=== PATIENT | male | born 1965 | race Caucasian/White ===

== ENCOUNTER 2018-03-13 15:08 | Emergency (ER) | payer MEDICAID, SELFPAY ==
[2018-03-13] VITALS (20 sets, daily range): BP systolic 100–184; BP diastolic 59–87; PULSE 55–78; RESP 13–24; TEMP 37.4; O2SAT 93–99
--- NOTE | 2018-03-13 15:46 | ED.GENADUL_ITS ---
Discharge Plan Disposition Patient Disposition: HOME Condition: Improving Discharge Details Chief Complaint: Chest Pain Clinical Impression: Atypical chest pain Primary Care Provider: González Ohara ED Provider: Bairon Muñoz Home Meds and New Rx's Prescriptions: Continue blood-glucose meter [OneTouch Ultra2] 1 EACH kit 1 ea Miscellaneous BID Qty: 1 RF: 0 metoprolol tartrate 50 MG tablet 50 mg PO BID Qty: 180 RF: 3 amlodipine [Norvasc] 10 MG tablet 1 tab PO QAM Qty: 90 RF: 4 indomethacin 50 MG capsule 50 mg PO TID FOR 5 DAYS PRN 5 Days Qty: 30 RF: 0 ONETOUCH ULTRA TEST STRIPS 1 EACH strip 1 ea Miscellaneous BID Qty: 100 RF: 4 metformin 500 MG tablet 500 mg PO BID Qty: 180 RF: 4 lancets [OneTouch Delica Lancets] 1 EACH misc 1 ea Miscellaneous BID Qty: 100 RF: 4 ibuprofen 800 MG tablet 800 mg PO TID Qty: 21 RF: 1 lisinopril 40 MG tablet 0.5 tab PO DAILY Qty: 90 RF: 4 hydrochlorothiazide 25 mg tablet 25 mg PO DAILY Qty: 90 RF: 4 garlic 1 EACH tablet 1 tab PO DAILY RF: 0 cinnamon bark 500 MG capsule 1,000 mg PO DAILY RF: 0 omega-3 fatty acids-fish oil 1 EACH capsule 1 cap PO DAILY RF: 0 diphenhydramine HCl 25 MG capsule 50 mg PO Q6H PRN (Reason: Itching) Qty: 20 RF: 0 Discharge Instructions Instructions: Chest Pain (ED) Additional Instructions: Please follow-up with Dr. Ohara in clinic in the next 1-2 weeks for a recheck. Call for an appointment. Return if you develop chest pain that becomes persistent, is associated with shortness of breath, or any other acute concerns. Continue your regular medications. Please follow through with your plans to decrease cigarette use and begin a regular exercise regimen as it benefited you greatly in the past Medical Decision Making 53-year-old male smoker with a history of diabetes presents with intermittent episodes of atypical, brief left anterior chest discomfort the last seconds at a time and is been occurring over weeks time. Is not particularly exertional. He denies associated symptoms. He arrives to the ER with mild hypertension, otherwise unremarkable vital signs. Differential diagnosis includes atypical chest pain, occult pneumonitis, acute coronary syndrome. Do not appreciate significant evidence of DVT or fluid overload. Patient referred for blood work, EKG, chest x-ray. Patient's diagnostic studies are reassuring without acute/significant findings. His discomfort began 4 hours prior to presentation, diminished without intervention and is not ongoing. Do not feel that he requires repeat troponin. He is improved, without further complaints. Discussed with the patient and his partner return precautions. He will followup with Dr Ohara for recheck. Lab Data Lab results reviewed: Yes I reviewed the patient's lab results. Laboratory Results - last 24 hr 03/13/18 03/13/18 15:20 15:20 WBC 8.48 RBC 5.24 Hgb 16.1 Hct 46.2 MCV 88.2 MCH 30.7 MCHC 34.8 RDW 12.8 Plt Count 129 L MPV 12.5 H Immature Gran % 0.2 Neutrophils % 56.1 Lymphocytes % 31.7 Monocytes % 9.7 Eosinophils % 1.9 Basophils % 0.4 Absolute Neutrophils 4.76 Absolute Lymphocytes 2.69 Absolute Monocytes 0.82 H Absolute Eosinophils 0.16 Absolute Basophils 0.03 Sodium 138 Potassium 3.8 Chloride 99 Carbon Dioxide 28.9 Anion Gap 10.1 BUN 19 H Creatinine 0.96 Estimated GFR/1.73 m2 >= 60.00 Glucose 106 H Calcium 9.3 Magnesium 1.8 Total Bilirubin 0.3 AST 15 ALT 30 Alkaline Phosphatase 54 Troponin I < 0.02 Total Protein 8.0 Albumin 4.2 ECG Data Attestation: I personally reviewed and interpreted this ECG (s) as follows: Interpretation: Normal sinus rhythm, rate of 77, the QRS is narrow, there is no ST segment elevation HPI General Mode of arrival: ambulatory . Date/Time Provider Initiated Documentation: 03/13/18 15:13 . Limitations to Documentation: no limitations . Information obtained by: patient . History of Present Illness 53 year old M presents to the emergency department with the chief complaint of Chest pain and twinges, described as mild, with intensity rated at 2. and is localized to the chest and left. Patient reports no radiation. Patient started experiencing this minute(s) and it has been intermittent and now resolved. No relieving factors improve symptom(s), No exacerbating factors reported . Patient notes no other symptoms.. HPI Narrative: Chest pain, twinges intermittently lasting seconds at a time over 2 weeks time. Became worried that may be a heart attack today and presents for evaluation. States he had a negative left heart cath in 2003. No known history of coronary artery disease. He does continue to smoke Related Data Home Medications Medication Instructions Recorded Confirmed blood-glucose meter [[employer]Touch #1 kit 08/27/16 Ultra2] metoprolol tartrate 50 mg PO BID #180 tab-cap 03/24/17 amlodipine [Norvasc] 1 tab PO QAM #90 tab-cap 05/02/17 indomethacin 50 mg PO TID FOR 5 DAYS PRN 5 Days 06/17/17 #30 tab-cap cinnamon bark 1,000 mg PO DAILY 09/21/17 09/21/17 diphenhydramine HCl 50 mg PO Q6H PRN #20 cap 09/21/17 garlic 1 tab PO DAILY 09/21/17 09/21/17 omega-3 fatty acids-fish oil 1 cap PO DAILY 09/21/17 09/21/17 metformin 500 mg PO BID #180 tab 10/16/17 lancets [[employer]Touch Delica Lancets] #100 ea 11/18/17 ibuprofen 800 mg PO TID #21 tab-cap 12/05/17 lisinopril 0.5 tab PO DAILY #90 tab-cap 12/18/17 hydrochlorothiazide 25 mg tablet 25 mg PO DAILY #90 tab-cap 02/11/18 Previous Rx's Medication Instructions Recorded metoprolol tartrate 50 mg PO BID #180 tab-cap 03/24/17 amlodipine [Norvasc] 1 tab PO QAM #90 tab-cap 05/02/17 indomethacin 50 mg PO TID FOR 5 DAYS PRN 5 Days 06/17/17 #30 tab-cap diphenhydramine HCl 50 mg PO Q6H PRN #20 cap 09/21/17 metformin 500 mg PO BID #180 tab 10/16/17 lancets [[employer]Touch Delica Lancets] #100 ea 11/18/17 ibuprofen 800 mg PO TID #21 tab-cap 12/05/17 lisinopril 0.5 tab PO DAILY #90 tab-cap 12/18/17 hydrochlorothiazide 25 mg tablet 25 mg PO DAILY #90 tab-cap 02/11/18 Allergies Allergy/AdvReac Type Severity Reaction Status Date / Time No Known Allergies Allergy Unverified 12/05/17 10:32 General Stated Complaint: Chest Pain SARAH: 2 Review of Systems Review of Systems 8 systems reviewed and otherwise negative PFSH Social History Smoking/Tobacco Use Status: Current every day Surgical History LEFT HEART CARDIAC CATH (~2003) Exam Narrative Exam Narrative: GEN: awake, alert, oriented 3. Pleasant, well groomed, interactive. HEAD: Normocephalic, atraumatic ENT: Mucous membranes moist, oropharynx unremarkable, External ear exam unremarkable EYES: PERRL, EOMI NECK: Full ROM, no KELLIE, no menigismus CHEST/RESP: Nontender, clear to auscultation bilateral, no wheeze/rhonchi/rales CARDIOVASCULAR: RRR, no murmur, rub paul. 2+ Rad pulse bilateral ABDOMEN: Soft, nontender, no mass. +Bowel sounds EXT: Full ROM, no edema, no rash Neuro: Grossly normal neurologic exam, conversant, interactive. Psych: Speech fluent, thoughts congruent, affect normal Course Vital Signs Temperature 37.4 C 03/13/18 15:19 Pulse 74 03/13/18 15:19 Respiratory Rate 23 03/13/18 15:19 Blood Pressure 184/87 H 03/13/18 15:19 Pulse Oximetry 98 03/13/18 15:19 Temperature 37.4 C 03/13/18 15:19 Temperature Source Temporal Artery Scan 03/13/18 15:19 Pulse 74 03/13/18 15:19 Respiratory Rate 23 03/13/18 15:19 Blood Pressure 184/87 H 03/13/18 15:19 Blood Pressure Position Supine 03/13/18 15:19 Pulse Oximetry 98 03/13/18 15:19 Oxygen Delivery Method Room Air 03/13/18 15:19 Oxygen Flow Rate 0 03/13/18 15:19 Pain Level 0 03/13/18 15:19
[2018-03-13 15:56] LABS: Abs Immature Grans 0.02 k/cumm (0.0-0.09); Absolute Basophil Count 0.03 k/cumm (0.0-0.2); Absolute Eosinophil Count 0.16 k/cumm (0.0-0.7); Absolute Lymphocyte Count 2.69 k/cumm (1.2-3.4); Absolute Monocyte Count 0.82 k/cumm (0.11-0.7); Absolute Neutrophil Count 4.76 k/cumm (1.2-6.7); Basophils % 0.4; Eosinophils % 1.9; HCT 46.2 % (40.0-50.0); HGB 16.1 g/dL (13.5-17.5); Immature Grans % 0.2; Lymphocytes % 31.7; Mean Corp. HGB Concentration 34.8 g/dL (32.0-36.0); Mean Corpuscular Hemoglobin 30.7 pg (27.0-33.0); Mean Corpuscular Volume 88.2 fL (80-95); Mean Platelet Volume 12.5 fL (8.0-11.0); Monocytes % 9.7; Neutrophils % 56.1; Platelet Count 129 x1000/uL (130-400); RBC 5.24 m/cumm (4.50-6.00); RBC Distribution Width 12.8 % (11.8-14.1); White Blood Cell Count 8.48 k/cumm (4.4-10.8)
[2018-03-13 16:16] LABS: ALT 30 U/L (12-78); AST 15 U/L (15-37); Albumin 4.2 g/dL (3.4-5.0); Alkaline Phosphatase 54 U/L (46-116); Anion Gap 10.1 mmol/L (3-11); BUN 19 mg/dL (7-18); Bilirubin, Total 0.3 mg/dL (0.2-1.0); CO2 28.9 mmol/L (21.0-32.0); CREATININE 0.96 mg/dL (0.70-1.30); Calcium 9.3 mg/dL (8.5-10.1); Chloride 99 mmol/L (98-107); Glucose 106 mg/dL (70-100); Magnesium 1.8 mg/dL (1.8-2.4); Potassium 3.8 mmol/L (3.5-5.1); Sodium 138 mmol/L (136-145)
[2018-03-13 16:29] LABS: Troponin I < 0.02 ng/mL (0.00-0.06)
--- NOTE | 2018-03-13 16:53 | DI.RAD_ITS ---
SYMPTOM/DIAGNOSIS: CHEST PAIN PA AND LATERAL CHEST: Comparison is made with 07 Mar 2015. There is respiratory motion on the PA view. The heart size is normal. The lungs appear clear. IMPRESSION: Limited exam. No gross evidence of an acute abnormality.
--- NOTE | 2018-03-13 17:08 | DI.VRAD_ITS ---
EXAM: XR Chest, 2 Views EXAM DATE/TIME: 03/13/2018 3:38 PM CLINICAL HISTORY: 53 years old, male; Pain; Chest pain; Type not specified TECHNIQUE: XR of the chest, 2 views. COMPARISON: CR CHEST 2 VIEWS PA,LAT 03/07/2015 10:29 AM FINDINGS: Lungs: Unremarkable. No consolidation. Pleural space: Unremarkable. No pleural effusion. No pneumothorax. Heart/Mediastinum: Unremarkable. No cardiomegaly. Bones/joints: Chronic osseous changes. IMPRESSION: No acute cardiopulmonary findings. Dictated and Authenticated by: Mauricio Sevilla MD. Ordering:CAIN MAZA MD
== END 2018-03-13 17:27 | disposition home or self-care (01) ==
LOC: ER 17:57
PROVIDERS: Emergency Provider Emergency Medicine; PCP Family Medicine
DX: R07.89 Other chest pain (principal); F17.210 Nicotine dependence, cigarettes, uncomplicated; J44.9 Chronic obstructive pulmonary disease, unspecified; E11.9 Type 2 diabetes mellitus without complications; Z79.84 Long term (current) use of oral hypoglycemic drugs; I10 Essential (primary) hypertension
CPT/HCPCS: 36415; 80053; 93005; 99285; 71046; 83735; 84484; 85025; 93010; 99284

== ENCOUNTER 2018-05-08 17:07 | Emergency (ER) | payer MEDICAID, SELFPAY ==
[2018-05-08 17:20] VITALS: BP 167/96; PULSE 73; RESP 17; TEMP 37; O2SAT 99
--- NOTE | 2018-05-08 17:23 | DI.RAD_ITS ---
SYMPTOM/DIAGNOSIS: CHEST PAIN PA AND LATERAL CHEST: The heart is normal in size. The lungs are clear. The mediastinal structures and pleura appear intact. CONCLUSION: Normal chest.
--- NOTE | 2018-05-08 17:24 | W.ED.GENAD ---
Discharge Plan Disposition Patient Disposition: HOME Condition: Good Discharge Details Chief Complaint: Chest Pain Clinical Impression: Atypical chest pain, Chronic chest pain Primary Care Provider: González Ohara ED Provider: Roro Quintanilla Home Meds and New Rx's Prescriptions: Continued nicotine 21 mg/24 hr patch 24 hour 1 patch TD DAILY Qty: 28 RF: 2 Ventolin HFA 90 mcg/actuation HFA aerosol inhaler 2 puff IH Q6H PRN (Reason: shortness of breath or wheezing) Qty: 18 RF: 0 blood-glucose meter [[employer] Ultra2] 1 EACH kit 1 ea Miscellaneous BID Qty: 1 RF: 0 metoprolol tartrate 50 MG tablet 50 mg PO BID Qty: 180 RF: 3 amlodipine [Norvasc] 10 MG tablet 1 tab PO QAM Qty: 90 RF: 4 indomethacin 50 MG capsule 50 mg PO TID FOR 5 DAYS PRN 5 Days Qty: 30 RF: 0 [employer] Innovations[employer]OUCH ULTRA TEST STRIPS 1 EACH strip 1 ea Miscellaneous BID Qty: 100 RF: 4 metformin 500 MG tablet 500 mg PO BID Qty: 180 RF: 4 lancets [OneTouch Delica Lancets] 1 EACH misc 1 ea Miscellaneous BID Qty: 100 RF: 4 ibuprofen 800 MG tablet 800 mg PO TID Qty: 21 RF: 1 hydrochlorothiazide 25 mg tablet 25 mg PO DAILY Qty: 90 RF: 4 lisinopril 40 mg tablet 40 mg PO DAILY Qty: 90 RF: 1 garlic 1 EACH tablet 1 tab PO DAILY RF: 0 cinnamon bark 500 MG capsule 1,000 mg PO DAILY RF: 0 omega-3 fatty acids-fish oil 1 EACH capsule 1 cap PO DAILY RF: 0 diphenhydramine HCl 25 MG capsule 50 mg PO Q6H PRN (Reason: Itching) Qty: 20 RF: 0 Discharge Instructions Instructions: Chest Pain (ED), Chronic Pain (ED) Additional Instructions: You will receive a call from radiology regarding a follow-up appointment for your outpatient stress test. Call your primary care doctor on Friday morning to schedule follow-up appointment for reevaluation. Return to the emergency department any worsening or new concerning symptoms. Discharge Data Discharge Date/Time-TO BE ENTERED AT DEPARTURE: 05/08/18 19:34 Discharge Physician: Roro Quintanilla Medical Decision Making 53-year-old male with a history of diabetes, hypertension, high cholesterol, COPD, obesity who presents with intermittent chest pain that feels like a twinge for the past 3 weeks. No chest pain at present. Occasional nausea yesterday but none at present. Denies any other associated symptoms of dizziness, shortness of breath, leg pain or swelling and no other DVT/PE risk factors. Patient is morbidly obese with history of smoking. His EKG on arrival noted a rate of 70, sinus, no acute ST elevation or depression. Cardiac workup ordered on arrival and reviewed and negative. Labs unremarkable. Troponin negative. Chest x-ray negative. HEART score 3 which is low risk and history sounds atypical for cardiac etiology. As symptoms have been present for several weeks, I do not see any indication for repeat troponin. Will set up patient for an outpatient stress test. Patient had also discussed his left shoulder, right wrist, and left elbow pain for a few weeks, worse with frequent lifting and pushing at work, there is no acute evidence of infection, and this appears possibly musculoskeletal due to repetitive use. Patient denies any chest pain while here in the ED. Outpatient stress test ordered. Patient instructed to follow-up with his primary care doctor for reevaluation and return at anytime if worse. Medical Records Medical records reviewed: Yes I reviewed the patient's medical records. Imaging Data Radiologic Study: Radiologist's impression: XR Chest, 2 Views EXAM DATE/TIME: 05/08/2018 5:24 PM CLINICAL HISTORY: 53 years old, male; Pain; Chest pain; Type not specified; Additional info: R/O acute disease TECHNIQUE: XR of the chest, 2 views. COMPARISON: CR XR CHEST 2V PA LATERAL 03/13/2018 4:42 PM FINDINGS: Lungs: Hyperexpanded lung goodwin consistent with COPD . No focal consolidation Pleural space: Unremarkable. No pleural effusion. No pneumothorax. Heart/Mediastinum: Unremarkable. No cardiomegaly. Bones/joints: Unremarkable. IMPRESSION: No acute process Lab Data Lab results reviewed: Yes I reviewed the patient's lab results. Laboratory Tests Range/Units 05/08/18 05/08/18 17:35 17:35 WBC (4.4-10.8) k/cumm 7.55 RBC (4.50-6.00) m/cumm 5.06 Hgb (13.5-17.5) g/dL 15.7 Hct (40.0-50.0) % 45.4 MCV (80-95) fL 89.7 MCH (27.0-33.0) pg 31.0 MCHC (32.0-36.0) g/dL 34.6 RDW (11.8-14.1) % 13.0 Plt Count (130-400) x1000/uL 118 L MPV (8.0-11.0) fL 11.8 H Immature Gran % 0.3 Neutrophils % 55.9 Lymphocytes % 30.3 Monocytes % 10.9 Eosinophils % 2.3 Basophils % 0.3 Absolute Neutrophils (1.2-6.7) k/cumm 4.23 Absolute Lymphocytes (1.2-3.4) k/cumm 2.29 Absolute Monocytes (0.11-0.7) k/cumm 0.82 H Absolute Eosinophils (0.0-0.7) k/cumm 0.17 Absolute Basophils (0.0-0.2) k/cumm 0.02 Sodium (136-145) mmol/L 141 Potassium (3.5-5.1) mmol/L 3.9 Chloride (98-107) mmol/L 102 Carbon Dioxide (21.0-32.0) mmol/L 32.6 H Anion Gap (3-11) mmol/L 6.4 BUN (7-18) mg/dL 17 Creatinine (0.70-1.30) mg/dL 0.82 Estimated GFR/1.73 m2 (mL/min/1.73m2) >= 60.00 Glucose (70-100) mg/dL 107 H Calcium (8.5-10.1) mg/dL 9.3 Magnesium (1.8-2.4) mg/dL 2.0 Total Bilirubin (0.2-1.0) mg/dL 0.2 AST (15-37) U/L 11 L ALT (12-78) U/L 29 Alkaline Phosphatase (46-116) U/L 52 Troponin I (0.00-0.06) ng/mL < 0.02 Total Protein (6.4-8.2) g/dL 7.6 Albumin (3.4-5.0) g/dL 3.9 ECG Data Attestation: I personally reviewed and interpreted this ECG (s) as follows: Interpretation: 4282 --70, sinus, no acute ST elevation or depression. T wave inversion in lead III which is seen in previous. QTc 395. QRS 102. HPI General Mode of arrival: ambulatory. Date/Time Provider Initiated Documentation: 05/08/18 17:18. Limitations to Documentation: no limitations. Information obtained by: patient. HPI Narrative: Pt is a 53-year-old male with a history of diabetes, hypertension, high cholesterol, COPD, obesity who presents with intermittent chest pain that feels like a twinge for the past 3 weeks. No chest pain at present. States the pain occurs at random and denies any worsening pain with exertion or any other aggravating or alleviating factors. Occasional nausea yesterday but none at present. Denies any other associated symptoms of fever, cough, shortness of breath, vomiting, diarrhea, urinary symptoms, abdominal pain, dizziness, shortness of breath, leg pain or swelling and no other DVT/PE risk factors. States he has been eating and drinking normally. Patient was seen here 2 months ago for a similar complaint and had a negative workup in the ED. States he has had this pain off and on since then. States he has not had any recent outpatient stress test. Related Data Home Medications Medication Instructions Recorded Confirmed blood-glucose meter [[email or web address] #1 kit 08/27/16 03/20/18 Ultra2] metoprolol tartrate 50 mg PO BID #180 tab-cap 03/24/17 05/08/18 amlodipine [Norvasc] 1 tab PO QAM #90 tab-cap 05/02/17 05/08/18 indomethacin 50 mg PO TID FOR 5 DAYS PRN 5 Days 06/17/17 05/08/18 #30 tab-cap cinnamon bark 1,000 mg PO DAILY 09/21/17 05/08/18 diphenhydramine HCl 50 mg PO Q6H PRN #20 cap 09/21/17 05/08/18 garlic 1 tab PO DAILY 09/21/17 05/08/18 omega-3 fatty acids-fish oil 1 cap PO DAILY 09/21/17 05/08/18 metformin 500 mg PO BID #180 tab 10/16/17 05/08/18 lancets [[employer]Touch Delica Lancets] #100 ea 11/18/17 03/20/18 ibuprofen 800 mg PO TID #21 tab-cap 12/05/17 05/08/18 hydrochlorothiazide 25 mg tablet 25 mg PO DAILY #90 tab-cap 02/11/18 05/08/18 albuterol sulfate HFA 90 2 puff IH Q6H PRN #18 gm 03/20/18 05/08/18 mcg/actuation aerosol inhaler nicotine 21 mg/24 hr daily 1 patch TD DAILY #28 each 03/20/18 05/08/18 transdermal patch lisinopril 40 mg tablet 40 mg PO DAILY #90 tab-cap 05/04/18 05/08/18 Previous Rx's Medication Instructions Recorded metoprolol tartrate 50 mg PO BID #180 tab-cap 03/24/17 amlodipine [Norvasc] 1 tab PO QAM #90 tab-cap 05/02/17 indomethacin 50 mg PO TID FOR 5 DAYS PRN 5 Days 06/17/17 #30 tab-cap diphenhydramine HCl 50 mg PO Q6H PRN #20 cap 09/21/17 metformin 500 mg PO BID #180 tab 10/16/17 lancets [OneTouch Delica Lancets] #100 ea 11/18/17 ibuprofen 800 mg PO TID #21 tab-cap 12/05/17 hydrochlorothiazide 25 mg tablet 25 mg PO DAILY #90 tab-cap 02/11/18 albuterol sulfate HFA 90 2 puff IH Q6H PRN #18 gm 03/20/18 mcg/actuation aerosol inhaler nicotine 21 mg/24 hr daily 1 patch TD DAILY #28 each 03/20/18 transdermal patch lisinopril 40 mg tablet 40 mg PO DAILY #90 tab-cap 05/04/18 Allergies Allergy/AdvReac Type Severity Reaction Status Date / Time No Known Allergies Allergy Unverified 05/08/18 17:26 General SARAH: 2 Review of Systems Review of Systems All systems reviewed & are unremarkable except as noted in HPI and below Constitutional Reports as per HPI, Denies chills and Denies fever(s) Eyes Denies blurry vision ENT Denies dizziness, Denies sore throat and Denies throat swelling Cardiovascular Reports chest pain and Denies dyspnea Respiratory Denies dyspnea Gastrointestinal Denies abdominal pain, Denies diarrhea and Denies vomiting Genitourinary Denies hematuria and Denies dysuria Musculoskeletal Denies back pain and Denies numbness Integumentary/Breasts Denies lesions and Denies rash Neurologic Denies dizziness and Denies numbness Allergic/Immunologic Denies throat swelling [facility] Medical History Hyperlipemia (Acute) COPD (chronic obstructive pulmonary disease) (Chronic) Depression (Chronic) Diabetes (Chronic) HTN (hypertension) (Chronic) Surgical History S/P rotator cuff repair (Acute) LEFT HEART CARDIAC CATH (~2003) Social History Smoking/Tobacco Use Status: Current every day alcohol intake: never substance use type: does not use Exam Const General: cooperative and no acute distress HENMT Head: normal to inspection Face and sinus: normal facial exam Eyes General: appearance normal, both eyes and all related structures EOM: EOM intact bilaterally Neck Neck: normal visual inspection Lymphatic: no lymphadenopathy noted Chest Chest: normal inspection of the chest and no tenderness Resp Effort & Inspection: normal respiratory effort and able to speak in complete sentences Auscultation: clear to auscultation bilaterally Cardio Rate: regular rate Rhythm: regular rhythm GI Inspection: normal to inspection and obesity Palpation: soft, not firm, not rigid and nontender Auscultation: normal bowel sounds Male General Exam: Yes normal external exam Back/Spine/Pelvis Thoracic/Lumbar Spine: thoracic and lumbar spine normal to inspection Pelvis: no pain with anterior-posterior compression Skin General skin exam: no rashes or lesions noted Neuro General: alert, awake and oriented x3 Cognition: normal cognition Speech: speech normal Motor: muscle tone normal throughout Sensory Exam: no sensory deficits noted Extrem General: normal to inspection, full ROM, no calf tenderness bilaterally and no edema Psych Appearance: grossly normal Mental Status: mental status grossly normal Speech and Movement: speech and movement normal Affect: normal affect
[2018-05-08 17:43] LABS: Abs Immature Grans 0.02 k/cumm (0.0-0.09); Absolute Basophil Count 0.02 k/cumm (0.0-0.2); Absolute Eosinophil Count 0.17 k/cumm (0.0-0.7); Absolute Lymphocyte Count 2.29 k/cumm (1.2-3.4); Absolute Monocyte Count 0.82 k/cumm (0.11-0.7); Absolute Neutrophil Count 4.23 k/cumm (1.2-6.7); Basophils % 0.3; Eosinophils % 2.3; HCT 45.4 % (40.0-50.0); HGB 15.7 g/dL (13.5-17.5); Immature Grans % 0.3; Lymphocytes % 30.3; Mean Corp. HGB Concentration 34.6 g/dL (32.0-36.0); Mean Corpuscular Volume 89.7 fL (80-95); Mean Platelet Volume 11.8 fL (8.0-11.0); Monocytes % 10.9; Neutrophils % 55.9; Platelet Count 118 x1000/uL (130-400); RBC 5.06 m/cumm (4.50-6.00); White Blood Cell Count 7.55 k/cumm (4.4-10.8)
[2018-05-08 17:58] LABS: ALT 29 U/L (12-78); AST 11 U/L (15-37); Albumin 3.9 g/dL (3.4-5.0); Alkaline Phosphatase 52 U/L (46-116); Anion Gap 6.4 mmol/L (3-11); BUN 17 mg/dL (7-18); Bilirubin, Total 0.2 mg/dL (0.2-1.0); CO2 32.6 mmol/L (21.0-32.0); CREATININE 0.82 mg/dL (0.70-1.30); Calcium 9.3 mg/dL (8.5-10.1); Chloride 102 mmol/L (98-107); Glucose 107 mg/dL (70-100); Potassium 3.9 mmol/L (3.5-5.1); Sodium 141 mmol/L (136-145); Total Protein 7.6 g/dL (6.4-8.2)
[2018-05-08 18:02] LABS: Troponin I < 0.02 ng/mL (0.00-0.06)
--- NOTE | 2018-05-08 18:21 | DI.VRAD_ITS ---
EXAM: XR Chest, 2 Views EXAM DATE/TIME: 05/08/2018 5:24 PM CLINICAL HISTORY: 53 years old, male; Pain; Chest pain; Type not specified; Additional info: R/O acute disease TECHNIQUE: XR of the chest, 2 views. COMPARISON: CR XR CHEST 2V PA LATERAL 03/13/2018 4:42 PM FINDINGS: Lungs: Hyperexpanded lung goodwin consistent with COPD . No focal consolidation Pleural space: Unremarkable. No pleural effusion. No pneumothorax. Heart/Mediastinum: Unremarkable. No cardiomegaly. Bones/joints: Unremarkable. IMPRESSION: No acute process Dictated and Authenticated by: Jaun Ordaz MD. Ordering:CLAUDIA Read MD
[2018-05-08 18:41] VITALS: BP 118/70; PULSE 67; RESP 20; O2SAT 95
[2018-05-08 19:24] VITALS: BP 102/65; PULSE 63; RESP 22; O2SAT 97
--- NOTE | 2018-06-22 11:12 | NUR.NOTE ---
Nursing Note: Per Diagnostic Imaging the patient did not show for his regular stress test appointment June 19. Amber Loza.
== END 2018-05-08 19:34 | disposition home or self-care (01) ==
PROVIDERS: Emergency Provider Physician Assistant; PCP Family Medicine
DX: R07.89 Other chest pain (principal); G89.29 Other chronic pain; J44.9 Chronic obstructive pulmonary disease, unspecified; F17.210 Nicotine dependence, cigarettes, uncomplicated; E11.9 Type 2 diabetes mellitus without complications; Z79.84 Long term (current) use of oral hypoglycemic drugs; I10 Essential (primary) hypertension; E66.01 Morbid (severe) obesity due to excess calories; Z68.43 Body mass index [BMI] 50.0-59.9, adult
CPT/HCPCS: 36415; 80053; 93005; 99285; 71046; 83735; 84484; 85025; 93010

== ENCOUNTER 2018-06-25 07:54 | Outpatient (CLI) | payer MEDICAID, SELFPAY ==
[2018-06-25 08:50] LABS: Hemoglobin A1C 6.1 % (4.5-6.2)
[2018-06-25 09:43] LABS: Cholesterol 172 mg/dL (50-200); HDL Cholesterol 33 mg/dL (40-60); LDL CHOLESTEROL 125 mg/dL (<100); Triglyceride 77 mg/dL (30-150)
== END 2018-06-25 08:14 ==
PROVIDERS: PCP Family Medicine; Visit Provider Family Medicine
DX: E78.5 Hyperlipidemia, unspecified (principal); E11.9 Type 2 diabetes mellitus without complications
CPT/HCPCS: 36415; 80061; 83721; 83036

== ENCOUNTER 2018-08-02 18:06 | Emergency (ER) | payer MEDICAID, SELFPAY ==
[2018-08-02 18:16] VITALS: BP 183/107; PULSE 78; RESP 20; TEMP 36.7; O2SAT 97
[2018-08-02 18:32] LABS: Bilirubin Negative (Negative); Blood Negative (Negative); Clarity Clear; Glucose Negative (Negative); Ketones Negative (Negative); Leukocyte Esterase Negative (Negative); Nitrite Negative (Negative); Urobilinogen 0.2 EU/dL (Up TO 0.2); pH 6.5 (5-8)
--- NOTE | 2018-08-02 18:45 | W.ED.GENAD ---
Discharge Plan Disposition Patient Disposition: HOME Condition: Good Discharge Details Chief Complaint: Urinary Clinical Impression: Epididymitis, right Primary Care Provider: González Ohara ED Provider: Wild Chao Home Meds and New Rx's Prescriptions: New acetaminophen [Mapap Extra Strength] 500 MG tablet 1,000 mg PO Q6H 5 Days Qty: 60 RF: 0 ibuprofen [Motrin IB] 200 MG tablet 600 mg PO Q6H 5 Days Qty: 60 RF: 0 doxycycline hyclate 100 mg tablet 100 mg PO BID Qty: 28 RF: 0 Discontinued ibuprofen 800 MG tablet 800 mg PO TID Qty: 21 RF: 1 No Action turmeric 400 mg capsule PO RF: 0 amlodipine [Norvasc] 10 mg tablet 10 mg PO QAM Qty: 90 RF: 4 nicotine 21 mg/24 hr patch 24 hour 1 patch TD DAILY Qty: 28 RF: 2 albuterol sulfate [Ventolin HFA] 90 mcg/actuation HFA aerosol inhaler 2 puff IH Q6H PRN (Reason: shortness of breath or wheezing) Qty: 18 RF: 0 blood-glucose meter [[employer] Ultra2] 1 EACH kit 1 ea Miscellaneous BID Qty: 1 RF: 0 indomethacin 50 MG capsule 50 mg PO TID FOR 5 DAYS PRN 5 Days Qty: 30 RF: 0 ParAccelUCH ULTRA TEST STRIPS 1 EACH strip 1 ea Miscellaneous BID Qty: 100 RF: 4 metformin 500 MG tablet 500 mg PO BID Qty: 180 RF: 4 lancets [OneTouch Delica Lancets] 1 EACH misc 1 ea Miscellaneous BID Qty: 100 RF: 4 hydrochlorothiazide 25 mg tablet 25 mg PO DAILY Qty: 90 RF: 4 lisinopril 40 mg tablet 40 mg PO DAILY Qty: 90 RF: 1 metoprolol tartrate 50 mg tablet 50 mg PO BID Qty: 180 RF: 3 garlic 1 EACH tablet 1 tab PO DAILY RF: 0 cinnamon bark 500 MG capsule 1,000 mg PO DAILY RF: 0 omega-3 fatty acids-fish oil 1 EACH capsule 1 cap PO DAILY RF: 0 diphenhydramine HCl 25 MG capsule 50 mg PO Q6H PRN (Reason: Itching) Qty: 20 RF: 0 Discharge Instructions Instructions: Epididymitis (ED) Additional Instructions: Please wear tight fitting underwear. Please take the doxycycline, Tylenol, and Motrin as directed. If you have any return or worsening of your symptoms please return immediately for the ultrasound we discussed. Please follow-up promptly with your primary care provider. If you notice any worsening of your symptoms, or any new symptoms such as vomiting, diarrhea, fever, chills, shortness of breath, chest pain, numbness, weakness, or fainting , please return immediately to the emergency department for reevaluation. Please follow up with your primary care provider as soon as possible for reassessment and reevaluation. As always, it was a pleasure participating in your medical care today. Referrals: González Ohara MD [Primary Care Provider] - Medical Decision Making This is a pleasant 53-year-old male with a past medical history of hypertension diabetes high cholesterol and COPD who presents today for evaluation of sensation of bladder fullness and right-sided posterior testicular tenderness. Exam demonstrates an unremarkable abdomen, no abdominal tenderness or pelvic tenderness. Palpation of his testicles demonstrates a notably normal and profound cremasteric reflex bilaterally, no horizontal lie. Both testicles are completely nontender, however the right epididymis is notably tender on palpation. No evidence of hydrocele or mass on exam. Signs and symptoms are clinically inconsistent with testicular torsion at this time of clinical exam and subsequent discharge. Symptoms are consistent with mild to moderate epididymitis. Unfortunately it is the weekend and no current ultrasound is available. With no signs of abdominal pain or tenderness I do not think that abdominal CT imaging is indicated at this time. I did discuss with the patient that although there is no clinical evidence of testicular torsion at this time we do not have ultrasound capabilities and for further ultrasound evaluation he would need to be transferred to another lying facility. Patient made made it very clear that he does not want to be transferred, and instead I gave him the option of pain, conference of funds off on any additional imaging at this time. With a history inconsistent with torsion, and both clinically and historically consistent with mild epididymitis, and in light of a negative urinalysis showing no evidence of urinary tract infection, or bacterial seeding from prostatitis, I do feel that he can be safely discharged home respecting his current wishes for no additional transfer for imaging at this time. With his complete resolution of his symptoms with Tylenol and Motrin, I do feel that continue Tylenol and Motrin is appropriate at home, with tight fitting underwear, as well. We have given IM Rocephin and doxycycline here and a prescription for home doxycycline. I discussed the importance of close return to follow-up if he has any changes or worsening of his symptoms. Additionally discussed red flags concerning for testicular torsion for which to return although he shows no signs of this at this time. I have extensively reviewed the treatment plan and discharge instructions with the patient. I have addressed all patient concerns at this time. The patient was made aware of what symptoms to monitor for that would warrant a return to the emergency department. Discussed the plan with the patient, they demonstrate verbal understanding and agreement with our assessment and plan at this time. Right testicular epididymal tenderness, does not want ultrasound, gave Rocephin and doxy here, prescription for HPI General Date/Time Provider Initiated Documentation: 08/02/18 18:16. HPI Narrative: This is a 53-year-old male with a past medical history of obesity, obstructive sleep apnea, type 2 diabetes, hypertension, COPD, who presents today for evaluation of urinary urgency, and mild ache in the posterior part of his right testicle. Patient states that his symptoms have been present for the last 4 days. They have not necessarily worsened or gotten better except when he takes ibuprofen and Tylenol, he states that taking this completely relieves his symptomatology. He denies any trauma, dysuria, hematuria, hematospermia, fever, chills, flank pain, nausea, vomiting or diarrhea. He denies any pain in his abdomen. He denies any recent surgeries. He denies any IV or illicit drug use or pertinent family history. Related Data Home Medications Medication Instructions Recorded Confirmed blood-glucose meter [Adspace NetworksTouch #1 kit 08/27/16 06/25/18 Ultra2] indomethacin 50 mg PO TID FOR 5 DAYS PRN 5 Days 06/17/17 06/25/18 #30 tab-cap cinnamon bark 1,000 mg PO DAILY 09/21/17 06/25/18 diphenhydramine HCl 50 mg PO Q6H PRN #20 cap 09/21/17 06/25/18 garlic 1 tab PO DAILY 09/21/17 06/25/18 omega-3 fatty acids-fish oil 1 cap PO DAILY 09/21/17 06/25/18 metformin 500 mg PO BID #180 tab 10/16/17 06/25/18 lancets [[employer]Touch Delica Lancets] #100 ea 07/31/18 03/07/19 hydrochlorothiazide 25 mg tablet 25 mg PO DAILY #90 tab-cap 02/11/18 06/25/18 albuterol sulfate HFA 90 2 puff IH Q6H PRN #18 gm 03/20/18 06/25/18 mcg/actuation aerosol inhaler nicotine 21 mg/24 hr daily 1 patch TD DAILY #28 each 03/20/18 06/25/18 transdermal patch lisinopril 40 mg tablet 40 mg PO DAILY #90 tab-cap 05/04/18 06/25/18 metoprolol tartrate 50 mg tablet 50 mg PO BID #180 tab-cap 05/18/18 06/25/18 amlodipine 10 mg tablet 10 mg PO QAM #90 tab-cap 06/25/18 06/25/18 turmeric 400 mg capsule mg PO cap 06/25/18 06/25/18 acetaminophen [Mapap Extra 1,000 mg PO Q6H 5 Days #60 tab 08/02/18 Strength] doxycycline hyclate 100 mg PO BID #28 tab 08/02/18 ibuprofen [Motrin Ib] 600 mg PO Q6H 5 Days #60 tab 08/02/18 Previous Rx's Medication Instructions Recorded indomethacin 50 mg PO TID FOR 5 DAYS PRN 5 Days 06/17/17 #30 tab-cap diphenhydramine HCl 50 mg PO Q6H PRN #20 cap 09/21/17 metformin 500 mg PO BID #180 tab 10/16/17 lancets [OneTouch Delica Lancets] #100 ea 11/18/17 hydrochlorothiazide 25 mg tablet 25 mg PO DAILY #90 tab-cap 02/11/18 albuterol sulfate HFA 90 2 puff IH Q6H PRN #18 gm 03/20/18 mcg/actuation aerosol inhaler nicotine 21 mg/24 hr daily 1 patch TD DAILY #28 each 03/20/18 transdermal patch lisinopril 40 mg tablet 40 mg PO DAILY #90 tab-cap 05/04/18 metoprolol tartrate 50 mg tablet 50 mg PO BID #180 tab-cap 05/18/18 amlodipine 10 mg tablet 10 mg PO QAM #90 tab-cap 06/25/18 acetaminophen [Mapap Extra 1,000 mg PO Q6H 5 Days #60 tab 08/02/18 Strength] doxycycline hyclate 100 mg PO BID #28 tab 08/02/18 ibuprofen [Motrin Ib] 600 mg PO Q6H 5 Days #60 tab 08/02/18 Allergies Allergy/AdvReac Type Severity Reaction Status Date / Time No Known Allergies Allergy Unverified 06/25/18 15:25 General Stated Complaint: Urinary SARAH: 3 Review of Systems Review of Systems All systems reviewed & are unremarkable except as noted in HPI and below PFSH Social History Smoking/Tobacco Use Status: Current every day Second Hand Exposure: Yes Alcohol Intake: former Drug use: Never Substance use type: former substance user and marijuana Household members: significant other Pets and animals: Yes Pets and animals: cat(s) and dog(s) Sexually active: Yes Do you think of yourself as: straight/heterosexual Current gender identity: decline to answer What is your relationship status?: living with partner How often do you talk on the phone with friends or family?: three or more times per week How often do you get together with friends or relatives?: three or more times per week How often do you attend mormon or caodaism services?: 1-3 times per year Do you belong to any clubs or organized social groups?: no Panel score (0-1 are the most socially isolated patients): 2 What type of physical activity do you participate in: walking Duration: decline to answer Frequency: decline to answer Sophia/Hinduism: Bap Special sophia needs: No Do you feel safe in your relationship?: Yes Exam Narrative Exam Narrative: 1.Const: Well-nourished, Well-developed, appearing stated age 2.Eyes: PERRL, no conjunctival injection, and symmetrical lids. 3.ENT: Atraumatic external nose and ears. Moist MM. Neck: Symmetric, trachea midline, No thyromegaly. 4.CVS: +S1/S2, No murmurs or gallops. Peripheral pulses 2+ and equal in all extremities. Brisk capillary refill in all extremities. 5.RESP: Unlabored respiratory effort. Clear to auscultation bilaterally. No wheezes rales or rhonchi 6.GI: Soft, Nontender/Nondistended, No hepatosplenomegaly. No guarding or rebound. No flank or CVA tenderness. No pain at McBurney's point. Negative Ny sign. Genital exam demonstrates bilaterally descended testicles, no penile discharge, no penile shaft tenderness. Testicles demonstrate a notably profound cremasteric reflex bilaterally, no evidence of horizontal lie, or blue dot sign. Left testicle is completely nontender with a nontender epididymis, no evidence of hydrocele. Right testicle is also nontender however the right sided epididymis is mild to moderately tender on palpation. No other abnormalities on exam. 7.MSK: Normocephalic/Atraumatic, Extremities w/o deformity or ttp No cyanosis or clubbing, Normal movement of all extremities 8.Skin: Warm, Dry. No rashes or lesions. 9.Neuro: medication technician II-XII grossly intact. Sensation grossly intact, no focal neurologic deficits. 10.Psych: (AAO) x3. Appropriate mood and affect Course Vital Signs Temperature 36.7 C 08/02/18 18:16 Pulse 78 08/02/18 18:16 Respiratory Rate 20 08/02/18 18:16 Blood Pressure 183/107 H 08/02/18 18:16 Pulse Oximetry 97 08/02/18 18:16 Temperature 36.7 C 08/02/18 18:16 Temperature Source Temporal Artery Scan 08/02/18 18:16 Pulse 78 08/02/18 18:16 Respiratory Rate 20 08/02/18 18:16 Respiratory Effort Non-Labored 08/02/18 18:16 Blood Pressure 183/107 H 08/02/18 18:16 Pulse Oximetry 97 08/02/18 18:16 End Tidal Co2 4 08/02/18 18:16 Lab/Test Results Lab/Test Results: Laboratory Tests Range/Units 08/02/18 18:26 Urine Color (Yellow) Yellow Urine Clarity Clear Urine pH (5-8) 6.5 Ur Specific [employer] (1.005-1.025) 1.020 Urine Protein (Negative) mg/dL Negative Urine Ketones (Negative) mg/dL Negative Urine Blood (Negative) Negative Urine Nitrite (Negative) Negative Urine Bilirubin (Negative) Negative Urine Urobilinogen (Up TO 0.2) EU/dL 0.2 Ur Leukocyte Esterase (Negative) Negative Urine Glucose (Negative) mg/dL Negative
--- NOTE | 2018-08-02 19:02 | ED.GENADUL_ITS ---
Discharge Plan Disposition Patient Disposition: HOME Condition: Good Discharge Details Chief Complaint: Urinary Clinical Impression: Epididymitis, right Primary Care Provider: González Ohara ED Provider: Wild Chao Home Meds and New Rx's Prescriptions: New acetaminophen [Mapap Extra Strength] 500 MG tablet 1,000 mg PO Q6H 5 Days Qty: 60 RF: 0 ibuprofen [Motrin IB] 200 MG tablet 600 mg PO Q6H 5 Days Qty: 60 RF: 0 doxycycline hyclate 100 mg tablet 100 mg PO BID Qty: 28 RF: 0 Discontinued ibuprofen 800 MG tablet 800 mg PO TID Qty: 21 RF: 1 No Action turmeric 400 mg capsule PO RF: 0 amlodipine [Norvasc] 10 mg tablet 10 mg PO QAM Qty: 90 RF: 4 nicotine 21 mg/24 hr patch 24 hour 1 patch TD DAILY Qty: 28 RF: 2 albuterol sulfate [Ventolin HFA] 90 mcg/actuation HFA aerosol inhaler 2 puff IH Q6H PRN (Reason: shortness of breath or wheezing) Qty: 18 RF: 0 blood-glucose meter [Meteo Protectuch Ultra2] 1 EACH kit 1 ea Miscellaneous BID Qty: 1 RF: 0 indomethacin 50 MG capsule 50 mg PO TID FOR 5 DAYS PRN 5 Days Qty: 30 RF: 0 Bulldog SolutionsUCH ULTRA TEST STRIPS 1 EACH strip 1 ea Miscellaneous BID Qty: 100 RF: 4 metformin 500 MG tablet 500 mg PO BID Qty: 180 RF: 4 lancets [OneTouch Delica Lancets] 1 EACH misc 1 ea Miscellaneous BID Qty: 100 RF: 4 hydrochlorothiazide 25 mg tablet 25 mg PO DAILY Qty: 90 RF: 4 lisinopril 40 mg tablet 40 mg PO DAILY Qty: 90 RF: 1 metoprolol tartrate 50 mg tablet 50 mg PO BID Qty: 180 RF: 3 garlic 1 EACH tablet 1 tab PO DAILY RF: 0 cinnamon bark 500 MG capsule 1,000 mg PO DAILY RF: 0 omega-3 fatty acids-fish oil 1 EACH capsule 1 cap PO DAILY RF: 0 diphenhydramine HCl 25 MG capsule 50 mg PO Q6H PRN (Reason: Itching) Qty: 20 RF: 0 Discharge Instructions Instructions: Epididymitis (ED) Additional Instructions: Please wear tight fitting underwear. Please take the doxycycline, Tylenol, and Motrin as directed. If you have any return or worsening of your symptoms please return immediately for the ultrasound we discussed. Please follow-up promptly with your primary care provider. If you notice any worsening of your symptoms, or any new symptoms such as vomiting, diarrhea, fever, chills, shortness of breath, chest pain, numbness, weakness, or fainting , please return immediately to the emergency department for reevaluation. Please follow up with your primary care provider as soon as possible for reassessment and reevaluation. As always, it was a pleasure participating in your medical care today. Referrals: González Ohara MD [Primary Care Provider] - Medical Decision Making This is a pleasant 53-year-old male with a past medical history of hypertension diabetes high cholesterol and COPD who presents today for evaluation of sensation of bladder fullness and right-sided posterior testicular tenderness. Exam demonstrates an unremarkable abdomen, no abdominal tenderness or pelvic tenderness. Palpation of his testicles demonstrates a notably normal and profound cremasteric reflex bilaterally, no horizontal lie. Both testicles are completely nontender, however the right epididymis is notably tender on palpation. No evidence of hydrocele or mass on exam. Signs and symptoms are clinically inconsistent with testicular torsion at this time of clinical exam and subsequent discharge. Symptoms are consistent with mild to moderate epididy mitis. Unfortunately it is the weekend and no current ultrasound is available. With no signs of abdominal pain or tenderness I do not think that abdominal CT imaging is indicated at this time. I did discuss with the patient that although there is no clinical evidence of testicular torsion at this time we do not have ultrasound capabilities and for further ultrasound evaluation he would need to be transferred to another lying facility. Patient made made it very clear that he does not want to be transferred, and instead I gave him the option of pain, conference of funds off on any additional imaging at this time. With a history inconsistent with torsion, and both clinically and historically consistent with mild epididymitis, and in light of a negative urinalysis showing no evidence of urinary tract infection, or bacterial seeding from prostatitis, I do feel that he can be safely discharged home respecting his current wishes for no additional transfer for imaging at this time. With his complete resolution of his symptoms with Tylenol and Motrin, I do feel that continue Tylenol and Motrin is appropriate at home, with tight fitting underwear, as well. We have given IM Rocephin and doxycycline here and a prescription for home doxycycline. I discussed the importance of close return to follow-up if he has any changes or worsening of his symptoms. Additionally discussed red flags concerning for testicular torsion for which to return although he shows no signs of this at this time. I have extensively reviewed the treatment plan and discharge instructions with the patient. I have addressed all patient concerns at this time. The patient was made aware of what symptoms to monitor for that would warrant a return to the emergency department. Discussed the plan with the patie nt, they demonstrate verbal understanding and agreement with our assessment and plan at this time. Right testicular epididymal tenderness, does not want ultrasound, gave Rocephin and doxy here, prescription for HPI General Date/Time Provider Initiated Documentation: 08/02/18 18:16 . HPI Narrative: This is a 53-year-old male with a past medical history of obesity, obstructive sleep apnea, type 2 diabetes, hypertension, COPD, who presents today for evaluation of urinary urgency, and mild ache in the posterior part of his right testicle. Patient states that his symptoms have been present for the last 4 days. They have not necessarily worsened or gotten better except when he takes ibuprofen and Tylenol, he states that taking this completely relieves his symptomatology. He denies any trauma, dysuria, hematuria, hematospermia, fever, chills, flank pain, nausea, vomiting or diarrhea. He denies any pain in his abdomen. He denies any recent surgeries. He denies any IV or illicit drug use or pertinent family history. Related Data Home Medications Medication Instructions Recorded Confirmed blood-glucose meter [Meteo Protectuch #1 kit 08/27/16 06/25/18 Ultra2] indomethacin 50 mg PO TID FOR 5 DAYS PRN 5 Days 06/17/17 06/25/18 #30 tab-cap cinnamon bark 1,000 mg PO DAILY 09/21/17 06/25/18 diphenhydramine HCl 50 mg PO Q6H PRN #20 cap 09/21/17 06/25/18 garlic 1 tab PO DAILY 09/21/17 06/25/18 omega-3 fatty acids-fish oil 1 cap PO DAILY 09/21/17 06/25/18 metformin 500 mg PO BID #180 tab 10/16/17 06/25/18 lancets [OneTouch Delica Lancets] #100 ea 11/18/17 06/25/18 hydrochlorothiazide 25 mg tablet 25 mg PO DAILY #90 tab-cap 02/11/18 06/25/18 albuterol sulfate HFA 90 2 puff IH Q6H PRN #18 gm 03/20/18 06/25/18 mcg/actuation aerosol inhaler nicotine 21 mg/24 hr daily 1 patch TD DAILY #28 each 03/20/18 06/25/18 transdermal patch lisinopril 40 mg tablet 40 mg PO DAILY #90 tab-cap 05/04/18 06/25/18 metoprolol tartrate 50 mg tablet 50 mg PO BID #180 tab-cap 05/18/18 06/25/18 amlodipine 10 mg tablet 10 mg PO QAM #90 tab-cap 06/25/18 06/25/18 turmeric 400 mg capsule mg PO cap 06/25/18 06/25/18 acetaminophen [Mapap Extra 1,000 mg PO Q6H 5 Days #60 tab 08/02/18 Strength] doxycycline hyclate 100 mg PO BID #28 tab 08/02/18 ibuprofen [Motrin Ib] 600 mg PO Q6H 5 Days #60 tab 08/02/18 Previous Rx's Medication Instructions Recorded indomethacin 50 mg PO TID FOR 5 DAYS PRN 5 Days 06/17/17 #30 tab-cap diphenhydramine HCl 50 mg PO Q6H PRN #20 cap 09/21/17 metformin 500 mg PO BID #180 tab 10/16/17 lancets [OneTouch Delica Lancets] #100 ea 11/18/17 hydrochlorothiazide 25 mg tablet 25 mg PO DAILY #90 tab-cap 02/11/18 albuterol sulfate HFA 90 2 puff IH Q6H PRN #18 gm 03/20/18 mcg/actuation aerosol inhaler nicotine 21 mg/24 hr daily 1 patch TD DAILY #28 each 03/20/18 transdermal patch lisinopril 40 mg tablet 40 mg PO DAILY #90 tab-cap 05/04/18 metoprolol tartrate 50 mg tablet 50 mg PO BID #180 tab-cap 05/18/18 amlodipine 10 mg tablet 10 mg PO QAM #90 tab-cap 06/25/18 acetaminophen [Mapap Extra 1,000 mg PO Q6H 5 Days #60 tab 08/02/18 Strength] doxycycline hyclate 100 mg PO BID #28 tab 08/02/18 ibuprofen [Motrin Ib] 600 mg PO Q6H 5 Days #60 tab 08/02/18 Allergies Allergy/AdvReac Type Severity Reaction Status Date / Time No Known Allergies Allergy Unverified 06/25/18 15:25 General Stated Complaint: Urinary SARAH: 3 Review of Systems Review of Systems All systems reviewed & are unremarkable except as noted in HPI and below PFSH Social History Smoking/Tobacco Use Status: Current every day Second Hand Exposure: Yes Alcohol Intake: former Drug use: Never Substance use type: former substance user and marijuana Household members: significant other Pets and animals: Yes Pets and animals: cat(s) and dog(s) Sexually active: Yes Do you think of yourself as: straight/heterosexual Current gender identity: decline to answer What is your relationship status?: living with partner How often do you talk on the phone with friends or family?: three or more times per week How often do you get together with friends or relatives?: three or more times per week How often do you attend taoism or spiritism services?: 1-3 times per year Do you belong to any clubs or organized social groups?: no Panel score (0-1 are the most socially isolated patients): 2 What type of physical activity do you participate in: walking Duration: decline to answer Frequency: decline to answer Sophia/Spiritism: Bap Special sophia needs: No Do you feel safe in your relationship?: Yes Exam Narrative Exam Narrative: 1.Const: Well-nourished, Well-developed, appearing stated age 2.Eyes: PERRL, no conjunctival injection, and symmetrical lids. 3.ENT: Atraumatic external nose and ears. Moist MM. Neck: Symmetric, trachea midline, No thyromegaly. 4.CVS: +S1/S2, No murmurs or gallops. Peripheral pulses 2+ and equal in all extremities. Brisk capillary refill in all extremities. 5.RESP: Unlabored respiratory effort. Clear to auscultation bilaterally. No wheezes rales or rhonchi 6.GI: Soft, Nontender/Nondistended, No hepatosplenomegaly. No guarding or rebound. No flank or CVA tenderness. No pain at McBurney's point. Negative Ny sign. Genital exam demonstrates bilaterally descended testicles, no penile discharge, no penile shaft tenderness. Testicles demonstrate a notably profound cremasteric reflex bilaterally, no evidence of horizontal lie, or blue dot sign. Left testicle is completely nontender with a nontender epididymis, no evidence of hydrocele. Right testicle is also nontender however the right sided epididymis is mild to moderately tender on palpation. No other abnormalities on exam. 7.MSK: Normocephalic/Atraumatic, Extremities w/o deformity or ttp No cyanosis or clubbing, Normal movement of all extremities 8.Skin: Warm, Dry. No rashes or lesions. 9.Neuro: critical care paramedic II-XII grossly intact. Sensation grossly intact, no focal neurologic deficits. 10.Psych: (AAO) x3. Appropriate mood and affect Course Vital Signs Temperature 36.7 C 08/02/18 18:16 Pulse 78 08/02/18 18:16 Respiratory Rate 20 08/02/18 18:16 Blood Pressure 183/107 H 08/02/18 18:16 Pulse Oximetry 97 08/02/18 18:16 Temperature 36.7 C 08/02/18 18:16 Temperature Source Temporal Artery Scan 08/02/18 18:16 Pulse 78 08/02/18 18:16 Respiratory Rate 20 08/02/18 18:16 Respiratory Effort Non-Labored 08/02/18 18:16 Blood Pressure 183/107 H 08/02/18 18:16 Pulse Oximetry 97 08/02/18 18:16 End Tidal Co2 4 08/02/18 18:16 Lab/Test Results Lab/Test Results: Laboratory Tests Range/Units 08/02/18 18:26 Urine Color (Yellow) Yellow Urine Clarity Clear Urine pH (5-8) 6.5 Ur Specific [place] (1.005-1.025) 1.020 Urine Protein (Negative) mg/dL Negative Urine Ketones (Negative) mg/dL Negative Urine Blood (Negative) Negative Urine Nitrite (Negative) Negative Urine Bilirubin (Negative) Negative Urine Urobilinogen (Up TO 0.2) EU/dL 0.2 Ur Leukocyte Esterase (Negative) Negative Urine Glucose (Negative) mg/dL Negative
[2018-08-02] MEDS: Doxycycline Hyclate 100 MG CAP PO (19:03)
[2018-08-02] MEDS: Ibuprofen 800 MG TAB PO (19:03)
[2018-08-02] MEDS: Acetaminophen 500 MG TAB 1000 MG PO (19:03)
[2018-08-02] MEDS: cefTRIAXone 250 MG VIAL IM (19:04)
== END 2018-08-02 19:16 | disposition home or self-care (01) ==
PROVIDERS: Emergency Provider Student in an Organized Health Care Education/Training Program; PCP Family Medicine
DX: N45.1 Epididymitis (principal); J44.9 Chronic obstructive pulmonary disease, unspecified
CPT/HCPCS: 96372; 99284; 81003; J0696

== ENCOUNTER 2018-08-06 22:40 | Emergency (ER) | payer MEDICAID, SELFPAY ==
[2018-08-06 22:43] VITALS: BP 157/89; PULSE 58; RESP 16; TEMP 36.2; O2SAT 100
--- NOTE | 2018-08-06 23:15 | W.ED.GENAD ---
Discharge Plan Disposition Patient Disposition: HOME Condition: Good Discharge Details Chief Complaint: Recheck Clinical Impression: Suprapubic pain Primary Care Provider: González Ohara ED Provider: Sagar Ribeiro Home Meds and New Rx's Prescriptions: New ofloxacin 300 mg tablet 300 mg PO BID Qty: 20 RF: 0 Continued turmeric 400 mg capsule PO RF: 0 amlodipine [Norvasc] 10 mg tablet 10 mg PO QAM Qty: 90 RF: 4 albuterol sulfate [Ventolin HFA] 90 mcg/actuation HFA aerosol inhaler 2 puff IH Q6H PRN (Reason: shortness of breath or wheezing) Qty: 18 RF: 0 blood-glucose meter [Resort Gemsuch Ultra2] 1 EACH kit 1 ea Miscellaneous BID Qty: 1 RF: 0 Impossible SoftwareTOUCH ULTRA TEST STRIPS 1 EACH strip 1 ea Miscellaneous BID Qty: 100 RF: 4 metformin 500 MG tablet 500 mg PO BID Qty: 180 RF: 4 lancets [OneTouch Delica Lancets] 1 EACH misc 1 ea Miscellaneous BID Qty: 100 RF: 4 hydrochlorothiazide 25 mg tablet 25 mg PO DAILY Qty: 90 RF: 4 lisinopril 40 mg tablet 40 mg PO DAILY Qty: 90 RF: 1 metoprolol tartrate 50 mg tablet 50 mg PO BID Qty: 180 RF: 3 garlic 1 EACH tablet 1 tab PO DAILY RF: 0 cinnamon bark 500 MG capsule 1,000 mg PO DAILY RF: 0 omega-3 fatty acids-fish oil 1 EACH capsule 1 cap PO DAILY RF: 0 Discontinued doxycycline hyclate 100 mg tablet 100 mg PO BID Qty: 28 RF: 0 Discharge Instructions Additional Instructions: Please stop the doxycycline and start the ofloxacin. May continue acetaminophen and ibuprofen for discomfort. Please make follow-up appointment with Dr. Frias for next week. Return to the emergency department if you develop fevers, worsening pain, testicular swelling or pain, other concerns Referrals: Elroy Frias MD [ [facility] STAFF PHYSICIAN] - Medical Decision Making At this point patient is complaining more of suprapubic discomfort. He has no testicular pain. Scrotum/testicle/epididymis are all normal. Prostate is nontender. He does describe some urinary urgency. He looks pretty comfortable and I doubt this is a kidney stone. He is sexually active but monogamous. Will obtain stone study CT and repeat urine. If these are negative for switching from doxycycline to fluoroquinolone and have him follow-up with urology, Dr. Frias. Urinalysis is negative. CT scan of the abdomen and pelvis shows no hernia. There is no appendicitis. There is no kidney stones. Little bit of mild symmetric perinephric stranding as well as possible bladder wall thickening but nothing specific. Also seems to be some haziness in the retroperitoneum and mesentery per radiology but this also is nonspecific. For me there is no real concern for testicular torsion. If this is related to epididymitis or mild prostatitis should probably be on fluoroquinolone as opposed to doxycycline given his age and monogamous status. Will discontinue doxycycline. We will put him on ofloxacin. Discussed risk of Achilles tendon rupture with patient. Will refer to Dr. Frias for reevaluation. Return to ED for fever, increased pain, testicular pain, or other concerns. Medical Records Medical records reviewed: Yes I reviewed the patient's medical records. Lab Data Lab results reviewed: Yes I reviewed the patient's lab results. HPI General Mode of arrival: ambulatory. Date/Time Provider Initiated Documentation: 08/06/18 22:50. Limitations to Documentation: no limitations. Information obtained by: patient and old records reviewed. HPI Narrative: Patient presents for continued right suprapubic pain and pressure. He was seen here 4 days ago. At that time it was felt to have a possible epididymitis and was given ceftriaxone and started on doxycycline. He states the next day felt much better. Yesterday and today however pain seems to be back. He is not really describing testicle pain at this point. States it feels like it is in the right suprapubic/groin area. He thinks it is a hernia. He denies any fevers or chills. He denies any flank pain. He denies any abdominal pain, vomiting, diarrhea. He does have a sense of urinary urgency at times. He has not noticed hematuria. He has had no scrotal or testicular swelling. He is sexually active but in a monogamous relationship. He has not followed up with anyone at this point. It is not worse but he does not feel better at this point either. Related Data Home Medications Medication Instructions Recorded Confirmed blood-glucose meter [Deadeye MarksmanshipTouch #1 kit 08/27/16 06/25/18 Ultra2] cinnamon bark 1,000 mg PO DAILY 09/21/17 08/06/18 garlic 1 tab PO DAILY 09/21/17 08/06/18 omega-3 fatty acids-fish oil 1 cap PO DAILY 09/21/17 08/06/18 metformin 500 mg PO BID #180 tab 10/16/17 08/06/18 lancets [JenniferTojonatan Delica Lancets] #100 ea 11/18/17 06/25/18 hydrochlorothiazide 25 mg tablet 25 mg PO DAILY #90 tab-cap 02/11/18 08/06/18 albuterol sulfate HFA 90 2 puff IH Q6H PRN #18 gm 03/20/18 08/06/18 mcg/actuation aerosol inhaler lisinopril 40 mg tablet 40 mg PO DAILY #90 tab-cap 05/04/18 08/06/18 metoprolol tartrate 50 mg tablet 50 mg PO BID #180 tab-cap 05/18/18 08/06/18 amlodipine 10 mg tablet 10 mg PO QAM #90 tab-cap 06/25/18 08/06/18 turmeric 400 mg capsule mg PO cap 06/25/18 06/25/18 ofloxacin 300 mg PO BID #20 tab 08/07/18 Previous Rx's Medication Instructions Recorded metformin 500 mg PO BID #180 tab 10/16/17 lancets [JenniferTojonatan Deljaison Lancets] #100 ea 11/18/17 hydrochlorothiazide 25 mg tablet 25 mg PO DAILY #90 tab-cap 02/11/18 albuterol sulfate HFA 90 2 puff IH Q6H PRN #18 gm 03/20/18 mcg/actuation aerosol inhaler lisinopril 40 mg tablet 40 mg PO DAILY #90 tab-cap 05/04/18 metoprolol tartrate 50 mg tablet 50 mg PO BID #180 tab-cap 05/18/18 amlodipine 10 mg tablet 10 mg PO QAM #90 tab-cap 06/25/18 ofloxacin 300 mg PO BID #20 tab 08/07/18 Allergies Allergy/AdvReac Type Severity Reaction Status Date / Time No Known Allergies Allergy Unverified 08/06/18 22:46 General Stated Complaint: Recheck SARAH: 4 Review of Systems Review of Systems 02/01 Review of Systems completed and is negative except as stated above in HPI (Systems reviewed: Const, Eyes, ENT, Resp, CV, GI, , MSK, Skin, Neuro) [facility] Medical History Gout (Chronic) Hyperlipemia (Acute) COPD (chronic obstructive pulmonary disease) (Chronic) Depression (Chronic) Diabetes (Chronic) HTN (hypertension) (Chronic) Surgical History S/P rotator cuff repair (Acute) LEFT HEART CARDIAC CATH (~2003) Social History Smoking/Tobacco Use Status: Current every day Tobacco Type: cigarettes Second Hand Exposure: Yes Alcohol Intake: former Drug use: Never Substance use type: former substance user Household members: significant other Pets and animals: Yes Pets and animals: cat(s) and dog(s) Sexually active: Yes Do you think of yourself as: straight/heterosexual Current gender identity: decline to answer What is your relationship status?: living with partner How often do you talk on the phone with friends or family?: three or more times per week How often do you get together with friends or relatives?: three or more times per week How often do you attend adventist or restorationist services?: 1-3 times per year Do you belong to any clubs or organized social groups?: no Panel score (0-1 are the most socially isolated patients): 2 What type of physical activity do you participate in: walking Duration: decline to answer Frequency: decline to answer Sophia/Advent: Bap Special sophia needs: No Do you feel safe in your relationship?: Yes Exam Narrative Exam Narrative: Vitals: He is afebrile. He is mildly hypertensive. Const: Obese male in NAD. HEENT: NC/AT. Normal facial exam. Eyes: Normal conjunctiva and sclera. Neck: Supple. Trachea midline. Lungs: Normal respiratory effort. GI: Soft. NT/ND. No guarding or rebound. Back: No CVAT. : Normal external male genitalia. No scrotal swelling. No testicular swelling or tenderness. No epididymal tenderness or swelling. No inguinal hernias appreciated. Nontender/non-boggy prostate on ALMA. Neuro: A+O x 3. CN grossly in tact. Good strength and no focal deficit. Ext: No C/C/E. No deformity or tenderness. Skin: Warm and dry without rash. Course Vital Signs Temperature 97.2 F L 08/06/18 22:43 Pulse 58 L 08/06/18 22:43 Respiratory Rate 16 08/06/18 22:43 Blood Pressure 157/89 H 08/06/18 22:43 Pulse Oximetry 100 08/06/18 22:43 Temperature 97.2 F L 08/06/18 22:43 Temperature Source Skin 08/06/18 22:43 Pulse 58 L 08/06/18 22:43 Respiratory Rate 16 08/06/18 22:43 Respiratory Effort Non-Labored 08/06/18 22:44 Blood Pressure 157/89 H 08/06/18 22:43 Pulse Oximetry 100 08/06/18 22:43 Pain Level 3 08/06/18 22:43
--- NOTE | 2018-08-06 23:22 | ED.GENADUL_ITS ---
Discharge Plan Disposition Patient Disposition: HOME Condition: Good Discharge Details Chief Complaint: Recheck Clinical Impression: Suprapubic pain Primary Care Provider: González Ohara ED Provider: Sagar Ribeiro Home Meds and New Rx's Prescriptions: New ofloxacin 300 mg tablet 300 mg PO BID Qty: 20 RF: 0 Continued turmeric 400 mg capsule PO RF: 0 amlodipine [Norvasc] 10 mg tablet 10 mg PO QAM Qty: 90 RF: 4 albuterol sulfate [Ventolin HFA] 90 mcg/actuation HFA aerosol inhaler 2 puff IH Q6H PRN (Reason: shortness of breath or wheezing) Qty: 18 RF: 0 blood-glucose meter [[employer] Ultra2] 1 EACH kit 1 ea Miscellaneous BID Qty: 1 RF: 0 DaylifeTOUCH ULTRA TEST STRIPS 1 EACH strip 1 ea Miscellaneous BID Qty: 100 RF: 4 metformin 500 MG tablet 500 mg PO BID Qty: 180 RF: 4 lancets [OneTouch Delica Lancets] 1 EACH misc 1 ea Miscellaneous BID Qty: 100 RF: 4 hydrochlorothiazide 25 mg tablet 25 mg PO DAILY Qty: 90 RF: 4 lisinopril 40 mg tablet 40 mg PO DAILY Qty: 90 RF: 1 metoprolol tartrate 50 mg tablet 50 mg PO BID Qty: 180 RF: 3 garlic 1 EACH tablet 1 tab PO DAILY RF: 0 cinnamon bark 500 MG capsule 1,000 mg PO DAILY RF: 0 omega-3 fatty acids-fish oil 1 EACH capsule 1 cap PO DAILY RF: 0 Discontinued doxycycline hyclate 100 mg tablet 100 mg PO BID Qty: 28 RF: 0 Discharge Instructions Additional Instructions: Please stop the doxycycline and start the ofloxacin. May continue acetaminophen and ibuprofen for discomfort. Please make follow-up appointment with Dr. Frias for next week. Return to the emergency department if you develop fevers, worsening pain, testicular swelling or pain, other concerns Referrals: Elroy Frias MD [ [facility] STAFF PHYSICIAN] - Medical Decision Making At this point patient is complaining more of suprapubic discomfort. He has no testicular pain. Scrotum/testicle/epididymis are all normal. Prostate is nontender. He does describe some urinary urgency. He looks pretty comfortable and I doubt this is a kidney stone. He is sexually active but monogamous. Will obtain stone study CT and repeat urine. If these are negative for switching from doxycycline to fluoroquinolone and have him follow-up with urology, Dr. Frias. Urinalysis is negative. CT scan of the abdomen and pelvis shows no hernia. There is no appendicitis. There is no kidney stones. Little bit of mild symmetric perinephric stranding as well as possible bladder wall thickening but nothing specific. Also seems to be some haziness in the retroperitoneum and mesentery per radiology but this also is nonspecific. For me there is no real concern for testicular torsion. If this is related to epididymitis or mild prostatitis should probably be on fluoroquinolone as opposed to doxycycline given his age and monogamous status. Will discontinue doxycycline. We will put him on ofloxacin. Discussed risk of Achilles tendon rupture with patient. Will refer to Dr. Frias for reevaluation. Return to ED for fever, increased pain, testicular pain, or other concerns. Medical Records Medical records reviewed: Yes I reviewed the patient's medical records. Lab Data Lab results reviewed: Yes I reviewed the patient's lab results. HPI General Mode of arrival: ambulatory . Date/Time Provider Initiated Documentation: 08/06/18 22:50 . Limitations to Documentation: no limitations . Information obtained by: patient and old records reviewed . HPI Narrative: Patient presents for continued right suprapubic pain and pressure. He was seen here 4 days ago. At that time it was felt to have a possible epididymitis and was given ceftriaxone and started on doxycycline. He states the next day felt much better. Yesterday and today however pain seems to be back. He is not really describing testicle pain at this point. States it feels like it is in the right suprapubic/groin area. He thinks it is a hernia. He denies any fevers or chills. He denies any flank pain. He denies any abdominal pain, vomiting, diarrhea. He does have a sense of urinary urgency at times. He has not noticed hematuria. He has had no scrotal or testicular swelling. He is sexually active but in a monogamous relationship. He has not followed up with anyone at this point. It is not worse but he does not feel better at this point either. Related Data Home Medications Medication Instructions Recorded Confirmed blood-glucose meter [[employer]Touch #1 kit 08/27/16 06/25/18 Ultra2] cinnamon bark 1,000 mg PO DAILY 09/21/17 08/06/18 garlic 1 tab PO DAILY 09/21/17 08/06/18 omega-3 fatty acids-fish oil 1 cap PO DAILY 09/21/17 08/06/18 metformin 500 mg PO BID #180 tab 10/16/17 08/06/18 lancets [JenniferTojonatan Delica Lancets] #100 ea 11/18/17 06/25/18 hydrochlorothiazide 25 mg tablet 25 mg PO DAILY #90 tab-cap 02/11/18 08/06/18 albuterol sulfate HFA 90 2 puff IH Q6H PRN #18 gm 03/20/18 08/06/18 mcg/actuation aerosol inhaler lisinopril 40 mg tablet 40 mg PO DAILY #90 tab-cap 05/04/18 08/06/18 metoprolol tartrate 50 mg tablet 50 mg PO BID #180 tab-cap 05/18/18 08/06/18 amlodipine 10 mg tablet 10 mg PO QAM #90 tab-cap 06/25/18 08/06/18 turmeric 400 mg capsule mg PO cap 06/25/18 06/25/18 ofloxacin 300 mg PO BID #20 tab 08/07/18 Previous Rx's Medication Instructions Recorded metformin 500 mg PO BID #180 tab 10/16/17 lancets [JenniferTojonatan Deljaison Lancets] #100 ea 11/18/17 hydrochlorothiazide 25 mg tablet 25 mg PO DAILY #90 tab-cap 02/11/18 albuterol sulfate HFA 90 2 puff IH Q6H PRN #18 gm 03/20/18 mcg/actuation aerosol inhaler lisinopril 40 mg tablet 40 mg PO DAILY #90 tab-cap 05/04/18 metoprolol tartrate 50 mg tablet 50 mg PO BID #180 tab-cap 05/18/18 amlodipine 10 mg tablet 10 mg PO QAM #90 tab-cap 06/25/18 ofloxacin 300 mg PO BID #20 tab 08/07/18 Allergies Allergy/AdvReac Type Severity Reaction Status Date / Time No Known Allergies Allergy Unverified 08/06/18 22:46 General Stated Complaint: Recheck SARAH: 4 Review of Systems Review of Systems 02/01 Review of Systems completed and is negative except as stated above in HPI (Systems reviewed: Const, Eyes, ENT, Resp, CV, GI, , MSK, Skin, Neuro) [facility] Medical History Gout (Chronic) Hyperlipemia (Acute) COPD (chronic obstructive pulmonary disease) (Chronic) Depression (Chronic) Diabetes (Chronic) HTN (hypertension) (Chronic) Surgical History S/P rotator cuff repair (Acute) LEFT HEART CARDIAC CATH (~2003) Social History Smoking/Tobacco Use Status: Current every day Tobacco Type: cigarettes Second Hand Exposure: Yes Alcohol Intake: former Drug use: Never Substance use type: former substance user Household members: significant other Pets and animals: Yes Pets and animals: cat(s) and dog(s) Sexually active: Yes Do you think of yourself as: straight/heterosexual Current gender identity: decline to answer What is your relationship status?: living with partner How often do you talk on the phone with friends or family?: three or more times per week How often do you get together with friends or relatives?: three or more times per week How often do you attend hoahaoism or hoahaoism services?: 1-3 times per year Do you belong to any clubs or organized social groups?: no Panel score (0-1 are the most socially isolated patients): 2 What type of physical activity do you participate in: walking Duration: decline to answer Frequency: decline to answer Sophia/Nondenominational: Bap Special sophia needs: No Do you feel safe in your relationship?: Yes Exam Narrative Exam Narrative: Vitals: He is afebrile. He is mildly hypertensive. Const: Obese male in NAD. HEENT: NC/AT. Normal facial exam. Eyes: Normal conjunctiva and sclera. Neck: Supple. Trachea midline. Lungs: Normal respiratory effort. GI: Soft. NT/ND. No guarding or rebound. Back: No CVAT. : Normal external male genitalia. No scrotal swelling. No testicular swelling or tenderness. No epididymal tenderness or swelling. No inguinal hernias appreciated. Nontender/non-boggy prostate on ALMA. Neuro: A+O x 3. CN grossly in tact. Good strength and no focal deficit. Ext: No C/C/E. No deformity or tenderness. Skin: Warm and dry without rash. Course Vital Signs Temperature 97.2 F L 08/06/18 22:43 Pulse 58 L 08/06/18 22:43 Respiratory Rate 16 08/06/18 22:43 Blood Pressure 157/89 H 08/06/18 22:43 Pulse Oximetry 100 08/06/18 22:43 Temperature 97.2 F L 08/06/18 22:43 Temperature Source Skin 08/06/18 22:43 Pulse 58 L 08/06/18 22:43 Respiratory Rate 16 08/06/18 22:43 Respiratory Effort Non-Labored 08/06/18 22:44 Blood Pressure 157/89 H 08/06/18 22:43 Pulse Oximetry 100 08/06/18 22:43 Pain Level 3 08/06/18 22:43
[2018-08-06 23:28] LABS: Bilirubin Negative (Negative); Blood Negative (Negative); Clarity Clear; Glucose Negative (Negative); Ketones Negative (Negative); Leukocyte Esterase Negative (Negative); Nitrite Negative (Negative); Specific Gravity 1.025 (1.005-1.025); Urobilinogen 0.2 EU/dL (Up TO 0.2)
--- NOTE | 2018-08-06 23:28 | DI.CT_ITS ---
SYMPTOM/DIAGNOSIS: RT SUPRAPUBIC PAIN ABDOMEN AND PELVIC CT: CT examination of the abdomen and pelvis was performed without contrast administration. Images obtained through the lung bases are unremarkable. Visualized portions of the liver and spleen are unremarkable. Pancreas appears normal by CT criteria. No biliary dilatation is seen. Gallbladder is contracted. Abdominal aorta is of normal diameter. No significant abdominal wall hernia is seen. No significant abdominal or pelvic adenopathy. Question slight haziness of retroperitoneal fat is thought to be artifactual due to the patient's size. Adrenals and kidneys appear normal. No urinary tract calcification or obstruction. Urinary bladder is empty and cannot be evaluated. Appendix is normal. No evidence of diverticulitis or bowel obstruction. CONCLUSION: Negative abdomen and pelvic CT.
--- NOTE | 2018-08-07 00:04 | DI.VRAD_ITS ---
EXAM: CT Abdomen and Pelvis Without Contrast EXAM DATE/TIME: 08/06/2018 11:15 PM CLINICAL HISTORY: 53 years old, male; Abdominal pain; Other: Right suprapubic; Additional info: Pain x1 week, worsening TECHNIQUE: Imaging protocol: Axial computed tomography images of the abdomen and pelvis without contrast. Coronal and sagittal reformatted images were created and reviewed. Radiation optimization: All CT scans at this facility use at least one of these dose optimization techniques: automated exposure control; mA and/or kV adjustment per patient size (includes targeted exams where dose is matched to clinical indication); or iterative reconstruction. COMPARISON: No relevant prior studies available. FINDINGS: ABDOMEN: Liver: No mass. Gallbladder and bile ducts: No calcified stones. No ductal dilation. Pancreas: No ductal dilation. Spleen: No splenomegaly. Adrenals: No mass. Kidneys and ureters: Mild symmetric perinephric stranding. Stomach and bowel: No obstruction. No mucosal thickening. Appendix: No evidence of appendicitis. Retroperitoneal space: Haziness to the fat in the retroperitoneum and mesentery is nonspecific but cannot exclude mild inflammation. PELVIS: Bladder: Apparent circumferential bladder wall thickening, may be partially exaggerated by non-maximal distention. Reproductive: Unremarkable as visualized. ABDOMEN and PELVIS: Intraperitoneal space: No free air. No significant fluid collection. Bones/joints: Scattered degenerative disease of the visualized spine. Soft tissues: Unremarkable. Vasculature: Atherosclerotic disease. Lymph nodes: Nonspecific mildly prominent jamarcus hepatis and peripancreatic nodes. IMPRESSION: 1. Apparent circumferential bladder wall thickening, may be partially exaggerated by non-maximal distention. Correlation for cystitis. 2. Atherosclerotic disease. 3. Haziness to the fat in the retroperitoneum and mesentery is nonspecific but cannot exclude mild inflammation. Dictated and Authenticated by: Delano Alanis MD. Ordering:STARR Keith MD
[2018-08-07 00:21] VITALS: BP 113/71; PULSE 76; RESP 16; O2SAT 94
== END 2018-08-07 00:35 | disposition home or self-care (01) ==
PROVIDERS: Emergency Provider Emergency Medicine; PCP Family Medicine
DX: R10.2 Pelvic and perineal pain (principal)
CPT/HCPCS: 99284; 74176; 81003

== ENCOUNTER 2018-08-11 11:21 | Emergency (ER) | payer MEDICAID, SELFPAY ==
[2018-08-11 11:25] VITALS: BP 166/115; PULSE 74; RESP 20; TEMP 36.9; O2SAT 98
[2018-08-11 11:29] VITALS: RESP 20
--- NOTE | 2018-08-11 11:57 | W.ED.GENAD ---
Discharge Plan Disposition Patient Disposition: HOME Condition: Improving Discharge Details Chief Complaint: GenMedical Clinical Impression: Feeling unwell Primary Care Provider: González Ohara ED Provider: Adriana Nuñez Home Meds and New Rx's Prescriptions: Continued turmeric 400 mg capsule PO RF: 0 amlodipine [Norvasc] 10 mg tablet 10 mg PO QAM Qty: 90 RF: 4 albuterol sulfate [Ventolin HFA] 90 mcg/actuation HFA aerosol inhaler 2 puff IH Q6H PRN (Reason: shortness of breath or wheezing) Qty: 18 RF: 0 blood-glucose meter [TreatoTouch Ultra2] 1 EACH kit 1 ea Miscellaneous BID Qty: 1 RF: 0 ONETOUCH ULTRA TEST STRIPS 1 EACH strip 1 ea Miscellaneous BID Qty: 100 RF: 4 metformin 500 MG tablet 500 mg PO BID Qty: 180 RF: 4 lancets [OneTouch Delica Lancets] 1 EACH misc 1 ea Miscellaneous BID Qty: 100 RF: 4 hydrochlorothiazide 25 mg tablet 25 mg PO DAILY Qty: 90 RF: 4 lisinopril 40 mg tablet 40 mg PO DAILY Qty: 90 RF: 1 metoprolol tartrate 50 mg tablet 50 mg PO BID Qty: 180 RF: 3 garlic 1 EACH tablet 1 tab PO DAILY RF: 0 cinnamon bark 500 MG capsule 1,000 mg PO DAILY RF: 0 omega-3 fatty acids-fish oil 1 EACH capsule 1 cap PO DAILY RF: 0 ofloxacin 300 mg tablet 300 mg PO BID Qty: 20 RF: 0 Discharge Instructions Additional Instructions: Continue with medications as previously advised. Continue to monitor your glucose Keep appointment this afternoon with primary care provider. You should be contacted by clinic regarding follow-up with urology If you develop chest pain, shortness of breath, new or worsening symptoms please seek care urgently once again. Stand Alone Forms: Work Release Referrals: Elroy Frias MD [ [facility] STAFF PHYSICIAN] - González Ohara MD [Primary Care Provider] - Discharge Data Discharge Date/Time-TO BE ENTERED AT DEPARTURE: 08/11/18 12:55 Medical Decision Making Patient presents today after a brief episode of wooziness while at rest today. Initially thought this was associated with hypoglycemia but after eating his glucose is 114. It is difficult to say what his glucose was at the time of the actual event. He is currently asymptomatic. Denied any chest pain or shortness of breath. Exam is benign. He is an obese male with normal neuro, cardiac and respiratory evaluation. He has being treated at this time for epididymitis with ofloxacin as he failed previous antibiotic regimens. Reports improvement in his testicular discomfort since beginning the new medication. To take the ofloxacin around 730 this morning and did not have symptoms until shortly prior to arrival. I doubt that this episode of feeling unwell would be associated with the medication given the span of time between. Patient is noted to be hypertensive but vital signs are otherwise within normal limits. Patient has no history of hypertension. Glucose [address] Muñoz. Noted to have nonspecific T wave abnormality which is unchanged from previous on 07/31/2018. Discussed findings with the patient. He has been asymptomatic since being here. Again, patient denies any shortness of breath, chest pain. Symptoms are not exertional. He reports it does feel like when he has had low sugar historically and is questioning if this may have happened once again. He did check his glucose after eating half of a donut and it was 114 at that time. I am concerned that this may have been the source of his symptoms. He was questioning initially if this is related to the ofloxacin but I believe the time. In between it was too great for this to be symptom of the medication. He reports overall his testicular discomfort is improving. He has follow-up with his primary care this afternoon have referred him to Dr. Frias for follow-up as well. Discussed the case with Dr. Muñoz who agrees that the time between symptoms and ingestion is too far for her to be secondary to the medication. He agrees is likely associated with hypoglycemia. This time, his history is not consistent for PE, ACS, neuro source of his symptoms. He was given strict return precautions. Follow-up with his primary care today. All his questions and concerns were addressed and he is in agreement this plan. HPI General Mode of arrival: ambulatory. Date/Time Provider Initiated Documentation: 08/11/18 11:21. Limitations to Documentation: no limitations. Information obtained by: patient and RN notes reviewed. HPI Narrative: Patient a 53-year-old male presents today for feeling unwell for a brief period of time this morning. He reports he was sitting in his truck suddenly felt woozy. Reports that it felt similar to when he has been hypoglycemic historically. Shortly after this he was able to eat half a donut and checked his glucose noted to be 114. Patient is concerned that he is currently on ofloxacin for epididymitis at this may have been the source of his wooziness. She does have a history of gout, COPD, depression, hypertension, hyperlipidemia, is an active smoker, history of type 2 diabetes, GRACE. Denies any chest pain or shortness of breath. Reports that he is currently asymptomatic. Reports that this symptom only lasted for a few minutes and then self resolved. He was not active at the time that this occurred. Denies any nausea or vomiting. No change in bowel or bladder habits . Has been seen here on multiple accounts recently for testicular discomfort which she reports has greatly improved after beginning the ofloxacin a few days ago Related Data Home Medications Medication Instructions Recorded Confirmed blood-glucose meter [[employer] #1 kit 08/27/16 08/11/18 Ultra2] cinnamon bark 1,000 mg PO DAILY 09/21/17 08/11/18 garlic 1 tab PO DAILY 09/21/17 08/11/18 omega-3 fatty acids-fish oil 1 cap PO DAILY 09/21/17 08/11/18 metformin 500 mg PO BID #180 tab 10/16/17 08/11/18 lancets [[employer] Delica Lancets] #100 ea 11/18/17 08/11/18 hydrochlorothiazide 25 mg tablet 25 mg PO DAILY #90 tab-cap 02/11/18 08/11/18 albuterol sulfate HFA 90 2 puff IH Q6H PRN #18 gm 03/20/18 08/11/18 mcg/actuation aerosol inhaler lisinopril 40 mg tablet 40 mg PO DAILY #90 tab-cap 05/04/18 08/11/18 metoprolol tartrate 50 mg tablet 50 mg PO BID #180 tab-cap 05/18/18 08/11/18 amlodipine 10 mg tablet 10 mg PO QAM #90 tab-cap 06/25/18 08/11/18 turmeric 400 mg capsule mg PO cap 06/25/18 08/11/18 ofloxacin 300 mg PO BID #20 tab 08/07/18 08/11/18 Previous Rx's Medication Instructions Recorded metformin 500 mg PO BID #180 tab 10/16/17 lancets [[employer] Delica Lancets] #100 ea 11/18/17 hydrochlorothiazide 25 mg tablet 25 mg PO DAILY #90 tab-cap 02/11/18 albuterol sulfate HFA 90 2 puff IH Q6H PRN #18 gm 03/20/18 mcg/actuation aerosol inhaler lisinopril 40 mg tablet 40 mg PO DAILY #90 tab-cap 05/04/18 metoprolol tartrate 50 mg tablet 50 mg PO BID #180 tab-cap 05/18/18 amlodipine 10 mg tablet 10 mg PO QAM #90 tab-cap 06/25/18 ofloxacin 300 mg PO BID #20 tab 08/07/18 Allergies Allergy/AdvReac Type Severity Reaction Status Date / Time No Known Allergies Allergy Unverified 08/11/18 15:05 General Stated Complaint: GenMedical SARAH: 3 Review of Systems Constitutional Reports as per HPI, Denies chills, Denies fatigue, Denies fever(s) and Denies headache(s) ENT Denies headache(s) Cardiovascular Reports as per HPI, Denies chest pain and Denies dyspnea Respiratory Reports as per HPI, Denies cough and Denies dyspnea Gastrointestinal Reports as per HPI Genitourinary Denies system reviewed and no additional complaints, except as docu (patient denies any change in urinary habits) Musculoskeletal Reports as per HPI and Denies back pain Integumentary/Breasts Reports as per HPI and Denies rash Neurologic Reports as per HPI and Denies headache(s) Endocrine Denies fatigue PFS Medical History Hyperlipemia (Acute) COPD (chronic obstructive pulmonary disease) (Chronic) Depression (Chronic) Diabetes (Chronic) Gout (Chronic) HTN (hypertension) (Chronic) Surgical History S/P rotator cuff repair (Acute) LEFT HEART CARDIAC CATH (~2003) Social History Smoking/Tobacco Use Status: Current every day Tobacco Type: cigarettes Second Hand Exposure: Yes Alcohol Intake: current Alcohol Intake frequency: holidays/special occasions only Drug use: Never Substance use type: former substance user Household members: significant other Pets and animals: Yes Pets and animals: cat(s) and dog(s) Sexually active: Yes Do you think of yourself as: straight/heterosexual Current gender identity: decline to answer What is your relationship status?: living with partner How often do you talk on the phone with friends or family?: three or more times per week How often do you get together with friends or relatives?: three or more times per week How often do you attend scientology or episcopalian services?: 1-3 times per year Do you belong to any clubs or organized social groups?: no Panel score (0-1 are the most socially isolated patients): 2 What type of physical activity do you participate in: walking Duration: decline to answer Frequency: decline to answer Sophia/Hindu: Bap Special sophia needs: No Do you feel safe at home: Yes Do you feel safe in your relationship?: Yes Exam Const General: cooperative, healthy appearing, comfortable, no acute distress and well developed Nutritional Appearance: well nourished and overweight Orientation: alert and awake HENMT Head: normal to inspection Mouth: moist mucous membranes Resp Effort & Inspection: normal respiratory effort, able to speak in complete sentences and no respiratory distress Auscultation: clear to auscultation bilaterally, no rales, no rhonchi and no wheezes Cardio Rate: regular rate Rhythm: regular rhythm Heart Sounds: S1 normal and S2 normal Back/Spine/Pelvis Back: no CVA tenderness Skin General skin exam: no rashes or lesions noted Trauma: no lacerations or abrasions Neuro General: alert, awake and oriented x3 Cranial Nerves: CN's II-XI intact bilaterally Cognition: normal cognition Speech: speech normal Gait: normal gait Motor: muscle tone normal throughout, strength 5/5 throughout, no pronator drift, no movement abnormalities noted and no fasciculations Sensory Exam: no sensory deficits noted Extrem General: normal to inspection, normal capillary refill, no pedal edema and no calf tenderness bilaterally Psych Appearance: grossly normal and well kempt Mental Status: mental status grossly normal Speech and Movement: speech and movement normal Course Vital Signs Temperature 36.9 C 08/11/18 11:25 Pulse 74 08/11/18 11:25 Respiratory Rate 20 08/11/18 11:25 Blood Pressure 166/115 H 08/11/18 11:25 Pulse Oximetry 98 08/11/18 11:25 Temperature 36.9 C 08/11/18 11:25 Temperature Source Temporal Artery Scan 08/11/18 11:25 Pulse 74 08/11/18 11:25 Respiratory Rate 20 08/11/18 11:29 Respiratory Effort Non-Labored 08/11/18 11:29 Respiratory Depth Normal 08/11/18 11:29 Blood Pressure 166/115 H 08/11/18 11:25 Pulse Oximetry 98 08/11/18 11:25 Oxygen Delivery Method Room Air 08/11/18 11:25 Oxygen Flow Rate 0 08/11/18 11:25 Pain Level 3 08/11/18 11:25
[2018-08-11 12:56] VITALS: BP 166/115; PULSE 74; RESP 20; TEMP 36.9; O2SAT 98
--- NOTE | 2018-08-12 09:08 | NUR.NOTE ---
Nursing Note: Faxed referral to Dr. Frias for follow up. Amber Loza.
--- NOTE | 2018-08-13 09:51 | ED.GENADUL_ITS ---
Discharge Plan Disposition Patient Disposition: HOME Condition: Improving Discharge Details Chief Complaint: GenMedical Clinical Impression: Feeling unwell Primary Care Provider: González Ohara ED Provider: Adriana Nuñez Home Meds and New Rx's Prescriptions: Continued turmeric 400 mg capsule PO RF: 0 amlodipine [Norvasc] 10 mg tablet 10 mg PO QAM Qty: 90 RF: 4 albuterol sulfate [Ventolin HFA] 90 mcg/actuation HFA aerosol inhaler 2 puff IH Q6H PRN (Reason: shortness of breath or wheezing) Qty: 18 RF: 0 blood-glucose meter [[employer]Touch Ultra2] 1 EACH kit 1 ea Miscellaneous BID Qty: 1 RF: 0 ONETOUCH ULTRA TEST STRIPS 1 EACH strip 1 ea Miscellaneous BID Qty: 100 RF: 4 metformin 500 MG tablet 500 mg PO BID Qty: 180 RF: 4 lancets [OneTouch Delica Lancets] 1 EACH misc 1 ea Miscellaneous BID Qty: 100 RF: 4 hydrochlorothiazide 25 mg tablet 25 mg PO DAILY Qty: 90 RF: 4 lisinopril 40 mg tablet 40 mg PO DAILY Qty: 90 RF: 1 metoprolol tartrate 50 mg tablet 50 mg PO BID Qty: 180 RF: 3 garlic 1 EACH tablet 1 tab PO DAILY RF: 0 cinnamon bark 500 MG capsule 1,000 mg PO DAILY RF: 0 omega-3 fatty acids-fish oil 1 EACH capsule 1 cap PO DAILY RF: 0 ofloxacin 300 mg tablet 300 mg PO BID Qty: 20 RF: 0 Discharge Instructions Additional Instructions: Continue with medications as previously advised. Continue to monitor your glucose Keep appointment this afternoon with primary care provider. You should be contacted by clinic regarding follow-up with urology If you develop chest pain, shortness of breath, new or worsening symptoms please seek care urgently once again. Stand Alone Forms: Work Release Referrals: Elroy Frias MD [ [facility] STAFF PHYSICIAN] - González Ohara MD [Primary Care Provider] - Discharge Data Discharge Date/Time-TO BE ENTERED AT DEPARTURE: 08/11/18 12:55 Medical Decision Making Patient presents today after a brief episode of wooziness while at rest today. Initially thought this was associated with hypoglycemia but after eating his glucose is 114. It is difficult to say what his glucose was at the time of the actual event. He is currently asymptomatic. Denied any chest pain or shortness of breath. Exam is benign. He is an obese male with normal neuro, cardiac and respiratory evaluation. He has being treated at this time for epididymitis with ofloxacin as he failed previous antibiotic regimens. Reports improvement in his testicular discomfort since beginning the new medication. To take the ofloxacin around 730 this morning and did not have symptoms until shortly prior to arrival. I doubt that this episode of feeling unwell would be associated with the medication given the span of time between. Patient is noted to be hypertensive but vital signs are otherwise within normal limits. Patient has no history of hypertension. Glucose [address] Muñoz. Noted to have nonspecific T wave abnormality which is unchanged from previous on 07/31/2018. Discussed findings with the patient. He has been asymptomatic since being here. Again, patient denies any shortness of breath, chest pain. Symptoms are not exertional. He reports it does feel like when he has had low sugar historically and is questioning if this may have happened once again. He did check his glucose after eating half of a donut and it was 114 at that time. I am concerned that this may have been the source of his symptoms. He was questioning initially if this is related to the ofloxacin but I believe the time. In between it was too great for this to be symptom of the medication. He reports overall his testicular discomfort is improving. He has follow-up with his primary care this afternoon have referred him to Dr. Frias for follow-up as well. Discussed the case with Dr. Muñoz who agrees that the time between symptoms and ingestion is too far for her to be secondary to the medication. He agrees is likely associated with hypoglycemia. This time, his history is not consistent for PE, ACS, neuro source of his symptoms. He was given strict return precautions. Follow-up with his primary care today. All his questions and concerns were addressed and he is in agreement this plan. HPI General Mode of arrival: ambulatory . Date/Time Provider Initiated Documentation: 08/11/18 11:21 . Limitations to Documentation: no limitations . Information obtained by: patient and RN notes reviewed . HPI Narrative: Patient a 53-year-old male presents today for feeling unwell for a brief period of time this morning. He reports he was sitting in his truck suddenly felt woozy. Reports that it felt similar to when he has been hypoglycemic historically. Shortly after this he was able to eat half a donut and checked his glucose noted to be 114. Patient is concerned that he is currently on ofloxacin for epididymitis at this may have been the source of his wooziness. She does have a history of gout, COPD, depression, hypertension, hyperlipidemia, is an active smoker, history of type 2 diabetes, GRACE. Denies any chest pain or shortness of breath. Reports that he is currently asymptomatic. Reports that this symptom only lasted for a few minutes and then self resolved. He was not active at the time that this occurred. Denies any nausea or vomiting. No change in bowel or bladder habits . Has been seen here on multiple accounts recently for testicular discomfort which she reports has greatly improved after beginning the ofloxacin a few days ago Related Data Home Medications Medication Instructions Recorded Confirmed blood-glucose meter [Abaxia #1 kit 08/27/16 08/11/18 Ultra2] cinnamon bark 1,000 mg PO DAILY 09/21/17 08/11/18 garlic 1 tab PO DAILY 09/21/17 08/11/18 omega-3 fatty acids-fish oil 1 cap PO DAILY 09/21/17 08/11/18 metformin 500 mg PO BID #180 tab 10/16/17 08/11/18 lancets [[employer] Delica Lancets] #100 ea 11/18/17 08/11/18 hydrochlorothiazide 25 mg tablet 25 mg PO DAILY #90 tab-cap 02/11/18 08/11/18 albuterol sulfate HFA 90 2 puff IH Q6H PRN #18 gm 03/20/18 08/11/18 mcg/actuation aerosol inhaler lisinopril 40 mg tablet 40 mg PO DAILY #90 tab-cap 05/04/18 08/11/18 metoprolol tartrate 50 mg tablet 50 mg PO BID #180 tab-cap 05/18/18 08/11/18 amlodipine 10 mg tablet 10 mg PO QAM #90 tab-cap 06/25/18 08/11/18 turmeric 400 mg capsule mg PO cap 06/25/18 08/11/18 ofloxacin 300 mg PO BID #20 tab 08/07/18 08/11/18 Previous Rx's Medication Instructions Recorded metformin 500 mg PO BID #180 tab 10/16/17 lancets [[employer] Delica Lancets] #100 ea 11/18/17 hydrochlorothiazide 25 mg tablet 25 mg PO DAILY #90 tab-cap 02/11/18 albuterol sulfate HFA 90 2 puff IH Q6H PRN #18 gm 03/20/18 mcg/actuation aerosol inhaler lisinopril 40 mg tablet 40 mg PO DAILY #90 tab-cap 05/04/18 metoprolol tartrate 50 mg tablet 50 mg PO BID #180 tab-cap 05/18/18 amlodipine 10 mg tablet 10 mg PO QAM #90 tab-cap 06/25/18 ofloxacin 300 mg PO BID #20 tab 08/07/18 Allergies Allergy/AdvReac Type Severity Reaction Status Date / Time No Known Allergies Allergy Unverified 08/11/18 15:05 General Stated Complaint: GenMedical SARAH: 3 Review of Systems Constitutional Reports as per HPI, Denies chills, Denies fatigue, Denies fever(s) and Denies headache(s) ENT Denies headache(s) Cardiovascular Reports as per HPI, Denies chest pain and Denies dyspnea Respiratory Reports as per HPI, Denies cough and Denies dyspnea Gastrointestinal Reports as per HPI Genitourinary Denies system reviewed and no additional complaints, except as docu (patient denies any change in urinary habits) Musculoskeletal Reports as per HPI and Denies back pain Integumentary/Breasts Reports as per HPI and Denies rash Neurologic Reports as per HPI and Denies headache(s) Endocrine Denies fatigue PFS Medical History Hyperlipemia (Acute) COPD (chronic obstructive pulmonary disease) (Chronic) Depression (Chronic) Diabetes (Chronic) Gout (Chronic) HTN (hypertension) (Chronic) Surgical History S/P rotator cuff repair (Acute) LEFT HEART CARDIAC CATH (~2003) Social History Smoking/Tobacco Use Status: Current every day Tobacco Type: cigarettes Second Hand Exposure: Yes Alcohol Intake: current Alcohol Intake frequency: holidays/special occasions only Drug use: Never Substance use type: former substance user Household members: significant other Pets and animals: Yes Pets and animals: cat(s) and dog(s) Sexually active: Yes Do you think of yourself as: straight/heterosexual Current gender identity: decline to answer What is your relationship status?: living with partner How often do you talk on the phone with friends or family?: three or more times per week How often do you get together with friends or relatives?: three or more times per week How often do you attend rastafari or synagogue services?: 1-3 times per year Do you belong to any clubs or organized social groups?: no Panel score (0-1 are the most socially isolated patients): 2 What type of physical activity do you participate in: walking Duration: decline to answer Frequency: decline to answer Sophia/Confucianism: [place] Special sophia needs: No Do you feel safe at home: Yes Do you feel safe in your relationship?: Yes Exam Const General: cooperative, healthy appearing, comfortable, no acute distress and well developed Nutritional Appearance: well nourished and overweight Orientation: alert and awake HENMT Head: normal to inspection Mouth: moist mucous membranes Resp Effort & Inspection: normal respiratory effort, able to speak in complete sentences and no respiratory distress Auscultation: clear to auscultation bilaterally, no rales, no rhonchi and no wheezes Cardio Rate: regular rate Rhythm: regular rhythm Heart Sounds: S1 normal and S2 normal Back/Spine/Pelvis Back: no CVA tenderness Skin General skin exam: no rashes or lesions noted Trauma: no lacerations or abrasions Neuro General: alert, awake and oriented x3 Cranial Nerves: CN's II-XI intact bilaterally Cognition: normal cognition Speech: speech normal Gait: normal gait Motor: muscle tone normal throughout, strength 5/5 throughout, no pronator drift, no movement abnormalities noted and no fasciculations Sensory Exam: no sensory deficits noted Extrem General: normal to inspection, normal capillary refill, no pedal edema and no calf tenderness bilaterally Psych Appearance: grossly normal and well kempt Mental Status: mental status grossly normal Speech and Movement: speech and movement normal Course Vital Signs Temperature 36.9 C 08/11/18 11:25 Pulse 74 08/11/18 11:25 Respiratory Rate 20 08/11/18 11:25 Blood Pressure 166/115 H 08/11/18 11:25 Pulse Oximetry 98 08/11/18 11:25 Temperature 36.9 C 08/11/18 11:25 Temperature Source Temporal Artery Scan 08/11/18 11:25 Pulse 74 08/11/18 11:25 Respiratory Rate 20 08/11/18 11:29 Respiratory Effort Non-Labored 08/11/18 11:29 Respiratory Depth Normal 08/11/18 11:29 Blood Pressure 166/115 H 08/11/18 11:25 Pulse Oximetry 98 08/11/18 11:25 Oxygen Delivery Method Room Air 08/11/18 11:25 Oxygen Flow Rate 0 08/11/18 11:25 Pain Level 3 08/11/18 11:25
== END 2018-08-11 12:55 | disposition home or self-care (01) ==
PROVIDERS: Emergency Provider Physician Assistant; PCP Family Medicine
DX: R42 Dizziness and giddiness (principal); J44.9 Chronic obstructive pulmonary disease, unspecified; E11.9 Type 2 diabetes mellitus without complications; Z79.84 Long term (current) use of oral hypoglycemic drugs; F17.210 Nicotine dependence, cigarettes, uncomplicated
CPT/HCPCS: 36416; 82962; 93005; 99284; 93010

== ENCOUNTER 2018-09-21 20:00 | Emergency (ER) | payer MEDICAID, SELFPAY ==
[2018-09-21 20:07] VITALS: BP 133/89; PULSE 73; RESP 20; TEMP 36.5; O2SAT 97
--- NOTE | 2018-09-21 20:19 | W.ED.GENAD ---
Discharge Plan Disposition Patient Disposition: HOME Condition: Improving Discharge Details Chief Complaint: Cellulitis Clinical Impression: Chapped skin, Cellulitis Primary Care Provider: González Ohara ED Provider: Bairon Muñoz Home Meds and New Rx's Prescriptions: New cephalexin 500 mg capsule 500 mg PO TID 7 Days Qty: 21 RF: 0 mupirocin 2 % ointment 1 applic TP TID Qty: 22 RF: 0 Continued turmeric 400 mg capsule 400 mg PO DAILY RF: 0 amlodipine [Norvasc] 10 mg tablet 10 mg PO QAM Qty: 90 RF: 4 albuterol sulfate [Ventolin HFA] 90 mcg/actuation HFA aerosol inhaler 2 puff IH Q6H PRN (Reason: shortness of breath or wheezing) Qty: 18 RF: 0 blood-glucose meter [[employer]uch Ultra2] 1 EACH kit 1 ea Miscellaneous BID Qty: 1 RF: 0 metformin 500 MG tablet 500 mg PO BID Qty: 180 RF: 4 lancets [OneTouch Delica Lancets] 1 EACH misc 1 ea Miscellaneous BID Qty: 100 RF: 4 hydrochlorothiazide 25 mg tablet 25 mg PO DAILY Qty: 90 RF: 4 lisinopril 40 mg tablet 40 mg PO DAILY Qty: 90 RF: 1 metoprolol tartrate 50 mg tablet 50 mg PO BID Qty: 180 RF: 3 gabapentin 100 mg capsule 100 mg PO TID Qty: 270 RF: 4 [employer]Touch Ultra Blue Test Strip strip .ROUTE .MEDSUPPLY Qty: 100 RF: 4 garlic 1 EACH tablet 1 tab PO DAILY RF: 0 cinnamon bark 500 MG capsule 1,000 mg PO DAILY RF: 0 omega-3 fatty acids-fish oil 1 EACH capsule 1 cap PO DAILY RF: 0 Discharge Instructions Instructions: Cellulitis (ED) Additional Instructions: Please take antibiotics as prescribed. Apply mupirocin cream 3 times daily. Please apply cream and sleep with cloth gloves at home. 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 He presents with dried and cracked palms of both hands now with mild surrounding erythema and concern for cellulitis. We will treat with mupirocin cream as well as Keflex by mouth. Discussed with him the use of gloves at night. He understands return precautions. He is stable for discharge to home at this time. HPI General Mode of arrival: ambulatory. Date/Time Provider Initiated Documentation: 09/21/18 20:02. Limitations to Documentation: no limitations. Information obtained by: patient. History of Present Illness 53 year old M presents to the emergency department with the chief complaint of Cracked and dry hands, now with the skin erythema, described as mild and moderate, Quality is described as aching and dull, and is localized to the left, right and upper extremity. Patient reports no radiation. Patient started experiencing this day(s) and it has been intermittent. No relieving factors improve symptom(s), No exacerbating factors reported . Patient notes no other symptoms.; denies fever/chills. Patient did receive the following treatments prior to arrival, none Related Data Home Medications Medication Instructions Recorded Confirmed blood-glucose meter [[employer]uch #1 kit 08/27/16 08/11/18 Ultra2] cinnamon bark 1,000 mg PO DAILY 09/21/17 09/21/18 garlic 1 tab PO DAILY 09/21/17 09/21/18 omega-3 fatty acids-fish oil 1 cap PO DAILY 09/21/17 09/21/18 metformin 500 mg PO BID #180 tab 10/16/17 09/21/18 lancets [[employer] Delica Lancets] #100 ea 11/18/17 08/11/18 hydrochlorothiazide 25 mg tablet 25 mg PO DAILY #90 tab-cap 02/11/18 09/21/18 albuterol sulfate HFA 90 2 puff IH Q6H PRN #18 gm 03/20/18 09/21/18 mcg/actuation aerosol inhaler lisinopril 40 mg tablet 40 mg PO DAILY #90 tab-cap 05/04/18 09/21/18 metoprolol tartrate 50 mg tablet 50 mg PO BID #180 tab-cap 05/18/18 09/21/18 amlodipine 10 mg tablet 10 mg PO QAM #90 tab-cap 06/25/18 09/21/18 turmeric 400 mg capsule 400 mg PO DAILY cap 06/25/18 09/21/18 gabapentin 100 mg capsule 100 mg PO TID #270 cap 08/18/18 09/21/18 blood sugar diagnostic strips #100 each 06/03/19 cephalexin 500 mg PO TID 7 Days #21 cap 09/21/18 mupirocin 1 applic TP TID #22 gm 09/21/18 Previous Rx's Medication Instructions Recorded metformin 500 mg PO BID #180 tab 10/16/17 lancets [OneTouch Delica Lancets] #100 ea 11/18/17 hydrochlorothiazide 25 mg tablet 25 mg PO DAILY #90 tab-cap 02/11/18 albuterol sulfate HFA 90 2 puff IH Q6H PRN #18 gm 03/20/18 mcg/actuation aerosol inhaler lisinopril 40 mg tablet 40 mg PO DAILY #90 tab-cap 05/04/18 metoprolol tartrate 50 mg tablet 50 mg PO BID #180 tab-cap 05/18/18 amlodipine 10 mg tablet 10 mg PO QAM #90 tab-cap 06/25/18 gabapentin 100 mg capsule 100 mg PO TID #270 cap 08/18/18 blood sugar diagnostic strips #100 each 09/21/18 cephalexin 500 mg PO TID 7 Days #21 cap 09/21/18 mupirocin 1 applic TP TID #22 gm 09/21/18 Allergies Allergy/AdvReac Type Severity Reaction Status Date / Time No Known Allergies Allergy Unverified 09/21/18 20:09 General Stated Complaint: Cellulitis SARAH: 4 Review of Systems Review of Systems No fever or chills. No hyperglycemia. 6 systems reviewed and otherwise negative [facility] Medical History Hyperlipemia (Acute) COPD (chronic obstructive pulmonary disease) (Chronic) Depression (Chronic) Diabetes (Chronic) Gout (Chronic) HTN (hypertension) (Chronic) Surgical History S/P rotator cuff repair (Acute) LEFT HEART CARDIAC CATH (~2003) Social History Smoking/Tobacco Use Status: Current every day Tobacco Type: cigarettes Second Hand Exposure: Yes Alcohol Intake: current Alcohol Intake frequency: holidays/special occasions only Drug use: Never Substance use type: former substance user Household members: significant other Pets and animals: Yes Pets and animals: cat(s) and dog(s) Sexually active: Yes Do you think of yourself as: straight/heterosexual Current gender identity: decline to answer What is your relationship status?: living with partner How often do you talk on the phone with friends or family?: three or more times per week How often do you get together with friends or relatives?: three or more times per week How often do you attend druze or judaism services?: 1-3 times per year Do you belong to any clubs or organized social groups?: no Panel score (0-1 are the most socially isolated patients): 2 What type of physical activity do you participate in: walking Duration: decline to answer Frequency: decline to answer Sophia/Buddhist: [facility], [place] Special sophia needs: No Do you feel safe at home: Yes Do you feel safe in your relationship?: Yes Exam Narrative Exam Narrative: GEN: awake, alert, oriented 3. Pleasant, well groomed, interactive. HEAD: Normocephalic, atraumatic ENT: Mucous membranes moist, oropharynx unremarkable, External ear exam unremarkable EYES: PERRL, EOMI NECK: Full ROM, no KELLIE, no menigismus CHEST/RESP: Nontender, clear to auscultation bilateral, no wheeze/rhonchi/rales CARDIOVASCULAR: RRR, no murmur, rub paul. 2+ Rad pulse bilateral EXT: Full ROM, bilateral hands with palmar cracked skin and shallow ulcerations with surrounding erythema that blanches to the touch Neuro: Grossly normal neurologic exam, conversant, interactive. Psych: Speech fluent, thoughts congruent, affect normal Course Vital Signs Temperature 36.5 C 09/21/18 20:07 Pulse 73 09/21/18 20:07 Respiratory Rate 20 09/21/18 20:07 Blood Pressure 133/89 09/21/18 20:07 Pulse Oximetry 97 09/21/18 20:07 Temperature 36.5 C 09/21/18 20:07 Temperature Source Skin 09/21/18 20:07 Pulse 73 09/21/18 20:07 Respiratory Rate 20 09/21/18 20:07 Respiratory Effort Non-Labored 09/21/18 20:17 Blood Pressure 133/89 09/21/18 20:07 Blood Pressure Position Sitting 09/21/18 20:07 Pulse Oximetry 97 09/21/18 20:07 Oxygen Delivery Method Room Air 09/21/18 20:07 Oxygen Flow Rate 0 09/21/18 20:07
--- NOTE | 2018-09-21 20:22 | ED.GENADUL_ITS ---
Discharge Plan Disposition Patient Disposition: HOME Condition: Improving Discharge Details Chief Complaint: Cellulitis Clinical Impression: Chapped skin, Cellulitis Primary Care Provider: González Ohara ED Provider: Bairon Muñoz Home Meds and New Rx's Prescriptions: New cephalexin 500 mg capsule 500 mg PO TID 7 Days Qty: 21 RF: 0 mupirocin 2 % ointment 1 applic TP TID Qty: 22 RF: 0 Continued turmeric 400 mg capsule 400 mg PO DAILY RF: 0 amlodipine [Norvasc] 10 mg tablet 10 mg PO QAM Qty: 90 RF: 4 albuterol sulfate [Ventolin HFA] 90 mcg/actuation HFA aerosol inhaler 2 puff IH Q6H PRN (Reason: shortness of breath or wheezing) Qty: 18 RF: 0 blood-glucose meter [Explore.To Yellow Pagesuch Ultra2] 1 EACH kit 1 ea Miscellaneous BID Qty: 1 RF: 0 metformin 500 MG tablet 500 mg PO BID Qty: 180 RF: 4 lancets [OneTouch Delica Lancets] 1 EACH misc 1 ea Miscellaneous BID Qty: 100 RF: 4 hydrochlorothiazide 25 mg tablet 25 mg PO DAILY Qty: 90 RF: 4 lisinopril 40 mg tablet 40 mg PO DAILY Qty: 90 RF: 1 metoprolol tartrate 50 mg tablet 50 mg PO BID Qty: 180 RF: 3 gabapentin 100 mg capsule 100 mg PO TID Qty: 270 RF: 4 SignalTouch Ultra Blue Test Strip strip .ROUTE .MEDSUPPLY Qty: 100 RF: 4 garlic 1 EACH tablet 1 tab PO DAILY RF: 0 cinnamon bark 500 MG capsule 1,000 mg PO DAILY RF: 0 omega-3 fatty acids-fish oil 1 EACH capsule 1 cap PO DAILY RF: 0 Discharge Instructions Instructions: Cellulitis (ED) Additional Instructions: Please take antibiotics as prescribed. Apply mupirocin cream 3 times daily. Please apply cream and sleep with cloth gloves at home. 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 He presents with dried and cracked palms of both hands now with mild surrounding erythema and concern for cellulitis. We will treat with mupirocin cream as well as Keflex by mouth. Discussed with him the use of gloves at night. He understands return precautions. He is stable for discharge to home at this time. HPI General Mode of arrival: ambulatory . Date/Time Provider Initiated Documentation: 09/21/18 20:02 . Limitations to Documentation: no limitations . Information obtained by: patient . History of Present Illness 53 year old M presents to the emergency department with the chief complaint of Cracked and dry hands, now with the skin erythema, described as mild and moderate, Quality is described as aching and dull, and is localized to the left, right and upper extremity. Patient reports no radiation. Patient started experiencing this day(s) and it has been intermittent. No relieving factors improve symptom(s), No exacerbating factors reported . Patient notes no other symptoms.; denies fever/chills. Patient did receive the following treatments prior to arrival, none Related Data Home Medications Medication Instructions Recorded Confirmed blood-glucose meter [Explore.To Yellow Pagesuch #1 kit 08/27/16 08/11/18 Ultra2] cinnamon bark 1,000 mg PO DAILY 09/21/17 09/21/18 garlic 1 tab PO DAILY 09/21/17 09/21/18 omega-3 fatty acids-fish oil 1 cap PO DAILY 09/21/17 09/21/18 metformin 500 mg PO BID #180 tab 10/16/17 09/21/18 lancets [SignalTouch Delica Lancets] #100 ea 11/18/17 08/11/18 hydrochlorothiazide 25 mg tablet 25 mg PO DAILY #90 tab-cap 02/11/18 09/21/18 albuterol sulfate HFA 90 2 puff IH Q6H PRN #18 gm 03/20/18 09/21/18 mcg/actuation aerosol inhaler lisinopril 40 mg tablet 40 mg PO DAILY #90 tab-cap 05/04/18 09/21/18 metoprolol tartrate 50 mg tablet 50 mg PO BID #180 tab-cap 05/18/18 09/21/18 amlodipine 10 mg tablet 10 mg PO QAM #90 tab-cap 06/25/18 09/21/18 turmeric 400 mg capsule 400 mg PO DAILY cap 06/25/18 09/21/18 gabapentin 100 mg capsule 100 mg PO TID #270 cap 08/18/18 09/21/18 blood sugar diagnostic strips #100 each 06/03/19 cephalexin 500 mg PO TID 7 Days #21 cap 09/21/18 mupirocin 1 applic TP TID #22 gm 09/21/18 Previous Rx's Medication Instructions Recorded metformin 500 mg PO BID #180 tab 10/16/17 lancets [OneTouch Delica Lancets] #100 ea 11/18/17 hydrochlorothiazide 25 mg tablet 25 mg PO DAILY #90 tab-cap 02/11/18 albuterol sulfate HFA 90 2 puff IH Q6H PRN #18 gm 03/20/18 mcg/actuation aerosol inhaler lisinopril 40 mg tablet 40 mg PO DAILY #90 tab-cap 05/04/18 metoprolol tartrate 50 mg tablet 50 mg PO BID #180 tab-cap 05/18/18 amlodipine 10 mg tablet 10 mg PO QAM #90 tab-cap 06/25/18 gabapentin 100 mg capsule 100 mg PO TID #270 cap 08/18/18 blood sugar diagnostic strips #100 each 09/21/18 cephalexin 500 mg PO TID 7 Days #21 cap 09/21/18 mupirocin 1 applic TP TID #22 gm 09/21/18 Allergies Allergy/AdvReac Type Severity Reaction Status Date / Time No Known Allergies Allergy Unverified 09/21/18 20:09 General Stated Complaint: Cellulitis SARAH: 4 Review of Systems Review of Systems No fever or chills. No hyperglycemia. 6 systems reviewed and otherwise negative [facility] Medical History Hyperlipemia (Acute) COPD (chronic obstructive pulmonary disease) (Chronic) Depression (Chronic) Diabetes (Chronic) Gout (Chronic) HTN (hypertension) (Chronic) Surgical History S/P rotator cuff repair (Acute) LEFT HEART CARDIAC CATH (~2003) Social History Smoking/Tobacco Use Status: Current every day Tobacco Type: cigarettes Second Hand Exposure: Yes Alcohol Intake: current Alcohol Intake frequency: holidays/special occasions only Drug use: Never Substance use type: former substance user Household members: significant other Pets and animals: Yes Pets and animals: cat(s) and dog(s) Sexually active: Yes Do you think of yourself as: straight/heterosexual Current gender identity: decline to answer What is your relationship status?: living with partner How often do you talk on the phone with friends or family?: three or more times per week How often do you get together with friends or relatives?: three or more times per week How often do you attend episcopalian or pentecostal services?: 1-3 times per year Do you belong to any clubs or organized social groups?: no Panel score (0-1 are the most socially isolated patients): 2 What type of physical activity do you participate in: walking Duration: decline to answer Frequency: decline to answer Sophia/Evangelical: [facility] Special sophia needs: No Do you feel safe at home: Yes Do you feel safe in your relationship?: Yes Exam Narrative Exam Narrative: GEN: awake, alert, oriented 3. Pleasant, well groomed, interactive. HEAD: Normocephalic, atraumatic ENT: Mucous membranes moist, oropharynx unremarkable, External ear exam unremarkable EYES: PERRL, EOMI NECK: Full ROM, no KELLIE, no menigismus CHEST/RESP: Nontender, clear to auscultation bilateral, no wheeze/rhonchi/rales CARDIOVASCULAR: RRR, no murmur, rub paul. 2+ Rad pulse bilateral EXT: Full ROM, bilateral hands with palmar cracked skin and shallow ulcerations with surrounding erythema that blanches to the touch Neuro: Grossly normal neurologic exam, conversant, interactive. Psych: Speech fluent, thoughts congruent, affect normal Course Vital Signs Temperature 36.5 C 09/21/18 20:07 Pulse 73 09/21/18 20:07 Respiratory Rate 20 09/21/18 20:07 Blood Pressure 133/89 09/21/18 20:07 Pulse Oximetry 97 09/21/18 20:07 Temperature 36.5 C 09/21/18 20:07 Temperature Source Skin 09/21/18 20:07 Pulse 73 09/21/18 20:07 Respiratory Rate 20 09/21/18 20:07 Respiratory Effort Non-Labored 09/21/18 20:17 Blood Pressure 133/89 09/21/18 20:07 Blood Pressure Position Sitting 09/21/18 20:07 Pulse Oximetry 97 09/21/18 20:07 Oxygen Delivery Method Room Air 09/21/18 20:07 Oxygen Flow Rate 0 09/21/18 20:07
[2018-09-21] MEDS: Cephalexin 500 MG CAP PO (20:28)
== END 2018-09-21 20:40 | disposition home or self-care (01) ==
PROVIDERS: Emergency Provider Emergency Medicine; PCP Family Medicine
DX: L03.114 Cellulitis of left upper limb (principal); L03.113 Cellulitis of right upper limb; L98.8 Other specified disorders of the skin and subcutaneous tissue; E11.9 Type 2 diabetes mellitus without complications; Z79.84 Long term (current) use of oral hypoglycemic drugs
CPT/HCPCS: 36416; 82962; 99283

== ENCOUNTER 2018-09-26 16:31 | Emergency (ER) | payer MEDICAID, SELFPAY ==
[2018-09-26 16:36] VITALS: BP 164/88; PULSE 77; RESP 18; TEMP 37.4; O2SAT 96
--- NOTE | 2018-09-26 19:03 | W.ED.GENAD ---
Discharge Plan Disposition Patient Disposition: HOME Condition: Good Discharge Details Chief Complaint: RashLesion Clinical Impression: Dermatitis, dyshidrotic Primary Care Provider: González Ohara ED Provider: Rc Choi Home Meds and New Rx's Prescriptions: New hydrocortisone 2.5 % ointment 1 applic TP BID 10 Days Qty: 20 RF: 0 Continued turmeric 400 mg capsule 400 mg PO DAILY RF: 0 amlodipine [Norvasc] 10 mg tablet 10 mg PO QAM Qty: 90 RF: 4 albuterol sulfate [Ventolin HFA] 90 mcg/actuation HFA aerosol inhaler 2 puff IH Q6H PRN (Reason: shortness of breath or wheezing) Qty: 18 RF: 0 blood-glucose meter [Revel Touchuch Ultra2] 1 EACH kit 1 ea Miscellaneous BID Qty: 1 RF: 0 metformin 500 MG tablet 500 mg PO BID Qty: 180 RF: 4 lancets [OneTouch Delica Lancets] 1 EACH misc 1 ea Miscellaneous BID Qty: 100 RF: 4 hydrochlorothiazide 25 mg tablet 25 mg PO DAILY Qty: 90 RF: 4 lisinopril 40 mg tablet 40 mg PO DAILY Qty: 90 RF: 1 metoprolol tartrate 50 mg tablet 50 mg PO BID Qty: 180 RF: 3 gabapentin 100 mg capsule 100 mg PO TID Qty: 270 RF: 4 Revel Touchuch Ultra Blue Test Strip strip .ROUTE .MEDSUPPLY Qty: 100 RF: 4 garlic 1 EACH tablet 1 tab PO DAILY RF: 0 cinnamon bark 500 MG capsule 1,000 mg PO DAILY RF: 0 omega-3 fatty acids-fish oil 1 EACH capsule 1 cap PO DAILY RF: 0 cephalexin 500 mg capsule 500 mg PO TID 7 Days Qty: 21 RF: 0 mupirocin 2 % ointment 1 applic TP TID Qty: 22 RF: 0 Discharge Instructions Instructions: Eczema (ED) Additional Instructions: The bubble appearing rash on her hands is dyshidrotic dermatitis. This condition is aggravated by heat as well as moisture, in addition to this it appears you would likely also have a mild fungal infection of your hands. To start, I have prescribed a topical steroid ointment which she will apply twice daily. In addition of this, minimize amount of time wearing rubber gloves. Follow-up with your primary care provider in the next 7 to 10 days for reevaluation as well as possibly starting antifungal medication as needed at that time. Discharge Data Discharge Date/Time-TO BE ENTERED AT DEPARTURE: 09/26/18 19:36 Discharge Physician: Rc AVERY Noah was seen here last week for evaluation of a rash on his hands. Since that time he has completed a course of topical antibiotic ointment as well as oral antibiotics. He was instructed to return if he has any new redness. He is here today because he noted some red spots around his hands. Denies fevers, chills, lethargy, additional rash. General Date/Time Provider Initiated Documentation: 09/26/18 19:03. Related Data Home Medications Medication Instructions Recorded Confirmed blood-glucose meter [imo.imTouch #1 kit 08/27/16 08/11/18 Ultra2] cinnamon bark 1,000 mg PO DAILY 09/21/17 09/21/18 garlic 1 tab PO DAILY 09/21/17 09/21/18 omega-3 fatty acids-fish oil 1 cap PO DAILY 09/21/17 09/21/18 metformin 500 mg PO BID #180 tab 10/16/17 09/21/18 lancets [OneTouch Delica Lancets] #100 ea 11/18/17 08/11/18 hydrochlorothiazide 25 mg tablet 25 mg PO DAILY #90 tab-cap 02/11/18 09/21/18 albuterol sulfate HFA 90 2 puff IH Q6H PRN #18 gm 03/20/18 09/21/18 mcg/actuation aerosol inhaler lisinopril 40 mg tablet 40 mg PO DAILY #90 tab-cap 05/04/18 09/21/18 metoprolol tartrate 50 mg tablet 50 mg PO BID #180 tab-cap 05/18/18 09/21/18 amlodipine 10 mg tablet 10 mg PO QAM #90 tab-cap 06/25/18 09/21/18 turmeric 400 mg capsule 400 mg PO DAILY cap 06/25/18 09/21/18 gabapentin 100 mg capsule 100 mg PO TID #270 cap 08/18/18 09/21/18 blood sugar diagnostic strips #100 each 09/21/18 cephalexin 500 mg PO TID 7 Days #21 cap 09/21/18 mupirocin 1 applic TP TID #22 gm 09/21/18 hydrocortisone 1 applic TP BID 10 Days #20 gm 09/26/18 Previous Rx's Medication Instructions Recorded metformin 500 mg PO BID #180 tab 10/16/17 lancets [OneTouch Delica Lancets] #100 ea 11/18/17 hydrochlorothiazide 25 mg tablet 25 mg PO DAILY #90 tab-cap 02/11/18 albuterol sulfate HFA 90 2 puff IH Q6H PRN #18 gm 03/20/18 mcg/actuation aerosol inhaler lisinopril 40 mg tablet 40 mg PO DAILY #90 tab-cap 05/04/18 metoprolol tartrate 50 mg tablet 50 mg PO BID #180 tab-cap 05/18/18 amlodipine 10 mg tablet 10 mg PO QAM #90 tab-cap 06/25/18 gabapentin 100 mg capsule 100 mg PO TID #270 cap 08/18/18 blood sugar diagnostic strips #100 each 09/21/18 cephalexin 500 mg PO TID 7 Days #21 cap 09/21/18 mupirocin 1 applic TP TID #22 gm 09/21/18 hydrocortisone 1 applic TP BID 10 Days #20 gm 09/26/18 Allergies Allergy/AdvReac Type Severity Reaction Status Date / Time No Known Allergies Allergy Unverified 09/21/18 20:09 General Stated Complaint: RashLesion SARAH: 4 Review of Systems Constitutional Denies chills, Denies fatigue, Denies fever(s) and Denies lethargy Eyes Denies loss of vision ENT Denies nasal congestion and Denies sore throat Cardiovascular Denies chest pain and Denies dyspnea Respiratory Denies cough and Denies dyspnea Gastrointestinal Denies abdominal pain, Denies nausea and Denies vomiting Musculoskeletal Denies back pain, Denies muscle weakness and Denies numbness Neurologic Denies focal weakness, Denies loss of vision and Denies numbness Endocrine Denies fatigue Hematologic/Lymphatic Denies easy bruising [facility] Medical History Hyperlipemia (Acute) COPD (chronic obstructive pulmonary disease) (Chronic) Depression (Chronic) Diabetes (Chronic) Gout (Chronic) HTN (hypertension) (Chronic) Social History Smoking/Tobacco Use Status: Current every day Tobacco Type: cigarettes Second Hand Exposure: Yes Alcohol Intake: current Alcohol Intake frequency: holidays/special occasions only Drug use: Never Substance use type: former substance user Household members: significant other Pets and animals: Yes Pets and animals: cat(s) and dog(s) Sexually active: Yes Do you think of yourself as: straight/heterosexual Current gender identity: decline to answer What is your relationship status?: living with partner How often do you talk on the phone with friends or family?: three or more times per week How often do you get together with friends or relatives?: three or more times per week How often do you attend cheondoism or druze services?: 1-3 times per year Do you belong to any clubs or organized social groups?: no Panel score (0-1 are the most socially isolated patients): 2 What type of physical activity do you participate in: walking Duration: decline to answer Frequency: decline to answer Sophia/Samaritan: [facility] Special sophia needs: No Do you feel safe at home: Yes Do you feel safe in your relationship?: Yes Exam Const General: cooperative, healthy appearing and no acute distress HENMT Head: normal to inspection Ears: hearing grossly normal bilaterally Eyes EOM: EOM intact bilaterally Neck Neck: normal visual inspection Resp Effort & Inspection: normal respiratory effort Skin Other: Hands are dry and scaly, diffuse 3 to 5 mm clear fluid-filled vesicles on hands with overlying scale. No erythema or warmth. No open sores. Neuro General: alert, awake and oriented x3 Speech: speech normal Gait: normal gait Extrem General: normal to inspection Course Vital Signs Temperature 37.4 C 09/26/18 16:36 Pulse 77 09/26/18 16:36 Respiratory Rate 18 09/26/18 16:36 Blood Pressure 164/88 H 09/26/18 16:36 Pulse Oximetry 96 09/26/18 16:36 Temperature 37.4 C 09/26/18 16:36 Temperature Source Temporal Artery Scan 09/26/18 16:36 Pulse 77 09/26/18 16:36 Respiratory Rate 18 09/26/18 16:36 Respiratory Effort 09/26/18 16:36 Blood Pressure 164/88 H 09/26/18 16:36 Pulse Oximetry 96 09/26/18 16:36 Oxygen Delivery Method Room Air 09/26/18 16:36 Oxygen Flow Rate 0 09/26/18 16:36
[2018-09-26 19:32] VITALS: BP 149/91; PULSE 76; RESP 18; TEMP 36.8; O2SAT 98
--- NOTE | 2018-09-26 19:34 | ED.GENADUL_ITS ---
Discharge Plan Disposition Patient Disposition: HOME Condition: Good Discharge Details Chief Complaint: RashLesion Clinical Impression: Dermatitis, dyshidrotic Primary Care Provider: González Ohara ED Provider: Rc Choi Home Meds and New Rx's Prescriptions: New hydrocortisone 2.5 % ointment 1 applic TP BID 10 Days Qty: 20 RF: 0 Continued turmeric 400 mg capsule 400 mg PO DAILY RF: 0 amlodipine [Norvasc] 10 mg tablet 10 mg PO QAM Qty: 90 RF: 4 albuterol sulfate [Ventolin HFA] 90 mcg/actuation HFA aerosol inhaler 2 puff IH Q6H PRN (Reason: shortness of breath or wheezing) Qty: 18 RF: 0 blood-glucose meter [FilesXuch Ultra2] 1 EACH kit 1 ea Miscellaneous BID Qty: 1 RF: 0 metformin 500 MG tablet 500 mg PO BID Qty: 180 RF: 4 lancets [OneTouch Delica Lancets] 1 EACH misc 1 ea Miscellaneous BID Qty: 100 RF: 4 hydrochlorothiazide 25 mg tablet 25 mg PO DAILY Qty: 90 RF: 4 lisinopril 40 mg tablet 40 mg PO DAILY Qty: 90 RF: 1 metoprolol tartrate 50 mg tablet 50 mg PO BID Qty: 180 RF: 3 gabapentin 100 mg capsule 100 mg PO TID Qty: 270 RF: 4 FilesXuch Ultra Blue Test Strip strip .ROUTE .MEDSUPPLY Qty: 100 RF: 4 garlic 1 EACH tablet 1 tab PO DAILY RF: 0 cinnamon bark 500 MG capsule 1,000 mg PO DAILY RF: 0 omega-3 fatty acids-fish oil 1 EACH capsule 1 cap PO DAILY RF: 0 cephalexin 500 mg capsule 500 mg PO TID 7 Days Qty: 21 RF: 0 mupirocin 2 % ointment 1 applic TP TID Qty: 22 RF: 0 Discharge Instructions Instructions: Eczema (ED) Additional Instructions: The bubble appearing rash on her hands is dyshidrotic dermatitis. This condition is aggravated by heat as well as moisture, in addition to this it appears you would likely also have a mild fungal infection of your hands. To start, I have prescribed a topical steroid ointment which she will apply twice daily. In addition of this, minimize amount of time wearing rubber gloves. Follow-up with your primary care provider in the next 7 to 10 days for reevaluation as well as possibly starting antifungal medication as needed at that time. Discharge Data Discharge Date/Time-TO BE ENTERED AT DEPARTURE: 09/26/18 19:36 Discharge Physician: Rc AVERY Noah was seen here last week for evaluation of a rash on his hands. Since that time he has completed a course of topical antibiotic ointment as well as oral antibiotics. He was instructed to return if he has any new redness. He is here today because he noted some red spots around his hands. Denies fevers, chills, lethargy, additional rash. General Date/Time Provider Initiated Documentation: 09/26/18 19:03 . Related Data Home Medications Medication Instructions Recorded Confirmed blood-glucose meter [LiquidFrameworksTouch #1 kit 08/27/16 08/11/18 Ultra2] cinnamon bark 1,000 mg PO DAILY 09/21/17 09/21/18 garlic 1 tab PO DAILY 09/21/17 09/21/18 omega-3 fatty acids-fish oil 1 cap PO DAILY 09/21/17 09/21/18 metformin 500 mg PO BID #180 tab 10/16/17 09/21/18 lancets [OneTouch Delica Lancets] #100 ea 11/18/17 08/11/18 hydrochlorothiazide 25 mg tablet 25 mg PO DAILY #90 tab-cap 02/11/18 09/21/18 albuterol sulfate HFA 90 2 puff IH Q6H PRN #18 gm 03/20/18 09/21/18 mcg/actuation aerosol inhaler lisinopril 40 mg tablet 40 mg PO DAILY #90 tab-cap 05/04/18 09/21/18 metoprolol tartrate 50 mg tablet 50 mg PO BID #180 tab-cap 05/18/18 09/21/18 amlodipine 10 mg tablet 10 mg PO QAM #90 tab-cap 06/25/18 09/21/18 turmeric 400 mg capsule 400 mg PO DAILY cap 06/25/18 09/21/18 gabapentin 100 mg capsule 100 mg PO TID #270 cap 08/18/18 09/21/18 blood sugar diagnostic strips #100 each 09/21/18 cephalexin 500 mg PO TID 7 Days #21 cap 09/21/18 mupirocin 1 applic TP TID #22 gm 09/21/18 hydrocortisone 1 applic TP BID 10 Days #20 gm 09/26/18 Previous Rx's Medication Instructions Recorded metformin 500 mg PO BID #180 tab 10/16/17 lancets [OneTouch Delica Lancets] #100 ea 11/18/17 hydrochlorothiazide 25 mg tablet 25 mg PO DAILY #90 tab-cap 02/11/18 albuterol sulfate HFA 90 2 puff IH Q6H PRN #18 gm 03/20/18 mcg/actuation aerosol inhaler lisinopril 40 mg tablet 40 mg PO DAILY #90 tab-cap 05/04/18 metoprolol tartrate 50 mg tablet 50 mg PO BID #180 tab-cap 05/18/18 amlodipine 10 mg tablet 10 mg PO QAM #90 tab-cap 06/25/18 gabapentin 100 mg capsule 100 mg PO TID #270 cap 08/18/18 blood sugar diagnostic strips #100 each 09/21/18 cephalexin 500 mg PO TID 7 Days #21 cap 09/21/18 mupirocin 1 applic TP TID #22 gm 09/21/18 hydrocortisone 1 applic TP BID 10 Days #20 gm 09/26/18 Allergies Allergy/AdvReac Type Severity Reaction Status Date / Time No Known Allergies Allergy Unverified 09/21/18 20:09 General Stated Complaint: RashLesion SARAH: 4 Review of Systems Constitutional Denies chills, Denies fatigue, Denies fever(s) and Denies lethargy Eyes Denies loss of vision ENT Denies nasal congestion and Denies sore throat Cardiovascular Denies chest pain and Denies dyspnea Respiratory Denies cough and Denies dyspnea Gastrointestinal Denies abdominal pain, Denies nausea and Denies vomiting Musculoskeletal Denies back pain, Denies muscle weakness and Denies numbness Neurologic Denies focal weakness, Denies loss of vision and Denies numbness Endocrine Denies fatigue Hematologic/Lymphatic Denies easy bruising [facility] Medical History Hyperlipemia (Acute) COPD (chronic obstructive pulmonary disease) (Chronic) Depression (Chronic) Diabetes (Chronic) Gout (Chronic) HTN (hypertension) (Chronic) Social History Smoking/Tobacco Use Status: Current every day Tobacco Type: cigarettes Second Hand Exposure: Yes Alcohol Intake: current Alcohol Intake frequency: holidays/special occasions only Drug use: Never Substance use type: former substance user Household members: significant other Pets and animals: Yes Pets and animals: cat(s) and dog(s) Sexually active: Yes Do you think of yourself as: straight/heterosexual Current gender identity: decline to answer What is your relationship status?: living with partner How often do you talk on the phone with friends or family?: three or more times per week How often do you get together with friends or relatives?: three or more times per week How often do you attend mu-ism or sabianist services?: 1-3 times per year Do you belong to any clubs or organized social groups?: no Panel score (0-1 are the most socially isolated patients): 2 What type of physical activity do you participate in: walking Duration: decline to answer Frequency: decline to answer Sophia/Uatsdin: [facility] Special sophia needs: No Do you feel safe at home: Yes Do you feel safe in your relationship?: Yes Exam Const General: cooperative, healthy appearing and no acute distress HENMT Head: normal to inspection Ears: hearing grossly normal bilaterally Eyes EOM: EOM intact bilaterally Neck Neck: normal visual inspection Resp Effort & Inspection: normal respiratory effort Skin Other: Hands are dry and scaly, diffuse 3 to 5 mm clear fluid-filled vesicles on hands with overlying scale. No erythema or warmth. No open sores. Neuro General: alert, awake and oriented x3 Speech: speech normal Gait: normal gait Extrem General: normal to inspection Course Vital Signs Temperature 37.4 C 09/26/18 16:36 Pulse 77 09/26/18 16:36 Respiratory Rate 18 09/26/18 16:36 Blood Pressure 164/88 H 09/26/18 16:36 Pulse Oximetry 96 09/26/18 16:36 Temperature 37.4 C 09/26/18 16:36 Temperature Source Temporal Artery Scan 09/26/18 16:36 Pulse 77 09/26/18 16:36 Respiratory Rate 18 09/26/18 16:36 Respiratory Effort 09/26/18 16:36 Blood Pressure 164/88 H 09/26/18 16:36 Pulse Oximetry 96 09/26/18 16:36 Oxygen Delivery Method Room Air 09/26/18 16:36 Oxygen Flow Rate 0 09/26/18 16:36
== END 2018-09-26 19:36 | disposition home or self-care (01) ==
PROVIDERS: Emergency Provider Physician Assistant Medical; PCP Family Medicine
DX: L30.1 Dyshidrosis [pompholyx] (principal)
CPT/HCPCS: 99283

== ENCOUNTER 2018-12-02 20:54 | Emergency (ER) | payer SELFPAY ==
[2018-12-02 21:01] VITALS: BP 155/88; PULSE 79; RESP 22; TEMP 36.8; O2SAT 96
--- NOTE | 2018-12-02 22:11 | ED.GENADUL_ITS ---
Discharge Plan Disposition Patient Disposition: HOME Condition: Stable Discharge Details Chief Complaint: RashLesion Clinical Impression: Dyshidrotic eczema Primary Care Provider: González Ohara ED Provider: Surinder Hope Home Meds and New Rx's Prescriptions: New betamethasone dipropionate 0.05 % cream 1 applic TP BID 14 Days Qty: 15 RF: 1 Continued amlodipine [Norvasc] 10 mg tablet 10 mg PO QAM Qty: 90 RF: 4 albuterol sulfate [Ventolin HFA] 90 mcg/actuation HFA aerosol inhaler 2 puff IH Q6H PRN (Reason: shortness of breath or wheezing) Qty: 18 RF: 0 (DME) blood-glucose meter [[employer] Ultra2 Meter] 1 EACH kit 1 ea Miscellaneous BID Qty: 1 RF: 0 (DME) lancets [OneTouch Delica Lancets] 1 EACH misc 1 ea Miscellaneous BID Qty: 100 RF: 4 hydrochlorothiazide 25 mg tablet 25 mg PO DAILY Qty: 90 RF: 4 metoprolol tartrate 50 mg tablet 50 mg PO BID Qty: 180 RF: 3 gabapentin 100 mg capsule 100 mg PO TID Qty: 270 RF: 4 (DME) OneTouch Ultra Blue Test Strip strip See Dose Instructions .ROUTE .MEDSUPPLY Qty: 100 RF: 4 metformin 500 mg tablet 500 mg PO BID Qty: 180 RF: 4 lisinopril 40 mg tablet 40 mg PO DAILY Qty: 90 RF: 4 omega-3 fatty acids-fish oil 1 EACH capsule 1 cap PO DAILY RF: 0 Discharge Instructions Instructions: Eczema (ED) Additional Instructions: Please use the provided ointment twice daily for 2 weeks. If not improving by that point please follow-up with your primary care provider but he may continue to use medication as well as not causing serious side effects for an additional 2 weeks after. Return immediately to the emergency department for any new or significant worsening symptoms otherwise follow-up with primary care provider for reassessment Referrals: González Ohara MD [Primary Care Provider] - (Please keep your appointment as scheduled or follow-up sooner as needed for reassessment) Discharge Data Discharge Date/Time-TO BE ENTERED AT DEPARTURE: 12/02/18 22:55 Medical Decision Making Patient presenting to the emergency department with chief complaint of bilateral hand rash. Patient states that this is been ongoing intermittently for the past 3 months he has been seen a couple times in the emergency department for and placed upon medications. He states first time he was placed upon an antibiotic pill and ointment which gave moderate relief. Second time he came in he was diagnosed with dyshidrotic eczema and placed upon hydrocortisone cream. He ran out of this but states that this seemed to help better than anything else. He has been attempting to use [id number] medications but still not improving. Patient does not feel that this is infected as in the first time he came which is more starting to flare up again. Patient does have findings consistent with dyshidrotic eczema to bilateral hands with fissures forming but no evidence of cellulitis at this time. Did discuss with patient risk factors and patient states that he has noted that he is got this every spring through the summer and then seems to improve in the fall. Patient did state that when he initially had an episode of this he had just got a new long to. Did discuss with patient possibility of contact dermatitis making this worse given that it is not otherwise a persistent but more of a seasonal problem. Given no current signs of infection but significant amount of discrimination and fissure along with scaly patches and plaques I do feel that steroids are warranted. Patient placed upon betamethasone topically for the next couple weeks and for patient to follow-up with primary care. Did discuss use of gloves or other protective barriers that may prevent contact source. Return precautions discussed. After discussion of diagnosis and plan of care patient has no further needs, questions, or concerns and states clear understanding to return to the emergency department for any worsening symptoms. HPI General Mode of arrival: ambulatory . Date/Time Provider Initiated Documentation: 12/02/18 21:14 . Limitations to Documentation: no limitations . Information obtained by: patient, RN notes reviewed and old records reviewed . History of Present Illness 53 year old M presents to the emergency department with the chief complaint of rash to hands, described as moderate and similar to prior episodes, with intensity rated at 3. Quality is described as other (itching), and is localized to the upper extremity. Patient started experiencing this month(s) (3) and it has been intermittent and colicky. Medication improves symptom(s), (Hydrocortisone cream) No exacerbating factors reported . Patient notes no other symptoms.. Patient did receive the following treatments prior to arrival, none Related Data Home Medications Medication Instructions Recorded Confirmed blood-glucose meter [[employer] [place] #1 kit 08/27/16 08/11/18 Ultra2 Meter] omega-3 fatty acids-fish oil 1 cap PO DAILY 09/21/17 09/21/18 lancets [[employer] Lancets] #100 ea 11/18/17 08/11/18 hydrochlorothiazide 25 mg tablet 25 mg PO DAILY #90 tab-cap 02/11/18 09/21/18 albuterol sulfate 90 mcg/actuation 2 puff IH Q6H PRN #18 gm 03/20/18 09/21/18 aerosol inhaler metoprolol tartrate 50 mg tablet 50 mg PO BID #180 tab-cap 05/18/18 09/21/18 amlodipine 10 mg tablet 10 mg PO QAM #90 tab-cap 06/25/18 09/21/18 gabapentin 100 mg capsule 100 mg PO TID #270 cap 08/18/18 09/21/18 blood sugar diagnostic #100 each 09/21/18 metformin 500 mg tablet 500 mg PO BID #180 tab 10/19/18 lisinopril 40 mg tablet 40 mg PO DAILY #90 tab-cap 11/03/18 betamethasone dipropionate 1 applic TP BID 14 Days #15 gm 12/02/18 Previous Rx's Medication Instructions Recorded lancets [[employer] Lancets] #100 ea 11/18/17 hydrochlorothiazide 25 mg tablet 25 mg PO DAILY #90 tab-cap 02/11/18 albuterol sulfate 90 mcg/actuation 2 puff IH Q6H PRN #18 gm 03/20/18 aerosol inhaler metoprolol tartrate 50 mg tablet 50 mg PO BID #180 tab-cap 05/18/18 amlodipine 10 mg tablet 10 mg PO QAM #90 tab-cap 06/25/18 gabapentin 100 mg capsule 100 mg PO TID #270 cap 08/18/18 blood sugar diagnostic #100 each 09/21/18 metformin 500 mg tablet 500 mg PO BID #180 tab 10/19/18 lisinopril 40 mg tablet 40 mg PO DAILY #90 tab-cap 11/03/18 betamethasone dipropionate 1 applic TP BID 14 Days #15 gm 12/02/18 Allergies Allergy/AdvReac Type Severity Reaction Status Date / Time No Known Allergies Allergy Unverified 09/21/18 20:09 General Stated Complaint: RashLesion SARAH: 4 Review of Systems Constitutional Denies chills and Denies fever(s) Cardiovascular Denies dyspnea Respiratory Denies cough and Denies dyspnea Integumentary/Breasts Reports as per HPI, Reports rash and Reports skin pain Allergic/Immunologic Denies urticaria [facility] Medical History COPD (chronic obstructive pulmonary disease) (Chronic) Depression (Chronic) Diabetes (Chronic) Gout (Chronic) HTN (hypertension) (Chronic) Hyperlipemia (Acute) Surgical History LEFT HEART CARDIAC CATH (~2003) S/P rotator cuff repair (Acute) Social History Smoking/Tobacco Use Status: Current every day Tobacco Type: cigarettes Second Hand Exposure: Yes Alcohol Intake: current Alcohol Intake frequency: holidays/special occasions only Drug use: Never Substance use type: former substance user Household members: significant other Pets and animals: Yes Pets and animals: cat(s) and dog(s) Sexually active: Yes Do you think of yourself as: straight/heterosexual Current gender identity: decline to answer What is your relationship status?: living with partner How often do you talk on the phone with friends or family?: three or more times per week How often do you get together with friends or relatives?: three or more times per week How often do you attend christian or nondenominational services?: 1-3 times per year Do you belong to any clubs or organized social groups?: no Panel score (0-1 are the most socially isolated patients): 2 What type of physical activity do you participate in: walking Duration: decline to answer Frequency: decline to answer Sophia/Yarsanism: Bap Special sophia needs: No Do you feel safe at home: Yes Do you feel safe in your relationship?: Yes Exam Const General: cooperative, no acute distress and not ill appearing Orientation: alert, awake and oriented x3 Resp Effort & Inspection: normal respiratory effort, able to speak in complete sentences and no respiratory distress Cardio Rate: regular rate Rhythm: regular rhythm Skin Rashes: rashes noted lichenification bilateral palmar palm borders irregular, color red, surface erythematous (mild), flaking, peeling and rough and tender Extrem General: normal exam except as noted Course Vital Signs Temperature 36.8 C 12/02/18 21:01 Pulse 79 12/02/18 21:01 Respiratory Rate 22 12/02/18 21:01 Blood Pressure 155/88 H 12/02/18 21:01 Pulse Oximetry 96 12/02/18 21:01 Temperature 36.8 C 12/02/18 21:01 Temperature Source Tympanic 12/02/18 21:01 Pulse 79 12/02/18 21:01 Respiratory Rate 22 12/02/18 21:01 Respiratory Effort Non-Labored 12/02/18 21:09 Blood Pressure 155/88 H 12/02/18 21:01 Pulse Oximetry 96 12/02/18 21:01 Oxygen Delivery Method Room Air 12/02/18 21:01 Oxygen Flow Rate 0 12/02/18 21:01 Pain Level 3 12/02/18 21:01
[2018-12-02 22:23] VITALS: BP 155/88; PULSE 79; RESP 22; O2SAT 96
== END 2018-12-02 22:55 | disposition home or self-care (01) ==
PROVIDERS: Emergency Provider Nurse Practitioner Family; PCP Family Medicine
DX: L30.1 Dyshidrosis [pompholyx] (principal); J44.9 Chronic obstructive pulmonary disease, unspecified; E11.9 Type 2 diabetes mellitus without complications; Z79.84 Long term (current) use of oral hypoglycemic drugs; I10 Essential (primary) hypertension
CPT/HCPCS: 99283; 99282

== ENCOUNTER 2019-02-23 06:48 | Emergency (ER) | payer MEDICAID, SELFPAY ==
[2019-02-23 06:51] VITALS: BP 173/93; PULSE 68; RESP 20; TEMP 36.5; O2SAT 97
--- NOTE | 2019-02-23 07:08 | ED.GENADUL_ITS ---
Discharge Plan Disposition Patient Disposition: HOME Condition: Improving Discharge Details Chief Complaint: Nk/Back Pain Clinical Impression: Acute thoracic myofascial strain Primary Care Provider: González Ohara ED Provider: Bairon Muñoz Home Meds and New Rx's Prescriptions: New methocarbamol 500 mg tablet 500 - 1,000 mg PO Q6H PRN (Reason: Muscle Pain) Qty: 14 RF: 0 Continued amlodipine [Norvasc] 10 mg tablet 10 mg PO QAM Qty: 90 RF: 4 albuterol sulfate [Ventolin HFA] 90 mcg/actuation HFA aerosol inhaler 2 puff IH Q6H PRN (Reason: shortness of breath or wheezing) Qty: 18 RF: 0 (DME) blood-glucose meter [[employer] Ultra2 Meter] 1 EACH kit 1 ea Miscellaneous BID Qty: 1 RF: 0 (DME) lancets [[employer] Delica Lancets] 1 EACH misc 1 ea Miscellaneous BID Qty: 100 RF: 4 hydrochlorothiazide 25 mg tablet 25 mg PO DAILY Qty: 90 RF: 4 metoprolol tartrate 50 mg tablet 50 mg PO BID Qty: 180 RF: 3 gabapentin 100 mg capsule 100 mg PO TID Qty: 270 RF: 4 (DME) [employer] Ultra Blue Test Strip strip See Dose Instructions .ROUTE .MEDSUPPLY Qty: 100 RF: 4 metformin 500 mg tablet 500 mg PO BID Qty: 180 RF: 4 lisinopril 40 mg tablet 40 mg PO DAILY Qty: 90 RF: 4 omega-3 fatty acids-fish oil 1 EACH capsule 1 cap PO DAILY RF: 0 betamethasone dipropionate 0.05 % cream 1 applic TP BID 14 Days Qty: 15 RF: 1 Discharge Instructions Instructions: Muscle Strain (ED) Additional Instructions: Remove Lidoderm patch in 12 hours time. These are also available over-the- counter and may be placed once daily. Apply point pressure massage as we discussed. May use methocarbamol, as needed for muscular pain or spasm. Return to the ER if you develop a rash, high fever, or any other acute concerns. Stand Alone Forms: Work Release Discharge Data Discharge Date/Time-TO BE ENTERED AT DEPARTURE: 02/23/19 10:36 Medical Decision Making <Sagar Ribeiro MD - Last Filed: 03/01/19 20:10> Patient presenting with worsening left lower thoracic upper lumbar discomfort that does not appear to be musculoskeletal. Because of the area of pain could be pulmonary, renal, retroperitoneal. He does endorse some increasing shortness of breath but no pleuritic pain. He has a nodule in his right lower extremity but does not appear to have calf tenderness or edema. PE seems unlikely. Had a previous renal CT this spring which was unremarkable. Likely to be kidney pathology. Does not endorse any type of chest pain or pressure but does have history of cardiac disease. Will place IV and get laboratory studies. EKG obtained and is sinus with no acute ST changes. Will obtain CT chest for PE and carried down through for abdominal/pelvic CT with contrast to evaluate lung, kidney, retroperitoneal. Medical Records Medical records reviewed: Yes I reviewed the patient's medical records. ECG Data Attestation: I personally reviewed and interpreted this ECG (s) as follows: Prior ECG tracings: available for review Interpretation: Normal sinus rhythm at 59. Normal intervals and axis. No acute ST changes noted. <Bairon Muñoz MD - Last Filed: 02/23/19 10:30> Received signout from Dr. Ribeiro. Please see his note regarding details of the presentation, exam, plan of care. Patient's laboratories revealed a normal white blood cell count of 6.9, hematocrit 44, platelets 128. Chemistries reassuring as are LFTs. Troponin neg ative and lipase within normal limits. Urinalysis negative. CT scan: No evidence of pulmonary emboli or other acute abnormality. On examination the patient has some point tenderness right para spinous thoracic region. Discussed with him point pressure massage at home, use of Lidoderm patch, trial of methocarbamol. He is stable at this time. We have a plan for outpatient care as well as return precautions which were discussed at the bedside. Lab Data Lab results reviewed: Yes I reviewed the patient's lab results. Labs: Laboratory Results - last 24 hr 02/23/19 02/23/19 02/23/19 07:52 07:52 07:52 WBC 6.94 RBC 4.93 Hgb 15.1 Hct 44.4 MCV 90.1 MCH 30.6 MCHC 34.0 RDW 13.2 Plt Count 128 L MPV 11.8 H Immature Gran % 0.3 Neutrophils % 68.4 Lymphocytes % 19.5 Monocytes % 9.7 Eosinophils % 1.7 Basophils % 0.4 Absolute Neutrophils 4.75 Absolute Lymphocytes 1.35 Absolute Monocytes 0.67 Absolute Eosinophils 0.12 Absolute Basophils 0.03 Sodium 141 Potassium 4.3 Chloride 104 Carbon Dioxide 28.8 Anion Gap 8.2 BUN 17 Creatinine 0.79 Estimated GFR/1.73 m2 >= 60.00 Glucose 111 H Calcium 8.9 Magnesium 1.9 Total Bilirubin 0.4 AST 15 ALT 36 Alkaline Phosphatase 49 Troponin I < 0.05 Total Protein 7.6 Albumin 3.9 Lipase 109 HPI <Sagar Ribeiro MD - Last Filed: 03/01/19 20:10> General Mode of arrival: ambulatory . Date/Time Provider Initiated Documentation: 02/23/19 07:06 . Limitations to Documentation: no limitations . Information obtained by: patient, RN notes reviewed and old records reviewed . HPI Narrative: Patient presents to ED with left sided back pain for couple months now. I nitially was not always bothering him and thought maybe musculoskeletal. More recently has become just a dull, gnawing, ache. Continues to get worse and not better. Now has a little bit of the discomfort on the right. It is not made worse with movement, breathing, cough, palpation. There is no pleuritic component. He has no hematuria or urinary symptoms. He denies chest pain or abdominal pain. He has felt a little short of breath over the last couple of days as the pain has been worse. He has noticed a tender nodule in his right knee area. Denies calf or leg pain otherwise. No fever or chills. No neurologic symptomatology such as radiating leg pain, numbness, weakness, bladder or bowel dysfunction. Related Data Home Medications Medication Instructions Recorded Confirmed blood-glucose meter [[employer] #1 kit 08/27/16 02/23/19 Ultra2 Meter] omega-3 fatty acids-fish oil 1 cap PO DAILY 09/21/17 02/23/19 lancets [[employer] Del[employer] Lancets] #100 ea 11/18/17 02/23/19 hydrochlorothiazide 25 mg tablet 25 mg PO DAILY #90 tab-cap 02/11/18 02/23/19 albuterol sulfate 90 mcg/actuation 2 puff IH Q6H PRN #18 gm 03/20/18 02/23/19 aerosol inhaler metoprolol tartrate 50 mg tablet 50 mg PO BID #180 tab-cap 05/18/18 02/23/19 amlodipine 10 mg tablet 10 mg PO QAM #90 tab-cap 06/25/18 02/23/19 gabapentin 100 mg capsule 100 mg PO TID #270 cap 08/18/18 02/23/19 blood sugar diagnostic #100 each 09/21/18 02/23/19 metformin 500 mg tablet 500 mg PO BID #180 tab 10/19/18 02/23/19 lisinopril 40 mg tablet 40 mg PO DAILY #90 tab-cap 11/03/18 02/23/19 betamethasone dipropionate 1 applic TP BID 14 Days #15 gm 12/02/18 02/23/19 methocarbamol 500 - 1,000 mg PO Q6H PRN #14 tab 02/23/19 Previous Rx's Medication Instructions Recorded lancets [OneTouch Delica Lancets] #100 ea 11/18/17 hydrochlorothiazide 25 mg tablet 25 mg PO DAILY #90 tab-cap 02/11/18 albuterol sulfate 90 mcg/actuation 2 puff IH Q6H PRN #18 gm 03/20/18 aerosol inhaler metoprolol tartrate 50 mg tablet 50 mg PO BID #180 tab-cap 05/18/18 amlodipine 10 mg tablet 10 mg PO QAM #90 tab-cap 06/25/18 gabapentin 100 mg capsule 100 mg PO TID #270 cap 08/18/18 blood sugar diagnostic #100 each 09/21/18 metformin 500 mg tablet 500 mg PO BID #180 tab 10/19/18 lisinopril 40 mg tablet 40 mg PO DAILY #90 tab-cap 11/03/18 betamethasone dipropionate 1 applic TP BID 14 Days #15 gm 12/02/18 methocarbamol 500 - 1,000 mg PO Q6H PRN #14 tab 02/23/19 Allergies Allergy/AdvReac Type Severity Reaction Status Date / Time No Known Allergies Allergy Unverified 02/23/19 08:06 General Stated Complaint: Nk/Back Pain SARAH: 3 Review of Systems <Sagar Ribeiro MD - Last Filed: 03/01/19 20:10> Narrative: 02/01 Review of Systems completed and is negative except as stated above in HPI (Systems reviewed: Const, Eyes, ENT, Resp, CV, GI, , MSK, Skin, Neuro) PFSH <Sagar Ribeiro MD - Last Filed: 03/01/19 20:10> Medical History COPD (chronic obstructive pulmonary disease) (Chronic) Depression (Chronic) Diabetes (Chronic) Gout (Chronic) HTN (hypertension) (Chronic) Hyperlipemia (Acute) Surgical History LEFT HEART CARDIAC CATH (~2003) NEG S/P rotator cuff repair (Acute) Social History Smoking/Tobacco Use Status: Current every day Tobacco Type: cigarettes Second Hand Exposure: Yes Alcohol Intake: current Alcohol Intake frequency: holidays/special occasions only Drug use: Never Substance use type: former substance user Household members: significant other Pets and animals: Yes Pets and animals: cat(s) and dog(s) Sexually active: Yes Do you think of yourself as: straight/heterosexual Current gender identity: decline to answer What is your relationship status?: living with partner How often do you talk on the phone with friends or family?: three or more times per week How often do you get together with friends or relatives?: three or more times per week How often do you attend yarsanism or catholic services?: 1-3 times per year Do you belong to any clubs or organized social groups?: no Panel score (0-1 are the most socially isolated patients): 2 What type of physical activity do you participate in: walking Duration: decline to answer Frequency: decline to answer Sophia/Protestant: Bap Special sophia needs: No Do you feel safe at home: Yes Do you feel safe in your relationship?: Yes Exam <Sagar Ribeiro MD - Last Filed: 03/01/19 20:10> Narrative Exam Narrative: Vitals: Afebrile. Hypertensive otherwise normal vital signs and normal room air pulse ox. Const: Obese male in NAD. HEENT: NC/AT. Normal facial exam. Eyes: Normal conjunctiva and sclera. Neck: Supple. Trachea midline. Lungs: Normal respiratory effort. Lungs are clear except for couple scattered wheezes at bases. Cor: RRR without murmur/gallop. Good radial pulses. GI: Soft. NT/ND. No guarding or rebound. Back: No CVAT. No spine tenderness. No muscle spasm/tenderness. Neuro: A+O x 3. CN grossly in tact. Good strength and no focal deficit. Ext: No C/C/E. No calf tenderness. Pea size tender nodule right medial popliteal fossa area. Skin: Warm and dry without rash. Course <Sagar Ribeiro MD - Last Filed: 03/01/19 20:10> Vital Signs Vital signs: Vital Signs Temperature 97.7 F 02/23/19 06:51 Pulse 68 02/23/19 06:51 Respiratory Rate 20 02/23/19 06:51 Blood Pressure 173/93 H 02/23/19 06:51 Pulse Oximetry 97 02/23/19 06:51 Temperature 97.7 F 02/23/19 06:51 Temperature Source Temporal Artery Scan 02/23/19 06:51 Pulse 68 02/23/19 06:51 Respiratory Rate 20 02/23/19 06:51 Respiratory Effort Non-Labored 02/23/19 06:55 Blood Pressure 173/93 H 02/23/19 06:51 Blood Pressure Position Sitting 02/23/19 06:51 Pulse Oximetry 97 02/23/19 06:51 Oxygen Delivery Method Room Air 02/23/19 06:51 Oxygen Flow Rate 0 02/23/19 06:51 Pain Level 5 02/23/19 06:55 Sign Out <Sagar Ribeiro MD - Last Filed: 03/01/19 20:10> Sign Out Data: Sign Out Comment: Patient signed over to Dr. Muñoz pending laboratory studies and CT scan. Last updated by Sagar Ribeiro MD at 02/23/19 08:31
[2019-02-23] MEDS: Lactated Ringers 1,000 ML 125 ML IV (08:01)
[2019-02-23 08:12] LABS: Abs Immature Grans 0.02 k/cumm (0.0-0.09); Absolute Basophil Count 0.03 k/cumm (0.0-0.2); Absolute Eosinophil Count 0.12 k/cumm (0.0-0.7); Absolute Lymphocyte Count 1.35 k/cumm (1.2-3.4); Absolute Monocyte Count 0.67 k/cumm (0.11-0.7); Absolute Neutrophil Count 4.75 k/cumm (1.2-6.7); Basophils % 0.4; Eosinophils % 1.7; HCT 44.4 % (40.0-50.0); HGB 15.1 g/dL (13.5-17.5); Immature Grans % 0.3; Lymphocytes % 19.5; Mean Corpuscular Hemoglobin 30.6 pg (27.0-33.0); Mean Corpuscular Volume 90.1 fL (80-95); Mean Platelet Volume 11.8 fL (8.0-11.0); Monocytes % 9.7; Neutrophils % 68.4; Platelet Count 128 x1000/uL (130-400); RBC 4.93 m/cumm (4.50-6.00); RBC Distribution Width 13.2 % (11.8-14.1); White Blood Cell Count 6.94 k/cumm (4.4-10.8)
[2019-02-23 08:17] LABS: Lipase 109 U/L (73-393)
[2019-02-23 08:24] LABS: ALT 36 U/L (16-63); AST 15 U/L (15-37); Albumin 3.9 g/dL (3.4-5.0); Alkaline Phosphatase 49 U/L (46-116); Anion Gap 8.2 mmol/L (3-11); BUN 17 mg/dL (7-18); Bilirubin, Total 0.4 mg/dL (0.2-1.0); CO2 28.8 mmol/L (21.0-32.0); CREATININE 0.79 mg/dL (0.70-1.30); Calcium 8.9 mg/dL (8.5-10.1); Chloride 104 mmol/L (98-107); Glucose 111 mg/dL (70-100); Magnesium 1.9 mg/dL (1.8-2.4); Potassium 4.3 mmol/L (3.5-5.1); Sodium 141 mmol/L (136-145); Total Protein 7.6 g/dL (6.4-8.2)
[2019-02-23 08:30] LABS: Troponin I < 0.05 ng/mL (0.00-0.06)
[2019-02-23 09:06] LABS: Bilirubin Negative (Negative); Blood Negative (Negative); Clarity Clear (Clear); Glucose Negative (Negative); Ketones Negative (Negative); Leukocyte Esterase Negative (Negative); Nitrite Negative (Negative); Urobilinogen 0.2 EU/dL (Up TO 0.2); pH 6.5 (5-8)
[2019-02-23] MEDS: Omnipaque 350 MG/ML 100 ML BTL IJ (09:30)
--- NOTE | 2019-02-23 09:30 | DI.CT_ITS ---
EXAM: CT CHEST PE ABD PELVIS W CLINICAL HISTORY: left lower thoracic/upper lumbar pain,? malignancy TECHNIQUE: 100 cc of Omnipaque 350. The exam is somewhat limited by patient body habitus. Axial CT angiography was performed with multi-slice acquisition and multi-planar and/or 3D reconstruc tions. COMPARISON: XR CHEST 2V PA LATERAL from 05/08/2018 CT renal colic wo from 08/06/2018 FINDINGS: CHEST: There is no evidence of pulmonary emboli or aortic dissection. There are no pleural or perica rdial effusions or evidence of adenopathy. Evaluation of the lungs is limited by respiratory motion. No infiltrate or pulmonary mass is seen. Degenerative changes are seen in the spine. Abdomen and pelvic CT: The liver, gallbladder, spleen, pancreas and adrenals are unremarkable. The b ladder and prostate are unremarkable. There is no evidence of renal calculi or hydronephrosis. The aorta is normal in diameter and shows mild calcification. No adenopathy is seen in the abdomen or pe lvis. There is a normal quantity of stool. The appendix appears normal. There is no bowel dilatati on or inflammatory change. IMPRESSION: No evidence of pulmonary emboli or other acute abnormality. Exam is limited by patient body habitus.
[2019-02-23 10:00] VITALS: BP 137/81; PULSE 58; O2SAT 98
[2019-02-23] MEDS: Lidocaine 5% Patch 1 PATCH TP (10:35)
[2019-02-23 10:42] VITALS: BP 137/81; PULSE 58; O2SAT 98
== END 2019-02-23 10:36 | disposition home or self-care (01) ==
PROVIDERS: Emergency Medicine; Emergency Provider Emergency Medicine; PCP Family Medicine
DX: S29.012A Strain of muscle and tendon of back wall of thorax, initial encounter (principal); M25.561 Pain in right knee; X58.XXXA Exposure to other specified factors, initial encounter
CPT/HCPCS: 36415; 71275; 74177; 80053; 83690; 93005; 96360; 96361; 99285; 81003; 83735; 84484; 85025; 93010; J3490

== ENCOUNTER 2019-03-31 08:37 | Outpatient (CLI) | payer MEDICAID, SELFPAY ==
[2019-03-31 09:39] LABS: Hemoglobin A1C 5.9 % (4.5-6.2)
== END 2019-03-31 08:57 ==
PROVIDERS: PCP Family Medicine; Visit Provider Family Medicine
DX: E11.9 Type 2 diabetes mellitus without complications (principal)
CPT/HCPCS: 36415; 83036

== ENCOUNTER 2019-09-03 17:06 | Emergency (ER) | payer MEDICAID, SELFPAY ==
[2019-09-03] VITALS (25 sets, daily range): BP systolic 111–154; BP diastolic 63–102; PULSE 53–76; RESP 13–28; TEMP 36.5; O2SAT 94–98
--- NOTE | 2019-09-03 17:15 | DI.RAD_ITS ---
EXAM: XR CHEST 2V PA LATERAL CLINICAL HISTORY: CP TECHNIQUE: 2D digital imaging was performed. COMPARISON: CR XR CHEST 2V PA LATERAL from 05/08/2018 FINDINGS: MEDIASTINUM: Normal. HEART: Normal. PULMONARY VASCULATURE: Normal. LUNGS: Clear. PLEURAL SPACE: No pleural effusion or pneumothorax. BONE:Age-appropriate degenerative changes. OTHER FINDINGS:Normal. IMPRESSION: No acute pulmonary findings. DATA REPOSITORY: RADIATION DOSE DELIVERED:
--- NOTE | 2019-09-03 17:16 | W.ED.GENAD ---
Discharge Plan Disposition Patient Disposition: HOME Condition: Good Discharge Details Chief Complaint: GenMedical Clinical Impression: Atypical chest pain, Anxiety Primary Care Provider: González Ohara ED Provider: Adriana Nuñez Home Meds and New Rx's Prescriptions: Continued amlodipine [Norvasc] 10 mg tablet 10 mg PO QAM Qty: 90 RF: 4 gabapentin 100 mg capsule 100 mg PO TID Qty: 270 RF: 4 Chantix Starting Month Box 0.5 mg (11)- 1 mg (42) tablets,dose pack See Rx Instructions PO PER PKG DIR Qty: 53 RF: 0 Chantix 1 mg tablet 1 mg PO BID Qty: 60 RF: 2 metoprolol tartrate 50 mg tablet 50 mg PO BID Qty: 180 RF: 3 triamcinolone acetonide 0.1 % cream 1 applic TP BID Qty: 80 RF: 2 albuterol sulfate [Ventolin HFA] 90 mcg/actuation HFA aerosol inhaler 2 puff IH Q6H PRN (Reason: shortness of breath or wheezing) Qty: 18 RF: 0 (DME) blood-glucose meter [OneTouch Ultra2 Meter] 1 EACH kit 1 ea Miscellaneous BID Qty: 1 RF: 0 (DME) lancets [OneTouch Delica Lancets] 1 EACH misc 1 ea Miscellaneous BID Qty: 100 RF: 4 (DME) blood sugar diagnostic [OneTouch Ultra Blue Test Strip] strip See Dose Instructions .ROUTE .MEDSUPPLY Qty: 100 RF: 4 metformin 500 mg tablet 500 mg PO BID Qty: 180 RF: 4 lisinopril 40 mg tablet 40 mg PO DAILY Qty: 90 RF: 4 hydrochlorothiazide 25 mg tablet 25 mg PO DAILY Qty: 90 RF: 4 omega-3 fatty acids-fish oil 1 EACH capsule 1 cap PO DAILY RF: 0 betamethasone dipropionate 0.05 % cream 1 applic TP BID 14 Days Qty: 15 RF: 1 methocarbamol 500 mg tablet 500 - 1,000 mg PO Q6H PRN (Reason: Muscle Pain) Qty: 14 RF: 0 Discharge Instructions Instructions: Chest Pain (ED), How to Stop Smoking (ED), Anxiety (ED) Additional Instructions: Your laboratory evaluation and imaging was reassuring today. Encourage water intake. Encourage weight loss the smoking cessation. Please follow-up with your primary care next week for reevaluation. If you develop chest pain, shortness of breath, difficulty breathing or other new/worsening symptom please seek care urgently once again. Referrals: González Ohara MD [Primary Care Provider] - Medical Decision Making Patient is a pleasant 54 year old male with pmh of COPD, depression, HTN, obesity, type 2 DM, GRACE, presenting today with c/c of twinges in my chest after napping. States that he was at rest. Has had sensations like this historically associated with anxiety. States he has had echo, stress testing. Had a cardiac cath in 2003 all of which he states has been normal. He denies radiating pain, no SOB, denies back pain. Currently asympatomic. He states that he has not had any symtpoms when active. Symptoms only occur during times of increased anxiety and when sedentary. He states that he has had a large amount of stress/anxiety recently. EKG was reviewed by Dr. Quintanilla. Patient is in a normal sinus rhythm with a rate of 64. There there is no acute changes from previous. No evidence of ischemic change that time. Patient is currently asymptomatic. Will give aspirin. Patient states that this feels like his anxiety has historically, the patient is a very high risk with his history of diabetes, obesity and heavy smoking. Plan for evaluation with 2 troponins, chest x-ray. Patient is not tachycardic, short of breath, hypoxic. Do not feel that PE is likely source. He is having discomfort again with movement and this could be associated with muscular discomfort. Also considered anxiety as he reports that this feels like it has historically with anxiety. Symptoms are not consistent with dissection. FINDINGS: Lungs: Unremarkable. No consolidation. Pleural space: Unremarkable. No pleural effusion. No pneumothorax. Heart/Mediastinum: Unremarkable. No cardiomegaly. Bones/joints: Moderate thoracic spondylosis. IMPRESSION: No evidence for acute abnormality in the chest. Labs reviewed. CBC without significant abnormality. Chemistry without significant abnormality. Troponin is less than 0.05. Plan for 3-hour troponin. Repeat troponin remains <0.05. Patient has been asymptomatic the entire time here. We had a lengthy discussion regarding his risks. Patient is morbidly obese, heavy smoker and type 2 DM. We discussed life style modification at length. We discussed continued monitoring and follow up. He would prefer f/u with PCP for further evaluation. He states that he has tools at home for smoking cessation. He was given strict return precautions. At this time, as the patient states this feels like his typical anxiety, is nonexertional, has had 2 normal troponins with no ECG changes, feel that he is safe for DC home. He is ableto return with worsening symptoms. All of his questions and concerns were addressed, he was in agreement wiht this plan. HPI General Mode of arrival: ambulatory. Date/Time Provider Initiated Documentation: 09/03/19 17:15. Limitations to Documentation: no limitations. Information obtained by: patient and RN notes reviewed. History of Present Illness 54 year old M presents to the emergency department with the chief complaint of chest twinges and not feeling right, described as similar to prior episodes (reports he felt like this associated with anxiety historically), Quality is described as aching, and is localized to the chest. Patient reports no radiation. Patient started experiencing this hour(s) and it has been now resolved. Immobilization improves symptom(s), Movement worsens symptoms . Patient notes no other symptoms. and chest pain; denies cough, diaphoresis, fever/chills, loss of appetite, nausea/vomiting, rash, shortness of breath and weakness. Patient did receive the following treatments prior to arrival, none Related Data Home Medications Medication Instructions Recorded Confirmed blood-glucose meter [[employer] #1 kit 08/27/16 07/08/19 Ultra2 Meter] omega-3 fatty acids-fish oil 1 cap PO DAILY 09/21/17 09/03/19 lancets [[employer] [employer] Delica Lancets] #100 ea 11/18/17 07/08/19 albuterol sulfate 90 mcg/actuation 2 puff IH Q6H PRN #18 gm 03/20/18 07/08/19 aerosol inhaler blood sugar diagnostic #100 each 09/21/18 07/08/19 metformin 500 mg tablet 500 mg PO BID #180 tab 10/19/18 09/03/19 lisinopril 40 mg tablet 40 mg PO DAILY #90 tab-cap 11/03/18 09/03/19 betamethasone dipropionate 1 applic TP BID 14 Days #15 gm 12/02/18 07/08/19 methocarbamol 500 - 1,000 mg PO Q6H PRN #14 tab 02/23/19 07/08/19 hydrochlorothiazide 25 mg tablet 25 mg PO DAILY #90 tab-cap 03/02/19 07/08/19 metoprolol tartrate 50 mg tablet 50 mg PO BID #180 tab-cap 04/08/19 09/03/19 amlodipine 10 mg tablet 10 mg PO QAM #90 tab-cap 07/08/19 09/03/19 gabapentin 100 mg capsule 100 mg PO TID #270 cap 07/08/19 07/08/19 varenicline 0.5 mg (11)-1 mg (42) See Rx Instructions PO PER PKG DIR 07/08/19 07/08/19 tablets in a dose pack #53 dose pk varenicline 1 mg tablet 1 mg PO BID #60 tab 07/08/19 07/08/19 triamcinolone acetonide 0.1 % 1 applic TP BID #80 gm 07/29/19 07/29/19 topical cream Previous Rx's Medication Instructions Recorded lancets [OneTouch Delica Lancets] #100 ea 11/18/17 albuterol sulfate 90 mcg/actuation 2 puff IH Q6H PRN #18 gm 03/20/18 aerosol inhaler blood sugar diagnostic #100 each 09/21/18 metformin 500 mg tablet 500 mg PO BID #180 tab 10/19/18 lisinopril 40 mg tablet 40 mg PO DAILY #90 tab-cap 11/03/18 betamethasone dipropionate 1 applic TP BID 14 Days #15 gm 12/02/18 methocarbamol 500 - 1,000 mg PO Q6H PRN #14 tab 02/23/19 hydrochlorothiazide 25 mg tablet 25 mg PO DAILY #90 tab-cap 03/02/19 metoprolol tartrate 50 mg tablet 50 mg PO BID #180 tab-cap 04/08/19 amlodipine 10 mg tablet 10 mg PO QAM #90 tab-cap 07/08/19 gabapentin 100 mg capsule 100 mg PO TID #270 cap 07/08/19 varenicline 0.5 mg (11)-1 mg (42) See Rx Instructions PO PER PKG DIR 07/08/19 tablets in a dose pack #53 dose pk varenicline 1 mg tablet 1 mg PO BID #60 tab 07/08/19 triamcinolone acetonide 0.1 % 1 applic TP BID #80 gm 04/09/20 topical cream Allergies Allergy/AdvReac Type Severity Reaction Status Date / Time No Known Allergies Allergy Verified 09/03/19 17:21 General SARAH: 3 Review of Systems Constitutional Constitutional: Reports as per HPI, Denies chills, Denies fever(s), Denies headache(s), Denies lethargy and Denies poor appetite Eyes Eyes: Denies change in vision ENT Ears, Nose, Mouth, and Throat: Denies dizziness and Denies headache(s) Cardiovascular Cardiovascular: Reports as per HPI, Reports chest pain, Reports chest pain at rest (a few twinges prior to arrival, currently asymptomatic), Denies chest pain with activity, Denies diaphoresis, Denies syncope, Denies leg edema, Denies lightheadedness, Denies radiating jaw, neck or arm pain (had bilateral eblow pain last week, no pain currently), Denies palpitations, Denies dyspnea and Denies dyspnea on exertion Respiratory Respiratory: Reports as per HPI, Denies chest congestion, Denies cough, Denies pain on inspiration, Denies pain with cough, Denies dyspnea, Denies dyspnea on exertion and Denies wheezing Gastrointestinal Gastrointestinal: Reports as per HPI, Denies abdominal pain, Denies diarrhea, Denies nausea and Denies vomiting Genitourinary Genitourinary: Denies system reviewed and no additional complaints, except as documented (denies change in urinary habits) Musculoskeletal Musculoskeletal: Reports as per HPI and Denies back pain Integumentary/Breasts Skin/Breast: Reports as per HPI and Denies rash Neurologic Neurologic: Reports as per HPI, Denies dizziness, Denies syncope and Denies headache(s) Endocrine Endocrine: Denies palpitations Allergic/Immunologic Allergic/Immunologic: Denies wheezing [facility] Social History Smoking/Tobacco Use Status: Current every day Tobacco Type: cigarettes Second Hand Exposure: Yes Alcohol Intake: current Alcohol Intake frequency: holidays/special occasions only Drug use: Never Substance use type: former substance user Household members: significant other Pets and animals: Yes Pets and animals: cat(s) and dog(s) Sexually active: Yes Do you think of yourself as: straight/heterosexual Current gender identity: decline to answer What is your relationship status?: living with partner How often do you talk on the phone with friends or family?: three or more times per week How often do you get together with friends or relatives?: three or more times per week How often do you attend jain or buddhism services?: 1-3 times per year Do you belong to any clubs or organized social groups?: no Panel score (0-1 are the most socially isolated patients): 2 What type of physical activity do you participate in: walking Duration: decline to answer Frequency: decline to answer Sophia/Religious: [facility] Special sophia needs: No Do you feel safe at home: Yes Do you feel safe in your relationship?: Yes Exam Const General: cooperative, healthy appearing, comfortable, no acute distress and well developed Nutritional Appearance: well nourished and obese Orientation: alert, awake and oriented x3 HENMT Head: normal to inspection Ears: hearing grossly normal bilaterally Mouth: moist mucous membranes Chest Chest: normal inspection of the chest, normal palpation of entire chest wall and no crepitus Resp Effort & Inspection: normal respiratory effort, able to speak in complete sentences and no respiratory distress Auscultation: clear to auscultation bilaterally, no rales, no rhonchi and no wheezes Cardio Rate: regular rate Rhythm: regular rhythm Heart Sounds: S1 normal and S2 normal GI Inspection: normal to inspection, no edema, non-distended and obesity Palpation: soft, no hepatosplenomegaly, not firm, no guarding, not rigid and nontender Auscultation: normal bowel sounds Back/Spine/Pelvis Back: no CVA tenderness Thoracic/Lumbar Spine: thoracic and lumbar spine normal to inspection Skin General skin exam: no rashes or lesions noted Trauma: no lacerations or abrasions Neuro General: patient alert, patient awake and patient oriented x3 Cognition: normal cognition Speech: speech normal Gait: normal gait Extrem General: normal to inspection, capillary refill normal, no pedal edema, no calf tenderness and normal gait Psych Appearance: grossly normal and well kempt Mental Status: mental status grossly normal Speech and Movement: speech and movement normal
[2019-09-03] MEDS: Aspirin 81 MG CHEW 324 MG CH (17:41)
[2019-09-03 17:59] LABS: Abs Immature Grans 0.04 k/cumm (0.0-0.09); Absolute Basophil Count 0.02 k/cumm (0.0-0.2); Absolute Eosinophil Count 0.17 k/cumm (0.0-0.7); Absolute Lymphocyte Count 2.18 k/cumm (1.2-3.4); Absolute Monocyte Count 0.92 k/cumm (0.11-0.7); Absolute Neutrophil Count 5.14 k/cumm (1.2-6.7); Basophils % 0.2; HCT 46.6 % (40.0-50.0); HGB 16.3 g/dL (13.5-17.5); Immature Grans % 0.5 %; Lymphocytes % 25.7; Mean Corpuscular Hemoglobin 30.4 pg (27.0-33.0); Mean Corpuscular Volume 86.8 fL (80-95); Mean Platelet Volume 12.4 fL (8.0-11.0); Monocytes % 10.9; Neutrophils % 60.7; Platelet Count 130 x1000/uL (130-400); RBC 5.37 m/cumm (4.50-6.00); RBC Distribution Width 12.9 % (11.8-14.1); White Blood Cell Count 8.47 k/cumm (4.4-10.8)
[2019-09-03] MEDS: Normal Saline 1,000 ML 125 ML IV (18:03)
[2019-09-03 18:06] LABS: ALT 27 U/L (16-63); AST 14 U/L (15-37); Albumin 4.2 g/dL (3.4-5.0); Alkaline Phosphatase 56 U/L (46-116); Anion Gap 5.9 mmol/L (3-11); BUN 17 mg/dL (7-18); Bilirubin, Total 0.4 mg/dL (0.2-1.0); CO2 29.1 mmol/L (21.0-32.0); CREATININE 0.78 mg/dL (0.70-1.30); Calcium 9.6 mg/dL (8.5-10.1); Chloride 99 mmol/L (98-107); Glucose 97 mg/dL (74-106); Potassium 3.9 mmol/L (3.5-5.1); Sodium 134 mmol/L (136-145); Total Protein 8.2 g/dL (6.4-8.2); Troponin I < 0.05 ng/Ml (<0.06)
--- NOTE | 2019-09-03 18:50 | DI.VRAD_ITS ---
PROCEDURE INFORMATION: Exam: XR Chest, 2 Views Exam date and time: 09/03/2019 6:42 PM Age: 54 years old Clinical indication: Chest pain TECHNIQUE: Imaging protocol: XR of the chest Views: 2 views. COMPARISON: CR XR CHEST 2V PA LATERAL 05/08/2018 6:03 PM FINDINGS: Lungs: Unremarkable. No consolidation. Pleural space: Unremarkable. No pleural effusion. No pneumothorax. Heart/Mediastinum: Unremarkable. No cardiomegaly. Bones/joints: Moderate thoracic spondylosis. IMPRESSION: No evidence for acute abnormality in the chest. COMMENTS: Preliminary interpretation is based on receipt of 3 image(s). A final report will be issued subsequently. Dictated and Authenticated by: Francoise Ogden MD. Ordering:ANGELA Wright MD
[2019-09-03 20:44] LABS: Troponin I < 0.05 ng/Ml (<0.06)
== END 2019-09-03 21:20 | disposition home or self-care (01) ==
PROVIDERS: Emergency Provider Physician Assistant; PCP Family Medicine
DX: R07.89 Other chest pain (principal); F41.9 Anxiety disorder, unspecified; E66.01 Morbid (severe) obesity due to excess calories; Z68.42 Body mass index [BMI] 45.0-49.9, adult; J44.9 Chronic obstructive pulmonary disease, unspecified; F17.210 Nicotine dependence, cigarettes, uncomplicated; I10 Essential (primary) hypertension; E11.9 Type 2 diabetes mellitus without complications; Z79.84 Long term (current) use of oral hypoglycemic drugs
CPT/HCPCS: 36415; 80053; 93005; 96360; 96361; 99285; 71046; 83735; 84484; 85025; 93010; 99284

== ENCOUNTER 2019-09-21 06:02 | Outpatient (CLI) | payer MEDICAID, SELFPAY ==
--- NOTE | 2019-09-21 09:00 | ETT_ITS ---
APPROVED REPORT Exam: Exercise Treadmill Patient Location: Out-Patient Room/Bed: Stress Nurse: Teresita Ring RN BMI: 53.08 Baseline Rhythm: Sinus Rhythm, Low Voltage--Precordial leads. Indications: Patient presented to the ED on 09/03/2019 with left sided ???Fluttering??? chest discomfo rt, feeling flushed and cold sweats. He denies any other cardiac related associated symptoms. Medical History Medical History: Depression, Obesity, GRACE. Cardiac Medications: Amlodipine, Metoprolol Tartrate, Lisinopril, Hydrochlorothiazide, Fish Oil. Allergies: No known drug allergies Cardiac Risk Factors: FHX of CAD, HTN, Diabetes (non-insulin), COPD, Smoking Previous Cardiac Procedures: PCI Pretest Chest Pain Characteristics: No chest pain Exercise History: Sedentary Physical Disabilities: None Lung Sounds: Clear to auscultation, Diminished. Heart Sounds: Regular Stress Test Details Test: Exercise stress testing was performed using a Mazin protocol. Rest Stress HR Resting HR Supine: 75 bpm Max Heart Rate (APMHR): 168 bpm Resting HR Standin bpm Target HR (85% APMHR): 142 bpm Max HR Achieved: 174 bpm % of APMHR: 103 HR response to stress: Normal HR response to stress BP Resting BP Supine: 148/84 mmHg Resting BP Standin/86 mmHg Max BP: 204/100 mmHg BP response to stress: Abnormal hypertensive response to stress. ECG Resting ECG: Sinus Rhythm, Low Voltage--Precordial leads. Ectopy: Occasional PAC's and PVC's Arrhythmia: Brief period of SVT with heart rates over 200 at approximately 2 minutes 17 seconds o f recovery. Patient denies symptoms. Recovery ECG: Sinus Rhythm Recovery Arrhythmia: Self-limited atrial run, asymptomatic Clinical Reason for Termination: Fatigue, Dyspnea Stress Symptoms: No symptoms reported per patient. Exercise duration: 5 min14 sec Highest Stage Reached: Stage 2: 2.5 mph at 12% grade. Exercise capacity: 7.05 METs Functional Capacity: Moderately diminished capacity Stress ECG Conclusion 1. Patient exercised on the Mazin protocol completed a workload of 7.05 METS, limited by fatigue 2. Normal heart rate response to exercise. Hypertensive blood pressure response to exercise. The pa tient achieved greater than 100% of predicted heart rate for age 3. Electrocardiographically there was no evidence of myocardial ischemia 4. There were sporadic atrial and ventricular ectopic beats during exercise and there was a brief diana f-limited atrial run in recovery that was asymptomatic 5. Dennis treadmill score is 5 Stress Test Summary STAGE Time (mins) Speed (mph) Grade (%) HR BP SYMPTOMS METS Supine 75 148/84 Standing 85 152/86 1 3 1.7 10 154 200/90 4.6 1 min recovery 154 204/100 3 min recovery 109 192/90 6 min recovery 95 160/80 9 min recovery 87 150/78
== END 2019-09-21 06:22 ==
PROVIDERS: PCP Family Medicine; Visit Provider Family Medicine
DX: R07.89 Other chest pain (principal); I10 Essential (primary) hypertension; F17.210 Nicotine dependence, cigarettes, uncomplicated; F32.9 Major depressive disorder, single episode, unspecified; R53.83 Other fatigue; E66.9 Obesity, unspecified; Z82.49 Family history of ischemic heart disease and other diseases of the circulatory system
CPT/HCPCS: 93017

== ENCOUNTER 2019-11-30 01:29 | Outpatient (CLI) | payer MEDICAID, SELFPAY ==
--- NOTE | 2019-11-30 07:45 | DI.CT_ITS ---
EXAM: CT ABDOMEN PELVIS W CLINICAL HISTORY: suspect diverticulitis,LLQ ABD PAIN,DIARRHEA,R19.7,R10.32 TECHNIQUE: Imaging Protocol: Axial computed tomography images with coronal and sagittal reformatted images were created and reviewed CONTRAST MATERIAL: Intravenous: Omnipaque 350 Contrast volume:125 mL Oral: Yes COMPARISON: CT CT CHEST PE ABD PELVIS W from 02/23/2019 FINDINGS: ABDOMEN: Lung Bases: Normal where visualized. Liver: Diffuse fatty infiltration. No measurable mass. Portal, Superior Mesenteric, and Splenic Veins: Unremarkable. Gallbladder and Biliary Tract: No radiodense calculus or dilation. Pancreas: Normal density, no abnormal calcifications or inflammatory process. Spleen: Normal. Adrenals: Stable left adrenal nodule. Unremarkable right adrenal. Kidneys: Normal size, contour and axis. No radiodense stones or obstructive uropathy. No masses seen. Abdominal Aorta: Abdominal portion non-dilated. Atherosclerosis. Bowel: No obstruction or bowel wall thickening. Appendix is unremarkable. Colonic diverticulosis. No evidence of acute diverticulitis. Peritoneal Cavity: No ascites, collection or mesenteric inflammatory response. Lymph Nodes: Within normal limits. Bones: Degenerative changes. Soft Tissues: Unremarkable. PELVIS: Bladder: Incompletely distended. No gross abnormality. Reproductive Organs: Unremarkable as visualized. Lymph Nodes: Within normal limits. Bones: Degenerative changes. IMPRESSION: 1. Colonic diverticulosis but no evidence of acute diverticulitis. 2. Fatty infiltration of the liver. RADIATION DOSE DELIVERED: 1,846.29mGy.cm Total DLP DATA REPOSITORY: All CT scans at this facility are submitted to the National Radiology Data Registry (NRDR) Dose Index Registry (DIR) with the [employer] ([employer]). RADIATION OPTIMIZATION: All CT scans at this facility use at least one of these dose optimization te chniques: automated exposure control; mA and/or kV adjustment per patient size (includes targeted exa ms where dose is matched to clinical indication); or iterative reconstruction.
[2019-11-30 11:09] LABS: CREATININE 0.82 mg/dL (0.70-1.30)
[2019-11-30] MEDS: Omnipaque 350 MG/ML 100 ML BTL 125 ML IJ (11:09)
[2019-11-30] MEDS: Omnipaque 350 MG/ML 50 ML BTL IJ (11:11)
[2019-11-30] MEDS: Breeza Beverage 473 ML BTL PO (11:14)
== END 2019-11-30 01:49 ==
PROVIDERS: PCP Family Medicine; Visit Provider Surgery
DX: K57.30 Diverticulosis of large intestine without perforation or abscess without bleeding (principal); R10.32 Left lower quadrant pain; K76.0 Fatty (change of) liver, not elsewhere classified
CPT/HCPCS: 74177; 82565; J3490; Q9967

== ENCOUNTER 2019-12-10 01:32 | Outpatient (CLI) | payer MEDICAID, SELFPAY ==
[2019-12-10 10:52] LABS: HCT 46.1 % (40.0-50.0); MCH 30.7 pg (27.0-33.0); MCHC 34.7 % (32.0-36.0); MCV 88.5 fL (80-95); Platelet Count 128 10^3/uL (130-400); RBC 5.21 10^6/uL (4.36-5.78); RDW 12.6 % (11.8-14.1); RDW-SD 41.1 fL; WBC 7.51 10^3/uL (4.4-10.8)
[2019-12-10 11:51] LABS: Anion Gap 9.9 mmol/L (3-11); BUN 10 mg/dL (7-18); CO2 29.1 mmol/L (21.0-32.0); CREATININE 0.82 mg/dL (0.70-1.30); Calcium 9.5 mg/dL (8.5-10.1); Chloride 98 mmol/L (98-107); Glucose 105 mg/dL (74-106); Potassium 4.6 mmol/L (3.5-5.1); Sodium 137 mmol/L (136-145)
[2019-12-10 11:57] LABS: ALT 41 U/L (16-63); AST 21 U/L (15-37); Albumin 4.4 g/dL (3.4-5.0); Alkaline Phosphatase 52 U/L (46-116); Bilirubin, Direct 0.17 mg/dL (0.00-0.20); Bilirubin, Total 0.7 mg/dL (0.2-1.0); C-Reactive Protein 0.52 mg/dL (0.0-0.3); Total Protein 7.9 g/dL (6.4-8.2)
[2019-12-10 12:08] LABS: Calculated LDL 137 mg/dL (<100); Cholesterol 184 mg/dL (<200); HDL Cholesterol 30 mg/dL (40-60); Triglyceride 86 mg/dL (<150)
== END 2019-12-10 01:52 ==
PROVIDERS: Surgery; PCP Family Medicine; Visit Provider Family Medicine
DX: E11.9 Type 2 diabetes mellitus without complications (principal); R10.32 Left lower quadrant pain; R19.7 Diarrhea, unspecified
CPT/HCPCS: 36415; 80048; 80061; 80076; 85027; 86140

== ENCOUNTER 2019-12-31 12:15 | Emergency (ER) | payer MEDICAID, SELFPAY ==
[2019-12-31] VITALS (17 sets, daily range): BP systolic 113–128; BP diastolic 71–91; PULSE 57–98; RESP 11–23; TEMP 36.2; O2SAT 96–98
--- NOTE | 2019-12-31 12:15 | RT.EKG_ITS ---
APPROVED REPORT Exam: Resting ECG Patient Location: E HR:76 bpm ECG Measurements Heart Rate 76 AXIS [place] [id number] P [id number] QRSd 99 QRS 36 QT 349 T 6 QTc 393 Conclusion Atrial fibrillation...V-rate 55- 91, irreg A-activity, no st elevation
--- NOTE | 2019-12-31 12:37 | ED.GENADUL_ITS ---
Discharge Plan Disposition Patient Disposition: HOME Condition: Stable Discharge Details Clinical Impression: Atrial fibrillation, new onset Primary Care Provider: Marlon Callejas ED Provider: Jenny Alex Home Meds and New Rx's Prescriptions: New Eliquis 5 mg tablet 5 mg PO BID Qty: 60 RF: 0 No Action amlodipine [Norvasc] 10 mg tablet 10 mg PO QAM Qty: 90 RF: 4 gabapentin 100 mg capsule 100 mg PO TID Qty: 270 RF: 4 metoprolol tartrate 50 mg tablet 50 mg PO BID Qty: 180 RF: 3 triamcinolone acetonide 0.1 % cream 1 applic TP BID Qty: 80 RF: 2 lisinopril 40 mg tablet 40 mg PO DAILY Qty: 90 RF: 4 metformin 500 mg tablet 500 mg PO BID Qty: 180 RF: 4 lorazepam 0.5 mg tablet 0.5 mg PO BID PRN (Reason: anxiety) Qty: 15 RF: 0 bupropion HCl 150 mg tablet sustained-release 12 hr 150 mg PO BID Qty: 60 RF: 3 dicyclomine 10 mg capsule 10 mg PO TID PRN (Reason: colon spasm) Qty: 30 RF: 3 (DME) blood-glucose meter [adhoclabsTouch Ultra2 Meter] 1 EACH kit 1 ea Miscellaneous BID Qty: 1 RF: 0 hydrochlorothiazide 25 mg tablet 25 mg PO DAILY Qty: 90 RF: 4 (DME) OneTouch Ultra Blue Test Strip Strip See Dose Instructions .ROUTE .MEDSUPPLY Qty: 200 RF: 4 (DME) lancets [OneTouch Delica Lancets] 33 gauge misc 1 ea Miscellaneous BID Qty: 200 RF: 4 albuterol sulfate [Ventolin HFA] 90 mcg/actuation HFA aerosol inhaler 2 puff IH Q6H PRN (Reason: shortness of breath or wheezing) Qty: 18 RF: 6 baclofen 10 mg tablet 10 mg PO TID PRN (Reason: muscle spasm) Qty: 90 RF: 3 omega-3 fatty acids-fish oil 1 EACH capsule 1 cap PO DAILY RF: 0 betamethasone dipropionate 0.05 % cream 1 applic TP BID 14 Days Qty: 15 RF: 1 Discharge Instructions Instructions: A-fib (Atrial Fibrillation) (ED) Additional Instructions: Follow up with primary care provider in 3-5 days. Return to ED sooner if any worsening or concerns. Increase oral fluids. Take medications as prescribed. Follow-up with PCP and cardiology as needed. Please have PCP schedule ou for a Echocardiogram. Please keep this appointment. Return to the ED for any shortness of breath, chest pain, weakness or dizziness or any concerns. Referrals: Marlon Callejas [Primary Care Provider] - Frank Velazquez MD [MD CONSULTING PHYSICIAN] - Discharge Data Discharge Date/Time-TO BE ENTERED AT DEPARTURE: 12/31/19 14:40 Medical Decision Making 54-year-old male presents to the ER after having a new appointment with Dr. Juan Jose gomez for a scheduled colonoscopy appointment. He reports palpitations ongoing for the last few days associated with clammy and lightheadedness. He is found to have an irregular heart rate in atrial fibrillation with a controlled rate of 62 to 76. He denies any chest pain. He is a smoker. He does report a smoker's cough. Denies any fever. He does report some diarrhea which is what prompted him to follow-up with general surgery. He was found to have some polyps. He does deny any nausea vomiting. He has a history of diabetes, hypertension, COPD, hyperlipidemia, obesity, fatty liver. 1300: Spoke with pattern drafter Dr. Velazquez discussed patient case in details with him he recommends Eliquis or Xarelto, an echocardiogram in 2 weeks, continue with the metoprolol, and close follow-up with his PCP. He states that he is unable to consult with patient if PCP determines the need. Patient started on Eliquis 5 mg here in department and given prescription for 5 mg twice a day. Instructed and discussed at an extensive basis on PCP appointment made by director of pulmonary unit for next week. Patient's questions answered to the best of my knowledge and patient verbalized understanding. Discussed strict return instructions, verbalized understanding. Patient remained hemodynamically stable throughout stay. His initial work-up was within normal limits. Chest x-ray showed no evidence of cardiomegaly, pulmonary effusion or infiltrate. HPI General Mode of arrival: ambulatory . Date/Time Provider Initiated Documentation: 12/31/19 12:20 . Limitations to Documentation: no limitations . Information obtained by: patient . HPI Narrative: 54-year-old male presents to the ER after having a new appointment with Dr. Caba for a scheduled colonoscopy appointment. He reports palpitations ongoing for the last few days associated with clammy and lightheadedness. He is found to have an irregular heart rate in atrial fibrillation with a controlled rate of 62 to 76. He denies any chest pain. He is a smoker. He does report a smoker's cough. Denies any fever. He does report some diarrhea which is what prompted him to follow-up with general surgery. He was found to have some polyps. He does deny any nausea vomiting. He has a history of diabetes, hypertension, COPD, hyperlipidemia, obesity, fatty liver. Related Data Home Medications Medication Instructions Recorded Confirmed blood-glucose meter [OneTouch #1 kit 08/27/16 12/31/19 Ultra2 Meter] omega-3 fatty acids-fish oil 1 cap PO DAILY 09/21/17 12/31/19 betamethasone dipropionate 1 applic TP BID 14 Days #15 gm 12/02/18 12/31/19 hydrochlorothiazide 25 mg tablet 25 mg PO DAILY #90 tab-cap 03/02/19 12/31/19 metoprolol tartrate 50 mg tablet 50 mg PO BID #180 tab-cap 04/08/19 12/31/19 amlodipine 10 mg tablet 10 mg PO QAM #90 tab-cap 07/08/19 12/31/19 gabapentin 100 mg capsule 100 mg PO TID #270 cap 07/08/19 12/31/19 triamcinolone acetonide 0.1 % 1 applic TP BID #80 gm 07/29/19 12/31/19 topical cream lisinopril 40 mg tablet 40 mg PO DAILY #90 tab-cap 09/14/19 12/31/19 metformin 500 mg tablet 500 mg PO BID #180 tab 09/14/19 12/31/19 blood sugar diagnostic #200 each 10/07/19 12/31/19 lancets 33 gauge #200 each 10/07/19 12/31/19 lorazepam 0.5 mg tablet 0.5 mg PO BID PRN #15 tab 11/02/19 12/31/19 albuterol sulfate 90 mcg/actuation 2 puff IH Q6H PRN #18 gm 11/08/19 12/31/19 aerosol inhaler baclofen 10 mg tablet 10 mg PO TID PRN #90 tab 11/10/19 12/31/19 bupropion HCl 150 mg tablet,12 hr 150 mg PO BID #60 tab 12/10/19 12/31/19 sustained-release dicyclomine 10 mg capsule 10 mg PO TID PRN #30 cap 12/10/19 12/31/19 apixaban [Eliquis] 5 mg PO BID #60 tab 12/31/19 Previous Rx's Medication Instructions Recorded betamethasone dipropionate 1 applic TP BID 14 Days #15 gm 12/02/18 hydrochlorothiazide 25 mg tablet 25 mg PO DAILY #90 tab-cap 03/02/19 metoprolol tartrate 50 mg tablet 50 mg PO BID #180 tab-cap 04/08/19 amlodipine 10 mg tablet 10 mg PO QAM #90 tab-cap 07/08/19 gabapentin 100 mg capsule 100 mg PO TID #270 cap 07/08/19 triamcinolone acetonide 0.1 % 1 applic TP BID #80 gm 07/29/19 topical cream lisinopril 40 mg tablet 40 mg PO DAILY #90 tab-cap 09/14/19 metformin 500 mg tablet 500 mg PO BID #180 tab 09/14/19 blood sugar diagnostic #200 each 10/07/19 lancets 33 gauge #200 each 10/07/19 lorazepam 0.5 mg tablet 0.5 mg PO BID PRN #15 tab 11/02/19 albuterol sulfate 90 mcg/actuation 2 puff IH Q6H PRN #18 gm 11/08/19 aerosol inhaler baclofen 10 mg tablet 10 mg PO TID PRN #90 tab 11/10/19 bupropion HCl 150 mg tablet,12 hr 150 mg PO BID #60 tab 12/10/19 sustained-release dicyclomine 10 mg capsule 10 mg PO TID PRN #30 cap 12/10/19 apixaban [Eliquis] 5 mg PO BID #60 tab 12/31/19 Allergies Allergy/AdvReac Type Severity Reaction Status Date / Time No Known Allergies Allergy Verified 12/31/19 12:22 General Stated Complaint: Palpitatns SARAH: 3 Review of Systems Narrative: Constitutional: Negative for weight loss, alert and oriented, well groomed, obese body habitus, appears comfortable. HEENT: Denies trauma, nasal discharge, sore throat, trouble swallowing. Intermittent headaches and blurry vision. Chest: Denies chest pain. Positive palpitations x3 days, irregular rhythm, hypertension. Respiratory: Denies Shortness of breath, hemoptysis. Positive history of COPD. GI: Denies abdominal pain, nausea, vomiting, constipation. : Denies dysuria, hematuria, flank pain, rectal bleeding. Neuro: Denies dizziness, weakness, syncope, or facial numbness. Hematologic: Denies easy bruising, intolerance to heat or cold, hair loss. [facility] Medical History Colon cancer screening COPD (chronic obstructive pulmonary disease) Depression Diabetes Diarrhea Diverticula of colon Gout HTN (hypertension) Hyperlipemia LLQ abdominal pain Surgical History LEFT HEART CARDIAC CATH (~2003) NEG S/P rotator cuff repair Social History Smoking/Tobacco Use Status: Current every day Tobacco Type: cigarettes Second Hand Exposure: Yes Alcohol Intake: current Alcohol Intake frequency: holidays/special occasions only Drug use: Never Substance use type: former substance user Household members: significant other Pets and animals: Yes Pets and animals: cat(s) and dog(s) Sexually active: Yes Do you think of yourself as: straight/heterosexual Current gender identity: decline to answer What is your relationship status?: living with partner How often do you talk on the phone with friends or family?: three or more times per week How often do you get together with friends or relatives?: three or more times per week How often do you attend amish or pentecostal services?: 1-3 times per year Do you belong to any clubs or organized social groups?: no Panel score (0-1 are the most socially isolated patients): 2 What type of physical activity do you participate in: walking Duration: decline to answer Frequency: decline to answer Sophia/Hoahaoism: Bap Special sophia needs: No Do you feel safe at home: Yes Do you feel safe in your relationship?: Yes Exam Narrative Exam Narrative: Constitutional: Alert and oriented x3. Appears stated age. Obese body habitus. Head: Normocephalic, no trauma. Eyes: Pupils PERRLA, Red reflex noted, EOM's intact. Eyelids symmetrical without lesions, discharge, or swelling. ENT: Bilateral TM's WNL, External ear normal to inspection, no mastoid TTP, swelling, or erythema, Nasal turbinates WNL, no nasal discharge. Normal dentition, Posterior pharynx WNL, no exudate. Chest: Irregular rate and rhythm noted to have atrial fibrillation at a rate of 76, normal S1, S2, distal pulses intact. Resp: Lungs clear to auscultation bilaterally, no wheezes, rales, or rhonchi. Musculoskeletal: Normal gait, 5/5 strength to all four extremities. Skin: No suspicious rashes or lesions. Capillary refill less than 2 sec. Neurologic: Cranial nerves II-XII intact. Alert and oriented x 3. DTR's intact. Hematologic/Lymphatic: No ecchymosis, no lymphadenopathy. Course Vital Signs Vital signs: Vital Signs Temperature 36.2 C L 12/31/19 12:19 Pulse 68 12/31/19 12:19 Respiratory Rate 12/31/19 12:19 Blood Pressure 126/89 12/31/19 12:19 Pulse Oximetry 96 12/31/19 12:19 Temperature 36.2 C L 12/31/19 12:19 Temperature Source Skin 12/31/19 12:19 Pulse 68 12/31/19 12:19 Respiratory Rate 12/31/19 12:19 Respiratory Effort Non-Labored 12/31/19 12:24 Blood Pressure 126/89 12/31/19 12:19 Blood Pressure Position Sitting 12/31/19 12:19 Pulse Oximetry 96 12/31/19 12:19 Oxygen Delivery Method Room Air 12/31/19 12:19 Oxygen Flow Rate 0 12/31/19 12:19 Pain Level 0 12/31/19 12:19
--- NOTE | 2019-12-31 12:45 | DI.RAD_ITS ---
EXAM: XR CHEST 2V PA LATERAL CLINICAL HISTORY: Palpitations TECHNIQUE: 2D digital imaging was performed. COMPARISON: No exams were available for comparison FINDINGS: MEDIASTINUM: Normal. HEART: Normal. PULMONARY VASCULATURE: Normal. LUNGS: Clear. PLEURAL SPACE: No pleural effusion or pneumothorax. BONE:Normal. OTHER FINDINGS:Normal. IMPRESSION: No acute pulmonary findings. DATA REPOSITORY: RADIATION DOSE DELIVERED:
[2019-12-31 13:00] LABS: Abs Immature Grans 0.03 10^3/uL (0.0-0.06); Absolute Basophil Count 0.03 10^3/uL (0.0-0.2); Absolute Eosinophil Count 0.12 10^3/uL (0.0-0.7); Absolute Lymphocyte Count 1.97 10^3/uL (1.2-3.4); Absolute Monocyte Count 0.85 10^3/uL (0.1-0.8); Absolute Neutrophil Count 4.46 10^3/uL (1.2-6.7); Basophils % 0.4; Eosinophils % 1.6; HCT 49.6 % (40.0-50.0); Immature Grans % 0.4; Lymphocytes % 26.4; MCH 30.6 pg (27.0-33.0); MCHC 34.3 % (32.0-36.0); MCV 89.2 fL (80-95); Monocytes % 11.4; Neutrophils % 59.8; Nucleated RBC 0 %; Platelet Count 128 10^3/uL (130-400); RBC 5.56 10^6/uL (4.36-5.78); RDW 12.3 % (11.8-14.1); RDW-SD 40.6 fL; WBC 7.46 10^3/uL (4.4-10.8)
[2019-12-31 13:15] LABS: ALT 40 U/L (16-63); AST 17 U/L (15-37); Alkaline Phosphatase 51 U/L (46-116); Anion Gap 8.4 mmol/L (3-11); BUN 13 mg/dL (7-18); Bilirubin, Total 0.5 mg/dL (0.2-1.0); CO2 27.6 mmol/L (21.0-32.0); CREATININE 0.88 mg/dL (0.70-1.30); Calcium 9.5 mg/dL (8.5-10.1); Chloride 101 mmol/L (98-107); Glucose 103 mg/dL (74-106); Magnesium 1.9 mg/dL (1.8-2.4); Potassium 4.2 mmol/L (3.5-5.1); Sodium 137 mmol/L (136-145); Total Protein 7.5 g/dL (6.4-8.2); Troponin I < 0.05 ng/mL (<0.06)
[2019-12-31 13:20] LABS: TSH 0.67 uIU/mL (0.36-3.74)
[2019-12-31 13:21] LABS: INR 1.1 (0.9-1.1); Prothrombin Time 10.6 sec (9.3-11.0)
[2019-12-31] MEDS: Normal Saline Flush 10 ML SYR IVP (13:39)
[2019-12-31] MEDS: Apixaban 5 MG TAB PO (13:39)
== END 2019-12-31 14:40 | disposition home or self-care (01) ==
LOC: ER 14:21
PROVIDERS: Emergency Provider Registered Nurse Emergency; PCP Family Medicine
DX: R42 Dizziness and giddiness (principal); I48.91 Unspecified atrial fibrillation; E11.9 Type 2 diabetes mellitus without complications; Z79.84 Long term (current) use of oral hypoglycemic drugs; I10 Essential (primary) hypertension; J44.9 Chronic obstructive pulmonary disease, unspecified; F17.210 Nicotine dependence, cigarettes, uncomplicated
CPT/HCPCS: 36415; 80053; 93005; 99285; 71046; 83735; 84443; 84484; 85025; 85610; 93010

== ENCOUNTER 2020-01-03 13:59 | Outpatient (CLI) | payer MEDICAID, SELFPAY | END 2020-01-03 14:19 | PROVIDERS: PCP Family Medicine; Visit Provider Family Medicine | CPT/HCPCS: 93225 ==

== ENCOUNTER 2020-01-05 11:30 | Outpatient (CLI) | payer MEDICAID, SELFPAY ==
--- NOTE | 2020-01-06 08:47 | HOLT_ITS ---
Date of service: 01/06/20 Time of Service: 08:47 Holter Monitor Report Referring Provider:: amrit Indications:: AF Holter Monitor Note: This is a 24-hour Holter monitor with indication of atrial fibrillation. ?The patient was in atrial fibrillation for the entirety of the recording with an average heart rate of 82 bpm. Maximal heart rate was 144 bpm. ?There are no episodes of ventricular tachycardia no pauses grade 3 seconds no e vidence of high degree heart block. ?There were rare PVCs. ?All patient triggered events were associate with atrial fibrillation.
== END 2020-01-05 11:50 ==
PROVIDERS: PCP Family Medicine; Visit Provider Family Medicine
DX: I48.91 Unspecified atrial fibrillation (principal); I49.3 Ventricular premature depolarization
CPT/HCPCS: 93226

== ENCOUNTER 2020-02-15 01:53 | Outpatient (CLI) | payer MEDICAID, SELFPAY ==
[2020-02-15 12:19] LABS: Hemoglobin A1C 5.7 % (<5.7)
[2020-02-15 12:34] LABS: Uric Acid 8.8 mg/dL (3.5-7.2)
[2020-03-08 16:49] LABS: IgA 160 mg/dL (85-499); Interpretation (See Note); Tissue Transglutaminase IgA <1.2 U/mL (<4.0)
== END 2020-02-15 02:13 ==
PROVIDERS: Surgery; PCP Family Medicine; Visit Provider Family Medicine
DX: E11.9 Type 2 diabetes mellitus without complications (principal); R10.32 Left lower quadrant pain; R19.7 Diarrhea, unspecified; M10.9 Gout, unspecified
CPT/HCPCS: 36415; 82784; 83516; 83036; 84550

== ENCOUNTER 2020-04-18 03:11 | Outpatient (CLI) | payer MEDICAID, SELFPAY ==
[2020-04-18 11:46] LABS: ALT 22 U/L (16-63); Calculated LDL 114 mg/dL (<100); Cholesterol 163 mg/dL (<200); HDL Cholesterol 30 mg/dL (40-60); Triglyceride 98 mg/dL (<150)
[2020-04-18 11:57] LABS: Uric Acid 6.9 mg/dL (3.5-7.2)
== END 2020-04-18 03:31 ==
PROVIDERS: PCP Family Medicine; Visit Provider Family Medicine
DX: E78.5 Hyperlipidemia, unspecified (principal); M10.9 Gout, unspecified
CPT/HCPCS: 36415; 80061; 84460; 84550

== ENCOUNTER 2020-05-09 02:49 | Outpatient (CLI) | payer MEDICAID, SELFPAY ==
[2020-05-10 17:20] LABS: COVID-19 RT-PCR UVMMC Result Negative (Negative)
== END 2020-05-09 03:09 ==
PROVIDERS: PCP Family Medicine; Visit Provider Nurse Practitioner
DX: Z11.52 Encounter for screening for COVID-19 (principal); Z01.818 Encounter for other preprocedural examination
CPT/HCPCS: U0003

== ENCOUNTER 2020-09-17 11:10 | Emergency (ER) | payer MEDICAID, SELFPAY ==
--- NOTE | 2020-09-17 11:16 | W.ED.GENAD ---
Discharge Plan Disposition Patient Disposition: HOME Condition: Stable Discharge Details Clinical Impression: Oral infection, S/P tooth extraction Primary Care Provider: Rich Zheng ED Provider: Roro Quintanilla Home Meds and New Rx's Prescriptions: New penicillin V potassium 500 mg tablet 500 mg PO QID 7 Days Qty: 28 RF: 0 Continued triamcinolone acetonide 0.1 % cream 1 applic TP BID Qty: 80 RF: 2 lorazepam 0.5 mg tablet 0.5 mg PO BID PRN (Reason: anxiety) Qty: 40 RF: 1 (DME) blood-glucose meter [Paperless Transaction ManagementTouch Ultra2 Meter] 1 EACH kit 1 ea Miscellaneous BID Qty: 1 RF: 0 (DME) Paperless Transaction ManagementTouch Ultra Blue Test Strip Strip See Dose Instructions .ROUTE .MEDSUPPLY Qty: 200 RF: 4 (DME) lancets [OneTouch Delica Lancets] 33 gauge misc 1 ea Miscellaneous BID Qty: 200 RF: 4 albuterol sulfate [Ventolin HFA] 90 mcg/actuation HFA aerosol inhaler 2 puff IH Q6H PRN (Reason: shortness of breath or wheezing) Qty: 18 RF: 6 baclofen 10 mg tablet 10 mg PO TID PRN (Reason: muscle spasm) Qty: 90 RF: 3 bupropion HCl 150 mg tablet sustained-release 12 hr 150 mg PO BID Qty: 60 RF: 3 gabapentin 100 mg capsule 100 mg PO TID Qty: 270 RF: 4 amlodipine [Norvasc] 10 mg tablet 10 mg PO QAM Qty: 90 RF: 4 rosuvastatin 5 mg tablet 5 mg PO DAILY Qty: 30 RF: 5 lisinopril 40 mg tablet 20 mg PO BID Qty: 180 RF: 3 metformin 500 mg tablet 500 mg PO BID Qty: 180 RF: 4 Eliquis 5 mg tablet 5 mg PO BID Qty: 60 RF: 5 hydrochlorothiazide 25 mg tablet 25 mg PO DAILY Qty: 90 RF: 4 metoprolol tartrate 75 mg tablet 75 mg PO BID Qty: 180 RF: 4 allopurinol 100 mg tablet 200 mg PO DAILY Qty: 60 RF: 11 omega-3 fatty acids-fish oil 1 EACH capsule 1 cap PO DAILY RF: 0 betamethasone dipropionate 0.05 % cream 1 applic TP BID 14 Days Qty: 15 RF: 1 Discharge Instructions Instructions: Toothache (ED), Mouth Care (ED) Additional Instructions: Drink plenty of fluids and get plenty of rest. Take Tylenol as needed and directed for pain. Your antibiotic prescription has been sent electronically to your pharmacy. Call the pharmacy to make sure your prescription is ready before pickup. Take the prescription as directed. Follow-up with your dentist in 1 week for reevaluation. Return to the emergency department with any worsening or new concerning symptoms. Discharge Data Discharge Physician: Roro Quintanilla Medical Decision Making 55-year-old male 6 days status post dental extraction presents for right lower dental and jaw pain and swelling. The 2 sites of extraction evaluated. The posterior site has minimal tenderness, edema and erythema. The other more anterior site appears to be healing well. There is no evidence of abscess or drainage. Will cover with oral antibiotics. He was given 1 dose of penicillin here and prescription to go. Advised to follow up with the dentist for re-evaluation. Usual and customary return precautions given prior to discharge. Medical Records Medical records reviewed: Yes I reviewed the patient's medical records. HPI General Mode of arrival: ambulatory. Date/Time Provider Initiated Documentation: 09/17/20 11:16. Limitations to Documentation: no limitations. Information obtained by: patient. HPI Narrative: Patient is a 55-year-old male with multiple medical problems including diabetes, obesity, atrial fibrillation who is 6 days status post dental extraction of 2 teeth who presents for right lower dental and jaw pain and foul taste in mouth for the past few days. Patient states he was not placed on antibiotics after his dental extraction. He states he has had some pain at 1 of 2 of the sites of dental extraction. He states the other site is healing well. He says he does taste a foul drainage coming out of the site at times. He states he has been gargling with salt water. He states the pain is controlled at times with Tylenol. He states he is concerned about a developing infection and would like to start antibiotics. Related Data Home Medications Medication Instructions Recorded Confirmed blood-glucose meter [OneTouch #1 kit 08/27/16 05/08/20 Ultra2 Meter] omega-3 fatty acids-fish oil 1 cap PO DAILY 09/21/17 05/08/20 betamethasone dipropionate 1 applic TP BID 14 Days #15 gm 12/02/18 05/08/20 triamcinolone acetonide 0.1 % 1 applic TP BID #80 gm 07/29/19 05/08/20 topical cream blood sugar diagnostic #200 each 10/07/19 05/08/20 lancets 33 gauge #200 each 10/07/19 05/08/20 albuterol sulfate 90 mcg/actuation 2 puff IH Q6H PRN #18 gm 11/08/19 05/08/20 aerosol inhaler baclofen 10 mg tablet 10 mg PO TID PRN #90 tab 11/10/19 05/08/20 lorazepam 0.5 mg tablet 0.5 mg PO BID PRN #40 tab 01/03/20 05/08/20 amlodipine 10 mg tablet 10 mg PO QAM #90 tab-cap 04/17/20 05/08/20 bupropion HCl 150 mg tablet,12 hr 150 mg PO BID #60 tab 04/17/20 05/08/20 sustained-release gabapentin 100 mg capsule 100 mg PO TID #270 cap 04/17/20 05/08/20 rosuvastatin 5 mg tablet 5 mg PO DAILY #30 tab 04/19/20 05/08/20 lisinopril 40 mg tablet 20 mg PO BID #180 tab-cap 06/16/20 metformin 500 mg tablet 500 mg PO BID #180 tab 06/16/20 apixaban 5 mg tablet 5 mg PO BID #60 tab 07/28/20 hydrochlorothiazide 25 mg tablet 25 mg PO DAILY #90 tab-cap 07/28/20 metoprolol tartrate 75 mg tablet 75 mg PO BID #180 tab-cap 08/10/20 allopurinol 100 mg tablet 200 mg PO DAILY #60 tab 09/07/20 penicillin V potassium 500 mg PO QID 7 Days #28 tab 09/17/20 Previous Rx's Medication Instructions Recorded betamethasone dipropionate 1 applic TP BID 14 Days #15 gm 12/02/18 triamcinolone acetonide 0.1 % 1 applic TP BID #80 gm 07/29/19 topical cream blood sugar diagnostic #200 each 10/07/19 lancets 33 gauge #200 each 10/07/19 albuterol sulfate 90 mcg/actuation 2 puff IH Q6H PRN #18 gm 11/08/19 aerosol inhaler baclofen 10 mg tablet 10 mg PO TID PRN #90 tab 11/10/19 lorazepam 0.5 mg tablet 0.5 mg PO BID PRN #40 tab 01/03/20 amlodipine 10 mg tablet 10 mg PO QAM #90 tab-cap 04/17/20 bupropion HCl 150 mg tablet,12 hr 150 mg PO BID #60 tab 04/17/20 sustained-release gabapentin 100 mg capsule 100 mg PO TID #270 cap 04/17/20 rosuvastatin 5 mg tablet 5 mg PO DAILY #30 tab 04/19/20 lisinopril 40 mg tablet 20 mg PO BID #180 tab-cap 06/16/20 metformin 500 mg tablet 500 mg PO BID #180 tab 06/16/20 apixaban 5 mg tablet 5 mg PO BID #60 tab 07/28/20 hydrochlorothiazide 25 mg tablet 25 mg PO DAILY #90 tab-cap 07/28/20 metoprolol tartrate 75 mg tablet 75 mg PO BID #180 tab-cap 08/10/20 allopurinol 100 mg tablet 200 mg PO DAILY #60 tab 09/07/20 penicillin V potassium 500 mg PO QID 7 Days #28 tab 09/17/20 Allergies Allergy/AdvReac Type Severity Reaction Status Date / Time No Known Allergies Allergy Verified 09/17/20 11:27 General SARAH: 3 Review of Systems All systems reviewed & are unremarkable except as noted in HPI and below Constitutional Constitutional: Reports as per HPI, Denies chills and Denies fever(s) Eyes Eyes: Denies blurry vision ENT Ears, Nose, Mouth, and Throat: Reports halitosis, Reports dental pain, Denies dizziness, Denies sore throat and Denies throat swelling Cardiovascular Cardiovascular: Denies chest pain and Denies dyspnea Respiratory Respiratory: Denies cough and Denies dyspnea Gastrointestinal Gastrointestinal: Denies abdominal pain, Denies diarrhea and Denies vomiting Genitourinary Genitourinary: Denies hematuria and Denies dysuria Musculoskeletal Musculoskeletal: Denies back pain and Denies numbness Integumentary/Breasts Skin/Breast: Denies lesions and Denies rash Neurologic Neurologic: Denies dizziness, Denies localized weakness and Denies numbness Allergic/Immunologic Allergic/Immunologic: Denies throat swelling [facility] Medical History Colon cancer screening COPD (chronic obstructive pulmonary disease) Depression Diabetes Diarrhea Diverticula of colon Gout HTN (hypertension) Hyperlipemia LLQ abdominal pain Positive colorectal cancer screening using Cologuard test Surgical History LEFT HEART CARDIAC CATH (~2003) NEG S/P rotator cuff repair Family History Mother No problems noted. Social History Smoking/Tobacco Use Status: Current every day Tobacco Type: cigarettes Quit status: considering quitting Second Hand Exposure: Yes Smoking risk assessment performed?: Yes Alcohol Intake: current Alcohol Intake frequency: holidays/special occasions only Drug use: Never Substance use type: former substance user Household members: significant other Pets and animals: Yes Pets and animals: cat(s) and dog(s) Sexually active: Yes Do you think of yourself as: straight/heterosexual Current gender identity: decline to answer What is your relationship status?: living with partner How often do you talk on the phone with friends or family?: three or more times per week How often do you get together with friends or relatives?: three or more times per week How often do you attend muslim or mandaeism services?: 1-3 times per year Do you belong to any clubs or organized social groups?: no Panel score (0-1 are the most socially isolated patients): 2 What type of physical activity do you participate in: walking Duration: decline to answer Frequency: decline to answer Sophia/Mandaeism: Bap Special sophia needs: No Do you feel safe at home: Yes Do you feel safe in your relationship?: Yes Exam Const General: cooperative, healthy appearing and no acute distress HENMT Head: normal to inspection Ears: hearing grossly normal bilaterally, external ears normal and TM's normal bilaterally General nose exam: external nose normal Mouth: oral mucosae normal, no drooling and no trismus Teeth image: 1. Sites of dental extraction. Site #27 nontender without edema or erythema. Site #28 with mild tenderness, erythema and edema. No abscess noted. Eyes General: appearance normal, both eyes and all related structures Neck Neck: normal visual inspection, no lymphadenopathy, no meningeal signs, trachea midline, supple and No submandibular swelling Resp Effort & Inspection: normal respiratory effort and able to speak in complete sentences Cardio Rate: regular rate Skin General skin exam: no rashes or lesions noted Neuro General: patient alert, patient awake and patient oriented x3 Motor: muscle tone normal throughout Extrem General: normal to inspection and full ROM Psych Appearance: grossly normal Affect: normal affect
[2020-09-17 11:18] VITALS: BP 143/93; PULSE 74; RESP 18; TEMP 36.8; O2SAT 98
[2020-09-17] MEDS: Penicillin V POTASSIUM 500 MG TAB PO (11:51)
== END 2020-09-17 11:55 | disposition home or self-care (01) ==
PROVIDERS: Emergency Provider Physician Assistant; PCP Nurse Practitioner Family
DX: K04.7 Periapical abscess without sinus (principal); Z98.818 Other dental procedure status
CPT/HCPCS: 99283

== ENCOUNTER 2020-09-28 13:25 | Observation (INO) | payer MEDICAID, SELFPAY ==
[2020-09-28] VITALS (55 sets, daily range): BP systolic 116–148; BP diastolic 69–104; PULSE 56–114; RESP 12–28; TEMP 36.6–36.9; O2SAT 95–100
--- NOTE | 2020-09-28 13:15 | RT.EKG_ITS ---
APPROVED REPORT Exam: Resting ECG Reason for Exam: chest pain Patient Location: E HR:88 bpm ECG Measurements Heart Rate 88 AXIS DE [id number] P [id number] QRSd 103 QRS 63 QT 350 T 20 QTc 422 Conclusion Atrial fibrillation...V-rate 64-111, irreg A-activity No ST elevation
--- NOTE | 2020-09-28 14:00 | DI.RAD_ITS ---
Exam(s) XR CHEST 2V PA LATERAL EXAM: XR CHEST 2V PA LATERAL CLINICAL HISTORY: chest pain TECHNIQUE: 2D digital imaging was performed. COMPARISON: CR XR CHEST 2V PA LATERAL from 12/31/2019 FINDINGS: MEDIASTINUM: Normal. HEART: Normal. PULMONARY VASCULATURE: Normal. LUNGS: Clear. PLEURAL SPACE: No pleural effusion or pneumothorax. BONE:Degenerative disc changes. IMPRESSION: No acute pulmonary findings. DATA REPOSITORY: RADIATION DOSE DELIVERED:
[2020-09-28 14:09] LABS: Abs Immature Grans 0.03 10^3/uL (0.0-0.06); Absolute Basophil Count 0.03 10^3/uL (0.0-0.2); Absolute Lymphocyte Count 2.12 10^3/uL (1.2-3.4); Absolute Monocyte Count 0.76 10^3/uL (0.1-0.8); Absolute Neutrophil Count 4.99 10^3/uL (1.2-6.7); Basophils % 0.4; Eosinophils % 1.2; HCT 48.7 % (40.0-50.0); HGB 16.5 g/dL (13.5-17.5); Immature Grans % 0.4; Lymphocytes % 26.4; MCH 30.8 pg (27.0-33.0); MCHC 33.9 % (32.0-36.0); MCV 90.9 fL (80-95); MPV 12.4 fL (8.0-11.0); Monocytes % 9.5; Neutrophils % 62.1; Nucleated RBC 0 %; Platelet Count 136 10^3/uL (130-400); RBC 5.36 10^6/uL (4.36-5.78); RDW 12.9 % (11.8-14.1); WBC 8.03 10^3/uL (4.4-10.8)
[2020-09-28] MEDS: Aspirin 81 MG CHEW CH (14:09)
[2020-09-28 14:33] LABS: ALT 34 U/L (16-63); AST 16 U/L (15-37); Albumin 4.2 g/dL (3.4-5.0); Alkaline Phosphatase 56 U/L (46-116); Anion Gap 4.8 mmol/L (3-11); BUN 15 mg/dL (7-18); Bilirubin, Total 0.5 mg/dL (0.2-1.0); CO2 33.2 mmol/L (21.0-32.0); CREATININE 0.9 mg/dL (0.70-1.30); Calcium 9.3 mg/dL (8.5-10.1); Chloride 101 mmol/L (98-107); Glucose 114 mg/dL (74-106); Magnesium 2.1 mg/dL (1.8-2.4); Sodium 139 mmol/L (136-145); Total Protein 8.2 g/dL (6.4-8.2)
[2020-09-28 14:34] LABS: Troponin I < 0.05 ng/mL (<0.06)
--- NOTE | 2020-09-28 15:45 | RT.EKG_ITS ---
APPROVED REPORT Exam: Resting ECG Reason for Exam: chest pain Patient Location: E HR:89 bpm ECG Measurements Heart Rate 89 AXIS DC [id number] P [id number] QRSd 100 QRS 71 QT 356 T 27 QTc 433 Conclusion Atrial fibrillation...V-rate 61- 88, irreg A-activity Probable lateral infarct, old...Q>35mS, abnormal ST-T, V5-6 I aVL no significant changes from first ekg
--- NOTE | 2020-09-28 15:45 | W.ED.GENAD ---
Discharge Plan Disposition Patient Disposition: [facility] INPATIENT Condition: Stable Discharge Details Clinical Impression: Chest pain Admit Date/Time: 09/28/20 17:11 Admit Provider: Donell Vargas Attending Provider: Donell Vargas Primary Care Provider: Rich Zheng ED Provider: Donell Contreras Discharge Data Discharge Date/Time-TO BE ENTERED AT DEPARTURE: 09/28/20 18:23 Medical Decision Making <JAIMIE Rojas - Last Filed: 09/29/20 08:45> Patient is a heart score of 4, and he had an episode of chest pain today at 1030, given his heart score and lack of recent stress test, recommendation is to admit this patient for observation and stress test, patient is agreeable to being admitted at this time EKG shows rate controlled atrial fibrillation without evidence of acute ischemia Initial troponin negative Case discussed with Dr. Demarco who recommends repeat troponin at the 3-hour petra, a repeat EKG and troponin were subsequently ordered Chest x-ray and additional diagnostic labs do not show acute pathology, I did consider pulmonary embolism however patient is anticoagulated and has been taking his Eliquis as prescribed His blood pressure stable at 120/70, given that he is having no current chest pain, I did give 81 mg of aspirin but no nitroglycerin at this time Case was signed out to Donell Contreras pending repeat troponin and EKG, admission to the hospital <JAIMIE Zapata - Last Filed: 09/28/20 17:28> I assumed care of this 55-year-old male from my colleague JAIMIE Corral, please see her HPI and examination. In short this gentleman had chest pain, palpitations, diaphoresis around 1030 this morning, pain-free since being in the ER. Initial work-up is unremarkable. She spoke with our hospitalist team, plan is to obtain a repeat EKG and troponin, and if unremarkable plan is to admit with stress test tomorrow. I personally evaluate the patient, he is pain-free, resting comfortably. He is hemodynamically stable, on the monitor appears to be A. fib rate controlled in the 80s. He denies any chest pain whatsoever. Repeat EKG performed at 1644. Atrial fibrillation, ventricular of 89. No STEMI. No dynamic changes when compared to initial EKG. Please see official report by Dr. Israel Repeat troponin remains less than 0.05. Discussed case with Dr. Vargas who is agreeable to admission and will write admission orders. HPI <JAIMIE Rojas - Last Filed: 09/29/20 08:45> General Mode of arrival: ambulatory. Date/Time Provider Initiated Documentation: 09/28/20 13:28. Limitations to Documentation: no limitations. Information obtained by: patient. HPI Narrative: This 56-year-old gentleman with history of diabetes, hypertension, hyperlipidemia, atrial fibrillation who presents with report of chest discomfort at 1030 today while he was cooking. He states he felt diaphoretic, episode lasted several minutes. He denies any fever or shortness of breath. He denies any calf pain or swelling. He is on Eliquis for a history of atrial fibrillation. He denies any current symptoms. He states he felt intermittently lightheaded over the course of the past several weeks but denies any new shortness of breath. He denies any new exertional dyspnea. He has been taking his Eliquis as prescribed. 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 Patient states has not had a stress test for a a few years . He states he had a cardiac catheterization when he was in the 20s. He denies any recent cocaine use. He denies any additional complaints at this time. He denies IV drug abuse. Related Data Home Medications Medication Instructions Recorded Confirmed blood-glucose meter [[employer] InternationalTouch #1 kit 08/27/16 05/08/20 Ultra2 Meter] omega-3 fatty acids-fish oil 1 cap PO DAILY 09/21/17 09/28/20 betamethasone dipropionate 1 applic TP BID 14 Days #15 gm 12/02/18 09/28/20 triamcinolone acetonide 0.1 % 1 applic TP BID #80 gm 07/29/19 09/28/20 topical cream blood sugar diagnostic #200 each 10/07/19 05/08/20 lancets 33 gauge #200 each 10/07/19 05/08/20 albuterol sulfate 90 mcg/actuation 2 puff IH Q6H PRN #18 gm 11/08/19 09/28/20 aerosol inhaler baclofen 10 mg tablet 10 mg PO TID PRN #90 tab 11/10/19 09/28/20 lorazepam 0.5 mg tablet 0.5 mg PO BID PRN #40 tab 01/03/20 09/28/20 amlodipine 10 mg tablet 10 mg PO QAM #90 tab-cap 04/17/20 09/28/20 metformin 500 mg tablet 500 mg PO BID #180 tab 06/16/20 09/28/20 apixaban 5 mg tablet 5 mg PO BID #60 tab 07/28/20 09/28/20 hydrochlorothiazide 25 mg tablet 25 mg PO DAILY #90 tab-cap 07/28/20 09/28/20 metoprolol tartrate 75 mg tablet 75 mg PO BID #180 tab-cap 08/10/20 09/28/20 allopurinol 100 mg tablet 200 mg PO DAILY #60 tab 09/07/20 09/28/20 lisinopril 20 mg PO DAILY 09/28/20 09/28/20 Previous Rx's Medication Instructions Recorded betamethasone dipropionate 1 applic TP BID 14 Days #15 gm 12/02/18 triamcinolone acetonide 0.1 % 1 applic TP BID #80 gm 07/29/19 topical cream blood sugar diagnostic #200 each 10/07/19 lancets 33 gauge #200 each 10/07/19 albuterol sulfate 90 mcg/actuation 2 puff IH Q6H PRN #18 gm 11/08/19 aerosol inhaler baclofen 10 mg tablet 10 mg PO TID PRN #90 tab 11/10/19 lorazepam 0.5 mg tablet 0.5 mg PO BID PRN #40 tab 01/03/20 amlodipine 10 mg tablet 10 mg PO QAM #90 tab-cap 04/17/20 metformin 500 mg tablet 500 mg PO BID #180 tab 06/16/20 apixaban 5 mg tablet 5 mg PO BID #60 tab 07/28/20 hydrochlorothiazide 25 mg tablet 25 mg PO DAILY #90 tab-cap 07/28/20 metoprolol tartrate 75 mg tablet 75 mg PO BID #180 tab-cap 08/10/20 allopurinol 100 mg tablet 200 mg PO DAILY #60 tab 09/07/20 Allergies Allergy/AdvReac Type Severity Reaction Status Date / Time No Known Allergies Allergy Verified 09/28/20 13:36 General Stated Complaint: Chest Pain SARAH: 2 Review of Systems <JAIMIE Rojas - Last Filed: 09/29/20 08:45> Narrative: Review of systems obtained x7 aside from where indicated in HPI PFSH <JAIMIE Rojas - Last Filed: 09/29/20 08:45> Medical History (Updated 09/29/20 @ 08:18 by Donell Vargas) Colon cancer screening COPD (chronic obstructive pulmonary disease) Depression Diabetes Diarrhea Diverticula of colon Gout HTN (hypertension) Hyperlipemia Positive colorectal cancer screening using Cologuard test Surgical History LEFT HEART CARDIAC CATH (~2003) NEG S/P rotator cuff repair Family History Mother No problems noted. Social History Smoking/Tobacco Use Status: Current every day Tobacco Type: cigarettes Quit status: considering quitting Second Hand Exposure: Yes Smoking risk assessment performed?: Yes Alcohol Intake: current Alcohol Intake frequency: holidays/special occasions only Drug use: Never Substance use type: former substance user Household members: significant other Pets and animals: Yes Pets and animals: cat(s) and dog(s) Sexually active: Yes Do you think of yourself as: straight/heterosexual Current gender identity: decline to answer What is your relationship status?: living with partner How often do you talk on the phone with friends or family?: three or more times per week How often do you get together with friends or relatives?: three or more times per week How often do you attend rastafari or scientologist services?: 1-3 times per year Do you belong to any clubs or organized social groups?: no Panel score (0-1 are the most socially isolated patients): 2 What type of physical activity do you participate in: walking Duration: decline to answer Frequency: decline to answer Sophia/Episcopal: Bap Special sophia needs: No Do you feel safe at home: Yes Do you feel safe in your relationship?: Yes Exam <JAIMIE Rojas - Last Filed: 09/29/20 08:45> Const General: cooperative and no acute distress Resp Effort & Inspection: normal respiratory effort Other: Scant wheezes noted Cardio Rate: regular rate Rhythm: abnormal rhythm GI Other: No abdominal bruit or pulsatile mass Skin General skin exam: no rashes or lesions noted Neuro General: patient alert and patient oriented x3 Extrem Other: 1+ edema to bilateral lower extremities, nontender bilaterally Course <JAIMIE Rojas - Last Filed: 09/29/20 08:45> Vital Signs Vital signs: Vital Signs Temperature 36.6 C 09/28/20 13:29 Pulse 104 H 09/28/20 13:29 Respiratory Rate 21 09/28/20 13:29 Blood Pressure 148/104 H 09/28/20 13:29 Pulse Oximetry 98 09/28/20 13:29 Temperature 36.6 C 09/28/20 13:29 Temperature Source Temporal Artery Scan 09/28/20 13:29 Pulse 93 H 09/28/20 15:02 Pulse 110 H 09/28/20 15:10 Respiratory Rate 17 09/28/20 15:10 Respiratory Effort Non-Labored 09/28/20 13:47 Respiratory Depth Normal 09/28/20 13:47 Respiratory Pattern Normal 09/28/20 13:47 Blood Pressure 127/86 09/28/20 15:02 Blood Pressure Mean 94 09/28/20 15:02 Blood Pressure Position Supine 09/28/20 13:29 Pulse Oximetry 97 09/28/20 15:10 Oxygen Delivery Method Room Air 09/28/20 13:29 Oxygen Flow Rate 0 09/28/20 13:29 Lab/Test Results Lab/Test Results: Laboratory Tests Range/Units 09/28/20 09/28/20 13:35 13:35 WBC (4.4-10.8) 10^3/uL 8.03 RBC (4.36-5.78) 10^6/uL 5.36 Hgb (13.5-17.5) g/dL 16.5 Hct (40.0-50.0) % 48.7 MCV (80-95) fL 90.9 MCH (27.0-33.0) pg 30.8 MCHC (32.0-36.0) % 33.9 RDW (11.8-14.1) % 12.9 Plt Count (130-400) 10^3/uL 136 MPV (8.0-11.0) fL 12.4 H Immature Gran % 0.4 Neutrophils % 62.1 Lymphocytes % 26.4 Monocytes % 9.5 Eosinophils % 1.2 Basophils % 0.4 Nucleated RBC % % 0 Absolute Neutrophils (1.2-6.7) 10^3/uL 4.99 Absolute Lymphocytes (1.2-3.4) 10^3/uL 2.12 Absolute Monocytes (0.1-0.8) 10^3/uL 0.76 Absolute Eosinophils (0.0-0.7) 10^3/uL 0.10 Absolute Basophils (0.0-0.2) 10^3/uL 0.03 Sodium (136-145) mmol/L 139 Potassium (3.5-5.1) mmol/L 4.0 Chloride (98-107) mmol/L 101 Carbon Dioxide (21.0-32.0) mmol/L 33.2 H Anion Gap (3-11) mmol/L 4.8 BUN (7-18) mg/dL 15 Creatinine (0.70-1.30) mg/dL 0.9 Estimated GFR/1.73 m2 (mL/min/1.73m2) >= 60.00 Glucose (74-106) mg/dL 114 H Calcium (8.5-10.1) mg/dL 9.3 Magnesium (1.8-2.4) mg/dL 2.1 Total Bilirubin (0.2-1.0) mg/dL 0.5 AST (15-37) U/L 16 ALT (16-63) U/L 34 Alkaline Phosphatase (46-116) U/L 56 Troponin I (<0.06) ng/mL < 0.05 Total Protein (6.4-8.2) g/dL 8.2 Albumin (3.4-5.0) g/dL 4.2 TSH (0.36-3.74) uIU/mL 0.80 Sign Out <JAIMIE Rojas - Last Filed: 09/29/20 08:45> Sign Out Data: Sign Out Comment: pending repeat ekg/trop/ admission Last updated by Abril Corral PA at 09/28/20 16:22
[2020-09-28 17:00] LABS: Troponin I < 0.05 ng/mL (<0.06)
[2020-09-28] MEDS: Nicotine 21 MG/24 HR PATCH TD (17:13)
[2020-09-28 17:38] LABS: Source Nasal/Nares
--- NOTE | 2020-09-28 18:52 | W.PM.HP.N ---
Date of service: 09/28/20 Time of Service: 18:52 Assessment and Plan Assessment and plan (1) Chest pain: Status: Acute Assessment and plan: Atypical CP in that this has been fleeting/intermittent and not associated w/ activity. He had a GXT stress test a year ago in which he had no ischemic EKG changes but at the end of the test went into a PSVT. I think that his episodes of chest symptoms are actually his afib going into rapid runs. Certainly one of these episodes which occurred couple weeks ago was severe enough that his pulse was in the 170's and he had a near syncope spell. I think the best thing for him is to get back to [facility] [place] for his cardio[place]. I have ordered a stress test for tomorrow but could not get an answer as to whether or not we will be able to perform this. I spoke w/ stafff in [facility] and they did not think there was a high speed printer operator available on Friday but [facility] clinic said that there is a high speed printer operator for tomorrow. I asked the personnel in [facility] to sort this out and get back to me. I never hear back. He has effectively ruled out for ACS event in that he has had two negative troponin I levels. His first one was at 13:30 which was 3 hrs after his last episode of chest discomfort and now his latest tropnon I was at 16:30 which has been 6 hours after his chest discomfort at 10:30 am. His EKG did not show any ischemia. If we are unable to get a stress test then he will be discharged home for follow up cardioversion next week. Qualifiers: Chest pain type: unspecified Qualified Code(s): R07.9 - Chest pain, unspecified (2) Atrial fibrillation: Status: Chronic Assessment and plan: cont. Eliquis and Lopressor. May need to increase his lopressor dose. Qualifiers: Atrial fibrillation type: longstanding persistent Qualified Code(s): I48.11 - Longstanding persistent atrial fibrillation (3) Essential hypertension: Status: Chronic Assessment and plan: cont. lopressor and lisinopril and amlodipine (4) Type 2 diabetes mellitus without complication, without long-term current use of insulin: Status: Chronic Assessment and plan: hold metformin and monitor glucose w/ SSI coverage. (5) GRACE on CPAP: Status: Chronic Assessment and plan: patient brought his own CPAP which he will use while here History of Present Illness History of Present Illness Chief Complaint: chest pain/palpitations Narrative: 55 yr old male w/ PMH of DM type 2, HTN, HLD, paroxysmal afib anticoagulated w/ apixaban, rate controlled w/ lopressor, COPD and GRACE (on CPAP) who developed has been experiencing intermittent chest pains and palpitations. About 3 weeks ago while fixing cup of coffee he had episode in which his heart rate got up to the 170's as registered on his pulse oximeter and was associated w/ lightheadedness and diaphoresis. He had missed a dose or two of his medications. Symptoms resolved when he took his meds and laid down. Since that time he has had recurrent episodes of intermittent fleeting chest pains in which he will feel a twinge in his chest that will last a few seconds. He also has had some chest pressure like sore muscles w/ pressure under his breast and going into his back between his shoulder blades. None have been associated w/ exertional activity. All have occurred while at rest or light activity. Today's episode occurred while cutting up vegetables in the kitchen. This occurred at 10:30 a.m. and was a pressure under his breast and then went into his back and only lasted a few seconds but then was followed by lightheadedness and diaphoresis. Upon arrival he was pain free and has been pain free since. He is scheduled to have a DCC cardioversion at [facility] [place] on October [address] Carter Pompa. Workup in the ER included EKG demonstrating atrial fibrillation at 89 bpm w/out ischemic changes. Serial troponin I taken @ 13:35 and 16:35 were both normal at <0.05. Patient was advised by the ER staff that he should be admitted for a stress test d/t his calculated HEART score is 4. The patient has a GXT stress test in 09/21/2019 in which he went 5 min. 14 sec and achieved 7.05 METS and Mazin stage 2 at 2.5 mph and 12% grade and did not demonstrate any ischemic changes but did have sporadic atrial and ventricular ectopic beats during the exercise test and during recovery experienced non sustained run of SVT at rate of 200 bpm at 2 minutes and 17 seconds into recovery. Patient is being admitted to obtain another stress test for tomorrow. Hopefully he can get a Lexiscan stress MPI. He feels that he is in worse deconditioning over the past year and can not perform a GXT. Review of Systems All systems reviewed & are unremarkable except as noted in HPI and below PFSH Medical History (Updated 09/29/20 @ 08:18 by Donell Vargas) Colon cancer screening COPD (chronic obstructive pulmonary disease) Depression Diabetes Diarrhea Diverticula of colon Gout HTN (hypertension) Hyperlipemia Positive colorectal cancer screening using Cologuard test Surgical History LEFT HEART CARDIAC CATH (~2003) NEG S/P rotator cuff repair Family History Mother No problems noted. Social History Smoking/Tobacco Use Status: Current every day Tobacco Type: cigarettes Quit status: considering quitting Second Hand Exposure: Yes Smoking risk assessment performed?: Yes Alcohol Intake: current Alcohol Intake frequency: holidays/special occasions only Drug use: Never Substance use type: former substance user Household members: significant other Pets and animals: Yes Pets and animals: cat(s) and dog(s) Sexually active: Yes Do you think of yourself as: straight/heterosexual Current gender identity: decline to answer What is your relationship status?: living with partner How often do you talk on the phone with friends or family?: three or more times per week How often do you get together with friends or relatives?: three or more times per week How often do you attend jehovah's witness or baptist services?: 1-3 times per year Do you belong to any clubs or organized social groups?: no Panel score (0-1 are the most socially isolated patients): 2 What type of physical activity do you participate in: walking Duration: decline to answer Frequency: decline to answer Sophia/Uatsdin: Bap Special sophia needs: No Do you feel safe at home: Yes Do you feel safe in your relationship?: Yes Meds Allergies and Home Medications Allergies Allergy/AdvReac Type Severity Reaction Status Date / Time No Known Allergies Allergy Verified 09/28/20 13:36 Home Medications Medication Instructions Recorded Confirmed Type blood-glucose meter [OneTouch #1 kit 08/27/16 05/08/20 History Ultra2 Meter] omega-3 fatty acids-fish oil 1 cap PO DAILY 09/21/17 09/28/20 History betamethasone dipropionate 1 applic TP BID 14 Days #15 gm 12/02/18 09/28/20 Rx triamcinolone acetonide 0.1 % 1 applic TP BID #80 gm 07/29/19 09/28/20 Rx topical cream blood sugar diagnostic #200 each 10/07/19 05/08/20 Rx lancets 33 gauge #200 each 10/07/19 05/08/20 Rx albuterol sulfate 90 mcg/actuation 2 puff IH Q6H PRN #18 gm 11/08/19 09/28/20 Rx aerosol inhaler baclofen 10 mg tablet 10 mg PO TID PRN #90 tab 11/10/19 09/28/20 Rx lorazepam 0.5 mg tablet 0.5 mg PO BID PRN #40 tab 01/03/20 09/28/20 Rx amlodipine 10 mg tablet 10 mg PO QAM #90 tab-cap 04/17/20 09/28/20 Rx metformin 500 mg tablet 500 mg PO BID #180 tab 06/16/20 09/28/20 Rx apixaban 5 mg tablet 5 mg PO BID #60 tab 07/28/20 09/28/20 Rx hydrochlorothiazide 25 mg tablet 25 mg PO DAILY #90 tab-cap 07/28/20 09/28/20 Rx metoprolol tartrate 75 mg tablet 75 mg PO BID #180 tab-cap 08/10/20 09/28/20 Rx allopurinol 100 mg tablet 200 mg PO DAILY #60 tab 09/07/20 09/28/20 Rx lisinopril 20 mg PO DAILY 09/28/20 09/28/20 History Exam Const General: cooperative, no acute distress, well developed and well groomed Nutritional Appearance: obese morbidly obese Orientation: alert, awake and oriented x3 HENMT Head: normal to inspection, normocephalic and atraumatic Ears: hearing grossly normal bilaterally General nose exam: external nose normal Face and sinus: normal facial exam Mouth: oral mucosae normal Eyes General: appearance normal, both eyes and all related structures Alignment and Position: alignment normal Periorbital: periorbital findings normal Eyelids: eyelids normal Conjunctivae: conjunctivae normal Sclera: sclerae normal Cornea: corneas normal Pupils: PERRL EOM: EOM intact bilaterally Neck Neck: normal visual inspection, full ROM, no lymphadenopathy and no JVD Thyroid: thyroid normal Carotids: normal carotid upstroke Chest Chest: normal inspection of the chest and normal palpation of entire chest wall Resp Effort & Inspection: normal respiratory effort and able to speak in complete sentences Auscultation: wheezes expiratory wheezes and scattered wheezes Percussion: percussion normal Cardio Jugular venous pressure: no JVD Palpation: normal PMI Rate: regular rate Rhythm: abnormal rhythm irregularly irregular Heart Sounds: no murmurs Pulses: brachial pulses present and radial pulses present GI Inspection: normal to inspection and obesity Palpation: soft and no hepatosplenomegaly Percussion: normal to percussion Auscultation: normal bowel sounds Back/Spine/Pelvis Back: no CVA tenderness Cervical Spine: normal cervical lordosis Thoracic/Lumbar Spine: thoracic and lumbar spine normal to inspection Skin General skin exam: no rashes or lesions noted Neuro General: patient alert, patient awake and patient oriented x3 Cognition: normal cognition Speech: speech normal Motor: muscle tone normal throughout and strength 5/5 throughout Extrem General: normal to inspection, full ROM and capillary refill normal Psych Appearance: grossly normal and well kempt Mental Status: mental status grossly normal Speech and Movement: speech and movement normal Mood: congruent mood Affect: normal affect Attitude: cooperative Thought Process: normal Thought Content: normal Insight: insight good Judgment: judgment good Results Labs Result diagrams: 09/28/20 13:35 09/28/20 13:35 Labs: Laboratory Results - last 24 hr 09/28/20 09/28/20 09/28/20 13:35 13:35 16:35 WBC 8.03 RBC 5.36 Hgb 16.5 Hct 48.7 MCV 90.9 MCH 30.8 MCHC 33.9 RDW 12.9 Plt Count 136 MPV 12.4 H Immature Gran % 0.4 Neutrophils % 62.1 Lymphocytes % 26.4 Monocytes % 9.5 Eosinophils % 1.2 Basophils % 0.4 Nucleated RBC % 0 Absolute Neutrophils 4.99 Absolute Lymphocytes 2.12 Absolute Monocytes 0.76 Absolute Eosinophils 0.10 Absolute Basophils 0.03 Sodium 139 Potassium 4.0 Chloride 101 Carbon Dioxide 33.2 H Anion Gap 4.8 BUN 15 Creatinine 0.9 Estimated GFR/1.73 m2 >= 60.00 Glucose 114 H Calcium 9.3 Magnesium 2.1 Total Bilirubin 0.5 AST 16 ALT 34 Alkaline Phosphatase 56 Troponin I < 0.05 < 0.05 Total Protein 8.2 Albumin 4.2 TSH 0.80 COVID-19 Source 09/28/20 17:30 WBC RBC Hgb Hct MCV MCH MCHC RDW Plt Count MPV Immature Gran % Neutrophils % Lymphocytes % Monocytes % Eosinophils % Basophils % Nucleated RBC % Absolute Neutrophils Absolute Lymphocytes Absolute Monocytes Absolute Eosinophils Absolute Basophils Sodium Potassium Chloride Carbon Dioxide Anion Gap BUN Creatinine Estimated GFR/1.73 m2 Glucose Calcium Magnesium Total Bilirubin AST ALT Alkaline Phosphatase Troponin I Total Protein Albumin TSH COVID-19 Source Nasal/nares Last Vital Signs Temp 36.6 C 09/28/20 13:29 Pulse 75 09/28/20 18:02 Resp 20 09/28/20 18:02 BP 127/85 09/28/20 18:02 Pulse Ox 98 09/28/20 18:00 COVID-19 Screening Have you, or household traveled for leisure in last 14 days?: No Had IN PERSON contact w/suspected or confirmed C-19 person: No
[2020-09-28 20:56] LABS: COVID-19 PCR Negative (Negative)
[2020-09-28] MEDS: amLODIPine 10 MG TAB PO (21:04)
[2020-09-28] MEDS: Metoprolol 25 MG TAB 75 MG PO (21:04)
[2020-09-28] MEDS: Apixaban 5 MG TAB PO (21:05)
[2020-09-28] MEDS: Betamethasone Dip. 0.05% CR 15 GM TUBE TP (21:13)
[2020-09-29 04:21] VITALS: BP 125/66; PULSE 88; RESP 18; TEMP 36.6; O2SAT 93
[2020-09-29 07:00] VITALS: PULSE 72
[2020-09-29 07:11] VITALS: BP 119/82; PULSE 96; RESP 19; TEMP 36.1; O2SAT 96
[2020-09-29 07:20] VITALS: PULSE 137
[2020-09-29] MEDS: Apixaban 5 MG TAB PO (08:12)
--- NOTE | 2020-09-29 09:01 | PDOC.CMIN ---
- If Service Date Differs Date of service: 09/29/20 Time of Service: 09:01 Care Management Initial Assess REASON FOR HOSPITALIZATION:: Chest Pain PAST MEDICAL HISTORY/PAST SURGICAL HISTORY:: Medical History (Updated 09/29/20 @ 08:18 by Donell Vargsa). Colon cancer screening. COPD (chronic obstructive pulmonary disease). Depression. Diabetes. Diarrhea. Diverticula of colon. Gout. HTN (hypertension). Hyperlipemia. Positive colorectal cancer screening using Cologuard test. Surgical History . LEFT HEART CARDIAC CATH (~2003). NEG. S/P rotator cuff repair ADVANCE DIRECTIVES:: None on file Has patient been provided with info about the portal/API?: Yes Did the patient sign up for the portal?: Yes (previously) CODE STATUS:: Full Code INSURANCE COVERAGE / FINANCIAL ISSUES:: Medicaid PRIMARY CARE PHYSICIAN:: Rich Zheng POTENTIAL DISCHARGE NEEDS:: Follow up with PCP and discharge plan of care PATIENT/FAMILY EDUCATION NEEDS:: Review of discharge instructions, medications, limitations, follow up plan, Ask Me Three TRANSPORTATION:: via private vehicle with family
[2020-09-29] MEDS: Omega-3 Fatty Acids 1000 MG CAP PO (09:46)
[2020-09-29] MEDS: Lisinopril 20 MG TAB PO (09:47)
[2020-09-29] MEDS: Metoprolol 25 MG TAB 75 MG PO (09:47)
[2020-09-29] MEDS: hydroCHLOROthiazide 25 MG TAB PO (09:47)
--- NOTE | 2020-09-29 10:59 | DSE_ITS ---
Date of service: 09/29/20 Time of Service: 11:00 DS: Diagnosis Discharge Diagnosis (1) Chest pain: Status: Resolved Asessment and Plan: atypical chest pains. negative troponins and no ischemic ST-T changes on his EKG. plan for outpatient Lexiscan stress MPI. increase lopressor dose to control afib rate. Patient declined to remain in the hospital while his meds are titrated. Patient cautioned on signs/symptoms for which he ought to return to the hospital. (2) Atrial fibrillation: Status: Chronic Asessment and Plan: Increase lopressor to 75 mg twice a day about 12 to 14 hours apart w/ an additonal 37.5 mg given in middle of day. (3) Essential hypertension: Status: Chronic Asessment and Plan: no change in his amlodipine or lisinopril; however if an increase in his lopressor causes a drop in his bp and his HR is not adequately controlled then I would decrease his amlodipine and/or his lisinopril to allow higher BB dosing/frequency (4) Type 2 diabetes mellitus without complication, without long-term current use of insulin: Status: Chronic Asessment and Plan: no change in his metformin. PCP to adjust for goal of A1c under 7% (5) GRACE on CPAP: Status: Chronic Asessment and Plan: patient is encouraged to remain compliant w/ his CPAP and to lose weight. He is also encouraged to avoid tobacco use Discharge Plan Disposition Patient Disposition: HOME Condition: Stable Discharge Details Reason For Visit: CHEST PAIN Admit Date/Time: 09/28/20 17:11 Admit Provider: Donell Vargas Attending Provider: Donell Vargas Primary Care Provider: Rich Zheng Hospital Course Hospital Course: See H&P for details concerning symptoms and ER workup. Patient presented w/ atypical chest discomfort, palpitations in setting of PAF. Serial troponin I levels were negative and EKG did not show any ischemic changes. His chest sympt oms had resolved by the time he presented to the ER and he remained free of any CP or palpitations. His afib rate was under variable control w/ elevation into the 140's w/ activity but declining below 100 at rest. A stress test was intially planned w/ MPI to evaluate for ischemic heart disease but could not be obtained as an inpatient. Because of his afib rate he was advised to remain for another day of adjustment of his lopressor but he declined to stay as he was now asymptomatic. His lopressor dose was increased from 75 mg bid to 75 mg @ 8 a.m., 37.5 mg at 1600 and 75 mg @ 2300. He is told to take an extra 37.5 mg (1/2 of his 75 mg) prn sustained heart rate over 130 bpm. Patient is to follow up w/ Dr. Carter Pompa next week for cardioversion. He is to follow up w/ either Dr. Vaz or Dr. Velazquez in 2 weeks. He is to remain on his Eliquis. Home Meds and New Rx's Prescriptions: Continued triamcinolone acetonide 0.1 % cream 1 applic TP BID Qty: 80 RF: 2 lorazepam 0.5 mg tablet 0.5 mg PO BID PRN (Reason: anxiety) Qty: 40 RF: 1 (DME) blood-glucose meter [RoboDynamics Ultra2 Meter] 1 EACH kit 1 ea Miscellaneous BID Qty: 1 RF: 0 (DME) payasUgymuch Ultra Blue Test Strip Strip See Dose Instructions .ROUTE .MEDSUPPLY Qty: 200 RF: 4 (DME) lancets [OneTouch Delica Lancets] 33 gauge misc 1 ea Miscellaneous BID Qty: 200 RF: 4 albuterol sulfate [Ventolin HFA] 90 mcg/actuation HFA aerosol inhaler 2 puff IH Q6H PRN (Reason: shortness of breath or wheezing) Qty: 18 RF: 6 baclofen 10 mg tablet 10 mg PO TID PRN (Reason: muscle spasm) Qty: 90 RF: 3 amlodipine [Norvasc] 10 mg tablet 10 mg PO QAM Qty: 90 RF: 4 metformin 500 mg tablet 500 mg PO BID Qty: 180 RF: 4 Eliquis 5 mg tablet 5 mg PO BID Qty: 60 RF: 5 hydrochlorothiazide 25 mg tablet 25 mg PO DAILY Qty: 90 RF: 4 allopurinol 100 mg tablet 200 mg PO DAILY Qty: 60 RF: 11 omega-3 fatty acids-fish oil 1 EACH capsule 1 cap PO DAILY RF: 0 betamethasone dipropionate 0.05 % cream 1 applic TP BID 14 Days Qty: 15 RF: 1 lisinopril 40 mg tablet 20 mg PO BID RF: 0 Changed metoprolol tartrate 75 mg tablet 75 mg PO DIRECTED Qty: 180 RF: 4 Discharge Instructions Instructions: A-fib (Atrial Fibrillation) (DC), Chest Pain (DC) Additional Instructions: Please increase your metoprolol to 75 mg @ 8 a.m., 37.5 mg (1/2 of 75 mg ) @ 4 pm and 75 mg @ 11 pm. If your heart rate is fast and sustained at 130 bpm or higher (after sitting down and resting) and your blood pressure is over 110 mm, then take an extra dose of 37.5 mg metoprolol tartrate. If you have sustained chest pain or pressure or you have sustained rapid heart rates over 130 bpm or develope shortness of breath w/ your chest pain or presure; do not delay returning to the emergency room; call 911. You will be set up for stress nuclear study to evaluate for ischemic chest pain. However, you should keep your current scheduled visit w/ Dr. Carter Tang next week at [facility] and you should plan to follow up w/ your local egg tester at [facility]. Stand Alone Forms: Nursing Discharge Form Referrals: Carol Ann Vaz MD [ [facility] STAFF PHYSICIAN] - 10/13/20 9:00 am (This appointment in at [facility] in [facility]. ) Activity:: Activity as Tolerated Equipment/Supplies:: No Equipment Needed Diet:: Carb Counting Discharge Orders Other Ambulatory Orders: NM MPI rest & stress grp (Routine) Timeframe: 2 Weeks Facility: [facility] - Location: DIAGNOSTIC IMAGING DEPT Ordered By: Donell Vargas DS: Summary Time Spent with Patient providing and/or coordinating discharge services: Less than 30 minutes Status at Discharge Functional status at discharge: independent ambulation Overall status at discharge: patient is back to baseline Mental Status: mental status grossly normal Speech and Movement: speech and movement normal Mood: congruent mood Affect: normal affect Exam Narrative Exam Narrative: Obese white male sitting up at bedside, free of any chest pain or dyspnea Heart is irregularly irregular, controlled rate Lungs a few end expiratory wheezes, no rales or rhonchi Extremities w/out edema Psych Mental Status: mental status grossly normal Speech and Movement: speech and movement normal Mood: congruent mood Affect: normal affect DS: Data Vitals/I&O Vitals and I&O: Vital Signs Temperature 36.1 C L 09/29/20 07:11 Temperature Source Tympanic 09/29/20 07:11 Pulse 137 H 09/29/20 07:20 Pulse Rhythm Irregular 09/29/20 07:30 Pulse 99 H 09/28/20 18:02 Respiratory Rate 19 09/29/20 07:11 Respiratory Effort Non-Labored 09/29/20 07:30 Respiratory Depth Shallow 09/29/20 07:30 Respiratory Pattern Normal 09/29/20 07:30 Blood Pressure 119/82 09/29/20 07:11 Blood Pressure Mean 94 09/28/20 18:02 Blood Pressure Position Supine 09/28/20 13:29 Pulse Oximetry 96 09/29/20 07:11 Oxygen Delivery Method Room Air 09/29/20 07:11 Oxygen Flow Rate 0 09/29/20 07:11 Pain Level 0 09/28/20 23:50 Intake & Output 09/28/20 09/28/20 09/29/20 11:59 23:59 11:59 Intake Total 30 Output Total 850 / 850 500 / 500 Balance -840 / -840 -470 / -470 Weight 173 kg 173 kg Intake: IV Oral Output: Urine 850 / 850 500 / 500 Other: Urine Color Light Shayla Light Shayla Urine Appearance Clear Clear Urine Odor None Normal Voiding Methods Toilet Toilet Data Completed and Pending Labs on day of discharge: Labs from last 24 hours 09/29/20 09/28/20 09/28/20 06:22 17:30 16:35 WBC RBC Hgb Hct MCV MCH MCHC RDW Plt Count MPV Immature Gran % Neutrophils % Lymphocytes % Monocytes % Eosinophils % Basophils % Nucleated RBC % Absolute Neutrophils Absolute Lymphocytes Absolute Monocytes Absolute Eosinophils Absolute Basophils Sodium Potassium Chloride Carbon Dioxide Anion Gap BUN Creatinine Estimated GFR/1.73 m2 Glucose Calcium Magnesium Total Bilirubin AST ALT Alkaline Phosphatase Troponin I < 0.05 Total Protein Albumin Triglycerides Pending Total Cholesterol Pending LDL Cholesterol, Calc Pending HDL Cholesterol Pending TSH COVID-19 Source Nasal/nares SARS-CoV-2 (PCR) Negative 09/28/20 09/28/20 09/28/20 15:41 13:35 13:35 WBC 8.03 RBC 5.36 Hgb 16.5 Hct 48.7 MCV 90.9 MCH 30.8 MCHC 33.9 RDW 12.9 Plt Count 136 MPV 12.4 H Immature Gran % 0.4 Neutrophils % 62.1 Lymphocytes % 26.4 Monocytes % 9.5 Eosinophils % 1.2 Basophils % 0.4 Nucleated RBC % 0 Absolute Neutrophils 4.99 Absolute Lymphocytes 2.12 Absolute Monocytes 0.76 Absolute Eosinophils 0.10 Absolute Basophils 0.03 Sodium 139 Potassium 4.0 Chloride 101 Carbon Dioxide 33.2 H Anion Gap 4.8 BUN 15 Creatinine 0.9 Estimated GFR/1.73 m2 >= 60.00 Glucose 114 H Calcium 9.3 Magnesium 2.1 Total Bilirubin 0.5 AST 16 ALT 34 Alkaline Phosphatase 56 Troponin I Cancelled < 0.05 Total Protein 8.2 Albumin 4.2 Triglycerides Total Cholesterol LDL Cholesterol, Calc HDL Cholesterol TSH 0.80 COVID-19 Source SARS-CoV-2 (PCR) PENDING SALE TO [facility] Medical History Colon cancer screening COPD (chronic obstructive pulmonary disease) Depression Diabetes Diarrhea Diverticula of colon Gout HTN (hypertension) Hyperlipemia Positive colorectal cancer screening using Cologuard test Surgical History LEFT HEART CARDIAC CATH (~2003) NEG S/P rotator cuff repair Family History Mother No problems noted. Social History Smoking/Tobacco Use Status: Current every day Tobacco Type: cigarettes Quit status: considering quitting Second Hand Exposure: Yes Smoking risk assessment performed?: Yes Alcohol Intake: current Alcohol Intake frequency: holidays/special occasions only Drug use: Never Substance use type: former substance user Household members: significant other Pets and animals: Yes Pets and animals: cat(s) and dog(s) Sexually active: Yes Do you think of yourself as: straight/heterosexual Current gender identity: decline to answer What is your relationship status?: living with partner How often do you talk on the phone with friends or family?: three or more times per week How often do you get together with friends or relatives?: three or more times per week How often do you attend zoroastrian or hoahaoism services?: 1-3 times per year Do you belong to any clubs or organized social groups?: no Panel score (0-1 are the most socially isolated patients): 2 What type of physical activity do you participate in: walking Duration: decline to answer Frequency: decline to answer Sophia/Anglican: Bap Special sophia needs: No Do you feel safe at home: Yes Do you feel safe in your relationship?: Yes
[2020-09-29 11:11] LABS: Calculated LDL 134 mg/dL (<100); Cholesterol 181 mg/dL (<200); HDL Cholesterol 29 mg/dL (40-60); Triglyceride 92 mg/dL (<150)
[2020-09-29 11:19] VITALS: BP 124/80; PULSE 85; RESP 19; TEMP 36.4; O2SAT 97
--- NOTE | 2020-09-29 11:21 | W.INDIABCONS ---
Date of service: 09/29/20 Time of Service: 11:21 Diabetes Inpatient Consult DESCRIPTION/ASSESSMENT: 55 year old male admitted with chest pain with long standing hx of morbid obesity, Dm2, COPD, HTN, HLD with BMI>50. Most recent A1c: 6.2% (August 2020) indicates well controlled Dm2 with current DM meds( metformin 500 mg BID). Declines DM/weight management education at this time. INTERVENTION: Dm education not warranted at this time. PLAN: Continue Diabetic diet. Will be available prn. Time Spent in Nutritional Counseling and Treatment: 5 min
--- NOTE | 2020-09-29 15:12 | CHAPLAIN ---
Noah said he came to the ER yesterday with chest discomfort and because of other health issues he thought he should be checked out. He was admitted to spend the night, and will come back for next week for a stress test. He said when he begins to not feel well, his anxiety kicks in and feels worse. He felt the should be checked out. 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
--- NOTE | 2020-09-29 15:34 | PDOC.CMPRO ---
- If Service Date Differs Date of service: 09/29/20 Time of Service: 15:34 Care Management Progress Note S/O: Noah was discharged home with no new services before CM could met with him. He will follow up with his scheduled cardiology appointment next week and transport with family. P:Noah was discharged home with no new services and follow up with his community providers and plan of care.
== END 2020-09-29 11:41 | disposition home or self-care (01) ==
LOC: ER 17:53 → MS 18:24
PROVIDERS: Physician Assistant; Admitting Provider Internal Medicine; Emergency Provider Physician Assistant; PCP Nurse Practitioner Family; Visit Provider Internal Medicine
DX: R07.89 Other chest pain (principal); I48.11 Longstanding persistent atrial fibrillation; I10 Essential (primary) hypertension; E11.9 Type 2 diabetes mellitus without complications; G47.33 Obstructive sleep apnea (adult) (pediatric)
CPT/HCPCS: 36415; 36416; 80053; 80061; 82962; 87635; 93005; 99285; 71046; 83735; 84443; 84484; 85025; 93010; 99219; 99238; 99284; G0378

== ENCOUNTER 2020-10-05 00:25 | Outpatient (CLI) | payer MEDICAID, SELFPAY ==
--- NOTE | 2020-10-05 07:45 | DI.NM_ITS ---
APPROVED REPORT Exam: Pharmacologic with low level exercise Patient Location: Out-Patient Room/Bed: Stress Nurse: Emi Ricardo RN; Johanna Nelson RN Ordering Provider:HIRAM HOLLOWAYMARK ANTHONY, Contact Number: [phone] BMI: 55.37 Baseline Rhythm: Sinus Rhythm Comment: T wave inversion V2 Indications: typical chest pain Medical History Medical History: afib, HTN, HLD, smoker, COPD, obesity, DM Cardiac Medications: metoprolol tartrate, metformin, lisinopril, HCTZ, apixiban, amlodipine, albutero l sulfate Allergies: NKA Cardiac Risk Factors: HTN, HLD, Smoker, DM, Obesity, Family History, COPD Previous Cardiac Procedures: cardioversion (10/03/20) Pretest Chest Pain Characteristics: none Exercise History: sedentary Physical Disabilities: none Lung Sounds: Clear to auscultation Heart Sounds: Regular Stress Test Details Test: Pharmacologic stress was paired with low level exercise. Nuclear Acquisition: Rest Tc-99m/Stress Tc-99m 1 day Rest Isotope: Tc-99m Sestamibi. Dose: 14.5 Date: 10/05/2020 Injection Time: 1130 Stress Isotope: Tc-99m Sestamibi. Dose: 45 Date: 10/05/2020 Injection Time: 1350 HR Resting HR Supine: 65 bpm Max Heart Rate (APMHR): 167.875718 bpm Resting HR Standin bpm Target HR (85% APMHR): 141.373000 bpm Max HR Achieved: 135 bpm % of APMHR: 80.84 Recovery HR: 79 bpm Comment: did not hold beta giovanni BP Resting BP Supine: 152/90 mmHg Resting BP Standin/86 mmHg Max BP: 192/80 mmHg Recovery BP: 160/86 mmHg ECG Resting ECG: Sinus Rhythm Ectopy: none Comment: T wave inversion V2 Stress ECG: Sinus Rhythm, Sinus Tachycardia ST Change: No significant ST segment changes noted Arrhythmia: none Recovery ECG: Sinus Rhythm Recovery ST Change: No significant ST segment changes noted Recovery Arrhythmia: none Clinical Stress Symptoms: Dyspnea Exercise duration: 4 min30 sec Exercise capacity: 2.07 METs Rate Pressure Product: 10123 Stress ECG Conclusion 1. This was a low level exercise test coupled with pharmacologic stress 2. Resting EKG was normal. Normal heart rate and blood pressure response to exercise. The patient a chieved 80% of predicted heart rate for age 5. Electrocardiographically the test was nondiagnostic due to inadequate heart rate Stress Test Summary STAGE HR BP Symptoms NOTES Supine 65 152/90 1 min post Lexiscan injection 132 SOB, SpO2 87% 3 min post Lexiscan injection 111 192/80 SOB resolved, SpO2 98% 6 min post Lexiscan injection 80 172/82 9 min post Lexiscan injection 79 160/86 Standing 67 152/86 Low level exercise 1.4MPH with 0% grade. MPI Conclusion Technically suboptimal Overall probably normal perfusion, without evidence of significant ischemia or prior infarction EF is 57% Radiologist Interpretation Radiologist Interpretation by: Sagar Elizabeth MD Interpretation Date/Time: 10/06/2020 13:51:44
[2020-10-05] MEDS: Regadenoson 0.4 MG/5 ML SYR IVP (14:01)
== END 2020-10-05 00:45 ==
PROVIDERS: PCP Nurse Practitioner Family; Visit Provider Internal Medicine
DX: R07.89 Other chest pain (principal); I10 Essential (primary) hypertension; E78.5 Hyperlipidemia, unspecified; F17.210 Nicotine dependence, cigarettes, uncomplicated; E11.9 Type 2 diabetes mellitus without complications; E66.9 Obesity, unspecified; Z82.49 Family history of ischemic heart disease and other diseases of the circulatory system; J44.9 Chronic obstructive pulmonary disease, unspecified
CPT/HCPCS: 78452; 93017; J2785

== ENCOUNTER 2020-10-13 09:15 | Outpatient (CLI) | payer MEDICAID, SELFPAY ==
--- NOTE | 2020-10-13 09:15 | RT.EKG_ITS ---
APPROVED REPORT Exam: Resting ECG Reason for Exam: f/u after cardioversion Patient Location: O HR:62 bpm ECG Measurements Heart Rate 62 AXIS W[place] 174 P 29 QRSd 102 QRS 55 QT 396 T 24 QTc 402 Conclusion Sinus rhythm...normal P axis, V-rate 50- 99 Normal Electrocardiogram
== END 2020-10-13 09:16 | disposition home or self-care (01) ==
LOC: DI.CARD 09:16
PROVIDERS: PCP Nurse Practitioner Family; Visit Provider Internal Medicine Cardiovascular Disease
DX: I48.91 Unspecified atrial fibrillation (principal)
CPT/HCPCS: 93010

== ENCOUNTER 2020-12-28 21:03 | Emergency (ER) | payer MEDICAID, SELFPAY ==
[2020-12-28 21:11] VITALS: BP 146/90; PULSE 82; RESP 18; O2SAT 98
--- NOTE | 2020-12-28 21:15 | ED.GENADUL_ITS ---
Discharge Plan Disposition Patient Disposition: HOME Condition: Stable Discharge Details Clinical Impression: Internal hordeolum of left eye Primary Care Provider: Rich Zheng ED Provider: Jenny Alex Home Meds and New Rx's Prescriptions: No Action triamcinolone acetonide 0.1 % cream 1 applic TP BID Qty: 80 RF: 2 lorazepam 0.5 mg tablet 0.5 mg PO BID PRN (Reason: anxiety) Qty: 40 RF: 1 lisinopril 40 mg tablet 40 mg PO DAILY Qty: 90 RF: 4 metoprolol succinate 50 mg tablet extended release 24 hr 50 mg PO BID Qty: 180 RF: 4 (DME) blood-glucose meter [Invarium Ultra2 Meter] 1 EACH kit 1 ea Miscellaneous BID Qty: 1 RF: 0 (DME) lancets [excentosTouch Delica Lancets] 33 gauge misc 1 ea Miscellaneous BID Qty: 200 RF: 4 albuterol sulfate [Ventolin HFA] 90 mcg/actuation HFA aerosol inhaler 2 puff IH Q6H PRN (Reason: shortness of breath or wheezing) Qty: 18 RF: 6 baclofen 10 mg tablet 10 mg PO TID PRN (Reason: muscle spasm) Qty: 90 RF: 3 amlodipine [Norvasc] 10 mg tablet 10 mg PO QAM Qty: 90 RF: 4 metformin 500 mg tablet 500 mg PO BID Qty: 180 RF: 4 Eliquis 5 mg tablet 5 mg PO BID Qty: 60 RF: 5 hydrochlorothiazide 25 mg tablet 25 mg PO DAILY Qty: 90 RF: 4 allopurinol 100 mg tablet 200 mg PO DAILY Qty: 60 RF: 11 (DME) OneTouch Ultra Blue Test Strip Strip See Dose Instructions .ROUTE .MEDSUPPLY Qty: 200 RF: 4 omega-3 fatty acids-fish oil 1 EACH capsule 1 cap PO DAILY RF: 0 Discharge Instructions Instructions: Froylan (ED) Additional Instructions: Apply moist warm compresses to left eye 3-4 times daily. Wash hands thoroughly before touching your eye. Use the eye antibiotics 3-4 times daily while awake as directed. If no improvement after 3 to 5 days of antibiotics please follow-up with marketing operations consultant or [facility] eye care. Follow up with primary care provider in 3-5 days. Return to ED sooner if any worsening or concerns. Increase oral fluids. Please take Tylenol or Ibuprofen with food every 4-6 hours as needed for pain and swelling. [facility] Address: [address] [place] [address] , [place] [address] Hours: Closed ? Opens 8AM Fri Referrals: Rich Zheng, SPEECH AND LANGUAGE ASSISTANT [Primary Care Provider] - Medical Decision Making Findings are consistent with internal hordeolum or stye.. erythromycin ointment ordered. Instructed patient on home care and strict return instructions and reasons to follow-up. Verbalized understanding. This text was generated using Sookboxation system, please disregard any oddities of phrase or misspellings. HPI General Mode of arrival: ambulatory . Date/Time Provider Initiated Documentation: 12/28/20 21:04 . Limitations to Documentation: no limitations . Information obtained by: patient . HPI Narrative: 35-year-old male presents the ER chief complaint of left lower eyelid tenderness and swelling which he is noted over the last 2 to 3 days. Patient has been using erythromycin ointment at home with little to no relief. Does have some erythema noted to the lower lid and a small internal hordeolum which is tender to palpation. He reports seeing some drainage yesterday. No fever or any other associated symptoms. EOMs are intact no visual disturbances at this time. Related Data Home Medications Medication Instructions Recorded Confirmed blood-glucose meter [OneTouch #1 kit 08/27/16 12/21/20 Ultra2 Meter] omega-3 fatty acids-fish oil 1 cap PO DAILY 09/21/17 12/28/20 triamcinolone acetonide 0.1 % 1 applic TP BID #80 gm 07/29/19 12/28/20 topical cream lancets 33 gauge #200 each 10/07/19 12/21/20 albuterol sulfate 90 mcg/actuation 2 puff IH Q6H PRN #18 gm 11/08/19 12/28/20 aerosol inhaler baclofen 10 mg tablet 10 mg PO TID PRN #90 tab 11/10/19 12/28/20 lorazepam 0.5 mg tablet 0.5 mg PO BID PRN #40 tab 01/03/20 12/28/20 amlodipine 10 mg tablet 10 mg PO QAM #90 tab-cap 04/17/20 12/28/20 metformin 500 mg tablet 500 mg PO BID #180 tab 06/16/20 12/28/20 apixaban 5 mg tablet 5 mg PO BID #60 tab 07/28/20 12/28/20 hydrochlorothiazide 25 mg tablet 25 mg PO DAILY #90 tab-cap 07/28/20 12/28/20 allopurinol 100 mg tablet 200 mg PO DAILY #60 tab 09/07/20 12/28/20 lisinopril 40 mg tablet 40 mg PO DAILY #90 tab 10/09/20 12/28/20 metoprolol succinate 50 mg 50 mg PO BID #180 tab 10/09/20 12/28/20 tablet,extended release 24 hr blood sugar diagnostic #200 each 11/20/20 12/21/20 Previous Rx's Medication Instructions Recorded triamcinolone acetonide 0.1 % 1 applic TP BID #80 gm 07/29/19 topical cream lancets 33 gauge #200 each 10/07/19 albuterol sulfate 90 mcg/actuation 2 puff IH Q6H PRN #18 gm 11/08/19 aerosol inhaler baclofen 10 mg tablet 10 mg PO TID PRN #90 tab 11/10/19 lorazepam 0.5 mg tablet 0.5 mg PO BID PRN #40 tab 01/03/20 amlodipine 10 mg tablet 10 mg PO QAM #90 tab-cap 04/17/20 metformin 500 mg tablet 500 mg PO BID #180 tab 06/16/20 apixaban 5 mg tablet 5 mg PO BID #60 tab 07/28/20 hydrochlorothiazide 25 mg tablet 25 mg PO DAILY #90 tab-cap 07/28/20 allopurinol 100 mg tablet 200 mg PO DAILY #60 tab 09/07/20 lisinopril 40 mg tablet 40 mg PO DAILY #90 tab 10/09/20 metoprolol succinate 50 mg 50 mg PO BID #180 tab 10/09/20 tablet,extended release 24 hr blood sugar diagnostic #200 each 11/20/20 Allergies Allergy/AdvReac Type Severity Reaction Status Date / Time No Known Allergies Allergy Verified 12/21/20 10:42 General SARAH: 2 Review of Systems All systems reviewed & are unremarkable except as noted in HPI and below Eyes Eyes: Reports as per HPI, Denies change in vision, Denies loss of vision and Reports eye pain (lower eyelid) Neurologic Neurologic: Denies loss of vision PFSH Medical History Colon cancer screening COPD (chronic obstructive pulmonary disease) Depression Diabetes Diarrhea Diverticula of colon Gout HTN (hypertension) Hyperlipemia Positive colorectal cancer screening using Cologuard test Surgical History LEFT HEART CARDIAC CATH (~2003) NEG S/P rotator cuff repair Family History Mother No problems noted. Social History (Updated 10/13/20 @ 09:15 by Vannesa Alex RN) Smoking/Tobacco Use Status: Current every day Tobacco Type: cigarettes Quit status: considering quitting Second Hand Exposure: Yes Smoking risk assessment performed?: Yes Alcohol Intake: current Alcohol Intake frequency: holidays/special occasions only Drug use: Never Substance use type: former substance user Household members: significant other Pets and animals: Yes Pets and animals: cat(s) and dog(s) Sexually active: Yes Do you think of yourself as: straight/heterosexual Current gender identity: decline to answer What is your relationship status?: living with partner How often do you talk on the phone with friends or family?: three or more times per week How often do you get together with friends or relatives?: three or more times per week How often do you attend synagogue or sabianism services?: 1-3 times per year Do you belong to any clubs or organized social groups?: no Panel score (0-1 are the most socially isolated patients): 2 What type of physical activity do you participate in: walking and additional De tails: housework/projects Duration: 15-30 minutes/day Frequency: 3-4 times per week Sophia/Buddhism: Bap Special sophia needs: No Do you feel safe at home: Yes Do you feel safe in your relationship?: Yes Exam Eyes Alignment and Position: alignment normal Periorbital: periorbital findings abnormal Eyelids: eyelid abnormality left lower eyelid inflamed cyst (internal hordeolum) internal lid, erythema and swelling Conjunctivae: conjunctivae normal Sclera: sclerae normal Cornea: corneas normal Pupils: PERRL and normal by confrontation EOM: EOM intact bilaterally Direct ophthalmoscopy: normal light reflex Eyes/upper lids images: 1. mild erythema 2. Internal hordeolum visualized
[2020-12-28] MEDS: Erythromycin Ophth Oint 3.5 GM TUBE OS (21:27)
[2020-12-28 21:28] VITALS: TEMP 36.8
== END 2020-12-28 21:28 | disposition home or self-care (01) ==
LOC: ER 21:21
PROVIDERS: Emergency Provider Registered Nurse Emergency; PCP Nurse Practitioner Family
DX: H00.025 Hordeolum internum left lower eyelid (principal)
CPT/HCPCS: 99283

== ENCOUNTER 2021-01-22 15:52 | Outpatient (REF) | payer MEDICAID, SELFPAY ==
[2021-01-22 18:28] LABS: D-Dimer 474 ng/mlFEU (<500)
== END 2021-01-22 15:53 | disposition home or self-care (01) ==
LOC: LBN 15:52
PROVIDERS: PCP Nurse Practitioner Family; Visit Provider Nurse Practitioner Family
DX: M25.561 Pain in right knee (principal)
CPT/HCPCS: 85379

== ENCOUNTER 2021-01-31 01:51 | Outpatient (CLI) | payer MEDICAID, SELFPAY ==
--- NOTE | 2021-01-31 09:30 | DI.US_ITS ---
Exam(s) US SOFT TISSUE EXTREMITY EXAM: US SOFT TISSUE EXTREMITY CLINICAL HISTORY: r/o popliteal cyst,POSTERIOR RT KNEE PAIN, M25.561. TECHNIQUE: Ultrasound was performed using standard protocol. COMPARISON: No exams were available for comparison FINDINGS: Sonographic assessment utilizing grayscale and color Doppler imaging was performed and targeted to th e area of clinical concern. The area of concern is apparently in the medial aspect of the right knee and right popliteal fossa. Images reveal no evidence of solid or significant cystic finding in the popliteal fossa nor in the m edial aspect of the knee. No abnormal fluid collection evident on these images. IMPRESSION: No obvious abnormality seen on ultrasound. If clinically indicated follow-up MRI can be performed fo r added sensitivity and specificity. DATA REPOSITORY:
== END 2021-01-31 02:11 ==
PROVIDERS: PCP Nurse Practitioner Family; Visit Provider Nurse Practitioner Family
DX: M25.561 Pain in right knee (principal)
CPT/HCPCS: 76881

== ENCOUNTER 2021-04-16 11:58 | Outpatient (CLI) | payer OTHER, SELFPAY ==
--- NOTE | 2021-04-16 11:45 | RT.EKG_ITS ---
APPROVED REPORT Exam: Resting ECG Reason for Exam: Follow up Atrial Fibrillation Patient Location: O HR:67 bpm ECG Measurements Heart Rate 67 AXIS [place] 169 P 46 QRSd 103 QRS 45 QT 375 T 21 QTc 396 Conclusion Sinus rhythm...normal P axis, V-rate 50- 99 ST elev, probable normal early repol pattern...ST elevation, age<55 Normal Electrocardiogram
== END 2021-04-16 11:59 | disposition home or self-care (01) ==
LOC: DI.CARD 11:59
PROVIDERS: PCP Nurse Practitioner Family; Visit Provider Internal Medicine Cardiovascular Disease
DX: I48.0 Paroxysmal atrial fibrillation (principal)
CPT/HCPCS: 93010

== ENCOUNTER 2021-05-26 18:54 | Emergency (ER) | payer OTHER, SELFPAY ==
[2021-05-26 19:11] VITALS: BP 168/98; PULSE 78; RESP 18; TEMP 36.5; O2SAT 99
--- NOTE | 2021-05-26 19:30 | DI.RAD_ITS ---
Exam(s) XR RIBS LT W PA LAT CHEST EXAM: XR RIBS LT W PA LAT CHEST CLINICAL HISTORY: fall , lower mid axillary rib tissue because pain. TECHNIQUE: 2D digital imaging was performed. COMPARISON: CR XR CHEST 2V PA LATERAL from 09/28/2020 FINDINGS: Left rib cage: 3 images of the left rib cage reveal no evidence of fractures nor osseous lesions. Chest x-ray heart size upper normal. Mediastinum is not widened. Lungs are clear. No infiltrates n or lung contusion. No pleural effusions. No pneumothorax IMPRESSION: No left rib fracture seen. No pneumothorax nor other pulmonary findings. DATA REPOSITORY: RADIATION DOSE DELIVERED:
--- NOTE | 2021-05-26 21:01 | DI.VRAD_ITS ---
PROCEDURE INFORMATION: Exam: XR Left Ribs Exam date and time: 05/26/2021 7:46 PM Age: 56 years old Clinical indication: Chest wall pain and left-sided; Patient HX: Fall, lower mid axillary rib tissue TECHNIQUE: Imaging protocol: XR Left ribs. Views: 2 views. COMPARISON: CR XR CHEST 2V PA LATERAL 09/28/2020 2:24 PM FINDINGS: Bones/joints: Left ribs are intact. Negative for fracture or focal bony lesion. Intercostal spaces are normal in width. Soft tissues: No abnormalities. IMPRESSION: No evidence of left rib fracture. PROCEDURE INFORMATION: Exam: XR Chest Exam date and time: 05/26/2021 7:46 PM Age: 56 years old Clinical indication: Chest wall pain and left-sided; Patient HX: Fall, lower mid axillary rib tissue TECHNIQUE: Imaging protocol: XR of the chest. Views: 2 views. COMPARISON: CR XR CHEST 2V PA LATERAL 09/28/2020 2:24 PM FINDINGS: Lungs: Unremarkable. No consolidation. Pleural spaces: Unremarkable. No pleural effusion. No pneumothorax. Heart/Mediastinum: Unremarkable. No cardiomegaly. Bones/joints: Unremarkable. Soft tissues: Negative for chest wall air. IMPRESSION: No acute cardiopulmonary abnormality. Dictated and Authenticated by: Donnell Frias MD. Ordering:DARREN Cadena MD
--- NOTE | 2021-05-26 21:08 | ED.GENADUL_ITS ---
Discharge Plan Disposition Patient Disposition: HOME Condition: Stable Discharge Details Clinical Impression: Contusion of left chest wall, Fall from slipping on ice Primary Care Provider: Rich Zheng ED Provider: Surinder Hope Home Meds and New Rx's Prescriptions: Continued triamcinolone acetonide 0.1 % cream 1 applic TP BID Qty: 80 RF: 2 lorazepam 0.5 mg tablet 0.5 mg PO BID PRN (Reason: anxiety) Qty: 40 RF: 1 (DME) blood-glucose meter [Stackifyuch Ultra2 Meter] 1 EACH kit 1 ea Miscellaneous BID Qty: 1 RF: 0 (DME) lancets [OneTouch Delica Lancets] 33 gauge misc 1 ea Miscellaneous BID Qty: 200 RF: 4 albuterol sulfate [Ventolin HFA] 90 mcg/actuation HFA aerosol inhaler 2 puff IH Q6H PRN (Reason: shortness of breath or wheezing) Qty: 18 RF: 6 baclofen 10 mg tablet 10 mg PO TID PRN (Reason: muscle spasm) Qty: 90 RF: 3 (DME) blood sugar diagnostic Strip See Dose Instructions .ROUTE .MEDSUPPLY Qty: 200 RF: 4 allopurinol 100 mg tablet 200 mg PO DAILY Qty: 180 RF: 4 hydrochlorothiazide 25 mg tablet 25 mg PO DAILY Qty: 90 RF: 4 lisinopril 40 mg tablet 40 mg PO DAILY Qty: 90 RF: 4 metformin 500 mg tablet 500 mg PO BID Qty: 180 RF: 4 metoprolol succinate 50 mg tablet extended release 24 hr 50 mg PO BID Qty: 180 RF: 4 amlodipine [Norvasc] 10 mg tablet 10 mg PO QAM Qty: 14 RF: 0 Xarelto 20 mg tablet 20 mg PO DAILY Qty: 90 RF: 3 omega-3 fatty acids-fish oil 1 EACH capsule 1 cap PO DAILY RF: 0 Discharge Instructions Instructions: Oxycodone, Rapid Release (By mouth), Contusion in Adults (ED), Fall Prevention (ED) Additional Instructions: Continue to take [id number] acetaminophen as needed for discomfort and use narcotic pain medication for severe pain. It is recommended that you have light duty this week and slowly advance activity as tolerated. If you have any new or significant worsening of symptoms or do not show any signs of improvement over the next week please return to the emergency department for reassessment or follow-up with your primary care provider. Stand Alone Forms: Work Release Discharge Data Discharge Date/Time-TO BE ENTERED AT DEPARTURE: 05/26/21 21:33 Medical Decision Making Patient presenting to the emergency department for chief complaint of fall. Patient states while at work he slipped on ice landing on his left side. He states significant pain with movement and it was initially getting better but then with mild activity seem to worsen a day ago. Patient denies any head injury, loss of consciousness, hematuria or abdominal pain. Physical exam shows point tenderness to the mid axillary line lower ribs on the left side. No abdominal tenderness is noted, no other abnormal findings are appreciated. Plan to do rib x-rays. Review of radiological imaging shows no obvious acute findings. Given that patient is already on blood thinners and cannot take NSAIDs and acetaminophen is not helpful patient given small quantity of take all meds for opiate use. Did discuss with patient risk versus benefit which he seems appropriate for utilization of opiates for significant pain and/or sleep. Was unable to query drug database but at this time have no worries after thorough discussion with patient and patient did sign state forms. Patient to follow-up with primary care provider given work injury for further reassessment and he was placed on short term light duty if possibly. HPI General Mode of arrival: ambulatory . Date/Time Provider Initiated Documentation: 05/26/21 18:56 . Limitations to Documentation: no limitations . Information obtained by: patient . History of Present Illness 56 year old M presents to the emergency department with the chief complaint of left flank/back pain, described as moderate, with intensity rated at 8. Quality is described as aching, and is localized to the back and left (flank). Patient reports no radiation. Patient started experiencing this day(s) (3) and it has been constant. Rest improves symptom(s), Movement worsens symptoms . Patient notes no other symptoms.. Patient did receive the following treatments prior to arrival, other (Tylenol) Related Data Home Medications Medication Instructions Recorded Confirmed blood-glucose meter [OneTouch #1 kit 08/27/16 04/16/21 Ultra2 Meter] omega-3 fatty acids-fish oil 1 cap PO DAILY 09/21/17 05/26/21 triamcinolone acetonide 0.1 % 1 applic TP BID #80 gm 07/29/19 04/16/21 topical cream lancets 33 gauge #200 each 10/07/19 04/16/21 albuterol sulfate 90 mcg/actuation 2 puff IH Q6H PRN #18 gm 11/08/19 05/26/21 aerosol inhaler baclofen 10 mg tablet 10 mg PO TID PRN #90 tab 11/10/19 05/26/21 lorazepam 0.5 mg tablet 0.5 mg PO BID PRN #40 tab 01/03/20 04/16/21 blood sugar diagnostic #200 each 11/20/20 04/16/21 allopurinol 100 mg tablet 200 mg PO DAILY #180 tab 01/22/21 05/26/21 hydrochlorothiazide 25 mg tablet 25 mg PO DAILY #90 tab-cap 01/22/21 05/26/21 lisinopril 40 mg tablet 40 mg PO DAILY #90 tab 01/22/21 05/26/21 metformin 500 mg tablet 500 mg PO BID #180 tab 01/22/21 05/26/21 metoprolol succinate 50 mg 50 mg PO BID #180 tab 01/22/21 05/26/21 tablet,extended release 24 hr amlodipine 10 mg tablet 10 mg PO QAM #14 tab-cap 05/14/21 05/26/21 rivaroxaban 20 mg tablet 20 mg PO DAILY #90 tab 05/16/21 05/26/21 Previous Rx's Medication Instructions Recorded triamcinolone acetonide 0.1 % 1 applic TP BID #80 gm 07/29/19 topical cream lancets 33 gauge #200 each 10/07/19 albuterol sulfate 90 mcg/actuation 2 puff IH Q6H PRN #18 gm 11/08/19 aerosol inhaler baclofen 10 mg tablet 10 mg PO TID PRN #90 tab 11/10/19 lorazepam 0.5 mg tablet 0.5 mg PO BID PRN #40 tab 01/03/20 blood sugar diagnostic #200 each 11/20/20 allopurinol 100 mg tablet 200 mg PO DAILY #180 tab 01/22/21 hydrochlorothiazide 25 mg tablet 25 mg PO DAILY #90 tab-cap 01/22/21 lisinopril 40 mg tablet 40 mg PO DAILY #90 tab 01/22/21 metformin 500 mg tablet 500 mg PO BID #180 tab 10/04/21 metoprolol succinate 50 mg 50 mg PO BID #180 tab 01/22/21 tablet,extended release 24 hr amlodipine 10 mg tablet 10 mg PO QAM #14 tab-cap 05/14/21 rivaroxaban 20 mg tablet 20 mg PO DAILY #90 tab 05/16/21 Allergies Allergy/AdvReac Type Severity Reaction Status Date / Time No Known Allergies Allergy Verified 01/22/21 14:27 General Stated Complaint: FlankPain SARAH: 4 Review of Systems Constitutional Constitutional: Denies chills and Denies fever(s) Cardiovascular Cardiovascular: Denies chest pain and Denies dyspnea on exertion Respiratory Respiratory: Denies cough, Reports pain on inspiration and Denies dyspnea on exertion Gastrointestinal Gastrointestinal: Denies abdominal pain, Denies change in bowel habits, Denies diarrhea, Denies nausea and Denies vomiting Genitourinary Genitourinary: Denies hematuria, Denies difficulty urinating and Denies urinary incontinence Musculoskeletal Musculoskeletal: Reports as per HPI and Reports back pain Neurologic Neurologic: Denies sensory deficit PFSH All Active Problems (Updated 05/26/21 @ 21:09 by Surinder Hope NP) Contusion of left chest wall (Acute) Fall from slipping on ice (Acute) Internal hordeolum of left eye (Acute) Oral infection (Acute) S/P tooth extraction (Acute) Ingrown toenail (Acute) GRACE on CPAP (Chronic) Gout (Chronic) Atrial fibrillation (Chronic) Positive colorectal cancer screening using Cologuard test (Acute) Diverticula of colon (Acute) Fatty liver (Acute) Hand eczema (Acute) Diarrhea (Acute) Colon cancer screening (Acute) Anxiety (Chronic) Dyshidrotic eczema (Acute) History of left heart catheterization (Acute) Acute gout involving toe of right foot (Chronic 06/17/17) Chronic obstructive lung disease (Chronic) Depressive disorder (Chronic) Essential hypertension (Chronic 02/18/13) Hyperlipidemia (Chronic) Obesity (Chronic) Smoker (Chronic) Type 2 diabetes mellitus without complication, without long-term current use of insulin (Chronic 12/05/17) Obstructive sleep apnea (Chronic) Medical History COPD (chronic obstructive pulmonary disease) Depression Diabetes HTN (hypertension) Hyperlipemia Surgical History LEFT HEART CARDIAC CATH (~2003) NEG S/P rotator cuff repair Family History Mother No problems noted. Social History Smoking/Tobacco Use Status: Current every day Tobacco Type: cigarettes Quit status: considering quitting Second Hand Exposure: Yes Smoking risk assessment performed?: Yes Alcohol Intake: current Alcohol Intake frequency: holidays/special occasions only Drug use: Never Substance use type: former substance user Household members: significant other Pets and animals: Yes Pets and animals: cat(s) and dog(s) Sexually active: Yes Do you think of yourself as: straight/heterosexual Current gender identity: decline to answer What is your relationship status?: living with partner How often do you talk on the phone with friends or family?: three or more times per week How often do you get together with friends or relatives?: three or more times per week How often do you attend christian or anabaptism services?: 1-3 times per year Do you belong to any clubs or organized social groups?: no Panel score (0-1 are the most socially isolated patients): 2 What type of physical activity do you participate in: walking and additional Details: housework/projects Duration: 15-30 minutes/day Frequency: 3-4 times per week Sophia/Scientology: Bap Special sophia needs: No Do you feel safe at home: Yes Do you feel safe in your relationship?: Yes Exam Const General: cooperative and no acute distress Orientation: alert, awake and oriented x3 Neck Neck: normal visual inspection, full ROM and no meningeal signs Chest Chest: tenderness rib left mid-axillary line involving the 9th rib, involving the 10th rib, involving the 11th rib and involving the 12th rib Resp Effort & Inspection: normal respiratory effort Auscultation: clear to auscultation bilaterally Cardio Rate: regular rate Rhythm: regular rhythm Heart Sounds: S1 normal and S2 normal GI Palpation: no hepatosplenomegaly, no aortic enlargement, not firm, no guarding, no masses, no pulsatile masses, not rigid and nontender Auscultation: normal bowel sounds Back/Spine/Pelvis Thoracic/Lumbar Spine: pain with thoraco-lumbar ROM and thoraco-lumbar ROM limited Pelvis: no pain with anterior-posterior compression, no pain with lateral compression and no buttock tenderness Neuro General: patient alert, patient awake and patient oriented x3 Cognition: normal cognition Speech: speech normal Gait: normal gait Course Vital Signs Vital signs: Vital Signs Temperature 36.5 C 05/26/21 19:11 Pulse 78 05/26/21 19:11 Respiratory Rate 18 05/26/21 19:11 Blood Pressure 168/98 H 05/26/21 19:11 Pulse Oximetry 99 05/26/21 19:11 Temperature 36.5 C 05/26/21 19:11 Temperature Source Skin 05/26/21 19:11 Pulse 78 05/26/21 19:11 Respiratory Rate 18 05/26/21 19:11 Respiratory Effort 05/26/21 19:32 Respiratory Depth Normal 05/26/21 19:32 Respiratory Pattern Normal 05/26/21 19:32 Blood Pressure 168/98 H 05/26/21 19:11 Pulse Oximetry 99 05/26/21 19:11 Oxygen Delivery Method Room Air 05/26/21 19:11 Oxygen Flow Rate 0 05/26/21 19:11 Pain Level 8 05/26/21 19:11
== END 2021-05-26 21:33 | disposition home or self-care (01) ==
PROVIDERS: Emergency Provider Nurse Practitioner Family; PCP Nurse Practitioner Family
DX: S20.212A Contusion of left front wall of thorax, initial encounter (principal); W00.0XXA Fall on same level due to ice and snow, initial encounter
CPT/HCPCS: 99283; 71046; 71100

== ENCOUNTER 2021-06-15 10:36 | Emergency (ER) | payer OTHER, SELFPAY ==
[2021-06-15 10:40] VITALS: BP 178/98; PULSE 71; RESP 16; TEMP 36.3; O2SAT 98
--- NOTE | 2021-06-15 11:00 | DI.CT_ITS ---
Exam(s) CT ABDOMEN PELVIS W EXAM: CT ABDOMEN PELVIS W CLINICAL HISTORY: LUQ and flank pain, anticoa, fall. TECHNIQUE: Imaging Protocol: Axial computed tomography images with coronal and sagittal reformatted images were created and reviewed CONTRAST MATERIAL: Intravenous: Omnipaque 100cc Oral: None COMPARISON: CR,XR XR RIBS LT W PA LAT CHEST from 05/26/[address] LUMBAR SPINE RECONS from 06/15/2021 FINDINGS: VISUALIZED LUNG BASES: No nodules nor pleural effusions evident. ABDOMEN: There is no ascites. There is no evidence of wall nor mesenteric hematoma. LIVER: There are no focal hepatic lesions evident. No evidence of a patent laceration. No subcapsul ar hematoma. GALLBLADDER/BILIARY: No obvious gallbladder pathology. CBD is not dilated. PANCREAS: No evidence of pancreatic mass nor dilatation of the pancreatic duct. SPLEEN: Spleen is not enlarged. No obvious intrasplenic lesions. No splenic laceration or perisplen ic fluid. Splenic and portal veins are patent ADRENALS: There are no significant adrenal masses. KIDNEYS:No evidence of renal laceration or subcapsular hematoma. Mild perinephric streaking bilatera lly. No solid renal masses. No calculi nor hydronephrosis.. ABDOMINAL AORTA: Intact. No evidence of trauma. No aneurysm. No dissection LYMPH NODES:There is no retroperitoneal nor paraaortic adenopathy. ABDOMINAL WALL: No evidence of subcutaneous nor intra-abdominal bruising. No significant anterior ab dominal wall hernias. No inguinal hernia. GI: There is no evidence of bowel obstruction, free air, nor abscess. PELVIS: GI: No evidence of appendicitis.No evidence of sigmoid diverticulitis. LYMPH NODES: There is no intrapelvic nor inguinal adenopathy. REPRODUCTIVE: Prostate not enlarged. Seminal vesicles unremarkable. URINARY BLADDER: Not distended. No evidence of clots in the urinary bladder. No calculi nor masses evident. OSSEOUS: No fractures. No significant osseous lesions. IMPRESSION: 1. No evidence of significant acute trauma sequelae in the abdomen pelvis. 2. No evidence of mesenteric nor bowel wall hematoma. No ascites. 3. No fractures evident . Called to ER provider. RADIATION DOSE DELIVERED: 1844.84 mGy.cm Total DLP DATA REPOSITORY: All CT scans at this facility are submitted to the National Radiology Data Registry (NRDR) Dose Index Registry (DIR) with the [employer] ([employer]). RADIATION OPTIMIZATION: All CT scans at this facility use at least one of these dose optimization te chniques: automated exposure control; mA and/or kV adjustment per patient size (includes targeted exa ms where dose is matched to clinical indication); or iterative reconstruction.
--- NOTE | 2021-06-15 11:02 | DI.CT_ITS ---
Exam(s) CT LUMBAR SPINE RECONS EXAM: CT LUMBAR SPINE RECONS CLINICAL HISTORY: fall, left flank pain. TECHNIQUE: Imaging Protocol: Axial computed tomography images with coronal and sagittal reformatted images were created and reviewed COMPARISON: CT CT ABDOMEN PELVIS W from 11/30/2019 CR,XR XR RIBS LT W PA LAT CHEST from 05/26/2021 FINDINGS: Bones: There are no fractures, listhesis, nor pars defects. No facet malalignment. There are no ly tic osseous lesions evident. There is moderate disc space narrowing at L5-S1 level noted. The visualized sacroiliac joints and sacrum appear unremarkable. PARASPINAL SOFT TISSUES: Visualized paraspinal tissues appear unremarkable. IMPRESSION: 1. No evidence of lumbar spine fracture or listhesis. 2. 3. RADIATION DOSE DELIVERED: Total DLP DATA REPOSITORY: All CT scans at this facility are submitted to the National Radiology Data Registry (NRDR) Dose Index Registry (DIR) with the [employer] (A[employer]). RADIATION OPTIMIZATION: All CT scans at this facility use at least one of these dose optimization te chniques: automated exposure control; mA and/or kV adjustment per patient size (includes targeted exa ms where dose is matched to clinical indication); or iterative reconstruction.
[2021-06-15 11:15] LABS: Abs Immature Grans 0.04 10^3/uL (0.0-0.06); Absolute Basophil Count 0.04 10^3/uL (0.0-0.2); Absolute Eosinophil Count 0.13 10^3/uL (0.0-0.7); Absolute Lymphocyte Count 1.67 10^3/uL (1.2-3.4); Absolute Monocyte Count 0.53 10^3/uL (0.1-0.8); Absolute Neutrophil Count 4.07 10^3/uL (1.2-6.7); Basophils % 0.6; HCT 46.7 % (40.0-50.0); HGB 15.5 g/dL (13.5-17.5); Immature Grans % 0.6; Lymphocytes % 25.8; MCH 29.8 pg (27.0-33.0); MCHC 33.2 % (32.0-36.0); MCV 89.6 fL (80-95); MPV 12.2 fL (8.0-11.0); Monocytes % 8.2; Neutrophils % 62.8; Nucleated RBC 0 %; Platelet Count 126 10^3/uL (130-400); RBC 5.21 10^6/uL (4.36-5.78); RDW 12.4 % (11.8-14.1); RDW-SD 40.9 fL; WBC 6.48 10^3/uL (4.4-10.8)
[2021-06-15 11:35] LABS: ALT 28 U/L (16-63); AST 13 U/L (15-37); Alkaline Phosphatase 60 U/L (46-116); Anion Gap 6.3 mmol/L (3-11); BUN 16 mg/dL (7-18); Bilirubin, Total 0.4 mg/dL (0.2-1.0); CO2 33.7 mmol/L (21.0-32.0); CREATININE 0.7 mg/dL (0.70-1.30); Calcium 9.3 mg/dL (8.5-10.1); Chloride 100 mmol/L (98-107); Glucose 136 mg/dL (74-106); Lipase 63 U/L (73-393); Potassium 4.3 mmol/L (3.5-5.1); Sodium 140 mmol/L (136-145); Total Protein 7.8 g/dL (6.4-8.2)
[2021-06-15 11:40] VITALS: BP 158/96; PULSE 74; RESP 16; O2SAT 96
[2021-06-15 11:42] LABS: Bilirubin Negative (Negative); Blood Negative (Negative); Clarity Clear (Clear); Glucose Negative (Negative); Ketones Negative (Negative); Leukocyte Esterase Negative (Negative); Nitrite Negative (Negative); Specific Gravity 1.025 (1.005-1.025); Urobilinogen 0.2 EU/dL (Up TO 0.2)
--- NOTE | 2021-06-15 11:46 | ED.GENADUL_ITS ---
Discharge Plan Disposition Patient Disposition: HOME Condition: Stable Discharge Details Clinical Impression: Abdominal pain Primary Care Provider: Rich Zheng ED Provider: Abril Corral Home Meds and New Rx's Prescriptions: New amoxicillin-pot clavulanate 875-125 mg tablet 1 tab PO BID Qty: 14 0RF Continued triamcinolone acetonide 0.1 % cream 1 applic TP BID Qty: 80 2RF Rx Instructions: Apply to hands lorazepam 0.5 mg tablet 0.5 mg PO BID PRN (Reason: anxiety) Qty: 40 1RF (DME) blood-glucose meter [Fantrotter Ultra2 Meter] 1 EACH kit 1 ea Miscellaneous BID Qty: 1 0RF (DME) lancets [[employer] Delica Lancets] 33 gauge misc 1 ea Miscellaneous BID Qty: 200 4RF Rx Instructions: Check blood sugar twice a day albuterol sulfate [Ventolin HFA] 90 mcg/actuation HFA aerosol inhaler 2 puff IH Q6H PRN (Reason: shortness of breath or wheezing) Qty: 18 6RF baclofen 10 mg tablet 10 mg PO TID PRN (Reason: muscle spasm) Qty: 90 3RF (DME) blood sugar diagnostic Strip See Dose Instructions .ROUTE .MEDSUPPLY Qty: 200 4RF Dose Instruction: One Daily Rx Instructions: Check blood sugar twice a day allopurinol 100 mg tablet 200 mg PO DAILY Qty: 180 4RF hydrochlorothiazide 25 mg tablet 25 mg PO DAILY Qty: 90 4RF lisinopril 40 mg tablet 40 mg PO DAILY Qty: 90 4RF metformin 500 mg tablet 500 mg PO BID Qty: 180 4RF metoprolol succinate 50 mg tablet extended release 24 hr 50 mg PO BID Qty: 180 4RF amlodipine [Norvasc] 10 mg tablet 10 mg PO QAM Qty: 14 0RF Xarelto 20 mg tablet 20 mg PO DAILY Qty: 90 3RF Rx Instructions: must administer with evening meal omega-3 fatty acids-fish oil 1 EACH capsule 1 cap PO DAILY 0RF Discharge Instructions Instructions: Abdominal Pain (ED) Additional Instructions: Yogurt daily while on antibiotic Take antibiotics as prescribed Follow-up with your primary care physician in 24 to 48 hours and return earlier should you have new or worsening complaints Referrals: Rich Zheng, [facility] [Primary Care Provider] - Discharge Data Discharge Date/Time-TO BE ENTERED AT DEPARTURE: 06/15/21 18:19 Medical Decision Making Diagnostic labs within normal limits, CT scan does not show acute abnormality per radiology interpretation in my review of the abdomen and pelvis Patient discharged home in stable condition with stable vitals, he did treat patient empirically for diverticulitis given persistence of discomfort for the past two and half week as he has a history of diverticulosis He is aware that this could simply be pain posttraumatic in nature, and if he does not have improvement after the completion of his course that he should not take another course of medication He will need recheck on Friday by his primary care physician and given the return should he have new or worsening complaints discharged home in stable condition with stable vitals, ambulatory with steady gait Medical Records Medical records reviewed: Yes I reviewed the patient's medical records. Lab Data Lab results reviewed: Yes I reviewed the patient's lab results. HPI General Date/Time Provider Initiated Documentation: 06/15/21 10:38 . Limitations to Documentation: no limitations . Information obtained by: patient . HPI Narrative: This 56-year-old gentleman with history of atrial fibrillation presents with left lower quadrant and left upper quadrant abdominal pain status post fall. The patient denies any chest pain or shortness of breath. He denies any dizziness or weakness. He denies any fever or chills. He had a fall on 24 May for which she was evaluated previously. He had an x-ray at that time that was negative. He is on Xarelto. He presents secondary to persistent pain in the area fold. He denies any blood in his stool. He denies any headache or loss of consciousness. He has been ambulatory but with discomfort. He denies any hematuria. He denies any additional falls or injuries. Related Data Home Medications Medication Instructions Recorded Confirmed blood-glucose meter (Fantrotter #1 kit 08/27/16 06/11/21 Ultra2 Meter) omega-3 fatty acids-fish oil 300 1 cap PO DAILY 09/21/17 06/15/21 mg-1,000 mg capsule triamcinolone acetonide 0.1 % 1 applic TP BID #80 gm 07/29/19 06/15/21 topical cream lancets 33 gauge ([employer] Del[employer] #200 each 10/07/19 06/11/21 Lancets) albuterol sulfate 90 mcg/actuation 2 puff IH Q6H PRN #18 gm 11/08/19 06/15/21 aerosol inhaler (Ventolin HFA) baclofen 10 mg tablet 10 mg PO TID PRN #90 tab 11/10/19 06/15/21 lorazepam 0.5 mg tablet 0.5 mg PO BID PRN #40 tab 01/03/20 06/15/21 blood sugar diagnostic #200 each 11/20/20 06/11/21 allopurinol 100 mg tablet 200 mg PO DAILY #180 tab 01/22/21 06/15/21 hydrochlorothiazide 25 mg tablet 25 mg PO DAILY #90 tab-cap 01/22/21 06/15/21 lisinopril 40 mg tablet 40 mg PO DAILY #90 tab 01/22/21 06/15/21 metformin 500 mg tablet 500 mg PO BID #180 tab 01/22/21 06/15/21 metoprolol succinate 50 mg 50 mg PO BID #180 tab 01/22/21 06/15/21 tablet,extended release 24 hr amlodipine 10 mg tablet (Norvasc) 10 mg PO QAM #14 tab-cap 05/14/21 06/15/21 rivaroxaban 20 mg tablet (Xarelto) 20 mg PO DAILY #90 tab 05/16/21 06/15/21 amoxicillin 875 mg-potassium 1 tab PO BID #14 tab 06/15/21 clavulanate 125 mg tablet Previous Rx's Medication Instructions Recorded triamcinolone acetonide 0.1 % 1 applic TP BID #80 gm 07/29/19 topical cream lancets 33 gauge ([employer] Delica #200 each 10/07/19 Lancets) albuterol sulfate 90 mcg/actuation 2 puff IH Q6H PRN #18 gm 11/08/19 aerosol inhaler (Ventolin HFA) baclofen 10 mg tablet 10 mg PO TID PRN #90 tab 11/10/19 lorazepam 0.5 mg tablet 0.5 mg PO BID PRN #40 tab 01/03/20 blood sugar diagnostic #200 each 11/20/20 allopurinol 100 mg tablet 200 mg PO DAILY #180 tab 01/22/21 hydrochlorothiazide 25 mg tablet 25 mg PO DAILY #90 tab-cap 01/22/21 lisinopril 40 mg tablet 40 mg PO DAILY #90 tab 01/22/21 metformin 500 mg tablet 500 mg PO BID #180 tab 01/22/21 metoprolol succinate 50 mg 50 mg PO BID #180 tab 01/22/21 tablet,extended release 24 hr amlodipine 10 mg tablet (Norvasc) 10 mg PO QAM #14 tab-cap 05/14/21 rivaroxaban 20 mg tablet (Xarelto) 20 mg PO DAILY #90 tab 05/16/21 amoxicillin 875 mg-potassium 1 tab PO BID #14 tab 06/15/21 clavulanate 125 mg tablet Allergies Allergy/AdvReac Type Severity Reaction Status Date / Time No Known Allergies Allergy Verified 06/15/21 10:46 General Stated Complaint: Abd Prob SARAH: 3 Review of Systems All systems reviewed & are unremarkable except as noted in HPI and below PFSH All Active Problems (Updated 06/15/21 @ 13:01 by JAIMIE Rojas) Abdominal pain (Acute) Injury due to fall (Acute) Contusion of left chest wall (Acute) Fall from slipping on ice (Acute) Internal hordeolum of left eye (Acute) Oral infection (Acute) S/P tooth extraction (Acute) Ingrown toenail (Acute) GRACE on CPAP (Chronic) Gout (Chronic) Atrial fibrillation (Chronic) Positive colorectal cancer screening using Cologuard test (Acute) Diverticula of colon (Acute) Fatty liver (Acute) Hand eczema (Acute) Diarrhea (Acute) Colon cancer screening (Acute) Anxiety (Chronic) Dyshidrotic eczema (Acute) History of left heart catheterization (Acute) Acute gout involving toe of right foot (Chronic 06/17/17) Chronic obstructive lung disease (Chronic) Depressive disorder (Chronic) Essential hypertension (Chronic 02/18/13) Hyperlipidemia (Chronic) Obesity (Chronic) Smoker (Chronic) Type 2 diabetes mellitus without complication, without long-term current use of insulin (Chronic 12/05/17) Obstructive sleep apnea (Chronic) Medical History COPD (chronic obstructive pulmonary disease) Depression Diabetes HTN (hypertension) Hyperlipemia Surgical History LEFT HEART CARDIAC CATH (~2003) NEG S/P rotator cuff repair Family History Mother No problems noted. Social History Smoking/Tobacco Use Status: Current every day Tobacco Type: cigarettes Quit status: considering quitting Second Hand Exposure: Yes Smoking risk assessment performed?: Yes Alcohol Intake: former Drug use: Never Substance use type: former substance user Household members: significant other Pets and animals: Yes Pets and animals: cat(s) and dog(s) Sexually active: Yes Do you think of yourself as: straight/heterosexual Current gender identity: decline to answer What is your relationship status?: living with partner How often do you talk on the phone with friends or family?: three or more times per week How often do you get together with friends or relatives?: three or more times per week How often do you attend scientologist or presybeterian services?: 1-3 times per year Do you belong to any clubs or organized social groups?: no Panel score (0-1 are the most socially isolated patients): 2 What type of physical activity do you participate in: walking and additional Details: housework/projects Duration: 15-30 minutes/day Frequency: 3-4 times per week Sophia/Muslim: Bap Special sophia needs: No Do you feel safe at home: Yes Do you feel safe in your relationship?: Yes Exam Const General: cooperative, comfortable and no acute distress Eyes Sclera: sclerae normal Resp Effort & Inspection: normal respiratory effort Cardio Rate: regular rate Rhythm: regular rhythm GI Inspection: normal to inspection Other: No abdominal bruit or pulsatile mass, left lower quadrant abdominal tenderness without any visible sign of trauma, no left CVA tenderness Skin General skin exam: no rashes or lesions noted Neuro General: patient alert and patient oriented x3 Extrem Other: Distal pulses intact Course Vital Signs Vital signs: Vital Signs Temperature 36.3 C L 06/15/21 10:40 Pulse 71 06/15/21 10:40 Respiratory Rate 16 06/15/21 10:40 Blood Pressure 178/98 H 06/15/21 10:40 Pulse Oximetry 98 06/15/21 10:40 Temperature 36.3 C L 06/15/21 10:40 Temperature Source Skin 06/15/21 10:40 Pulse 71 06/15/21 10:40 Respiratory Rate 16 06/15/21 10:40 Respiratory Effort 06/15/21 10:40 Blood Pressure 178/98 H 06/15/21 10:40 Blood Pressure Position Sitting 06/15/21 10:40 Pulse Oximetry 98 06/15/21 10:40 Pain Level 3 06/15/21 10:53 Lab/Test Results Lab/Test Results: Laboratory Tests Range/Units 06/15/21 06/15/21 06/15/21 11:10 11:10 11:29 WBC (4.4-10.8) 10^3/uL 6.48 RBC (4.36-5.78) 10^6/uL 5.21 Hgb (13.5-17.5) g/dL 15.5 Hct (40.0-50.0) % 46.7 MCV (80-95) fL 89.6 MCH (27.0-33.0) pg 29.8 MCHC (32.0-36.0) % 33.2 RDW (11.8-14.1) % 12.4 Plt Count (130-400) 10^3/uL 126 L MPV (8.0-11.0) fL 12.2 H Immature Gran % 0.6 Neutrophils % 62.8 Lymphocytes % 25.8 Monocytes % 8.2 Eosinophils % 2.0 Basophils % 0.6 Nucleated RBC % % 0 Absolute Neutrophils (1.2-6.7) 10^3/uL 4.07 Absolute Lymphocytes (1.2-3.4) 10^3/uL 1.67 Absolute Monocytes (0.1-0.8) 10^3/uL 0.53 Absolute Eosinophils (0.0-0.7) 10^3/uL 0.13 Absolute Basophils (0.0-0.2) 10^3/uL 0.04 Sodium (136-145) mmol/L 140 Potassium (3.5-5.1) mmol/L 4.3 Chloride (98-107) mmol/L 100 Carbon Dioxide (21.0-32.0) mmol/L 33.7 H Anion Gap (3-11) mmol/L 6.3 BUN (7-18) mg/dL 16 Creatinine (0.70-1.30) mg/dL 0.7 Estimated GFR/1.73 m2 (mL/min/1.73m2) >= 60.00 Glucose (74-106) mg/dL 136 H Calcium (8.5-10.1) mg/dL 9.3 Total Bilirubin (0.2-1.0) mg/dL 0.4 AST (15-37) U/L 13 L ALT (16-63) U/L 28 Alkaline Phosphatase (46-116) U/L 60 Total Protein (6.4-8.2) g/dL 7.8 Albumin (3.4-5.0) g/dL 4.0 Lipase (73-393) U/L 63 Urine Color (Yellow) Yellow Urine Clarity (Clear) Clear Urine pH (5-8) 7.0 Ur Specific [place] (1.005-1.025) 1.025 Urine Protein (Negative) mg/dL Negative Urine Ketones (Negative) mg/dL Negative Urine Blood (Negative) Negative Urine Nitrite (Negative) Negative Urine Bilirubin (Negative) Negative Urine Urobilinogen (Up TO 0.2) EU/dL 0.2 Ur Leukocyte Esterase (Negative) Negative Urine Glucose (Negative) mg/dL Negative
[2021-06-15 12:46] VITALS: BP 160/97; PULSE 75; RESP 18; O2SAT 96
[2021-06-15 13:03] VITALS: BP 136/88; PULSE 76; RESP 18; TEMP 36.6; O2SAT 96
== END 2021-06-15 18:19 | disposition home or self-care (01) ==
PROVIDERS: Emergency Provider Physician Assistant; PCP Nurse Practitioner Family
DX: R10.32 Left lower quadrant pain (principal); M54.9 Dorsalgia, unspecified; R10.12 Left upper quadrant pain; W18.39XA Other fall on same level, initial encounter; Y99.0 Civilian activity done for income or pay; K57.90 Diverticulosis of intestine, part unspecified, without perforation or abscess without bleeding
CPT/HCPCS: 36415; 80053; 83690; 99285; 74177; 81003; 85025; 99283

== ENCOUNTER 2021-12-10 17:29 | Emergency (ER) | payer OTHER, MEDICAID, SELFPAY ==
[2021-12-10 17:33] VITALS: BP 152/92; PULSE 77; RESP 14; TEMP 36.9; O2SAT 98
--- NOTE | 2021-12-10 17:47 | ED.GENADUL_ITS ---
Discharge Plan Disposition Patient Disposition: HOME Condition: Stable Discharge Details Clinical Impression: Back pain Primary Care Provider: Rich Zheng ED Provider: Donell Contreras Home Meds and New Rx's Prescriptions: Continued hydrochlorothiazide 50 mg tablet 50 mg PO DAILY Qty: 90 3RF metoprolol succinate 100 mg tablet extended release 24 hr 100 mg PO BID Qty: 90 3RF (DME) blood-glucose meter [[email or web address] Ultra2 Meter] 1 EACH kit 1 ea Miscellaneous BID Qty: 1 (DME) lancets [OneTouch Delica Lancets] 33 gauge misc 1 ea Miscellaneous BID Qty: 200 4RF Rx Instructions: Check blood sugar twice a day albuterol sulfate [Ventolin HFA] 90 mcg/actuation HFA aerosol inhaler 2 puff IH Q6H PRN (Reason: shortness of breath or wheezing) Qty: 18 6RF baclofen 10 mg tablet 10 mg PO TID PRN (Reason: muscle spasm) Qty: 90 3RF (DME) blood sugar diagnostic Strip See Dose Instructions .ROUTE .MEDSUPPLY Qty: 200 4RF Dose Instruction: One Daily Rx Instructions: Check blood sugar twice a day allopurinol 100 mg tablet 200 mg PO DAILY Qty: 180 4RF lisinopril 40 mg tablet 40 mg PO DAILY Qty: 90 4RF metformin 500 mg tablet 500 mg PO BID Qty: 180 4RF amlodipine [Norvasc] 10 mg tablet 10 mg PO QAM Qty: 14 0RF Xarelto 20 mg tablet 20 mg PO DAILY Qty: 7 0RF Rx Instructions: must administer with evening meal omega-3 fatty acids-fish oil 1 EACH capsule 1 cap PO DAILY Discharge Instructions Instructions: Back Pain (ED) Additional Instructions: Left laboratory values and urinalysis did not reveal any obvious emergent process. Cool and/or warm compresses every 2 hours for 20 minutes. Gentle stretching as tolerated. [id number] medications as directed for symptomatic control. Please watch for new or worsening symptoms and return to the ER for any concerns. Lastly, please contact your primary care provider tomorrow to discuss your ER visit and need for outpatient reevaluation. Medical Decision Making 56-year-old gentleman presenting with what he describes as occasional back spasms, wanted to be sure this not a kidney stone. Denies any flank pain, nausea, vomiting, dysuria, hematuria, history of kidney stones. Also reports eating a bunch of cheese recently, and decreased bowel movements but still having bowel movements, feeling mild pressure, wanting to be sure this is not diverticulitis. Denies fever, diarrhea, black tarry stools or bright red blood in the stools. Clinically he appears well, nontoxic, hemodynamically stable. Examination not consistent with renal stone or diverticulitis. Will obtain routine screening laboratory values and urinalysis CBC, CMP, lipase, urinalysis all unremarkable for obvious emergent process. Discussed findings with patient. He is relieved. At this time no clear indication to pursue CT imaging. Strict discharge and return precautions were provided. Patient understands, is agreeable to this plan, and has no additional questions or concerns upon dis charge. This documentation was generated using [employer] system, please disregard any oddities of phrase or misspellings. Medical Records Medical records reviewed: Yes I reviewed the patient's medical records. Lab Data Lab results reviewed: Yes I reviewed the patient's lab results. Labs: Laboratory Tests Range/Units 12/10/21 12/10/21 12/10/21 17:42 18:03 18:03 WBC (4.4-10.8) 10^3/uL 10.06 RBC (4.36-5.78) 10^6/uL 5.03 Hgb (13.5-17.5) g/dL 15.2 Hct (40.0-50.0) % 44.1 MCV (80-95) fL 88 MCH (27.0-33.0) pg 30.2 MCHC (32.0-36.0) % 34.5 RDW (11.8-14.1) % 12.5 Plt Count (130-400) 10^3/uL 147 MPV (8.0-11.0) fL 12.0 H Immature Gran % 0.6 Neutrophils % 67.7 Lymphocytes % 21.0 Monocytes % 9.2 Eosinophils % 1.1 Basophils % 0.4 Nucleated RBC % (0.0-0.3) % 0.0 Absolute Neutrophils (1.2-6.7) 10^3/uL 6.81 H Absolute Lymphocytes (1.2-3.4) 10^3/uL 2.11 Absolute Monocytes (0.1-0.8) 10^3/uL 0.93 H Absolute Eosinophils (0.0-0.7) 10^3/uL 0.11 Absolute Basophils (0.0-0.2) 10^3/uL 0.04 Sodium (136-145) mmol/L 137 Potassium (3.5-5.1) mmol/L 4.2 Chloride (98-107) mmol/L 100 Carbon Dioxide (21.0-32.0) mmol/L 29.5 Anion Gap (3-11) mmol/L 7.5 BUN (7-18) mg/dL 18 Creatinine (0.70-1.30) mg/dL 0.8 Estimated GFR/1.73 m2 (mL/min/1.73m2) >= 60.00 Glucose (74-106) mg/dL 95 Calcium (8.5-10.1) mg/dL 9.2 Total Bilirubin (0.2-1.0) mg/dL 0.3 AST (15-37) U/L 19 ALT (16-63) U/L 37 Alkaline Phosphatase (46-116) U/L 48 Total Protein (6.4-8.2) g/dL 7.8 Albumin (3.4-5.0) g/dL 4.1 Lipase (73-393) U/L 89 Urine Color (Yellow) Yellow Urine Clarity (Clear) Clear Urine pH (5-8) 6.5 Ur Specific [employer] (1.005-1.025) 1.025 Urine Protein (Negative) mg/dL Negative Urine Ketones (Negative) mg/dL Negative Urine Blood (Negative) Negative Urine Nitrite (Negative) Negative Urine Bilirubin (Negative) Negative Urine Urobilinogen (Up TO 0.2) EU/dL 0.2 Ur Leukocyte Esterase (Negative) Negative Urine Glucose (Negative) mg/dL Negative HPI General Mode of arrival: ambulatory . Date/Time Provider Initiated Documentation: 12/10/21 17:46 . Limitations to Documentation: no limitations . Information obtained by: patient . HPI Narrative: This is a 56-year-old gentleman with past medical history of hypertension, hyperlipidemia, morbid obesity, diabetes, A. fib, on Xarelto, presenting to the ER for concern of potential left-sided kidney stone versus muscle spasm and concern for potential diverticulitis. Patient states that he has poor posture and bends over quite a bit, has noticed his left lower back spasming recently, wants to be sure this is not his kidney. He denies any radiation of the pain, nausea, vomiting, fever, dysuria, hematuria, history of kidney stone. Patient also states over the past couple of days he has been a little gassy and at times his left lower quadrant have been achy, this is how his diverticulitis started in the past. He denies recent illness, trauma, fever, diarrhea or constipation. Has taken no medications [id number] for his symptoms. Related Data Home Medications Medication Instructions Recorded Confirmed blood-glucose meter ([employer] ##1 08/27/16 10/15/21 Ultra2 Meter kit) omega-3 fatty acids-fish oil 300 1 cap PO DAILY 09/21/17 10/15/21 mg-1,000 mg capsule lancets 33 gauge (B[employer] Delica #200 ea 10/07/19 10/15/21 Lancets) albuterol sulfate 90 mcg/actuation 2 puff inhalation Q6H PRN 11/08/19 12/10/21 aerosol inhaler (Ventolin HFA) shortness of breath or wheezing #18 grams baclofen 10 mg tablet 10 mg PO TID PRN muscle spasm #90 11/10/19 12/10/21 tabs blood sugar diagnostic #200 ea 11/20/20 10/15/21 allopurinol 100 mg tablet 200 mg PO DAILY #180 tabs 01/22/21 12/10/21 lisinopril 40 mg tablet 40 mg PO DAILY #90 tabs 01/22/21 12/10/21 metformin 500 mg tablet 500 mg PO BID #180 tabs 01/22/21 12/10/21 amlodipine 10 mg tablet (Norvasc) 10 mg PO QAM #14 tab-caps 05/14/21 12/10/21 hydrochlorothiazide 50 mg tablet 50 mg PO DAILY #90 tab-caps 06/25/21 12/10/21 metoprolol succinate 100 mg 100 mg PO BID #90 tabs 07/09/21 10/15/21 tablet,extended release 24 hr rivaroxaban 20 mg tablet (Xarelto) 20 mg PO DAILY #7 tabs 11/29/21 12/10/21 Previous Rx's Medication Instructions Recorded lancets 33 gauge ([email or web address] Delica #200 ea 10/07/19 Lancets) albuterol sulfate 90 mcg/actuation 2 puff inhalation Q6H PRN 11/08/19 aerosol inhaler (Ventolin HFA) shortness of breath or wheezing #18 grams baclofen 10 mg tablet 10 mg PO TID PRN muscle spasm #90 11/10/19 tabs blood sugar diagnostic #200 ea 11/20/20 allopurinol 100 mg tablet 200 mg PO DAILY #180 tabs 01/22/21 lisinopril 40 mg tablet 40 mg PO DAILY #90 tabs 01/22/21 metformin 500 mg tablet 500 mg PO BID #180 tabs 01/22/21 amlodipine 10 mg tablet (Norvasc) 10 mg PO QAM #14 tab-caps 05/14/21 hydrochlorothiazide 50 mg tablet 50 mg PO DAILY #90 tab-caps 06/25/21 metoprolol succinate 100 mg 100 mg PO BID #90 tabs 07/09/21 tablet,extended release 24 hr rivaroxaban 20 mg tablet (Xarelto) 20 mg PO DAILY #7 tabs 11/29/21 Allergies Allergy/AdvReac Type Severity Reaction Status Date / Time No Known Allergies Allergy Verified 12/10/21 17:38 General Stated Complaint: Nk/Back Pain SARAH: 3 Review of Systems Constitutional Constitutional: Denies fever(s) and Denies weakness Cardiovascular Cardiovascular: Denies chest pain and Denies dyspnea Respiratory Respiratory: Denies dyspnea Gastrointestinal Gastrointestinal: Reports abdominal pain, Denies constipation, Denies diarrhea, Denies nausea and Denies vomiting Genitourinary Genitourinary: Denies hematuria and Denies dysuria Musculoskeletal Musculoskeletal: Reports back pain, Denies numbness, Reports stiffness and Denies tingling Integumentary/Breasts Skin/Breast: Denies rash Neurologic Neurologic: Denies numbness, Denies tingling and Denies weakness Hematologic/Lymphatic Hematologic/Lymphatic: Reports easy bleeding and Reports easy bruising PFSH All Active Problems (Updated 12/10/21 @ 18:44 by JAIMIE Zapata) Back pain (Acute) COVID-19 (Acute) 11/25/21 Vaccinated. Pfizer Nicotine dependence (Acute) 06/2021, currently 1/4 ppd, hx of 35 pk yr, patient deferred on chest CT for lung cancer screening Colon polyp (Acute) 02/2021-[facility], f/u positive cologuard, due 2025 GRACE on CPAP (Chronic) Gout (Chronic) Atrial fibrillation (Chronic) Fatty liver (Acute) Hand eczema (Acute) Diarrhea (Acute) Anxiety (Chronic) Dyshidrotic eczema (Acute) Chronic obstructive lung disease (Chronic) Depressive disorder (Chronic) Essential hypertension (Chronic 02/18/13) Hyperlipidemia (Chronic) Obesity (Chronic) Type 2 diabetes mellitus without complication, without long-term current use of insulin (Chronic 12/05/17) Medical History COPD (chronic obstructive pulmonary disease) Depression Diabetes HTN (hypertension) Hyperlipemia Surgical History LEFT HEART CARDIAC CATH (~2003) NEG S/P rotator cuff repair Family History Mother No problems noted. Social History Smoking/Tobacco Use Status: Current every day Tobacco Type: cigarettes Tobacco: How many years used: 30 Smokeless tobacco user: chewing tobacco Quit status: considering quitting Second Hand Exposure: Yes Smoking risk assessment performed?: Yes Alcohol Intake: former Drug use: Current Sobriety Substance use type: marijuana Caregiver/Support person: No Household members: significant other Communication Needs: None Do you need help understanding health information?: Rarely Pets and animals: Yes Pets and animals: cat(s) and dog(s) Sexually active: Yes Do you think of yourself as: straight/heterosexual Current gender identity: female What is your relationship status?: living with partner How often do you talk on the phone with friends or family?: three or more times per week How often do you get together with friends or relatives?: three or more times per week How often do you attend restorationist or advent services?: 1-3 times per year Do you belong to any clubs or organized social groups?: no Panel score (0-1 are the most socially isolated patients): 2 What type of physical activity do you participate in: walking Duration: < 15 minutes/day Frequency: daily Sophia/Mormonism: Nondenominational Seatbelt use: always Helmet use: No Drive intox or ride w/intox transport driver: No Do you feel safe at home: Yes Do you feel safe in your relationship?: Yes Exam Const General: cooperative, healthy appearing, comfortable and no acute distress Orientation: alert, awake and oriented x3 HENMT Head: normal to inspection, normocephalic and atraumatic Face and sinus: normal facial exam Mouth: moist mucous membranes Eyes Conjunctivae: conjunctivae normal Neck Neck: normal visual inspection, full ROM, trachea midline and supple Resp Effort & Inspection: normal respiratory effort and able to speak in complete sentences Auscultation: clear to auscultation bilaterally Cardio Rate: regular rate Rhythm: regular rhythm GI Inspection: obesity Palpation: soft, not firm, no guarding and no pulsatile masses Auscultation: normal bowel sounds Back/Spine/Pelvis Back: no CVA tenderness and No back tenderness Skin General skin exam: no rashes or lesions noted Neuro General: patient alert, patient awake, moves all extremities and no focal motor deficits Sensory Exam: no sensory deficits noted Psych Appearance: grossly normal Mental Status: mental status grossly normal Course Vital Signs Vital signs: Vital Signs Temperature 36.9 C 12/10/21 17:33 Pulse 77 12/10/21 17:33 Respiratory Rate 14 12/10/21 17:33 Blood Pressure 152/92 H 12/10/21 17:33 Pulse Oximetry 98 12/10/21 17:33 Temperature 36.9 C 12/10/21 17:33 Temperature Source Tympanic 12/10/21 17:33 Pulse 77 12/10/21 17:33 Respiratory Rate 14 12/10/21 17:33 Respiratory Effort Non-Labored 12/10/21 17:40 Blood Pressure 152/92 H 12/10/21 17:33 Blood Pressure Position Sitting 12/10/21 17:33 Pulse Oximetry 98 12/10/21 17:33 Oxygen Delivery Method Room Air 12/10/21 17:33 Oxygen Flow Rate 0 12/10/21 17:33 Pain Level 7 12/10/21 17:33
[2021-12-10 18:08] LABS: Bilirubin Negative (Negative); Blood Negative (Negative); Clarity Clear (Clear); Glucose Negative (Negative); Ketones Negative (Negative); Leukocyte Esterase Negative (Negative); Nitrite Negative (Negative); Specific Gravity 1.025 (1.005-1.025); Urobilinogen 0.2 EU/dL (Up TO 0.2); pH 6.5 (5-8)
[2021-12-10 18:13] LABS: Abs Immature Grans 0.06 10^3/uL (0.0-0.06); Absolute Basophil Count 0.04 10^3/uL (0.0-0.2); Absolute Eosinophil Count 0.11 10^3/uL (0.0-0.7); Absolute Lymphocyte Count 2.11 10^3/uL (1.2-3.4); Absolute Monocyte Count 0.93 10^3/uL (0.1-0.8); Absolute Neutrophil Count 6.81 10^3/uL (1.2-6.7); Basophils % 0.4; Eosinophils % 1.1; HCT 44.1 % (40.0-50.0); HGB 15.2 g/dL (13.5-17.5); Immature Grans % 0.6; MCH 30.2 pg (27.0-33.0); MCHC 34.5 % (32.0-36.0); MCV 88 fL (80-95); Monocytes % 9.2; Neutrophils % 67.7; Platelet Count 147 10^3/uL (130-400); RBC 5.03 10^6/uL (4.36-5.78); RDW 12.5 % (11.8-14.1); RDW-SD 40.3 fL; WBC 10.06 10^3/uL (4.4-10.8)
[2021-12-10 18:23] LABS: ALT 37 U/L (16-63); AST 19 U/L (15-37); Albumin 4.1 g/dL (3.4-5.0); Alkaline Phosphatase 48 U/L (46-116); Anion Gap 7.5 mmol/L (3-11); BUN 18 mg/dL (7-18); Bilirubin, Total 0.3 mg/dL (0.2-1.0); CO2 29.5 mmol/L (21.0-32.0); CREATININE 0.8 mg/dL (0.70-1.30); Calcium 9.2 mg/dL (8.5-10.1); Chloride 100 mmol/L (98-107); Glucose 95 mg/dL (74-106); Lipase 89 U/L (73-393); Potassium 4.2 mmol/L (3.5-5.1); Sodium 137 mmol/L (136-145); Total Protein 7.8 g/dL (6.4-8.2)
[2021-12-10 19:38] LABS: Diff Comment PLT Morph Reviewed; RBC Morphology Normal
== END 2021-12-10 19:00 | disposition home or self-care (01) ==
PROVIDERS: Emergency Provider Physician Assistant; PCP Nurse Practitioner Family
DX: M62.830 Muscle spasm of back (principal); I10 Essential (primary) hypertension; E11.9 Type 2 diabetes mellitus without complications; J44.9 Chronic obstructive pulmonary disease, unspecified; I48.91 Unspecified atrial fibrillation; F17.210 Nicotine dependence, cigarettes, uncomplicated; Z79.01 Long term (current) use of anticoagulants; Z87.442 Personal history of urinary calculi; Z79.84 Long term (current) use of oral hypoglycemic drugs
CPT/HCPCS: 36415; 80053; 83690; 99283; 81003; 85025; 99282

== ENCOUNTER 2022-02-12 14:51 | Emergency (ER) | payer OTHER, MEDICAID, SELFPAY ==
[2022-02-12] VITALS (29 sets, daily range): BP systolic 115–136; BP diastolic 75–84; PULSE 67–95; RESP 13–24; TEMP 36.8; O2SAT 83–99
--- NOTE | 2022-02-12 14:45 | RT.EKG_ITS ---
APPROVED REPORT Exam: Resting ECG Reason for Exam: chest pain Patient Location: E HR:79 bpm ECG Measurements Heart Rate 79 AXIS KS 185 P 66 QRSd 98 QRS 70 QT 365 T 42 QTc 418 Conclusion Sinus rhythm...normal P axis, V-rate 60- 99 Anteroseptal infarct, old...Q >40mS, V1-V2. Sinus. Normal axis. No STEMI. I have reviewed and interpreted ECG and agree with software generated interpretation.
--- NOTE | 2022-02-12 15:28 | ED.GENADUL_ITS ---
Discharge Plan Disposition Patient Disposition: AGAINST MEDICAL ADVICE Condition: Stable Discharge Details Clinical Impression: Chest pain Primary Care Provider: Rich Zheng ED Provider: Roro Quintanilla Home Meds and New Rx's Prescriptions: Continued hydrochlorothiazide 50 mg tablet 50 mg PO DAILY Qty: 90 3RF metoprolol succinate 100 mg tablet extended release 24 hr 100 mg PO BID Qty: 90 3RF (DME) blood-glucose meter [[employer] Ultra2 Meter] 1 EACH kit 1 ea Miscellaneous BID Qty: 1 (DME) lancets [OneTouch Delica Lancets] 33 gauge misc 1 ea Miscellaneous BID Qty: 200 4RF Rx Instructions: Check blood sugar twice a day albuterol sulfate [Ventolin HFA] 90 mcg/actuation HFA aerosol inhaler 2 puff IH Q6H PRN (Reason: shortness of breath or wheezing) Qty: 18 6RF baclofen 10 mg tablet 10 mg PO TID PRN (Reason: muscle spasm) Qty: 90 3RF (DME) blood sugar diagnostic Strip See Dose Instructions .ROUTE .MEDSUPPLY Qty: 200 4RF Dose Instruction: One Daily Rx Instructions: Check blood sugar twice a day allopurinol 100 mg tablet 200 mg PO DAILY Qty: 180 4RF lisinopril 40 mg tablet 40 mg PO DAILY Qty: 90 4RF metformin 500 mg tablet 500 mg PO BID Qty: 180 4RF amlodipine [Norvasc] 10 mg tablet 10 mg PO QAM Qty: 14 0RF Xarelto 20 mg tablet 20 mg PO DAILY Qty: 7 0RF Rx Instructions: must administer with evening meal omega-3 fatty acids-fish oil 1 EACH capsule 1 cap PO DAILY Discharge Instructions Instructions: Chest Pain (ED) Additional Instructions: You are leaving the hospital AGAINST MEDICAL ADVICE. It is recommended to stay in the hospital for additional blood tests and monitoring to rule out a possible cardiac etiology. The blood tests, EKG and imaging obtained today are reassuring and show no evidence of acute concerning or significant findings. Drink plenty of fluids and get plenty of rest. Follow-up with your primary care doctor in 1 week. Return to the emergency department with any worsening or new concerning symptoms. Discharge Data Discharge Date/Time-TO BE ENTERED AT DEPARTURE: 02/12/22 18:13 Discharge Physician: Roro Quintanilla Medical Decision Making 57-year-old male with a history of morbid obesity, hypertension, hyperlipidemia, diabetes, COPD, anxiety and depression, paroxysmal atrial fibrillation on Xarelto presents for a 60-minute episode of left-sided chest pain that occurred while working today. Pain has been resolved for several hours. Vitals within normal limits. Patient appears comfortable and nontoxic. EKG notes a rate of 79, sinus, normal axis, no STEMI nondiagnostic. Patient has an exertional job and states he was doing heavy lifting today. Consider muscle strain. Doubt PE as he is already taking Xarelto and has no pleuritic component with reassuring vital signs. History of presentation is not appear consistent with dissection. Considering his age, history and comorbidities, will obtain screening labs, chest x-ray. Labs and imaging reviewed. Normal white blood cell count. Troponin negative. Chest x-ray negative for acute disease. Patient reassessed and he remains pain-free. He is requesting to go home. He is declining to stay for repeat troponin and EKG. Discussed with patient that this can lead to missed or incomplete diagnoses resulting in or disability. Patient understands these risks and is still requesting to leave. He demonstrates capacity to make decisions. Despite our efforts, the patient has decided to leave against medical advice. He has a normal mental status and full decisional capacity. The patient understands his condition and the risks of leaving AMA, including BUT NOT LIMITED TO permanent disability, , etc., and has had an opportunity to ask questions about his medical condition. The patient has been informed that he may return for care at any time, and has been referred to his local medical physician for follow up JACLYN. Medical Records Medical records reviewed: Yes I reviewed the patient's medical records. Imaging Data Radiologic Study: Radiologist's impression: ?XR CHEST 2V PA ? LATERAL CLINICAL HISTORY: ? chest pain, r/o acute disease. ? TECHNIQUE:? 2D digital imaging was performed. COMPARISON:? CR,XR XR RIBS LT W PA ? LAT CHEST from 05/26/2021 FINDINGS: 2 views: Heart size is normal.? The mediastinum is not widened. Lungs are clear.? No infiltrates nor pleural effusions. IMPRESSION: No acute pulmonary findings. Lab Data Lab results reviewed: Yes I reviewed the patient's lab results. Labs: Laboratory Tests Range/Units 02/12/22 02/12/22 15:25 15:25 WBC (4.4-10.8) 10^3/uL 7.60 RBC (4.36-5.78) 10^6/uL 4.88 Hgb (13.5-17.5) g/dL 15.0 Hct (40.0-50.0) % 43.9 MCV (80-95) fL 90 MCH (27.0-33.0) pg 30.7 MCHC (32.0-36.0) % 34.2 RDW (11.8-14.1) % 12.5 Plt Count (130-400) 10^3/uL 136 MPV (8.0-11.0) fL 12.3 H Immature Gran % 0.5 Neutrophils % 64.9 Lymphocytes % 25.7 Monocytes % 7.1 Eosinophils % 1.4 Basophils % 0.4 Nucleated RBC % (0.0-0.3) % 0.0 Absolute Neutrophils (1.2-6.7) 10^3/uL 4.93 Absolute Lymphocytes (1.2-3.4) 10^3/uL 1.95 Absolute Monocytes (0.1-0.8) 10^3/uL 0.54 Absolute Eosinophils (0.0-0.7) 10^3/uL 0.11 Absolute Basophils (0.0-0.2) 10^3/uL 0.03 Sodium (136-145) mmol/L 138 Potassium (3.5-5.1) mmol/L 3.8 Chloride (98-107) mmol/L 99 Carbon Dioxide (21.0-32.0) mmol/L 32.5 H Anion Gap (3-11) mmol/L 6.5 BUN (7-18) mg/dL 20 H Creatinine (0.70-1.30) mg/dL 0.9 Est GFR (CKD-EPI 2020) (mL/min/1.73m2) 100.86 Glucose (74-106) mg/dL 152 H Calcium (8.5-10.1) mg/dL 9.5 Magnesium (1.8-2.4) mg/dL 1.8 Total Bilirubin (0.2-1.0) mg/dL 0.4 AST (15-37) U/L 20 ALT (16-63) U/L 30 Alkaline Phosphatase (46-116) U/L 53 Troponin I (<or=60) ng/L < 50 Total Protein (6.4-8.2) g/dL 8.0 Albumin (3.4-5.0) g/dL 4.2 ECG Data Attestation: I personally reviewed and interpreted this ECG (s) as follows: Interpretation: Rate of 79, sinus, normal axis, no STEMI HPI General Mode of arrival: ambulatory . Date/Time Provider Initiated Documentation: 02/12/22 15:23 . Limitations to Documentation: no limitations . Information obtained by: patient . HPI Narrative: Patient is a 57-year-old male with a history of morbid obesity, hypertension, hyperlipidemia, depression, COPD, diabetes who presents with a 60-minute episode of chest pain today while working. 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 Pt denies any pain at present. Pt denies any associated symptoms of shortness of breath, nausea, vomiting, dizziness, cough or fever. He states he does frequent heavy lifting at work and denies any known injury but states he may have pulled a muscle. He has not taken medication for pain. He denies any chest pain for the last several hours. He denies any leg pain or swelling, recent travel or recent surgery. Related Data Home Medications Medication Instructions Recorded Confirmed blood-glucose meter ([employer] ##1 08/27/16 02/12/22 Ultra2 Meter kit) omega-3 fatty acids-fish oil 300 1 cap PO DAILY 09/21/17 02/12/22 mg-1,000 mg capsule lancets 33 gauge ([employer] Delica #200 ea 10/07/19 02/12/22 Lancets) albuterol sulfate 90 mcg/actuation 2 puff inhalation Q6H PRN 11/08/19 02/12/22 aerosol inhaler (Ventolin HFA) shortness of breath or wheezing #18 grams baclofen 10 mg tablet 10 mg PO TID PRN muscle spasm #90 11/10/19 02/12/22 tabs blood sugar diagnostic #200 ea 11/20/20 02/12/22 allopurinol 100 mg tablet 200 mg PO DAILY #180 tabs 01/22/21 02/12/22 lisinopril 40 mg tablet 40 mg PO DAILY #90 tabs 01/22/21 02/12/22 metformin 500 mg tablet 500 mg PO BID #180 tabs 01/22/21 02/12/22 amlodipine 10 mg tablet (Norvasc) 10 mg PO QAM #14 tab-caps 05/14/21 02/12/22 hydrochlorothiazide 50 mg tablet 50 mg PO DAILY #90 tab-caps 06/25/21 02/12/22 metoprolol succinate 100 mg 100 mg PO BID #90 tabs 07/09/21 02/12/22 tablet,extended release 24 hr rivaroxaban 20 mg tablet (Xarelto) 20 mg PO DAILY #7 tabs 11/29/21 02/12/22 Previous Rx's Medication Instructions Recorded lancets 33 gauge (OneTouch Delica #200 ea 10/07/19 Lancets) albuterol sulfate 90 mcg/actuation 2 puff inhalation Q6H PRN 11/08/19 aerosol inhaler (Ventolin HFA) shortness of breath or wheezing #18 grams baclofen 10 mg tablet 10 mg PO TID PRN muscle spasm #90 11/10/19 tabs blood sugar diagnostic #200 ea 11/20/20 allopurinol 100 mg tablet 200 mg PO DAILY #180 tabs 01/22/21 lisinopril 40 mg tablet 40 mg PO DAILY #90 tabs 01/22/21 metformin 500 mg tablet 500 mg PO BID #180 tabs 01/22/21 amlodipine 10 mg tablet (Norvasc) 10 mg PO QAM #14 tab-caps 05/14/21 hydrochlorothiazide 50 mg tablet 50 mg PO DAILY #90 tab-caps 06/25/21 metoprolol succinate 100 mg 100 mg PO BID #90 tabs 07/09/21 tablet,extended release 24 hr rivaroxaban 20 mg tablet (Xarelto) 20 mg PO DAILY #7 tabs 11/29/21 Allergies Allergy/AdvReac Type Severity Reaction Status Date / Time No Known Allergies Allergy Verified 12/10/21 17:38 General Stated Complaint: Chest Pain SARAH: 3 Review of Systems All systems reviewed & are unremarkable except as noted in HPI and below Constitutional Constitutional: Reports as per HPI, Denies chills and Denies fever(s) Eyes Eyes: Denies blurry vision ENT Ears, Nose, Mouth, and Throat: Denies dizziness, Denies sore throat and Denies throat swelling Cardiovascular Cardiovascular: Reports chest pain and Denies dyspnea Respiratory Respiratory: Denies cough and Denies dyspnea Gastrointestinal Gastrointestinal: Denies abdominal pain, Denies diarrhea and Denies vomiting Genitourinary Genitourinary: Denies hematuria and Denies dysuria Musculoskeletal Musculoskeletal: Denies back pain and Denies numbness Integumentary/Breasts Skin/Breast: Denies lesions and Denies rash Neurologic Neurologic: Denies dizziness, Denies localized weakness and Denies numbness Allergic/Immunologic Allergic/Immunologic: Denies throat swelling PFSH All Active Problems (Updated 02/12/22 @ 18:03 by Roro Quintanilla, ) Chest pain (Acute) COVID-19 (Acute) 11/25/21 Vaccinated. Pfizer Nicotine dependence (Acute) 06/2021, currently / ppd, hx of 35 pk yr, patient deferred on chest CT for lung cancer screening Colon polyp (Acute) 02/2021[place] [place], f/u positive cologuard, due 2025 GRACE on CPAP (Chronic) Gout (Chronic) Atrial fibrillation (Chronic) Fatty liver (Acute) Hand eczema (Acute) Diarrhea (Acute) Anxiety (Chronic) Dyshidrotic eczema (Acute) Chronic obstructive lung disease (Chronic) Depressive disorder (Chronic) Essential hypertension (Chronic 02/18/13) Hyperlipidemia (Chronic) Obesity (Chronic) Type 2 diabetes mellitus without complication, without long-term current use of insulin (Chronic 12/05/17) Medical History COPD (chronic obstructive pulmonary disease) Depression Diabetes HTN (hypertension) Hyperlipemia Surgical History LEFT HEART CARDIAC CATH (~2003) NEG S/P rotator cuff repair Family History Mother No problems noted. Social History Smoking/Tobacco Use Status: Current every day Tobacco Type: cigarettes Tobacco: How many years used: 30 Smokeless tobacco user: chewing tobacco Quit status: considering quitting Second Hand Exposure: Yes Smoking risk assessment performed?: Yes Alcohol Intake: former Drug use: Current Sobriety Substance use type: marijuana Caregiver/Support person: No Household members: significant other Communication Needs: None Do you need help understanding health information?: Rarely Pets and animals: Yes Pets and animals: cat(s) and dog(s) Sexually active: Yes Do you think of yourself as: straight/heterosexual Current gender identity: female What is your relationship status?: living with partner How often do you talk on the phone with friends or family?: three or more times per week How often do you get together with friends or relatives?: three or more times per week How often do you attend spiritism or oriental orthodox services?: 1-3 times per year Do you belong to any clubs or organized social groups?: no Panel score (0-1 are the most socially isolated patients): 2 What type of physical activity do you participate in: walking Duration: < 15 minutes/day Frequency: daily Sophia/Protestant: Orthodoxy Seatbelt use: always Helmet use: No 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 Do you feel safe at home: Yes Do you feel safe in your relationship?: Yes Exam Const General: cooperative and no acute distress Orientation: alert, awake and oriented x3 HENMT Head: normal to inspection Face and sinus: normal facial exam Eyes General: appearance normal, both eyes and all related structures EOM: EOM intact bilaterally Neck Neck: normal visual inspection and No submandibular swelling Lymphatic: no lymphadenopathy noted Chest Chest: normal inspection of the chest, normal palpation of entire chest wall and no tenderness Resp Effort & Inspection: normal respiratory effort and able to speak in complete sentences Auscultation: clear to auscultation bilaterally Cardio Rate: regular rate Rhythm: regular rhythm GI Inspection: normal to inspection and obesity Palpation: soft, not firm, not rigid and nontender Auscultation: hypoactive bowel sounds Skin General skin exam: no rashes or lesions noted Neuro General: patient alert, patient awake and patient oriented x3 Cognition: normal cognition Speech: speech normal Motor: muscle tone normal throughout Sensory Exam: no sensory deficits noted Extrem General: normal to inspection, full ROM, capillary refill normal, no calf tenderness bilaterally and no edema Psych Appearance: grossly normal Mental Status: mental status grossly normal Speech and Movement: speech and movement normal Affect: normal affect Course Vital Signs Vital signs: Vital Signs Temperature 98.2 F 02/12/22 14:57 Pulse 79 02/12/22 14:57 Respiratory Rate 20 02/12/22 14:57 Blood Pressure 134/75 02/12/22 14:57 Pulse Oximetry 98 02/12/22 14:57 Temperature 98.2 F 02/12/22 14:57 Temperature Source Temporal Artery Scan 02/12/22 14:57 Pulse 79 02/12/22 14:57 Respiratory Rate 20 02/12/22 14:57 Respiratory Effort Non-Labored 02/12/22 15:01 Blood Pressure 134/75 02/12/22 14:57 Blood Pressure Position Sitting 02/12/22 14:57 Pulse Oximetry 98 02/12/22 14:57 Oxygen Delivery Method Room Air 02/12/22 14:57 Oxygen Flow Rate 0 02/12/22 14:57 Pain Level 0 02/12/22 14:57
[2022-02-12 15:35] LABS: Abs Immature Grans 0.04 10^3/uL (0.0-0.06); Absolute Basophil Count 0.03 10^3/uL (0.0-0.2); Absolute Eosinophil Count 0.11 10^3/uL (0.0-0.7); Absolute Lymphocyte Count 1.95 10^3/uL (1.2-3.4); Absolute Monocyte Count 0.54 10^3/uL (0.1-0.8); Absolute Neutrophil Count 4.93 10^3/uL (1.2-6.7); Basophils % 0.4; Eosinophils % 1.4; HCT 43.9 % (40.0-50.0); Immature Grans % 0.5; Lymphocytes % 25.7; MCH 30.7 pg (27.0-33.0); MCHC 34.2 % (32.0-36.0); MCV 90 fL (80-95); MPV 12.3 fL (8.0-11.0); Monocytes % 7.1; Neutrophils % 64.9; Platelet Count 136 10^3/uL (130-400); RBC 4.88 10^6/uL (4.36-5.78); RDW 12.5 % (11.8-14.1); RDW-SD 41.1 fL
--- NOTE | 2022-02-12 15:45 | DI.RAD_ITS ---
Exam(s) XR CHEST 2V PA LATERAL EXAM: XR CHEST 2V PA LATERAL CLINICAL HISTORY: chest pain, r/o acute disease. TECHNIQUE: 2D digital imaging was performed. COMPARISON: CR,XR XR RIBS LT W PA LAT CHEST from 05/26/2021 FINDINGS: 2 views: Heart size is normal. The mediastinum is not widened. Lungs are clear. No infiltrates nor pleural effusions. IMPRESSION: No acute pulmonary findings. DATA REPOSITORY: RADIATION DOSE DELIVERED:
[2022-02-12 15:51] LABS: ALT 30 U/L (16-63); AST 20 U/L (15-37); Albumin 4.2 g/dL (3.4-5.0); Alkaline Phosphatase 53 U/L (46-116); Anion Gap 6.5 mmol/L (3-11); BUN 20 mg/dL (7-18); Bilirubin, Total 0.4 mg/dL (0.2-1.0); CO2 32.5 mmol/L (21.0-32.0); CREATININE 0.9 mg/dL (0.70-1.30); Calcium 9.5 mg/dL (8.5-10.1); Chloride 99 mmol/L (98-107); Estimated GFR 100.86 (mL/min/1.73m2); Glucose 152 mg/dL (74-106); Magnesium 1.8 mg/dL (1.8-2.4); Potassium 3.8 mmol/L (3.5-5.1); Sodium 138 mmol/L (136-145); Troponin I < 50 ng/L (<or=60)
--- NOTE | 2022-02-12 18:16 | NUR.NOTE ---
PAtient did not want to wait for the second troponin. Dr. Quintanilla advised patient he would be leave against her advise
== END 2022-02-12 18:13 | disposition left against medical advice (07) ==
PROVIDERS: Emergency Provider Physician Assistant; PCP Nurse Practitioner Family
DX: R07.9 Chest pain, unspecified (principal); I10 Essential (primary) hypertension; E11.9 Type 2 diabetes mellitus without complications; J44.9 Chronic obstructive pulmonary disease, unspecified; I48.91 Unspecified atrial fibrillation; Z79.01 Long term (current) use of anticoagulants; Z79.84 Long term (current) use of oral hypoglycemic drugs; Z53.20 Procedure and treatment not carried out because of patient's decision for unspecified reasons
CPT/HCPCS: 80053; 93005; 99284; 71046; 83735; 84484; 85025; 93010

== ENCOUNTER 2022-03-18 01:27 | Outpatient (CLI) | payer OTHER, MEDICAID, SELFPAY ==
--- NOTE | 2022-03-18 07:15 | DI.NM_ITS ---
APPROVED REPORT Exam: Exercise Treadmill Patient Location: Out-Patient Room/Bed: Stress Nurse: Leann Diaz RN Ordering Provider:ANNABELLE GARCIA, Contact Number: [phone] BMI: 52.41 Baseline Rhythm: Sinus Rhythm Indications: Chest pain, A fib Medical History Medical History: afib, current smoker, HTN T2DM, obesity, HLD, COPD, GRACE, Anxiety, fatty liver Cardiac Medications: Rivaroxaban, Metoprolol Succinate, Metformin, Lisinopril, Hydroxyzine HCL, HTZ, amlodipine, albuterol Allergies: NKA Cardiac Risk Factors: +fAMILY HISTORY, HTN, HLD, DMII, Current smoker, Obesity Previous Cardiac Procedures: cardiac cath, cardioversion Pretest Chest Pain Characteristics: None Exercise History: Sedentary Physical Disabilities: None Lung Sounds: Expiratory wheeze throughout Heart Sounds: Regular, Distant Stress Test Details Test: Exercise stress testing was performed using a Mazin protocol. Nuclear Acquisition: Rest Tc-99m/Stress Tc-99m 1 day Rest Isotope: Tc-99m Sestamibi. Dose: 10.0 ml Date: 03/18/2022 Injection Time: 9:15 Stress Isotope: Tc-99m Sestamibi. Dose: 33.0 ml Date: 03/18/2022 Injection Time: 11:10 HR Resting HR Supine: 75 bpm Max Heart Rate (APMHR): 165.702747 bpm Resting HR Standin bpm Target HR (85% APMHR): 140.061659 bpm Max HR Achieved: 167 bpm % of APMHR: 101.21 Recovery HR: 90 bpm HR response to stress: Normal HR response to stress BP Resting BP Supine: 140/90 mmHg Resting BP Standin/76 mmHg Max BP: 212/98 mmHg Recovery BP: 157/80 mmHg BP response to stress: Normal blood pressure response to stress. ECG Resting ECG: Sinus Rhythm Ectopy: None Stress ECG: Sinus Tachycardia ST Change: No significant ST segment changes noted Recovery ECG: Sinus Rhythm Recovery ST Change: No significant ST segment changes noted Recovery Arrhythmia: 5 beat SVT, rare PVC, rare PAC Clinical Reason for Termination: Fatigue, Target HR Achieved Stress Symptoms: General Fatigue Exercise duration: 3 min43 sec Highest Stage Reached: Stage 2: 2.5 mph at 12% grade. Exercise capacity: 5.48 METs Angina Score: None Dennis Treadmill Score: 3.4 Rate Pressure Product: 50134 Stress ECG Conclusion 1. Resting electrocardiogram was normal 2. Patient exercised on the Mazin protocol and completed a workload of 5.48 METS, limited by fatigue 3. Normal heart rate and blood pressure response to exercise. Patient achieved 100% of predicted hea rt rate for age 4. There was no electrocardiographic evidence of myocardial ischemia 5. There were no significant dysrhythmias 6. See MPI report Dennis Treadmill Score is 3.4 which is Moderate risk. Stress Test Summary STAGE Time (mins) Speed (mph) Grade (%) HR BP SpO2 SYMPTOMS METS Supine 75 140/90 Standing 81 138/76 1 3 1.7 10 152 154/68 4.5 2 6 2.5 12 160 212/98 7 1 min recovery 148 210/86 3 min recovery 114 154/80 6 min recovery 94 Pt tolerated stress test well. Denied any symptoms besides general fatigue. MPI Conclusion Normal myocardial perfusion without evidence of ischemia or prior infarction EF 51%, normal wall motion Radiologist Interpretation Radiologist agrees with Corporate Affairs Manager's Interpretation. Radiologist Interpretation by: Poornima Rhoades MD Interpretation Date/Time: 03/18/2022 15:43:42
== END 2022-03-18 01:47 ==
PROVIDERS: PCP Nurse Practitioner Family; Visit Provider Nurse Practitioner Family
DX: I48.11 Longstanding persistent atrial fibrillation (principal); R07.9 Chest pain, unspecified
CPT/HCPCS: 78452; 93017

== ENCOUNTER 2022-03-28 10:35 | Outpatient (CLI) | payer OTHER, MEDICAID, SELFPAY ==
--- NOTE | 2022-03-28 08:45 | DI.RAD_ITS ---
Exam(s) XR CHEST 2V PA LATERAL EXAM: XR CHEST 2V PA LATERAL CLINICAL HISTORY: Conitnued chest tightness and cough after a URI,copd,r07.89,r05.9,j44.9, TECHNIQUE: 2D digital imaging was performed of the chest. Two images were obtained. PA and lateral views were obtained. COMPARISON: CR XR CHEST 2V PA LATERAL from 02/12/2022 FINDINGS: MEDIASTINUM: Normal. HEART: Normal. PULMONARY VASCULATURE: Normal. LUNGS: Clear. PLEURAL SPACE: No pleural effusion or pneumothorax. BONE:Within normal limits for the patient's age. OTHER FINDINGS:Normal. IMPRESSION: No acute pulmonary findings. DATA REPOSITORY: RADIATION DOSE DELIVERED:
--- OUTSIDE RECORDS SUMMARY | 2022-03-28 10:39 | XMS_ITS | Continuity of Care Document ---
:1965 Author Organization [facility] Address [address] [place] [address] Encounter [facility] NBR [id number] Date(s): 02/19/22 - 02/19/22 [facility] [address] [place] [address]- Discharge Disposition: Home or Self Care Attending Physician: Latoya Canada APRN
--- OUTSIDE RECORDS SUMMARY | 2022-03-28 10:39 | XMS_ITS ---
:1965 Author Organization [facility] Address [address], [place] [id number] Care Team Providers Name Role Phone Debra Chow Unavailable Unavailable PROBLEMS Type Condition ICD9-CM Code LUZ89-DD Code Onset Condition SNO MED Code Dates Status Problem Frequency of R35.0 Active 7468413 00 urination Problem Urgency of R39.15 Active 03836589 urination Problem Morbid obesity E66.01 Active 43913 6002 Problem Bilateral groin R10.30 Active 5458 6004 pain ALLERGIES No Known Allergies ENCOUNTERS Encounter Location Date Diagnosis [address] Dec, Encounter f or Department [address] [place] of [facility] ([facility] Department [id number] examination fo r driving license renewal Z02.[address] Nov, Encounter f or Department Healthcare Occupational [place] of [facility] ([facility] Department [id number] examination fo r driving license renewal Z02.[address] Nov, Healthcare Occup[place] Health Department [id number] [address] Oct, Encounter f or Department [facility] [place] [facility] ([facility] [id number] examination fo r tiffanie licence Z02.[address] Nov, [place], [place] [id number] [address] Nov, Healthcare Occup[place] Health [place] [id number] [facility] [address] Nov, [place], [place] [id number] [address] 15 Oct, 2020 Encounter f or Department [facility] [address] [place] [facility] Health Department [id number] examination fo r driving license renewal Z02.[address] 24 Sep, 2020 Encounter f or other [facility] [address] [place] [facility] [id number] examinations Z 02.[address] 18 Aug, [address] [place] [id number] [address] August, Encounter f or Department [facility] [address] [place] [facility] Health Department [id number] examination fo r driving license renewal Z02.[address] Mar, Encounter f or other [facility] [address] [place] [facility] [id number] examinations Z 02.[address] Mar, Encounter f or [facility] [address] [place] ([place] ercial driving Health Department [id number] license) exam Z02.[address] Sep, [address] [id number] [facility] [address] [place] [address] August, Frequenc y of urination [place] [address] R35.0 ; Urg[place] urination R39.15 ; [id number] Nocturia R35.1 ; Scrotal pain N50.82 ; Bi lateral groin pain R10.3 0 ; Midline thoracic back pain, unspecifie d chronicity M54.6 and Morbid obesity E 66.01 [facility] [address] [place] [address] August, [address] [id number] IMMUNIZATIONS No Known Immunizations SOCIAL HISTORY Never Assessed REASON FOR REFERRAL FUNCTIONAL STATUS PLAN OF CARE Activity Details Follow Up prn Reason: VITAL SIGNS Height 5 ft 10 in in 2021-10-23 Height 5 ft 10 in in 2019-04-02 Height 5 ft 10 in in 2018-09-03 Weight 376 lbs 2021-10-23 Weight 379.8 stand lbs 2019-04-02 Weight 387.7 lbs 2018-09-03 Heart Rate 82 /min 2019-04-02 Heart Rate 93 /min 2018-09-03 Oximetry 97 2019-04-02 Oximetry 99 2018-09-03 Respiratory Rate 20 /min 2019-04-02 BMI 53.94 kg/m2 2021-10-23 BMI 55.62 kg/m2 2018-09-03 Blood pressure systolic 136 mm Hg 2019-04-02 Blood pressure diastolic 76 mm Hg 2019-04-02 MEDICATIONS Medication Instructions Dosage Frequency Start End Duration Statu s Date Date Lisinopril 40 MG Orally Once a 1 tablet 24h Active day metformin HCL 500mg orally twice a 1 tablet 12h Active day amLODIPine Besylate 10 Orally Once a 1 tablet 24h Active MG day Metoprolol Tartrate 50 Orally Twice a 1 tablet 12h Active MG day with food hydroCHLOROthiazide 25 Orally Once a 1 tablet 24h Active MG day in the morning PROCEDURES Procedure Date Ordered Result Body Site OCD DOT Physical Dec 21, 2021 BLADDER SCAN September 03, 2018 OCD DOT Physical Apr 02, 2019 OCD Urine Drug Screen w/Medical Review Apr 02, 2019 OCD DOT Physical Nov 22, 2021 OCD DOT Physical October 23, 2021 URINALYSIS, DIPSTICK W/MICROSCOP September 03, 2018 OCD DOT Physical November 02, 2020 OCD DOT Physical August 30, 2020 OCD Urine Drug Screen (collection only) October 12, 2020 RESULTS Name Result Date Reference Range URINALYSIS, DIP ONLY 2021-10-23 CLARITY clear COLOR yellow NITRITES negative REDUCING SUBSTANCES SPECIFIC GRAVITY 1.020 UROBILINOGEN 0.2 BILIRUBIN negative BLOOD negative GLUCOSE negative KETONES negative pH 7.5 PROTEIN negative LEUKOCYTES negative OCD URINE COLLECTION 2020-10-12 OCD URINE DRUG SCREEN W/ MEDICAL 2019-04-02 URINALYSIS, DIP ONLY 2019-04-02 CLARITY clear COLOR yellow NITRITES neg REDUCING SUBSTANCES SPECIFIC GRAVITY 1.015 UROBILINOGEN normal BILIRUBIN neg BLOOD neg GLUCOSE normal KETONES neg pH 5 PROTEIN neg LEUKOCYTES neg URINALYSIS DIP W/SCOPE 2018-09-03 CLARITY pyridium stained COLOR NITRITES REDUCING SUBSTANCES SPECIFIC GRAVITY UROBILINOGEN BILIRUBIN BLOOD GLUCOSE KETONES pH PROTEIN LEUKOCYTES Bladder Scan 2018-09-03 REASON FOR VISIT OCC dot - pending, DOT physical, OCC dot ppx, DOT physical, DOT Card, dot ppx, OCC dot , DOT physical, OCC dot w/cdl, OCC udc, dot question, OCC dot , DOT physical, OCC udc , OCC dot w/cdl udc, called pt 10/08/18, URO New PT F/U ED Urinary Frequency Insurance Providers [facility] Health Member Patient Patient Patient Patient Patient Subscriber Subscriber Subscriber Group Insurance Plan Plan Plan Plan ID Relationship Address Phone Name Date of ID Name Date of No Type Insurance Insurance Insurance Coverage to Subscriber Address Phone Name Dates OCD - [address] OCD - self Noah [id number] ESCREEN [id number] ESCREEN [employer]ESS [facility] [id number] SELF SELF self Noah [id number] PAY/NO PAY/NO Mariana INSURANCE INSURANCE OCD - [address] OCD - self Noah [id number] [facility] [place] [address] PRODUCE OCD - 480 OCD - self Noah [id number] FIRST [employer] FIRST [place] AD[address]AGE [address] [employer] ADVANTAGE [facility] [address] OCD - [address] OCD - self Noah [id number] [facility] [place] [place] [address] [place] [phone] [place] self Noah [id number] MEDICAID [place] [address] [place] [id number]
== END 2022-03-28 10:55 ==
PROVIDERS: PCP Nurse Practitioner Family; Visit Provider Nurse Practitioner Family
DX: J06.9 Acute upper respiratory infection, unspecified (principal); J44.9 Chronic obstructive pulmonary disease, unspecified; R05.9 Cough, unspecified; R07.89 Other chest pain
CPT/HCPCS: 71046

== ENCOUNTER 2022-12-02 17:01 | Emergency (ER) | payer OTHER, SELFPAY ==
[2022-12-02] VITALS (22 sets, daily range): BP systolic 125–159; BP diastolic 68–84; PULSE 66–83; RESP 14–24; TEMP 36.8; O2SAT 98
--- NOTE | 2022-12-02 17:00 | RT.EKG_ITS ---
APPROVED REPORT Exam: Resting ECG Reason for Exam: dizziness Patient Location: E HR:67 bpm ECG Measurements Heart Rate 67 AXIS WV 188 P 67 QRSd 105 QRS 76 QT 379 T 58 QTc 401 Conclusion Sinus rhythm...normal P axis, V-rate 60- 99
[2022-12-02 17:31] LABS: Abs Immature Grans 0.03 10^3/uL (0.0-0.06); Absolute Basophil Count 0.04 10^3/uL (0.0-0.2); Absolute Eosinophil Count 0.16 10^3/uL (0.0-0.7); Absolute Lymphocyte Count 1.83 10^3/uL (1.2-3.4); Absolute Monocyte Count 0.49 10^3/uL (0.1-0.8); Absolute Neutrophil Count 4.94 10^3/uL (1.2-6.7); Basophils % 0.5; Eosinophils % 2.1; HCT 46.3 % (40.0-50.0); HGB 15.7 g/dL (13.5-17.5); Immature Grans % 0.4; Lymphocytes % 24.4; MCH 29.9 pg (27.0-33.0); MCHC 33.9 % (32.0-36.0); MCV 88 fL (80-95); MPV 11.7 fL (8.0-11.0); Monocytes % 6.5; Neutrophils % 66.1; Platelet Count 135 10^3/uL (130-400); RBC 5.25 10^6/uL (4.36-5.78); RDW 12.4 % (11.8-14.1); RDW-SD 40.5 fL; WBC 7.49 10^3/uL (4.4-10.8)
[2022-12-02] MEDS: Meclizine 25 MG TAB PO (17:45)
[2022-12-02 17:48] LABS: ALT 30 U/L (16-63); AST 14 U/L (15-37); Alkaline Phosphatase 55 U/L (46-116); Anion Gap 5.9 mmol/L (3-11); BUN 15 mg/dL (7-18); Bilirubin, Total 0.5 mg/dL (0.2-1.0); CO2 32.1 mmol/L (21.0-32.0); CREATININE 0.8 mg/dL (0.70-1.30); Calcium 9.2 mg/dL (8.5-10.1); Chloride 100 mmol/L (98-107); Estimated GFR 104.51 (mL/min/1.73m2); Glucose 180 mg/dL (74-106); Potassium 3.8 mmol/L (3.5-5.1); Sodium 138 mmol/L (136-145); Total Protein 7.7 g/dL (6.4-8.2); Troponin I < 50 ng/L (<or=60)
--- NOTE | 2022-12-02 18:15 | DI.CT_ITS ---
Exam(s) CT HEAD WO EXAM: CT HEAD WO CLINICAL HISTORY: dizziness. TECHNIQUE: Imaging Protocol: Axial computed tomography images with coronal and sagittal reformatted images were created and reviewed COMPARISON: No exams were available for comparison FINDINGS: Ventricles and Extra axial spaces: Normal in size and morphology for the patient's age. Hemorrhage: None. Cerebral parenchyma: No evidence of acute infarct or mass. Midline shift: None. Brainstem/Cerebellum: Normal. Calvarium: Normal. Visualized Paranasal sinuses/Mastoids: Clear. Soft Tissues: Unremarkable. IMPRESSION: No acute intracranial process. RADIATION DOSE DELIVERED: 761.51mGy.cm Total DLP DATA REPOSITORY: All CT scans at this facility are submitted to the National Radiology Data Registry (NRDR) Dose Index Registry (DIR) with the [employer] (ACR). RADIATION OPTIMIZATION: All CT scans at this facility use at least one of these dose optimization te chniques: automated exposure control; mA and/or kV adjustment per patient size (includes targeted exa ms where dose is matched to clinical indication); or iterative reconstruction.
[2022-12-02 18:17] LABS: COVID-19 PCR Negative (Negative); Influenza A PCR Negative (Negative); Influenza B PCR Negative (Negative); RSV PCR Negative (Negative)
[2022-12-02 18:20] LABS: Source Nasopharynx
--- NOTE | 2022-12-02 18:23 | ED.GENADUL_ITS ---
Discharge Plan Disposition Patient Disposition: Home Discharge Details Clinical Impression: Nonspecific dizziness Primary Care Provider: Rich Zheng ED Provider: Surinder Hope Home Meds and New Rx's Prescriptions: New meclizine 25 mg tablet 25 mg PO TID PRN (Reason: dizziness) Qty: 20 0RF Continued metoprolol succinate 100 mg tablet extended release 24 hr 75 mg PO BID metformin 500 mg tablet 250 mg PO BID Qty: 180 4RF (DME) Aerochamber MV Spacer See Rx Instructions .Route Qty: 1 0RF Rx Instructions: As directed allopurinol 100 mg tablet 200 mg PO DAILY Qty: 180 4RF (DME) blood-glucose meter [VentureBeat Ultra2 Meter] 1 EACH kit 1 ea Miscellaneous BID Qty: 1 (DME) lancets [OneTouch Delica Lancets] 33 gauge misc 1 ea Miscellaneous BID Qty: 200 4RF Rx Instructions: Check blood sugar twice a day albuterol sulfate [Ventolin HFA] 90 mcg/actuation HFA aerosol inhaler 2 puff IH Q6H PRN (Reason: shortness of breath or wheezing) Qty: 18 6RF (DME) blood sugar diagnostic Strip See Dose Instructions .ROUTE .MEDSUPPLY Qty: 200 4RF Dose Instruction: One Daily Rx Instructions: Check blood sugar twice a day hydrochlorothiazide 50 mg tablet 50 mg PO DAILY Qty: 90 3RF Xarelto 20 mg tablet 20 mg PO DAILY Qty: 90 3RF Rx Instructions: must administer with evening meal lisinopril 40 mg tablet 40 mg PO DAILY Qty: 14 0RF amlodipine [Norvasc] 10 mg tablet 10 mg PO QAM Qty: 10 0RF omega-3 fatty acids-fish oil 1 EACH capsule 1 cap PO DAILY Discharge Instructions Instructions: Dizziness (ED) Additional Instructions: Please continue to monitor your symptoms and return to the emergency department immediately for any new or significant worsening of your condition. Otherwise stay well-hydrated, continue to monitor your heart rate and blood sugar, and follow-up with your primary care provider as needed for reassessment. Please use caution if you take the medication as this may cause you to be drowsy. Please make sure that you are safe to drive while on medication to help with dizziness. Referrals: Rich Zheng, MEDICAL LAB SPECIALIST [Primary Care Provider] - 1 week Discharge Data Discharge Date/Time-TO BE ENTERED AT DEPARTURE: 12/02/22 20:29 Medical Decision Making Patient presenting to the emergency department for chief complaint of dizziness. Patient reports that last night while sitting on the couch he started having episode of dizziness. He checked his blood sugar which was fine along with his heart rate which was also normal. He stated this lasted for about an hour and then went away. Today he also stated intermittent episodes of feeling dizzy but again could not find a contributing factor. He did state that a couple months ago he did have some tick bites and was concerned for possible Lyme disease. Patient states some arthralgias to his knees but states he works often and knee pain does improve with rest. Patient does report that in the past he has had episodes similar to this but never got checked out. Physical exam performed and no focal neurological findings noted, no cardiac or respiratory and exam is benign and unremarkable. Patient does have significant past medical history of anxiety, atrial fibrillation, hypertension, type 2 diabetes, obesity. We will plan on checking labs and CT imaging patient's head. Pending results will give meclizine. Please see physician interpretation for full interpretation of EKG but upon my review patient is in sinus rhythm with no acute ischemic findings to suggest STEMI. Reviewed patient's labs and CBC is unremarkable, CMP shows glucose of 180 otherwise again nondiagnostic labs, troponin nondetectable negative, patient is negative for COVID flu RSV and we are still pending send out of tickborne panel. Reviewed CT imaging and radiology interpretation that shows no acute findings. Reassessed patient patient states full resolution of his dizziness. Question of possible vertigo that may have had fatigable nystagmus given that patient presented later in the day. Could not reproduce dizziness and given no other worrisome findings I do feel that patient is able to be safely discharged but patient should follow-up with primary care provider for recheck or return for new or worsening symptoms. After discussion of diagnosis and plan of care patient has no further needs, questions, or concerns and states clear understanding to return to the emergency department for any worsening symptoms. This documentation was generated using [employer] system, please disregard any oddities of phrase or misspellings. Imaging Data Radiologic Study: Imaging: CT Scan Radiologist's impression: Exam(s) PROCEDURE INFORMATION: Exam: CT Head Without Contrast Exam date and time: 12/02/2022 6:56 PM Age: 57 years old Clinical indication: Dizziness TECHNIQUE: Imaging protocol: Computed tomography of the head without contrast. Radiation optimization: All CT scans at this facility use at least one of these dose optimization techniques: automated exposure control; mA and/or kV adjustment per patient size (includes targeted exams where dose is matched to clinical indication); or iterative reconstruction. COMPARISON: No relevant prior studies available. FINDINGS: Brain: Cerebral sulci show bilateral symmetry with no supratentorial mass or mass effect detected. Brainstem and cerebellum are unremarkable. There is no evidence of acute transcortical infarction or recent intracranial hemorrhage. Cerebral ventricles: Ventricular and cisternal spaces are normal in size and configuration and there is no midline shift or hydrocephalus seen. Paranasal sinuses: Grossly clear throughout. Mastoid air cells: Grossly clear bilaterally. Probable cerumen seen in the left external auditory canal. Bones/joints: Bony calvarium and skull base are intact and no acute fractures are detected. Soft tissues: Unremarkable. IMPRESSION: No evidence of acute transcortical infarction, recent intracranial hemorrhage or hydrocephalus. No acute intracranial process is detected. Dictated and Authenticated by: Diego Rangel MD. Lab Data Lab results reviewed: Yes I reviewed the patient's lab results. HPI General Mode of arrival: ambulatory . Date/Time Provider Initiated Documentation: 12/02/22 17:06 . Limitations to Documentation: no limitations . Information obtained by: patient and RN notes reviewed . History of Present Illness 57 year old M presents to the emergency department with the chief complaint of Dizziness, described as mild, moderate and similar to prior episodes, Patient started experiencing this day(s) (1) and it has been intermittent. No relieving factors improve symptom(s), No exacerbating factors reported . Patient notes other (Anxiety). Patient did receive the following treatments prior to arrival, none Related Data Home Medications Medication Instructions Recorded Confirmed blood-glucose meter (VentureBeat ##1 08/27/16 10/14/22 Ultra2 Meter kit) omega-3 fatty acids-fish oil 300 1 cap PO DAILY 09/21/17 10/14/22 mg-1,000 mg capsule lancets 33 gauge (VentureBeat Delica #200 ea 10/07/19 10/14/22 Lancets) albuterol sulfate 90 mcg/actuation 2 puff inhalation Q6H PRN 11/08/19 10/14/22 aerosol inhaler (Ventolin HFA) shortness of breath or wheezing #18 grams blood sugar diagnostic #200 ea 11/20/20 10/14/22 metoprolol succinate 100 mg 75 mg PO BID 03/04/22 10/14/22 tablet,extended release 24 hr inhalational spacing device #1 ea 03/25/22 10/14/22 (Aerochamber MV spacer) metformin 500 mg tablet 250 mg PO BID #180 tabs 06/03/22 10/14/22 hydrochlorothiazide 50 mg tablet 50 mg PO DAILY #90 tab-caps 07/12/22 10/14/22 allopurinol 100 mg tablet 200 mg PO DAILY #180 tabs 09/02/22 10/14/22 rivaroxaban 20 mg tablet (Xarelto) 20 mg PO DAILY #90 tabs 09/10/22 10/14/22 lisinopril 40 mg tablet 40 mg PO DAILY #14 tabs 10/11/22 10/14/22 amlodipine 10 mg tablet (Norvasc) 10 mg PO QAM #10 tab-caps 11/22/22 meclizine 25 mg tablet 25 mg PO TID PRN dizziness #20 tabs 12/02/22 Previous Rx's Medication Instructions Recorded lancets 33 gauge (OneTouch Delica #200 ea 10/07/19 Lancets) albuterol sulfate 90 mcg/actuation 2 puff inhalation Q6H PRN 11/08/19 aerosol inhaler (Ventolin HFA) shortness of breath or wheezing #18 grams blood sugar diagnostic #200 ea 11/20/20 inhalational spacing device #1 ea 03/25/22 (Aerochamber MV spacer) metformin 500 mg tablet 250 mg PO BID #180 tabs 06/03/22 hydrochlorothiazide 50 mg tablet 50 mg PO DAILY #90 tab-caps 07/12/22 allopurinol 100 mg tablet 200 mg PO DAILY #180 tabs 09/02/22 rivaroxaban 20 mg tablet (Xarelto) 20 mg PO DAILY #90 tabs 09/10/22 lisinopril 40 mg tablet 40 mg PO DAILY #14 tabs 10/11/22 amlodipine 10 mg tablet (Norvasc) 10 mg PO QAM #10 tab-caps 11/22/22 meclizine 25 mg tablet 25 mg PO TID PRN dizziness #20 tabs 12/02/22 Allergies Allergy/AdvReac Type Severity Reaction Status Date / Time No Known Allergies Allergy Verified 10/14/22 13:42 General Stated Complaint: GenMedical SARAH: 3 Review of Systems Constitutional Constitutional: Denies chills, Denies fever(s), Denies headache(s), Denies lethargy, Denies malaise and Denies weakness Eyes Eyes: Denies change in vision ENT Ears, Nose, Mouth, and Throat: Denies vertigo, Reports dizziness, Denies ear discharge, Denies otalgia, Denies headache(s), Denies neck pain and Denies disequilibrium Cardiovascular Cardiovascular: Denies chest pain, Denies syncope, Denies rapid heart rate, Denies irregular heart rhythm, Denies lightheadedness, Denies palpitations and Denies dyspnea Respiratory Respiratory: Denies cough and Denies dyspnea Gastrointestinal Gastrointestinal: Denies abdominal pain, Denies nausea and Denies vomiting Musculoskeletal Musculoskeletal: Denies back pain, Denies neck pain, Denies numbness and Denies tingling Neurologic Neurologic: Reports as per HPI, Denies confusion, Denies vertigo, Reports dizziness, Denies syncope, Denies headache(s), Denies numbness, Denies tingling, Denies disequilibrium and Denies weakness Psychiatric Psychiatric: Reports anxiety and Denies confusion Endocrine Endocrine: Denies palpitations PFSH All Active Problems (Updated 12/02/22 @ 20:12 by Surinder Hope NP) Nonspecific dizziness (Acute) COVID-19 (Acute) 11/25/21 Vaccinated. Zaiseoul Nicotine dependence (Acute) 06/2021, currently 1/4 ppd, hx of 35 pk yr, patient deferred on chest CT for lung cancer screening Colon polyp (Acute[place] [place], due 2025 RGACE on CPAP (Chronic) Gout (Chronic) Atrial fibrillation (Chronic) Fatty liver (Acute) Hand eczema (Acute) Anxiety (Chronic) Dyshidrotic eczema (Acute) Chronic obstructive lung disease (Chronic) Depressive disorder (Chronic) Essential hypertension (Chronic 02/18/13) Hyperlipidemia (Chronic) Obesity (Chronic) Type 2 diabetes mellitus without complication, without long-term current use of insulin (Chronic 12/05/17) Medical History COPD (chronic obstructive pulmonary disease) Depression Diabetes HTN (hypertension) Hyperlipemia Surgical History LEFT HEART CARDIAC CATH (~2003) NEG S/P rotator cuff repair Family History Mother No problems noted. Social History Smoking/Tobacco Use Status: Current every day Tobacco Type: cigarettes Tobacco: How many years used: 35 Smokeless tobacco user: other Quit status: has quit before Second Hand Exposure: Yes Smoking risk assessment performed?: Yes Alcohol Intake: former Drug use: Current Sobriety Substance use type: marijuana Caregiver/Support person: No Household members: significant other Housing: apartment Communication Needs: None Do you need help understanding health information?: Rarely Pets and animals: Yes Pets and animals: cat(s) and dog(s) Sexually active: Yes Do you think of yourself as: straight/heterosexual Current gender identity: female What is your relationship status?: living with partner How often do you talk on the phone with friends or family?: three or more times per week How often do you get together with friends or relatives?: three or more times per week How often do you attend holiness or taoist services?: 1-3 times per year Do you belong to any clubs or organized social groups?: no Panel score (0-1 are the most socially isolated patients): 2 What type of physical activity do you participate in: walking Duration: < 15 minutes/day Frequency: daily Sophia/Hindu: Yazidi Special sophia needs: No Seatbelt use: always Helmet use: No Drive intox or ride w/intox professional driver: No Do you feel safe at home: Yes Do you feel safe in your relationship?: Yes Exam Const General: cooperative, healthy appearing and no acute distress Orientation: alert, awake and oriented x3 HENMT Head: normal to inspection Ears: hearing grossly normal bilaterally and TM's normal bilaterally Mouth: oral mucosae normal and moist mucous membranes Throat: posterior oropharynx normal Eyes Visual Anderson: normal visual anderson by confrontation Alignment and Position: alignment normal Periorbital: periorbital findings normal Eyelids: eyelids normal Sclera: sclerae normal Cornea: corneas normal Pupils: PERRL EOM: EOM intact bilaterally and No nystagmus Neck Neck: normal visual inspection, full ROM and no meningeal signs Resp Effort & Inspection: normal respiratory effort and able to speak in complete sentences Auscultation: clear to auscultation bilaterally Cardio Rate: regular rate Rhythm: regular rhythm Heart Sounds: S1 normal and S2 normal Neuro General: patient alert, patient awake, patient oriented x3, gait normal, tone normal, moves all extremities, CN's II-XI intact bilaterally and not confused Cranial Nerves: CN's II-XI intact bilaterally and no nystagmus Cognition: normal cognition Speech: speech normal Motor: muscle tone normal throughout, strength 5/5 throughout, no pronator drift, no movement abnormalities noted and no fasciculations Sensory Exam: no sensory deficits noted Coordination: [id number] test normal, Romberg test normal and Does not sway with eyes open Course Vital Signs Vital signs: Vital Signs Temperature 36.8 C 12/02/22 17:03 Pulse 81 12/02/22 17:03 Respiratory Rate 18 12/02/22 17:03 Blood Pressure 159/84 H 12/02/22 17:03 Pulse Oximetry 98 12/02/22 17:03 Temperature 36.8 C 12/02/22 17:03 Temperature Source Temporal Artery Scan 12/02/22 17:03 Pulse 81 12/02/22 17:03 Respiratory Rate 19 12/02/22 17:14 Respiratory Effort Normal 12/02/22 17:14 Respiratory Depth Normal 12/02/22 17:14 Respiratory Pattern Normal 12/02/22 17:14 Blood Pressure 159/84 H 12/02/22 17:03 Blood Pressure Position Sitting 12/02/22 17:03 Pulse Oximetry 98 12/02/22 17:03 Oxygen Delivery Method Room Air 12/02/22 17:03 Oxygen Flow Rate 0 12/02/22 17:03 Pain Level 0 12/02/22 17:03 Lab/Test Results Lab/Test Results: Laboratory Tests Range/Units 12/02/22 12/02/22 12/02/22 17:23 17:23 17:35 WBC (4.4-10.8) 10^3/uL 7.49 RBC (4.36-5.78) 10^6/uL 5.25 Hgb (13.5-17.5) g/dL 15.7 Hct (40.0-50.0) % 46.3 MCV (80-95) fL 88 MCH (27.0-33.0) pg 29.9 MCHC (32.0-36.0) % 33.9 RDW (11.8-14.1) % 12.4 Plt Count (130-400) 10^3/uL 135 MPV (8.0-11.0) fL 11.7 H Immature Gran % 0.4 Neutrophils % 66.1 Lymphocytes % 24.4 Monocytes % 6.5 Eosinophils % 2.1 Basophils % 0.5 Nucleated RBC % (0.0-0.3) % 0.0 Absolute Neutrophils (1.2-6.7) 10^3/uL 4.94 Absolute Lymphocytes (1.2-3.4) 10^3/uL 1.83 Absolute Monocytes (0.1-0.8) 10^3/uL 0.49 Absolute Eosinophils (0.0-0.7) 10^3/uL 0.16 Absolute Basophils (0.0-0.2) 10^3/uL 0.04 Sodium (136-145) mmol/L 138 Potassium (3.5-5.1) mmol/L 3.8 Chloride (98-107) mmol/L 100 Carbon Dioxide (21.0-32.0) mmol/L 32.1 H Anion Gap (3-11) mmol/L 5.9 BUN (7-18) mg/dL 15 Creatinine (0.70-1.30) mg/dL 0.8 Est GFR (CKD-EPI 2020) (mL/min/1.73m2) 104.51 Glucose (74-106) mg/dL 180 H Calcium (8.5-10.1) mg/dL 9.2 Magnesium (1.8-2.4) mg/dL 2.0 Total Bilirubin (0.2-1.0) mg/dL 0.5 AST (15-37) U/L 14 L ALT (16-63) U/L 30 Alkaline Phosphatase (46-116) U/L 55 Troponin I (<or=60) ng/L < 50 Total Protein (6.4-8.2) g/dL 7.7 Albumin (3.4-5.0) g/dL 4.0 COVID-19 Source Nasopharynx SARS-CoV-2 (PCR) (Negative) Negative Influenza Type A (PCR) (Negative) Negative Influenza Type B (PCR) (Negative) Negative RSV (PCR) (Negative) Negative
--- NOTE | 2022-12-02 19:23 | DI.VRAD_ITS ---
PROCEDURE INFORMATION: Exam: CT Head Without Contrast Exam date and time: 12/02/2022 6:56 PM Age: 57 years old Clinical indication: Dizziness TECHNIQUE: Imaging protocol: Computed tomography of the head without contrast. Radiation optimization: All CT scans at this facility use at least one of these dose optimization techniques: automated exposure control; mA and/or kV adjustment per patient size (includes targeted exams where dose is matched to clinical indication); or iterative reconstruction. COMPARISON: No relevant prior studies available. FINDINGS: Brain: Cerebral sulci show bilateral symmetry with no supratentorial mass or mass effect detected. Brainstem and cerebellum are unremarkable. There is no evidence of acute transcortical infarction or recent intracranial hemorrhage. Cerebral ventricles: Ventricular and cisternal spaces are normal in size and configuration and there is no midline shift or hydrocephalus seen. Paranasal sinuses: Grossly clear throughout. Mastoid air cells: Grossly clear bilaterally. Probable cerumen seen in the left external auditory canal. Bones/joints: Bony calvarium and skull base are intact and no acute fractures are detected. Soft tissues: Unremarkable. IMPRESSION: No evidence of acute transcortical infarction, recent intracranial hemorrhage or hydrocephalus. No acute intracranial process is detected. Dictated and Authenticated by: Diego Rangel MD. Ordering:DARREN Cadena MD
[2022-12-04 10:04] LABS: Lyme Ab w Rflx to Lyme Confirm Negative (Negative)
[2022-12-06 09:40] LABS: Anaplasma phagocytophilum Negative (Negative); B. miyamotoi PCR Negative (Negative); Babesia divergens/MO-1 Negative (Negative); Babesia duncani Negative (Negative); Babesia microti Negative (Negative); Ehrlichia chaffeensis Negative (Negative); Ehrlichia ewingii/canis Negative (Negative); Ehrlichia muris eauclairensis Negative (Negative)
== END 2022-12-02 20:29 | disposition home or self-care (01) ==
PROVIDERS: Emergency Provider Nurse Practitioner Family; PCP Nurse Practitioner Family
DX: R42 Dizziness and giddiness (principal)
CPT/HCPCS: 80053; 87637; 87798; 93005; 99284; 70450; 83735; 84484; 85025; 86618; 93010

== ENCOUNTER 2022-12-13 11:04 | Outpatient (CLI) | payer OTHER, SELFPAY ==
[2022-12-13 13:35] LABS: D-Dimer 414 ng/mlFEU (<500)
== END 2022-12-13 11:05 | disposition home or self-care (01) ==
LOC: LOS 11:04
PROVIDERS: PCP Nurse Practitioner Family; Referring Provider Nurse Practitioner Family; Visit Provider Nurse Practitioner Family
DX: M79.604 Pain in right leg (principal); M79.605 Pain in left leg
CPT/HCPCS: 36415; 85379

== ENCOUNTER 2023-06-08 13:17 | Emergency (ER) | payer OTHER, SELFPAY ==
[2023-06-08] VITALS (52 sets, daily range): BP systolic 100–181; BP diastolic 57–109; PULSE 81–117; RESP 5–32; TEMP 37.7; O2SAT 91–96
--- NOTE | 2023-06-08 13:15 | RT.EKG_ITS ---
APPROVED REPORT Exam: Resting ECG Reason for Exam: sob Patient Location: E HR:84 bpm ECG Measurements Heart Rate 84 AXIS ID 172 P 42 QRSd 99 QRS 53 QT 332 T 41 QTc 393 Conclusion Sinus rhythM normal axis no stemi
[2023-06-08] MEDS: Acetaminophen 500 MG TAB 1000 MG PO (14:12)
[2023-06-08 14:57] LABS: COVID-19 PCR Negative (Negative); Influenza A PCR Negative (Negative); Influenza B PCR Negative (Negative); RSV PCR Negative (Negative)
[2023-06-08 14:58] LABS: Source Nasopharynx
--- NOTE | 2023-06-08 15:00 | DI.RAD_ITS ---
Exam(s) XR CHEST 2V PA LATERAL EXAM: XR CHEST 2V PA LATERAL CLINICAL HISTORY: COUGH TECHNIQUE: 2D digital imaging was performed of the chest. Two images were obtained. PA and lateral views were obtained. COMPARISON: CR XR CHEST 2V PA LATERAL from 03/28/2022 FINDINGS: MEDIASTINUM: Normal. HEART: Normal. PULMONARY VASCULATURE: Normal. LUNGS: No focal consolidating infiltrates. There is hyperexpansion of the lungs with flattened diaph ragms. This suggest COPD. PLEURAL SPACE: No pleural effusion or pneumothorax. BONE:Within normal limits for the patient's age. OTHER FINDINGS:Normal. IMPRESSION: No acute pulmonary findings. DATA REPOSITORY: RADIATION DOSE DELIVERED:
[2023-06-08] MEDS: Albuterol/Ipratropium 3 ML UPD VIAL UPD (15:15)
--- NOTE | 2023-06-08 16:02 | DI.VRAD_ITS ---
PROCEDURE INFORMATION: Exam: XR Chest Exam date and time: 06/08/2023 3:36 PM Age: 58 years old Clinical indication: Cough TECHNIQUE: Imaging protocol: Radiologic exam of the chest. Views: 2 views. COMPARISON: CR XR CHEST 2V PA LATERAL 03/28/2022 10:58 AM FINDINGS: Lungs: Hyperexpanded lung goodwin consistent with COPD. No consolidation. Pleural spaces: Unremarkable. No pleural effusion. No pneumothorax. Heart/Mediastinum: Unremarkable. No cardiomegaly. Bones/joints: Unremarkable. IMPRESSION: No acute findings. Dictated and Authenticated by: Jaun Ordaz MD. Ordering:DeonnaZULMA Fraire MD
[2023-06-08] MEDS: predniSONE 20 MG TAB 40 MG PO (16:32)
[2023-06-08] MEDS: Doxycycline Hyclate 100 MG, 2 CAPS/BTL PO (16:33)
[2023-06-08] MEDS: Albuterol HFA 8 GM 60 PUFF INH IH (16:33)
--- NOTE | 2023-06-08 20:43 | ED.GENADUL_ITS ---
HPI General Date/Time Provider Initiated Documentation: 06/08/23 13:31 . Limitations to Documentation: no limitations . Information obtained by: patient . HPI Narrative: 58-year-old gentleman with past medical history of COPD, A-fib, GRACE, hypertension, diabetes presents for evaluation of fever and cough. He feels like he is not moving air. The symptoms have been going on for the last 2 days. He reports cough, cough nonproductive. No known sick contacts. Did a home COVID test that was negative. No chest pain, nausea vomiting or diarrhea. He has used albuterol in the past. He does smoke. Related Data Home Medications Medication Instructions Recorded Confirmed blood-glucose meter ([employer] ##1 08/27/16 02/21/23 Ultra2 Meter kit) omega-3 fatty acids-fish oil 300 1 cap PO DAILY 09/21/17 02/21/23 mg-1,000 mg capsule lancets 33 gauge ([employer] Delica #200 ea 10/07/19 02/21/23 Lancets) albuterol sulfate 90 mcg/actuation 2 puff inhalation Q6H PRN 11/08/19 02/21/23 aerosol inhaler (Ventolin HFA) shortness of breath or wheezing #18 grams blood sugar diagnostic #200 ea 11/20/20 02/21/23 inhalational spacing device #1 ea 03/25/22 02/21/23 (Aerochamber MV spacer) hydrochlorothiazide 50 mg tablet 50 mg PO DAILY #90 tab-caps 07/12/22 02/21/23 allopurinol 100 mg tablet 200 mg (2 x 100 mg) PO DAILY #180 09/02/22 02/21/23 tabs rivaroxaban 20 mg tablet (Xarelto) 20 mg PO DAILY #90 tabs 09/10/22 02/21/23 lisinopril 40 mg tablet 40 mg PO DAILY #14 tabs 10/11/22 02/21/23 amlodipine 10 mg tablet (Norvasc) 10 mg PO QAM #10 tab-caps 11/22/22 02/21/23 metformin 500 mg tablet 250 mg (1/2 x 500 mg) PO BID #180 01/08/23 02/21/23 tabs metoprolol succinate 100 mg 75 mg (0.75 x 100 mg) PO BID #14 02/12/23 02/21/23 tablet,extended release 24 hr tabs doxycycline monohydrate 100 mg 100 mg PO BID 6 days #12 caps 06/08/23 capsule prednisone 20 mg tablet 40 mg (2 x 20 mg) PO DAILY 5 days 06/08/23 #10 tabs Previous Rx's Medication Instructions Recorded lancets 33 gauge (OneTouch Delica #200 ea 10/07/19 Lancets) albuterol sulfate 90 mcg/actuation 2 puff inhalation Q6H PRN 11/08/19 aerosol inhaler (Ventolin HFA) shortness of breath or wheezing #18 grams blood sugar diagnostic #200 ea 11/20/20 inhalational spacing device #1 ea 03/25/22 (Aerochamber MV spacer) hydrochlorothiazide 50 mg tablet 50 mg PO DAILY #90 tab-caps 07/12/22 allopurinol 100 mg tablet 200 mg (2 x 100 mg) PO DAILY #180 09/02/22 tabs rivaroxaban 20 mg tablet (Xarelto) 20 mg PO DAILY #90 tabs 09/10/22 lisinopril 40 mg tablet 40 mg PO DAILY #14 tabs 10/11/22 amlodipine 10 mg tablet (Norvasc) 10 mg PO QAM #10 tab-caps 11/22/22 metformin 500 mg tablet 250 mg (1/2 x 500 mg) PO BID #180 01/08/23 tabs metoprolol succinate 100 mg 75 mg (0.75 x 100 mg) PO BID #14 02/12/23 tablet,extended release 24 hr tabs doxycycline monohydrate 100 mg 100 mg PO BID 6 days #12 caps 06/08/23 capsule prednisone 20 mg tablet 40 mg (2 x 20 mg) PO DAILY 5 days 06/08/23 #10 tabs Allergies Allergy/AdvReac Type Severity Reaction Status Date / Time No Known Allergies Allergy Verified 04/25/23 17:38 General Stated Complaint: SOB SARAH: 3 Exam Narrative Exam Narrative: Review of Systems: All systems reviewed & are unremarkable except as noted in HPI and below Well-developed, no acute distress, obese NCAT PERRL, normal conjunctiva RRR Unlabored respiratory effort no hypoxia, mild wheezing Nondistended abdomen Extremities w/o deformity, no cyanosis, no edema No rashes or lesions. no focal neurologic deficits Appropriate mood and affect Course Vital Signs Vital signs: Vital Signs Temperature 37.7 C H 06/08/23 13:21 Pulse 117 H 06/08/23 13:21 Respiratory Rate 22 06/08/23 13:21 Blood Pressure 181/109 H 06/08/23 13:21 Pulse Oximetry 92 06/08/23 13:21 Temperature 37.7 C H 06/08/23 13:21 Temperature Source Tympanic 06/08/23 13:21 Pulse 81 06/08/23 16:21 Respiratory Rate 26 H 06/08/23 16:33 Respiratory Effort Short of Breath, Labored 06/08/23 16:04 Respiratory Depth Shallow 06/08/23 16:04 Respiratory Pattern Normal 06/08/23 16:04 Blood Pressure 100/57 L 06/08/23 16:21 Blood Pressure Position Sitting 06/08/23 13:21 Pulse Oximetry 96 06/08/23 16:31 Oxygen Delivery Method Room Air 06/08/23 15:15 Oxygen Flow Rate 0 06/08/23 15:15 Pain Level 3 06/08/23 16:36 Comment general body aches 06/08/23 13:21 Lab/Test Results Lab/Test Results: Laboratory Tests Range/Units 06/08/23 14:05 COVID-19 Source Nasopharynx SARS-CoV-2 (PCR) (Negative) Negative Influenza Type A (PCR) (Negative) Negative Influenza Type B (PCR) (Negative) Negative RSV (PCR) (Negative) Negative Medical Decision Making Emergent evaluation of fever and cough. Patient is noted to have fever in the emergency department. Tachycardia likely secondary to fever. He otherwise has no signs of overwhelming infection. Symptoms likely secondary to URI or pneumonia. He does smoke and has diabetes and has a history of COPD. Viral testing was obtained and this was negative. His EKG is not acutely ischemic. Chest x-ray was obtained, there is no evidence of consolidation. He was given a breathing treatment which he reports improved his symptoms significantly. Given his history of COPD and tobacco abuse, I will give steroids as well as antibiotic, doxycycline, to treat for atypical pneumonia. Patient provided with albuterol MDI with spacer. Home supportive care instructions provided to the patient. Return precautions advised. At this time I feel the patient is stable for discharge home. Medical Records Medical records reviewed: Yes I reviewed the patient's medical records. Lab Data Lab results reviewed: Yes I reviewed the patient's lab results. ECG Data Attestation: I personally reviewed and interpreted this ECG (s) as follows: Interpretation: Sinus 84 normal axis no STEMI Quality:SDOH Health Related Social Needs: No Data to Display PFSH All Active Problems Acute exacerbation of chronic obstructive pulmonary disease (Acute) Fever (Acute) COVID-19 (Acute) 11/25/21 Vaccinated. Pfizer Nicotine dependence (Acute) 06/2021, currently 04/24 ppd, hx of 35 pk yr, patient deferred on chest CT for lung cancer screening Colon polyp (Acute) 02/2021-[facility] [place], [place], f/u positive cologuard, due 2025 GRACE on CPAP (Chronic) Gout (Chronic) Atrial fibrillation (Chronic) Fatty liver (Acute) Hand eczema (Acute) Anxiety (Chronic) Dyshidrotic eczema (Acute) Chronic obstructive lung disease (Chronic) Depressive disorder (Chronic) Essential hypertension (Chronic 02/18/13) Hyperlipidemia (Chronic) Obesity (Chronic) Type 2 diabetes mellitus without complication, without long-term current use of insulin (Chronic 12/05/17) Medical History Diabetes HTN (hypertension) Hyperlipemia Depression COPD (chronic obstructive pulmonary disease) Surgical History S/P rotator cuff repair LEFT HEART CARDIAC CATH (~2003) NEG Family History Mother No problems noted. Social History Smoking/Tobacco Use Status: Current every day Tobacco Type: cigarettes Tobacco: How many years used: 35 Smokeless tobacco user: other Quit status: has quit before Second Hand Exposure: Yes Smoking risk assessment performed?: Yes Alcohol Intake: former Drug use: Current Sobriety Substance use type: marijuana Caregiver/Support person: No Household members: significant other Housing: apartment Communication Needs: None Do you need help understanding health information?: Rarely Pets and animals: Yes Pets and animals: cat(s) and dog(s) Sexually active: Yes Do you think of yourself as: straight/heterosexual Current gender identity: female What is your relationship status?: living with partner How often do you talk on the phone with friends or family?: three or more times per week How often do you get together with friends or relatives?: three or more times per week How often do you attend caodaism or yazidi services?: 1-3 times per year Do you belong to any clubs or organized social groups?: no Panel score (0-1 are the most socially isolated patients): 2 What type of physical activity do you participate in: walking Duration: < 15 minutes/day Frequency: daily Sophia/Orthodox: Yazidism Special sophia needs: No Seatbelt use: always Helmet use: No Drive intox 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 Do you feel safe at home: Yes Do you feel safe in your relationship?: Yes Discharge Plan Disposition Patient Disposition: Home Discharge Details Clinical Impression: Fever, Type 2 diabetes mellitus without complication, without long-term current use of insulin, Chronic obstructive lung disease, Acute exacerbation of chronic obstructive pulmonary disease Primary Care Provider: Rich Zheng ED Provider: Olive Tierney Home Meds and New Rx's Prescriptions: New doxycycline monohydrate 100 mg capsule 100 mg PO BID 6 Days Qty: 12 0RF prednisone 20 mg tablet 40 mg PO DAILY 5 Days Qty: 10 0RF No Action (DME) Aerochamber MV Spacer See Rx Instructions .Route Qty: 1 0RF Rx Instructions: As directed allopurinol 100 mg tablet 200 mg PO DAILY Qty: 180 4RF (DME) blood-glucose meter [[employer] Ultra2 Meter] 1 EACH kit 1 ea Miscellaneous BID Qty: 1 (DME) lancets [OneTouch Delica Lancets] 33 gauge misc 1 ea Miscellaneous BID Qty: 200 4RF Rx Instructions: Check blood sugar twice a day albuterol sulfate [Ventolin HFA] 90 mcg/actuation HFA aerosol inhaler 2 puff IH Q6H PRN (Reason: shortness of breath or wheezing) Qty: 18 6RF (DME) blood sugar diagnostic Strip See Dose Instructions .ROUTE .MEDSUPPLY Qty: 200 4RF Dose Instruction: One Daily Rx Instructions: Check blood sugar twice a day hydrochlorothiazide 50 mg tablet 50 mg PO DAILY Qty: 90 3RF Xarelto 20 mg tablet 20 mg PO DAILY Qty: 90 3RF Rx Instructions: must administer with evening meal lisinopril 40 mg tablet 40 mg PO DAILY Qty: 14 0RF amlodipine [Norvasc] 10 mg tablet 10 mg PO QAM Qty: 10 0RF metformin 500 mg tablet 250 mg PO BID Qty: 180 4RF metoprolol succinate 100 mg tablet extended release 24 hr 75 mg PO BID Qty: 14 0RF omega-3 fatty acids-fish oil 1 EACH capsule 1 cap PO DAILY Discharge Instructions Instructions: COPD (Chronic Obstructive Pulmonary Disease) (ED) Additional Instructions: Use albuterol inhaler with spacer 2 puffs every 4 hours. Take Mucinex [id number]. Take antibiotics and steroids as prescribed. First 2 doses of antibiotics dispensed in the ER, the remaining prescription sent to the [facility] [place]. Return with worsening shortness of breath, not tolerating medications, decreased oxygen saturation. Discharge Data Discharge Date/Time-TO BE ENTERED AT DEPARTURE: 06/08/23 16:36
== END 2023-06-08 16:36 | disposition home or self-care (01) ==
PROVIDERS: Emergency Provider Emergency Medicine; PCP Nurse Practitioner Family
DX: J44.1 Chronic obstructive pulmonary disease with (acute) exacerbation (principal); E11.9 Type 2 diabetes mellitus without complications; I10 Essential (primary) hypertension; I48.91 Unspecified atrial fibrillation; Z11.52 Encounter for screening for COVID-19; Z79.82 Long term (current) use of aspirin; F17.210 Nicotine dependence, cigarettes, uncomplicated
CPT/HCPCS: 87637; 93005; 71046; 93010; J7512; J7620

== ENCOUNTER 2023-06-27 09:18 | Emergency (ER) | payer MEDICAID, SELFPAY ==
[2023-06-27] VITALS (44 sets, daily range): BP systolic 87–153; BP diastolic 53–106; PULSE 53–142; RESP 13–28; TEMP 36.5; O2SAT 93–100
--- NOTE | 2023-06-27 09:15 | RT.EKG_ITS ---
APPROVED REPORT Exam: Resting ECG Reason for Exam: Atrial Fibrillation Patient Location: E HR:113 bpm ECG Measurements Heart Rate 113 AXIS [place] [id number] P [id number] QRSd 97 QRS 66 QT 313 T 18 QTc 429 Conclusion Atrial fibrillation...V-rate 82-176, irreg A-activity
[2023-06-27 10:05] LABS: Abs Immature Grans 0.02 10^3/uL (0.0-0.06); Absolute Basophil Count 0.04 10^3/uL (0.0-0.2); Absolute Eosinophil Count 0.09 10^3/uL (0.0-0.7); Absolute Lymphocyte Count 1.83 10^3/uL (1.2-3.4); Absolute Monocyte Count 0.72 10^3/uL (0.1-0.8); Basophils % 0.5; Eosinophils % 1.2; HCT 48.4 % (40.0-50.0); HGB 16.7 g/dL (13.5-17.5); Immature Grans % 0.3; Lymphocytes % 25.1; MCH 29.8 pg (27.0-33.0); MCHC 34.5 % (32.0-36.0); MCV 86 fL (80-95); MPV 12.1 fL (8.0-11.0); Monocytes % 9.9; Platelet Count 144 10^3/uL (130-400); RDW 12.5 % (11.8-14.1); RDW-SD 39.4 fL
[2023-06-27] MEDS: Metoprolol 5 MG/5 ML VIAL IVP (10:09)
[2023-06-27] MEDS: LORazepam 2 MG/ML VIAL 1 MG IVP (10:12)
[2023-06-27 10:27] LABS: ALT 39 U/L (16-63); AST 17 U/L (15-37); Alkaline Phosphatase 52 U/L (46-116); Anion Gap 8.4 mmol/L (3-11); BUN 18 mg/dL (7-18); Bilirubin, Total 0.5 mg/dL (0.2-1.0); CO2 29.6 mmol/L (21.0-32.0); CREATININE 0.9 mg/dL (0.70-1.30); Calcium 9.1 mg/dL (8.5-10.1); Chloride 99 mmol/L (98-107); Estimated GFR 100.24 (mL/min/1.73m2); Glucose 151 mg/dL (74-106); Magnesium 1.9 mg/dL (1.8-2.4); Potassium 3.9 mmol/L (3.5-5.1); Sodium 137 mmol/L (136-145); Total Protein 7.9 g/dL (6.4-8.2); Troponin I < 50 ng/L (< or =60)
--- NOTE | 2023-06-27 10:45 | W.ED.GENAD ---
Discharge Plan Disposition Patient Disposition: Home Condition: Stable Discharge Details Clinical Impression: Atrial fibrillation Primary Care Provider: Rich Zheng ED Provider: Eriberto Troncoso Home Meds and New Rx's Prescriptions: Continued metformin 500 mg tablet 500 mg PO BID Qty: 180 4RF (DME) Aerochamber MV Spacer See Rx Instructions .Route Qty: 1 0RF Rx Instructions: As directed allopurinol 100 mg tablet 200 mg PO DAILY Qty: 180 4RF (DME) blood-glucose meter [Everpay Ultra2 Meter] 1 EACH kit 1 ea Miscellaneous BID Qty: 1 (DME) lancets [NJOYTouch Delica Lancets] 33 gauge misc 1 ea Miscellaneous BID Qty: 200 4RF Rx Instructions: Check blood sugar twice a day albuterol sulfate [Ventolin HFA] 90 mcg/actuation HFA aerosol inhaler 2 puff IH Q6H PRN (Reason: shortness of breath or wheezing) Qty: 18 6RF (DME) blood sugar diagnostic Strip See Dose Instructions .ROUTE .MEDSUPPLY Qty: 200 4RF Dose Instruction: One Daily Rx Instructions: Check blood sugar twice a day Xarelto 20 mg tablet 20 mg PO DAILY Qty: 90 3RF Rx Instructions: must administer with evening meal lisinopril 40 mg tablet 40 mg PO DAILY Qty: 14 0RF amlodipine [Norvasc] 10 mg tablet 10 mg PO QAM Qty: 10 0RF metoprolol succinate 100 mg tablet extended release 24 hr 75 mg PO BID Qty: 14 0RF nicotine (polacrilex) 4 mg gum 4 mg buccal Q2H Qty: 50 1RF hydrochlorothiazide 50 mg tablet 50 mg PO DAILY Qty: 90 3RF omega-3 fatty acids-fish oil 1 EACH capsule 1 cap PO DAILY Discharge Instructions Instructions: A-fib (Atrial Fibrillation) (ED), Cardioversion (DC) Additional Instructions: Please contact your primary care physician to arrange follow-up. Please contact your chocolate maker today to arrange follow-up. Please take your medications as prescribed. Return to the ER immediately for any worsening or new concerning symptoms. Referrals: [facility] [Provider Group] Rich Zheng, LIGHTING SPECIALIST [Primary Care Provider] - Discharge Data Discharge Date/Time-TO BE ENTERED AT DEPARTURE: 06/27/23 13:16 HPI General Mode of arrival: EMS. Date/Time Provider Initiated Documentation: 06/27/23 09:32. Limitations to Documentation: no limitations. Information obtained by: patient. HPI Narrative: 58-year-old male with multiple medical problems including history of atrial fibrillation status post cardioversion 3 years ago, here with chief complaint of atrial fibrillation. Patient states has been having palpitations and feels like he is in A-fib since early this morning. Last night he notes he was feeling fine. Patient states he feels like rapid heart rate radiating into his neck. He has no chest pain. No shortness of breath or leg swelling. Patient notes that he has been under a lot of stress recently, he has not been using his CPAP at night and not sleeping as well as usual. He states has been taking his medication including metoprolol 75 mg twice daily but recently time of dosing has been a bit off. He did take a dose this morning. He has been taking rivaroxaban as prescribed. Related Data Home Medications Medication Instructions Recorded Confirmed blood-glucose meter (Everpay ##1 08/27/16 07/01/23 Ultra2 Meter kit) omega-3 fatty acids-fish oil 300 1 cap PO DAILY 09/21/17 07/01/23 mg-1,000 mg capsule lancets 33 gauge ([employer] Delica #200 ea 10/07/19 07/01/23 Lancets) albuterol sulfate 90 mcg/actuation 2 puff inhalation Q6H PRN 11/08/19 07/01/23 aerosol inhaler (Ventolin HFA) shortness of breath or wheezing #18 grams blood sugar diagnostic #200 ea 11/20/20 07/01/23 inhalational spacing device #1 ea 03/25/22 07/01/23 (Aerochamber MV spacer) allopurinol 100 mg tablet 200 mg (2 x 100 mg) PO DAILY #180 09/02/22 07/01/23 tabs rivaroxaban 20 mg tablet (Xarelto) 20 mg PO DAILY #90 tabs 09/10/22 07/01/23 lisinopril 40 mg tablet 40 mg PO DAILY #14 tabs 10/11/22 07/01/23 amlodipine 10 mg tablet (Norvasc) 10 mg PO QAM #10 tab-caps 11/22/22 07/01/23 metoprolol succinate 100 mg 75 mg (0.75 x 100 mg) PO BID #14 02/12/23 07/01/23 tablet,extended release 24 hr tabs metformin 500 mg tablet 500 mg PO BID #180 tabs 06/13/23 07/01/23 nicotine (polacrilex) 4 mg gum 4 mg buccal Q2H #50 ea 06/18/23 07/01/23 hydrochlorothiazide 50 mg tablet 50 mg PO DAILY #90 tab-caps 06/20/23 07/01/23 Previous Rx's Medication Instructions Recorded lancets 33 gauge (OneTouch Delica #200 ea 10/07/19 Lancets) albuterol sulfate 90 mcg/actuation 2 puff inhalation Q6H PRN 11/08/19 aerosol inhaler (Ventolin HFA) shortness of breath or wheezing #18 grams blood sugar diagnostic #200 ea 11/20/20 inhalational spacing device #1 ea 03/25/22 (Aerochamber MV spacer) allopurinol 100 mg tablet 200 mg (2 x 100 mg) PO DAILY #180 09/02/22 tabs rivaroxaban 20 mg tablet (Xarelto) 20 mg PO DAILY #90 tabs 09/10/22 lisinopril 40 mg tablet 40 mg PO DAILY #14 tabs 10/11/22 amlodipine 10 mg tablet (Norvasc) 10 mg PO QAM #10 tab-caps 11/22/22 metoprolol succinate 100 mg 75 mg (0.75 x 100 mg) PO BID #14 02/12/23 tablet,extended release 24 hr tabs metformin 500 mg tablet 500 mg PO BID #180 tabs 06/13/23 nicotine (polacrilex) 4 mg gum 4 mg buccal Q2H #50 ea 06/18/23 hydrochlorothiazide 50 mg tablet 50 mg PO DAILY #90 tab-caps 06/20/23 Allergies Allergy/AdvReac Type Severity Reaction Status Date / Time No Known Allergies Allergy Verified 06/27/23 09:28 General Stated Complaint: Chest Pain SARAH: 3 Review of Systems All systems reviewed & are unremarkable except as noted in HPI and below Constitutional Constitutional: Denies fever(s) Cardiovascular Cardiovascular: Reports as per HPI Exam Const General: cooperative and no acute distress HENMT Head: normocephalic Eyes Conjunctivae: normal conjunctivae Sclera: normal sclerae Neck Neck: trachea midline and supple Resp Auscultation: clear to auscultation bilaterally, no rales, no rhonchi and no wheezes Cardio Rate: tachycardic Rhythm: abnormal rhythm irregularly irregular GI Palpation: soft, not firm, no guarding, no masses, not rigid and nontender Skin General skin exam: no rashes or lesions noted Neuro General: patient alert, patient awake, patient oriented x3 and tone normal Extrem General: no calf tenderness and no edema Psych Appearance: grossly normal Mental Status: mental status grossly normal Speech and Movement: speech and movement normal Mood: anxious mood Affect: anxious affect Attitude: cooperative Course Vital Signs Vital signs: Vital Signs Temperature 36.5 C 06/27/23 09:21 Pulse 128 H 06/27/23 09:21 Respiratory Rate 20 06/27/23 09:21 Blood Pressure 147/75 H 06/27/23 09:21 Pulse Oximetry 97 06/27/23 09:21 Temperature 36.5 C 06/27/23 09:21 Temperature Source Oral 06/27/23 09:21 Pulse 113 H 06/27/23 10:09 Respiratory Rate 20 06/27/23 09:21 Respiratory Effort Normal, Non-Labored 06/27/23 09:29 Blood Pressure 124/75 06/27/23 10:09 Blood Pressure Position Sitting 06/27/23 09:21 Pulse Oximetry 97 06/27/23 09:21 Oxygen Delivery Method Room Air 06/27/23 09:21 Oxygen Flow Rate 0 06/27/23 09:21 Lab/Test Results Lab/Test Results: Laboratory Tests Range/Units 06/27/23 09:40 WBC (4.4-10.8) 10^3/uL 7.30 RBC (4.36-5.78) 10^6/uL 5.60 Hgb (13.5-17.5) g/dL 16.7 Hct (40.0-50.0) % 48.4 MCV (80-95) fL 86 MCH (27.0-33.0) pg 29.8 MCHC (32.0-36.0) % 34.5 RDW (11.8-14.1) % 12.5 Plt Count (130-400) 10^3/uL 144 MPV (8.0-11.0) fL 12.1 H Immature Gran % 0.3 Neutrophils % 63.0 Lymphocytes % 25.1 Monocytes % 9.9 Eosinophils % 1.2 Basophils % 0.5 Nucleated RBC % (0.0-0.3) % 0.0 Absolute Neutrophils (1.2-6.7) 10^3/uL 4.60 Absolute Lymphocytes (1.2-3.4) 10^3/uL 1.83 Absolute Monocytes (0.1-0.8) 10^3/uL 0.72 Absolute Eosinophils (0.0-0.7) 10^3/uL 0.09 Absolute Basophils (0.0-0.2) 10^3/uL 0.04 Sodium (136-145) mmol/L 137 Potassium (3.5-5.1) mmol/L 3.9 Chloride (98-107) mmol/L 99 Carbon Dioxide (21.0-32.0) mmol/L 29.6 Anion Gap (3-11) mmol/L 8.4 BUN (7-18) mg/dL 18 Creatinine (0.70-1.30) mg/dL 0.9 Est GFR (CKD-EPI 2020) (mL/min/1.73m2) 100.24 Glucose (74-106) mg/dL 151 H Calcium (8.5-10.1) mg/dL 9.1 Magnesium (1.8-2.4) mg/dL 1.9 Total Bilirubin (0.2-1.0) mg/dL 0.5 AST (15-37) U/L 17 ALT (16-63) U/L 39 Alkaline Phosphatase (46-116) U/L 52 Troponin I (< or =60) ng/L < 50 Total Protein (6.4-8.2) g/dL 7.9 Albumin (3.4-5.0) g/dL 4.0 Procedures Procedural Sedation Indication: other (cardioversion) ASA Class: II Time of Last PO Intake: 06:00 Preparation: alarm security or surveillance monitor applied, pulse oximeter, capnometry used, supplemental O2 applied, reversal agents at bedside and suction/airway equipment at bedside IV Propofol dose (mg): 160 Patient Tolerated Procedure: well Complications: none Interventions: oxygen applied and suctioning Medical Decision Making 1050?58-year-old male with history of atrial fibrillation, status post cardioversion 3 years ago, on metoprolol, diabetes, hypertension, hyperlipidemia, COPD, obstructive sleep apnea on CPAP, anxiety, here with palpitations since earlier this morning. Patient is tachycardic. quality assurance monitor body shows irregular narrow complex rhythm. EKG was reviewed and interpreted by me: Please report, atrial fibrillation 113 bpm. Patient was given Ativan 1 mg IV for anxiety. I administered metoprolol 5 mg IV. Heart rate did slow to upper 90s low 100s but remains in A-fib. Patient is candidate for cardioversion at this point given noted onset and anticoagulated. 1155 --cardioversion was performed under procedural sedation. Procedure note: electrical cardioversion Indication: atrial fibrillation Consent: verbal and written Note: Defibrillator pads were positioned anterior to posterior. Patient was sedated with propofol (see procedural sedation note). Initial synchronized cardioversion at 120 J unsuccessful. Pads were replaced and repositioned and second attempt at synchronized cardioversion at 200 J was successful at converting to sinus rhythm without complication. Complications: Initial cardioversion attempt unsuccessful. Second attempt successful. 1250 --patient was observed for period post cardioversion and has remained stable. Plan for discharge with outpatient follow-up with cardiology and PCP. Usual and customary discharge instructions were reviewed with the patient. Lab Data Lab results reviewed: Yes I reviewed the patient's lab results. Labs: Laboratory Tests Range/Units 06/27/23 09:40 WBC (4.4-10.8) 10^3/uL 7.30 RBC (4.36-5.78) 10^6/uL 5.60 Hgb (13.5-17.5) g/dL 16.7 Hct (40.0-50.0) % 48.4 MCV (80-95) fL 86 MCH (27.0-33.0) pg 29.8 MCHC (32.0-36.0) % 34.5 RDW (11.8-14.1) % 12.5 Plt Count (130-400) 10^3/uL 144 MPV (8.0-11.0) fL 12.1 H Immature Gran % 0.3 Neutrophils % 63.0 Lymphocytes % 25.1 Monocytes % 9.9 Eosinophils % 1.2 Basophils % 0.5 Nucleated RBC % (0.0-0.3) % 0.0 Absolute Neutrophils (1.2-6.7) 10^3/uL 4.60 Absolute Lymphocytes (1.2-3.4) 10^3/uL 1.83 Absolute Monocytes (0.1-0.8) 10^3/uL 0.72 Absolute Eosinophils (0.0-0.7) 10^3/uL 0.09 Absolute Basophils (0.0-0.2) 10^3/uL 0.04 Sodium (136-145) mmol/L 137 Potassium (3.5-5.1) mmol/L 3.9 Chloride (98-107) mmol/L 99 Carbon Dioxide (21.0-32.0) mmol/L 29.6 Anion Gap (3-11) mmol/L 8.4 BUN (7-18) mg/dL 18 Creatinine (0.70-1.30) mg/dL 0.9 Est GFR (CKD-EPI 2020) (mL/min/1.73m2) 100.24 Glucose (74-106) mg/dL 151 H Calcium (8.5-10.1) mg/dL 9.1 Magnesium (1.8-2.4) mg/dL 1.9 Total Bilirubin (0.2-1.0) mg/dL 0.5 AST (15-37) U/L 17 ALT (16-63) U/L 39 Alkaline Phosphatase (46-116) U/L 52 Troponin I (< or =60) ng/L < 50 Total Protein (6.4-8.2) g/dL 7.9 Albumin (3.4-5.0) g/dL 4.0 Quality:SDOH Health Related Social Needs: No Data to Display Critical Care Time Critical Care Time Critical Care Time: Yes Total Critical Care Time: 40 Attestation: I spent greater than 40 minutes addressing this patient's immediate life threats. Please see MDM section of note. This time was spent engaged in work directly related to the patient's care, exclusive of separate procedures, and failure to initiate these interventions would have likely resulted in clinically significant or life threatening deterioration in the patient's condition. PFSH All Active Problems (Updated 07/01/23 @ 09:46 by Carol Ann Vaz MD) Atrial fibrillation (Chronic) Acute exacerbation of chronic obstructive pulmonary disease (Acute) Fever (Acute) COVID-19 (Acute) 11/25/21 Vaccinated. Pfizer Nicotine dependence (Acute) 06/2021, currently 1/4 ppd, hx of 35 pk yr, patient deferred on chest CT for lung cancer screening Colon polyp (Acute) 02/2021-[facility] [place], f/u positive cologuard, due 2025 GRACE on CPAP (Chronic) Gout (Chronic) Atrial fibrillation (Chronic) Fatty liver (Acute) Hand eczema (Acute) Anxiety (Chronic) Dyshidrotic eczema (Acute) Chronic obstructive lung disease (Chronic) Depressive disorder (Chronic) Essential hypertension (Chronic 02/18/13) Hyperlipidemia (Chronic) Obesity (Chronic) Type 2 diabetes mellitus without complication, without long-term current use of insulin (Chronic 12/05/17) Medical History Diabetes HTN (hypertension) Hyperlipemia Depression COPD (chronic obstructive pulmonary disease) Surgical History S/P rotator cuff repair LEFT HEART CARDIAC CATH (~2003) NEG Family History Mother No problems noted. Social History Smoking/Tobacco Use Status: Current every day Tobacco Type: cigarettes Tobacco: How many years used: 35 Smokeless tobacco user: other Quit status: has quit before Second Hand Exposure: Yes Smoking risk assessment performed?: Yes Alcohol Intake: former Drug use: Current Sobriety Substance use type: marijuana Caregiver/Support person: No Household members: significant other Housing: apartment Communication Needs: None Do you need help understanding health information?: Rarely Pets and animals: Yes Pets and animals: cat(s) and dog(s) Sexually active: Yes Do you think of yourself as: straight/heterosexual Current gender identity: female What is your relationship status?: living with partner How often do you talk on the phone with friends or family?: three or more times per week How often do you get together with friends or relatives?: three or more times per week How often do you attend judaism or denominational services?: 1-3 times per year Do you belong to any clubs or organized social groups?: no Panel score (0-1 are the most socially isolated patients): 2 What type of physical activity do you participate in: walking Duration: < 15 minutes/day Frequency: daily Sophia/Druze: Mormon Special sophia needs: No Seatbelt use: always Helmet use: No Drive intox or ride 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
--- NOTE | 2023-06-27 11:15 | RT.EKG_ITS ---
APPROVED REPORT Exam: Resting ECG Reason for Exam: post conversion Patient Location: E HR:69 bpm ECG Measurements Heart Rate 69 AXIS OH 177 P 36 QRSd 99 QRS 49 QT 367 T 30 QTc 394 Conclusion Sinus rhythm...normal P axis, V-rate 60- [address] elevation, lateral leads...ST >0.06mV, I aVL V5 V6
[2023-06-27] MEDS: Propofol 200 MG/20 ML VIAL 160 MG IVP (11:45)
[2023-06-27] MEDS: Lactated Ringers 1,000 ML 150 ML IV (11:46)
--- NOTE | 2023-06-27 11:50 | NUR.NOTE ---
Pt went under cardioversion. Two synchronized cardioversions, fist at 120j, unsuccessful. Second cardioversion @ 200j which was successful. Pt monitored while sedated. Pt quickly came out of sedation with no ill effects. Pt in sinus rhythm in the 60-70's with out ectopy. Pt awoke from sedation and stated he felt great. Will continue to monitor. Nursing Note:
--- NOTE | 2023-06-27 12:19 | RESPIRATORY ---
Respiratory Therapy present on emergency stand by for conscious sedation. ETC02, ambu, suction, and airway at bedside. Patient turned up to 3L to maintain Sp02 > 92%. Procedure tolerated well without incident.
--- NOTE | 2023-06-30 07:36 | NUR.NOTE ---
Accessed pt chart to determine number of EKG orders, 3rd duplicate order cancelled. Nursing Note:
== END 2023-06-27 13:16 | disposition home or self-care (01) ==
LOC: ER 12:55
PROVIDERS: Emergency Provider Student in an Organized Health Care Education/Training Program; PCP Nurse Practitioner Family
DX: I48.91 Unspecified atrial fibrillation (principal); E11.9 Type 2 diabetes mellitus without complications; I10 Essential (primary) hypertension; E78.5 Hyperlipidemia, unspecified; J44.9 Chronic obstructive pulmonary disease, unspecified; F17.210 Nicotine dependence, cigarettes, uncomplicated; Z79.84 Long term (current) use of oral hypoglycemic drugs; Z79.01 Long term (current) use of anticoagulants
CPT/HCPCS: 36415; 80053; 92960; 93005; 99284; 83735; 84484; 85025; 93010; J2060; J2704

== ENCOUNTER 2023-07-01 07:51 | Outpatient (CLI) | payer MEDICAID, SELFPAY ==
--- NOTE | 2023-07-01 07:45 | RT.EKG_ITS ---
APPROVED REPORT Exam: Resting ECG Reason for Exam: afib Patient Location: O HR:74 bpm ECG Measurements Heart Rate 74 AXIS LA 162 P 44 QRSd 104 QRS 47 QT 358 T 14 QTc 398 Conclusion Sinus rhythm...normal P axis, V-rate 50- 99 Baseline wander in lead(s) V3,V4 Normal Electrocardiogram
== END 2023-07-01 07:52 | disposition home or self-care (01) ==
LOC: DI.CARD 07:52
PROVIDERS: PCP Nurse Practitioner Family; Visit Provider Internal Medicine Cardiovascular Disease
DX: I48.91 Unspecified atrial fibrillation (principal)
CPT/HCPCS: 93010

== ENCOUNTER 2023-11-22 21:22 | Emergency (ER) | payer MEDICAID, SELFPAY ==
[2023-11-22] VITALS (29 sets, daily range): BP systolic 129–174; BP diastolic 71–98; PULSE 58–76; RESP 12–28; TEMP 37.1; O2SAT 93–97
--- NOTE | 2023-11-22 21:15 | RT.EKG_ITS ---
APPROVED REPORT Exam: Resting ECG Reason for Exam: chest pain Patient Location: E HR:72 bpm ECG Measurements Heart Rate 72 AXIS MT 177 P 45 QRSd 107 QRS 60 QT 371 T 28 QTc 408 Conclusion Sinus rhythm...normal P axis, V-rate 60- [address] segment or T wave abnormalitites to suggest occlusive IN
--- NOTE | 2023-11-22 21:45 | DI.CT_ITS ---
Exam(s) CT THORAX CTA EXAM: CT THORAX CTA CLINICAL HISTORY: left sided chest and back pain, HTN, r/o dissectio. TECHNIQUE: Imaging Protocol: Axial CT angiography was performed with multi-slice acquisition and mu lti-planar reconstructions as well as axial, coronal and sagittal MIP reconstructions. CONTRAST MATERIAL: Intravenous: Omnipaque 350 Contrast volume:100 ml COMPARISON: No exams were available for comparison FINDINGS: Pulmonary Arteries: No evidence of filling defect to suggest pulmonary emboli. Tracheobronchial tree: No mucous plugging. Mediastinum and Nasra: No dominant adenopathy or fluid collection. Pulmonary parenchyma: No consolidation or dominant measurable mass. Pleura: No effusion or pneumothorax. Heart: The heart is not dilated. Mild coronary artery calcifications are seen. Aorta: Thoracic aorta non-dilated. No dissection. Minimal Modic changes. Upper abdomen: No acute findings. Bones: Degenerative changes with prominent endplate osteophytes. Tubes, Catheters, and Lines: None Soft tissues: Unremarkable. IMPRESSION: No evidence of aortic dissection or other acute abnormality. RADIATION DOSE DELIVERED: Total DLP DATA REPOSITORY: All CT scans at this facility are submitted to the National Radiology Data Registry (NRDR) Dose Index Registry (DIR) with the [employer] (ACR). RADIATION OPTIMIZATION: All CT scans at this facility use at least one of these dose optimization te chniques: automated exposure control; mA and/or kV adjustment per patient size (includes targeted exa ms where dose is matched to clinical indication); or iterative reconstruction.
[2023-11-22 21:47] LABS: Lactate 0.9 mmol/L (0.6-1.4)
--- NOTE | 2023-11-22 21:48 | W.ED.GENAD ---
Discharge Plan Discharge Details Chief Complaint: Chest Pain Primary Care Provider: Rich Zheng ED Provider: Sabrina Hook Home Meds and New Rx's Prescriptions: No Action (DME) Aerochamber MV Spacer See Rx Instructions .Route Qty: 1 0RF Rx Instructions: As directed (DME) blood-glucose meter [OneTouch Ultra2 Meter] 1 EACH kit 1 ea Miscellaneous BID Qty: 1 (DME) lancets [OneTouch Delica Lancets] 33 gauge misc 1 ea Miscellaneous BID Qty: 200 4RF Rx Instructions: Check blood sugar twice a day albuterol sulfate [Ventolin HFA] 90 mcg/actuation HFA aerosol inhaler 2 puff IH Q6H PRN (Reason: shortness of breath or wheezing) Qty: 18 6RF nicotine (polacrilex) 4 mg gum 4 mg buccal Q2H Qty: 50 1RF metformin 500 mg tablet 500 mg PO BID Qty: 180 4RF Xarelto 20 mg tablet 20 mg PO DAILY Qty: 90 3RF Rx Instructions: must administer with evening meal (DME) OneTouch Ultra Test Strip See Rx Instructions .Route Qty: 100 0RF Rx Instructions: twice daily amlodipine [Norvasc] 10 mg tablet 10 mg PO QAM Qty: 90 3RF allopurinol 100 mg tablet 200 mg PO DAILY Qty: 180 4RF (DME) blood sugar diagnostic Strip See Dose Instructions .ROUTE .MEDSUPPLY Qty: 200 4RF Dose Instruction: One Daily Rx Instructions: Check blood sugar twice a day hydrochlorothiazide 50 mg tablet 50 mg PO DAILY Qty: 90 3RF lisinopril 40 mg tablet 40 mg PO DAILY Qty: 90 3RF metoprolol succinate 100 mg tablet extended release 24 hr 100 mg PO DAILY Qty: 90 3RF omega-3 fatty acids-fish oil 1 EACH capsule 1 cap PO DAILY HPI General Mode of arrival: ambulatory. Date/Time Provider Initiated Documentation: 11/22/23 21:32. Limitations to Documentation: no limitations. HPI Narrative: 58yo M with hx afib, T2DM, obestiy, COPD, HTN, HLD, GRACE, presenting for chest pain. Symptoms started yesterday evening, mild dull left sided chest pain. Persist today, worsening, today also with mid-thoracic back pain. Pain is dull, mild to moderate, and seems to be improved with activity. Minimal improvement with tylenol last at 4pm. No shortness of breath or lightheadedness. No numbness or tingling in his left arm. Pt thinks his symptoms may be related to how he sits at his desk; leaned forward and slightly twisted with his weight resting on his left chest wall where the pain is currently located. Tried to ignore the pain all day but became more worried about his heart and so presents to the ED this evening. Otherwise in his usual state of health with no fevers, chills, rash, nausea, vomiting, abdominal pain, dysuria, hematuria, or other concerns. Related Data Home Medications ?Medication ?Instructions ?Recorded ?Confirmed blood-glucose meter ([employer] ##1 08/27/16 11/10/23 Ultra2 Meter kit) omega-3 fatty acids-fish oil 300 1 cap PO DAILY 09/21/17 11/10/23 mg-1,000 mg capsule lancets 33 gauge ([employer] Delica #200 ea 10/07/19 11/10/23 Lancets) albuterol sulfate 90 mcg/actuation 2 puff inhalation Q6H PRN 11/08/19 11/10/23 aerosol inhaler (Ventolin HFA) shortness of breath or wheezing #18 grams inhalational spacing device #1 ea 03/25/22 11/10/23 (Aerochamber MV spacer) nicotine (polacrilex) 4 mg gum 4 mg buccal Q2H #50 ea 06/18/23 11/10/23 metformin 500 mg tablet 500 mg PO BID #180 tabs 07/18/23 11/10/23 rivaroxaban 20 mg tablet (Xarelto) 20 mg PO DAILY #90 tabs 08/07/23 11/10/23 blood sugar diagnostic ([employer] #100 ea 08/22/23 11/10/23 Ultra Test strips) amlodipine 10 mg tablet (Norvasc) 10 mg PO QAM #90 tab-caps 09/24/23 11/10/23 allopurinol 100 mg tablet 200 mg (2 x 100 mg) PO DAILY #180 10/09/23 11/10/23 tabs blood sugar diagnostic #200 ea 10/09/23 11/10/23 hydrochlorothiazide 50 mg tablet 50 mg PO DAILY #90 tab-caps 10/13/23 11/10/23 lisinopril 40 mg tablet 40 mg PO DAILY #90 tabs 11/17/23 metoprolol succinate 100 mg 100 mg PO DAILY #90 tabs 11/20/23 tablet,extended release 24 hr Previous Rx's ?Medication ?Instructions ?Recorded lancets 33 gauge ([employer] Delica #200 ea 10/07/19 Lancets) albuterol sulfate 90 mcg/actuation 2 puff inhalation Q6H PRN 11/08/19 aerosol inhaler (Ventolin HFA) shortness of breath or wheezing #18 grams inhalational spacing device #1 ea 03/25/22 (Aerochamber MV spacer) nicotine (polacrilex) 4 mg gum 4 mg buccal Q2H #50 ea 06/18/23 metformin 500 mg tablet 500 mg PO BID #180 tabs 07/18/23 rivaroxaban 20 mg tablet (Xarelto) 20 mg PO DAILY #90 tabs 08/07/23 blood sugar diagnostic ([employer] #100 ea 08/22/23 Ultra Test strips) amlodipine 10 mg tablet (Norvasc) 10 mg PO QAM #90 tab-caps 09/24/23 allopurinol 100 mg tablet 200 mg (2 x 100 mg) PO DAILY #180 10/09/23 tabs blood sugar diagnostic #200 ea 10/09/23 hydrochlorothiazide 50 mg tablet 50 mg PO DAILY #90 tab-caps 10/13/23 lisinopril 40 mg tablet 40 mg PO DAILY #90 tabs 11/17/23 metoprolol succinate 100 mg 100 mg PO DAILY #90 tabs 11/20/23 tablet,extended release 24 hr Allergies Allergy/AdvReac Type Severity Reaction Status Date / Time No Known Allergies Allergy Verified 11/10/23 15:59 General Stated Complaint: Chest Pain SARAH: 2 Review of Systems Narrative: see HPI Exam Narrative Exam Narrative: General: Alert, well appearing,obese, in no acute distress. Head: Normocephalic, atraumatic Neck: Trachea midline, ?Neck supple. ENT: ?MMM.? No oropharygeal lesions or exudate. Cardiac: ?RRR, no murmurs appreciated Resp: No respiratory distress. CTAB. Abd: ?Soft, non-distended, nontender : ?No suprapubic tenderness. No CVA tenderness. Back: Left mid thoracic paraspinal muscle spasm. Chest: Anterior left lower chest mild mildly TTP Extremities: ?No deformities.? No peripheral edema. 2+ equal radial pulses bilaterally. Neurologic: GCS 15. ? Moves all extremities freely against gravity Course Vital Signs Vital signs: Vital Signs Temperature 37.1 C 11/22/23 21:28 Pulse 72 11/22/23 21:28 Respiratory Rate 21 11/22/23 21:28 Blood Pressure 167/98 H 11/22/23 21:28 Pulse Oximetry 96 11/22/23 21:28 Temperature 37.1 C 11/22/23 21:28 Temperature Source Temporal Artery Scan 11/22/23 21:28 Pulse 72 11/22/23 21:28 Respiratory Rate 20 11/22/23 21:35 Respiratory Effort Normal 11/22/23 21:35 Respiratory Depth Normal 11/22/23 21:35 Respiratory Pattern Normal 11/22/23 21:35 Blood Pressure 167/98 H 11/22/23 21:28 Blood Pressure Position Supine 11/22/23 21:28 Pulse Oximetry 96 11/22/23 21:28 Oxygen Delivery Method Room Air 11/22/23 21:28 Oxygen Flow Rate 0 11/22/23 21:28 Pain Level 3 11/22/23 21:35 Medical Decision Making 58yo M with hx afib, T2DM, obestiy, COPD, HTN, HLD, GRACE, presenting for chest pain since yesterday evening. Today also with mid-thoracic back pain. Pt thinks his symptoms may be related to how he sits at his desk; leaned forward and slightly twisted with his weight resting on his left chest wall where the pain is currently located. Pain improves with activity. Hypertensive on arrival 160's/90's, vital signs otherwise reassuring. EKG on arrival SR with no acute ischemic changes. On exam he has reproducible left chest wall and left mid-thoracic tenderness to palpation. History and most consistent with MSK pain however with his significant commorbidities and risk factors must also consider life threatening pathology including acute MO and aortic dissection. Will evaluate further with labs and CT imaging. Given additional tylenol for pain here. -Labs reviewed as below, CBC reassuring with no leukocytosis or anemia, CMP with no significant abnormalities, lactate normal, lipase not suggestive of pancreatitis, initial troponin negative, BNP negative. -CTA independently reviewed, no obvious dissection on my view and no pneumothorax or focal pneumonia. Radiology read pending. Signed out to oncoming physican, plan to follow up CT read and repeat troponin, If reassuring with add toradol and possibly muscle relaxer, dc home to followup with PCP. Lab Data Lab results reviewed: Yes I reviewed the patient's lab results. Labs: Laboratory Tests Range/Units 11/22/23 21:41 WBC (4.4-10.8) 10^3/uL 8.31 RBC (4.36-5.78) 10^6/uL 5.15 Hgb (13.5-17.5) g/dL 15.8 Hct (40.0-50.0) % 45.5 MCV (80-95) fL 88 MCH (27.0-33.0) pg 30.7 MCHC (32.0-36.0) % 34.7 RDW (11.8-14.1) % 12.4 Plt Count (130-400) 10^3/uL 126 L MPV (8.0-11.0) fL 12.0 H Immature Gran % % 0.4 Neutrophils % % 56.1 Lymphocytes % % 31.4 Monocytes % % 9.3 Eosinophils % % 2.3 Basophils % % 0.5 Nucleated RBC % (0.0-0.3) % 0.0 Absolute Neutrophils (1.2-6.7) 10^3/uL 4.67 Absolute Lymphocytes (1.2-3.4) 10^3/uL 2.61 Absolute Monocytes (0.1-0.8) 10^3/uL 0.77 Absolute Eosinophils (0.0-0.7) 10^3/uL 0.19 Absolute Basophils (0.0-0.2) 10^3/uL 0.04 VBG Lactate (0.6-1.4) mmol/L 0.9 Sodium (136-145) mmol/L 138 Potassium (3.5-5.1) mmol/L 4.1 Chloride (98-107) mmol/L 100 Carbon Dioxide (21.0-32.0) mmol/L 30.6 Anion Gap (3-11) mmol/L 7.4 BUN (7-18) mg/dL 16 Creatinine (0.70-1.30) mg/dL 0.8 Est GFR (CKD-EPI 2020) (mL/min/1.73m2) 103.87 Glucose (74-106) mg/dL 115 H Calcium (8.5-10.1) mg/dL 9.5 Total Bilirubin (0.2-1.0) mg/dL 0.48 AST (15-37) U/L 30 ALT (16-63) U/L 30 Alkaline Phosphatase (46-116) U/L 49 Troponin I (< or =60) ng/L < 50 NT-Pro-B Natriuret Pep (<300) pg/mL 68 Total Protein (6.4-8.2) g/dL 7.7 Albumin (3.4-5.0) g/dL 3.9 Lipase (16-77) U/L 81 H Quality:SDOH Health Related Social Needs: No Data to Display PFSH All Active Problems (Updated 07/28/23 @ 00:06 by JENNIFER MEDRANO) COVID-19 (Acute) 11/25/21 Vaccinated. Pfizer Nicotine dependence (Acute) 06/2021, currently 1/4 ppd, hx of 35 pk yr, patient deferred on chest CT for lung cancer screening Colon polyp (Acute) 02/2021-[facility] [place], f/u positive cologuard, due 2025 GRACE on CPAP (Chronic) Gout (Chronic) Atrial fibrillation (Chronic) Fatty liver (Acute) Hand eczema (Acute) Anxiety (Chronic) Dyshidrotic eczema (Acute) Chronic obstructive lung disease (Chronic) Depressive disorder (Chronic) Essential hypertension (Chronic 02/18/13) Hyperlipidemia (Chronic) Obesity (Chronic) Type 2 diabetes mellitus without complication, without long-term current use of insulin (Chronic 12/05/17) Medical History Diabetes HTN (hypertension) Hyperlipemia Depression COPD (chronic obstructive pulmonary disease) Surgical History S/P rotator cuff repair LEFT HEART CARDIAC CATH (~2003) NEG Family History Mother No problems noted. Social History Smoking/Tobacco Use Status: Current every day Tobacco Type: cigarettes Tobacco: How many years used: 35 Smokeless tobacco user: other Quit status: has quit before Second Hand Exposure: Yes Smoking risk assessment performed?: Yes Alcohol Intake: former Drug use: Current Sobriety Caregiver/Support person: No Household members: significant other Housing: apartment Communication Needs: None Do you need help understanding health information?: Rarely Pets and animals: Yes Pets and animals: cat(s) and dog(s) Sexually active: Yes Do you think of yourself as: straight/heterosexual Current gender identity: female What is your relationship status?: living with partner How often do you talk on the phone with friends or family?: three or more times per week How often do you get together with friends or relatives?: three or more times per week How often do you attend confucianist or oriental orthodox services?: 1-3 times per year Do you belong to any clubs or organized social groups?: no Panel score (0-1 are the most socially isolated patients): 2 What type of physical activity do you participate in: walking Duration: < 15 minutes/day Frequency: daily Sophai/Samaritan: Taoism Special sophia needs: No Seatbelt use: always Helmet use: No Drive intox or ride 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
[2023-11-22 21:52] LABS: Abs Immature Grans 0.03 10^3/uL (0.0-0.06); Absolute Basophil Count 0.04 10^3/uL (0.0-0.2); Absolute Eosinophil Count 0.19 10^3/uL (0.0-0.7); Absolute Lymphocyte Count 2.61 10^3/uL (1.2-3.4); Absolute Monocyte Count 0.77 10^3/uL (0.1-0.8); Absolute Neutrophil Count 4.67 10^3/uL (1.2-6.7); Basophils % 0.5 %; Eosinophils % 2.3 %; HCT 45.5 % (40.0-50.0); HGB 15.8 g/dL (13.5-17.5); Immature Grans % 0.4 %; Lymphocytes % 31.4 %; MCH 30.7 pg (27.0-33.0); MCHC 34.7 % (32.0-36.0); MCV 88 fL (80-95); Monocytes % 9.3 %; Neutrophils % 56.1 %; Platelet Count 126 10^3/uL (130-400); RBC 5.15 10^6/uL (4.36-5.78); RDW 12.4 % (11.8-14.1); RDW-SD 40.8 fL; WBC 8.31 10^3/uL (4.4-10.8)
[2023-11-22 22:11] LABS: Troponin I < 50 ng/L (< or =60)
[2023-11-22 22:12] LABS: ALT 30 U/L (16-63); AST 30 U/L (15-37); Albumin 3.9 g/dL (3.4-5.0); Alkaline Phosphatase 49 U/L (46-116); Anion Gap 7.4 mmol/L (3-11); BUN 16 mg/dL (7-18); Bilirubin, Total 0.48 mg/dL (0.2-1.0); CO2 30.6 mmol/L (21.0-32.0); CREATININE 0.8 mg/dL (0.70-1.30); Calcium 9.5 mg/dL (8.5-10.1); Chloride 100 mmol/L (98-107); Estimated GFR 103.87 (mL/min/1.73m2); Glucose 115 mg/dL (74-106); Lipase 81 U/L (16-77); NT-proBNP 68 pg/mL (<300); Potassium 4.1 mmol/L (3.5-5.1); Sodium 138 mmol/L (136-145); Total Protein 7.7 g/dL (6.4-8.2)
[2023-11-22] MEDS: Acetaminophen 500 MG TAB 1000 MG PO (22:20)
[2023-11-22] MEDS: Normal Saline - Diluent 50 ML VIAL IJ (22:32)
[2023-11-22] MEDS: Omnipaque 350 MG/ML 100 ML BTL IJ (22:33)
[2023-11-23] VITALS (8 sets, daily range): BP systolic 125–129; BP diastolic 75–78; PULSE 55–65; RESP 17–20; O2SAT 94–96
--- NOTE | 2023-11-23 00:02 | DI.VRAD_ITS ---
PROCEDURE INFORMATION: Exam: CTA Chest With Contrast Exam date and time: 11/22/2023 10:24 PM Age: 58 years old Clinical indication: Other: Left sided chest and back pain, HTN, R/O dissectio TECHNIQUE: Imaging protocol: Computed tomographic angiography of the chest with contrast. Exam focused on the arteries. 3D rendering (Not supervised by radiologist): MIP and/or 3D reconstructed images were created by the technologist. Contrast material: 350; Contrast volume: 100 ml; Contrast route: INTRAVENOUS (IV); COMPARISON: CT CHEST PE ABD PELVIS W 02/23/2019 9:23 AM FINDINGS: Pulmonary arteries: No pulmonary embolism identified. Aorta: No thoracic aortic aneurysm or dissection. Thyroid: Thyroid gland partially excluded from view but grossly unremarkable through its visualized portion. Lungs: No pulmonary consolidation. Pleural spaces: No pleural effusion or pneumothorax. Heart: Normal-sized heart. Lymph nodes: No pathologically enlarged mediastinal or hilar lymph nodes. Bones/joints: Lower ribs partially excluded from view and incompletely evaluated. Otherwise, no acute fracture seen among the bones of the chest. Spinal degenerative change with anterior osteophytes at multiple levels. Soft tissues: No gross soft tissue mass or fluid collection seen in the chest wall. IMPRESSION: No thoracic aortic aneurysm or dissection. No active disease seen in the chest. Dictated and Authenticated by: Derek Baker MD. Ordering:MICAH Bennett MD
--- NOTE | 2023-11-23 00:53 | W.EDPROG ---
Date of service: 11/23/23 Time of Service: 00:53 Medical Decision Making Signed out to me pending formal read of his CT scan as well as a second troponin. He had presented with chest and back pain that is likely musculoskeletal in nature but because of his prior history he was worked up for possible cardiac disease as well as dissection. His initial troponin is normal. CTA preliminary read by radiology negative for PE or aortic dissection, no acute pathology. Repeat troponin remains negative. Patient is on anticoagulation so should not be taking nonsteroidals. Recommend acetaminophen 1 g every 6-8 hours and follow-up with primary care this coming week. Return precautions provided. Lab Data Lab results reviewed: Yes I reviewed the patient's lab results. Quality:[facility] Health Related Social Needs: No Data to Display Sign Out Sign Out Data: Sign Out Comment: Chest pain & back pain, most likely MSK but significant comorbidities. Labs reassuring. Pending CTA read and delta troponin. Last updated by Sabrina Hook MD at 11/22/23 23:20 Discharge Plan Disposition Patient Disposition: Home Condition: Good Discharge Details Clinical Impression: Chest pain Primary Care Provider: Rich Zheng ED Provider: Sagar Ribeiro [place] Meds and New Rx's Prescriptions: Continued (DME) Aerochamber MV Spacer See Rx Instructions .Route Qty: 1 0RF Rx Instructions: As directed (DME) blood-glucose meter [OneTouch Ultra2 Meter] 1 EACH kit 1 ea Miscellaneous BID Qty: 1 (DME) lancets [OneTouch Delica Lancets] 33 gauge misc 1 ea Miscellaneous BID Qty: 200 4RF Rx Instructions: Check blood sugar twice a day albuterol sulfate [Ventolin HFA] 90 mcg/actuation HFA aerosol inhaler 2 puff IH Q6H PRN (Reason: shortness of breath or wheezing) Qty: 18 6RF metformin 500 mg tablet 500 mg PO BID Qty: 180 4RF Xarelto 20 mg tablet 20 mg PO DAILY Qty: 90 3RF Rx Instructions: must administer with evening meal (DME) OneTouch Ultra Test Strip See Rx Instructions .Route Qty: 100 0RF Rx Instructions: twice daily amlodipine [Norvasc] 10 mg tablet 10 mg PO QAM Qty: 90 3RF allopurinol 100 mg tablet 200 mg PO DAILY Qty: 180 4RF (DME) blood sugar diagnostic Strip See Dose Instructions .ROUTE .MEDSUPPLY Qty: 200 4RF Dose Instruction: One Daily Rx Instructions: Check blood sugar twice a day hydrochlorothiazide 50 mg tablet 50 mg PO DAILY Qty: 90 3RF lisinopril 40 mg tablet 40 mg PO DAILY Qty: 90 3RF metoprolol succinate 100 mg tablet extended release 24 hr 100 mg PO DAILY Qty: 90 3RF omega-3 fatty acids-fish oil 1 EACH capsule 1 cap PO DAILY Discharge Instructions Instructions: Chest Pain, Adult ED Additional Instructions: You were seen for chest and back pain. Your exam, vital signs, EKG, laboratory studies, chest imaging are all reassuring. Because of your anticoagulation you should not use nonsteroidals such as ibuprofen for pain. It is however fine to take acetaminophen 1 g every 6-8 hours for pain. Please follow-up with your primary care physician this coming week. Return to ED for any severe worsening pain, shortness of breath, neurologic change, syncope, other concerns. Referrals: Rich Zheng NP [Primary Care Provider] -
[2023-11-23 00:54] LABS: Troponin I < 50 ng/L (< or =60)
== END 2023-11-23 21:22 | disposition home or self-care (01) ==
LOC: ER 11-23 00:56 → RED 11-23 01:15
PROVIDERS: Student in an Organized Health Care Education/Training Program; Emergency Provider Emergency Medicine; PCP Nurse Practitioner Family
DX: R07.9 Chest pain, unspecified (principal); I48.91 Unspecified atrial fibrillation; I10 Essential (primary) hypertension; E78.5 Hyperlipidemia, unspecified; E11.9 Type 2 diabetes mellitus without complications; J44.9 Chronic obstructive pulmonary disease, unspecified; Z79.01 Long term (current) use of anticoagulants; Z79.84 Long term (current) use of oral hypoglycemic drugs; F17.210 Nicotine dependence, cigarettes, uncomplicated
CPT/HCPCS: 00123; 36415; 71275; 80053; 83690; 93005; 99285; 83605; 83880; 84484; 85025; 93010; 99284; J3490

== ENCOUNTER 2023-12-30 12:50 | Outpatient (CLI) | payer MEDICAID, SELFPAY ==
[2023-12-30 10:14] LABS: CREATININE 0.8 mg/dL (0.70-1.30); Calculated LDL 119 mg/dL (<100); Cholesterol 172 mg/dL (<200); Estimated GFR 103.87 (mL/min/1.73m2); HDL Cholesterol 35 mg/dL (40-60); Potassium 4.2 mmol/L (3.5-5.1); Triglyceride 90 mg/dL (<150)
== END 2023-12-30 12:51 | disposition home or self-care (01) ==
LOC: LBO 12:51
PROVIDERS: PCP Nurse Practitioner Family; Visit Provider Nurse Practitioner Family
DX: E78.5 Hyperlipidemia, unspecified (principal); I10 Essential (primary) hypertension
CPT/HCPCS: 36415; 80061; 82565; 84132

== ENCOUNTER 2024-02-02 10:13 | Outpatient (CLI) | payer MEDICAID, SELFPAY ==
--- NOTE | 2024-02-02 10:00 | RT.EKG_ITS ---
APPROVED REPORT Exam: Resting ECG Reason for Exam: afib Patient Location: O HR:108 bpm ECG Measurements Heart Rate 108 AXIS IN [id number] P [id number] QRSd 93 QRS 67 QT 312 T 23 QTc 418 Conclusion Atrial fibrillation...V-rate 67-156, irreg A-activity
== END 2024-02-02 10:14 | disposition home or self-care (01) ==
LOC: DI.CARD 10:13
PROVIDERS: PCP Nurse Practitioner Family; Visit Provider Internal Medicine Cardiovascular Disease
DX: I48.0 Paroxysmal atrial fibrillation (principal)
CPT/HCPCS: 93010

== ENCOUNTER 2024-04-27 12:27 | Emergency (ER) | payer MEDICAID, SELFPAY ==
[2024-04-27] VITALS (19 sets, daily range): BP systolic 115–139; BP diastolic 81–99; PULSE 61–101; RESP 20; TEMP 37.7; O2SAT 94–98
--- NOTE | 2024-04-27 12:45 | DI.CT_ITS ---
Exam(s) CT ABDOMEN PELVIS W EXAM: CT ABDOMEN PELVIS W CLINICAL HISTORY: Left lower quadrant pain. TECHNIQUE: Imaging Protocol: Axial computed tomography images with coronal and sagittal reformatted images were created and reviewed CONTRAST MATERIAL: Intravenous: Omnipaque-350 100cc Oral: None COMPARISON: CT CT THORAX CTA from 11/22/2023 FINDINGS: VISUALIZED LUNG BASES: No nodules nor pleural effusions evident. ABDOMEN: There is no ascites. LIVER: Mild hepatic steatosis. There are no focal hepatic lesions evident. No dilated intrahepatic ducts. GALLBLADDER/BILIARY: No obvious gallbladder pathology. CBD is not dilated. PANCREAS: No evidence of pancreatic mass nor dilatation of the pancreatic duct. SPLEEN: Spleen is not enlarged. No obvious intrasplenic lesions. Splenic and portal veins are paten t. ADRENALS: There are no significant adrenal masses. KIDNEYS:No cysts evident. No solid renal masses. No calculi nor hydronephrosis.. ABDOMINAL AORTA: Abdominal aorta is not enlarged. LYMPH NODES:There is no retroperitoneal nor paraaortic adenopathy. ABDOMINAL WALL: No evidence of significant anterior abdominal wall nor inguinal hernia. GI: There is no evidence of bowel obstruction, free air, nor abscess. PELVIS: GI: No evidence of appendicitis.There is no evidence of sigmoid diverticulitis. LYMPH NODES: There is no intrapelvic nor inguinal adenopathy. REPRODUCTIVE: Prostate gland size is normal. Seminal vesicles unremarkable. URINARY BLADDER: No calculi nor obvious masses evident. Pelvic ureters are not dilated. OSSEOUS: No fractures and no significant osseous lesions. Chronic disc space narrowing at L5-S1 level and posterior annular bulging evident at this level. No listhesis. No pars defects. IMPRESSION: 1. No acute findings in the abdomen and pelvis. 2. No evidence of sigmoid diverticulitis in this patient who apparently is left lower quadrant pain. Appendix also appears unremarkable. Report called by myself to ER 04/27/2024 at 3:10 p.m. RADIATION DOSE DELIVERED: Total DLP DATA REPOSITORY: All CT scans at this facility are submitted to the National Radiology Data Registry (NRDR) Dose Index Registry (DIR) with the [employer] (ACR). RADIATION OPTIMIZATION: All CT scans at this facility use at least one of these dose optimization te chniques: automated exposure control; mA and/or kV adjustment per patient size (includes targeted exa ms where dose is matched to clinical indication); or iterative reconstruction.
[2024-04-27 13:09] LABS: Abs Immature Grans 0.02 10^3/uL (0.0-0.06); Absolute Basophil Count 0.05 10^3/uL (0.0-0.2); Absolute Eosinophil Count 0.13 10^3/uL (0.0-0.7); Absolute Lymphocyte Count 1.87 10^3/uL (1.2-3.4); Absolute Monocyte Count 0.62 10^3/uL (0.1-0.8); Absolute Neutrophil Count 4.99 10^3/uL (1.2-6.7); Basophils % 0.7 %; Eosinophils % 1.7 %; HCT 49.6 % (40.0-50.0); HGB 17.2 g/dL (13.5-17.5); Immature Grans % 0.3 %; Lymphocytes % 24.3 %; MCH 30.6 pg (27.0-33.0); MCHC 34.7 % (32.0-36.0); MCV 88 fL (80-95); MPV 11.7 fL (8.0-11.0); Monocytes % 8.1 %; Neutrophils % 64.9 %; Platelet Count 150 10^3/uL (130-400); RBC 5.63 10^6/uL (4.36-5.78); RDW 12.3 % (11.8-14.1); RDW-SD 39.9 fL; WBC 7.68 10^3/uL (4.4-10.8)
[2024-04-27 13:24] LABS: ALT 24 U/L (16-63); AST 12 U/L (15-37); Alkaline Phosphatase 63 U/L (46-116); Anion Gap 4.9 mmol/L (3-11); BUN 14 mg/dL (7-18); Bilirubin, Total 0.52 mg/dL (0.2-1.0); CO2 32.1 mmol/L (21.0-32.0); Chloride 101 mmol/L (98-107); Estimated GFR 87.78 (mL/min/1.73m2); Glucose 135 mg/dL (74-106); Lipase 88 U/L (<78); Potassium 4.1 mmol/L (3.5-5.1); Sodium 138 mmol/L (136-145)
[2024-04-27 13:34] LABS: Calcium 9.5 mg/dL (8.5-10.1)
[2024-04-27] MEDS: Normal Saline - Diluent 50 ML VIAL IJ (14:51)
[2024-04-27] MEDS: Omnipaque 350 MG/ML 500 ML BTL-Imaging package 120 ML IJ (14:53)
--- NOTE | 2024-04-27 15:23 | ED.GENADUL_ITS ---
Discharge Plan Disposition Patient Disposition: Home Discharge Details Clinical Impression: Abdominal pain Primary Care Provider: Rich Zheng ED Provider: González Tellez [place] Meds and New Rx's Prescriptions: Continued diltiazem HCl 180 mg capsule,extended release 24 hr 180 mg PO DAILY Qty: 90 3RF (DME) Aerochamber MV Spacer See Rx Instructions .Route Qty: 1 0RF Rx Instructions: As directed (DME) blood-glucose meter [GoodfilmsTouch Ultra2 Meter] 1 EACH kit 1 ea Miscellaneous BID Qty: 1 (DME) lancets [OneTouch Delica Lancets] 33 gauge misc 1 ea Miscellaneous BID Qty: 200 4RF Rx Instructions: Check blood sugar twice a day albuterol sulfate [Ventolin HFA] 90 mcg/actuation HFA aerosol inhaler 2 puff IH Q6H PRN (Reason: shortness of breath or wheezing) Qty: 18 6RF metformin 500 mg tablet 500 mg PO BID Qty: 180 4RF Xarelto 20 mg tablet 20 mg PO DAILY Qty: 90 3RF Rx Instructions: must administer with evening meal (DME) OneTouch Ultra Test Strip See Rx Instructions .Route Qty: 100 0RF Rx Instructions: twice daily amlodipine [Norvasc] 10 mg tablet 10 mg PO QAM Qty: 90 3RF allopurinol 100 mg tablet 200 mg PO DAILY Qty: 180 4RF (DME) blood sugar diagnostic Strip See Dose Instructions .ROUTE .MEDSUPPLY Qty: 200 4RF Dose Instruction: One Daily Rx Instructions: Check blood sugar twice a day hydrochlorothiazide 50 mg tablet 50 mg PO DAILY Qty: 90 3RF lisinopril 40 mg tablet 40 mg PO DAILY Qty: 90 3RF metoprolol succinate 100 mg tablet extended release 24 hr 100 mg PO BID Qty: 180 3RF Discharge Instructions Instructions: Abdominal pain Additional Instructions: You are seen in the emergency department for your abdominal pain. Your Scan showed no sign of diverticulitis. Your blood work shows that your kidneys are working well. Please return to the emergency department if you had any bloody bowel movements if you pass out or if you develop chest pain. HPI General Date/Time Provider Initiated Documentation: 04/27/24 12:42 . HPI Narrative: MDM This is an overall very well-appearing normothermic and not tachycardic 59-year-old male with generalized abdominal discomfort concerning for the possibility of diverticulitis versus appendicitis for which patient underwent CT scan. CT scan was fortunately reassuring against diverticulitis and appendicitis. Patient had no pain out of proportion to suggest necrotizing soft tissue infection. I considered PE however the patient is not having shortness of breath and not having chest pain so I did not order D-dimer. In the absence of chest pain I did not feel that the patient's presentation was consistent with ACS so I did not order an ECG nor troponin. No dysuria or frequency to suggest UTI. No history of trauma to suggest increased risk for intra-abdominal injury. No history of any recent travel so is not concerned for atypical infections. In the absence of diarrhea I was not concerned for colitis. Patient also adds that he may have strained his abdomen as he reportedly leans over chair to play video games for multiple hours a day. We discussed that if he developed any fevers could not eat or drink or if you develop any black or bloody stools he should return to the emergency department. He had reassuring lab work and a lipase was not consistent with pancreatitis. No significant leukocytosis nor any LUISITO. His CT scan was read is reassuring. He understood his return indications discharged with empiric trial of expectant outpatient management. HPI He reports experiencing abdominal discomfort, which he attributes to an increase in gas production that started last week. He also mentions a single episode of loose stool, a symptom he has intermittently experienced over the years. The patient describes the pain as being located on the right side of his abdomen, where he believes his liver is situated. He suspects the possibility of diverticulitis. The patient has no history of abdominal surgeries and reports no respiratory distress or chest pain. He does not have a known diagnosis of irritable bowel syndrome (IBS), Crohn's disease, or ulcerative colitis. He has been abstaining from alcohol for the past 4 years but continues to smoke. He attempted to alleviate his symptoms with Kefir, a probiotic-rich liquid yogurt, which provided some relief. The patient underwent a colonoscopy 5 years ago, during which 2 polyps were identified and subsequently removed. The patient quit drinking about 4 years ago. He admits to smoking. Negative for vomiting, hematemesis, black or bloody stools, respiratory distress or chest pain. Colonoscopy 5 years ago identified and removed 2 polyps. Exam General: Well-appearing in no acute distress speaking in complete sentences. Head: Normocephalic, atraumatic. Eye: Extraocular eye movements intact. No conjunctival injection. No scleral icterus. Ear, nose, mouth, throat: Grossly normal inspection. Normal voice, handling secretions normally. Neck: Trachea midline. Cardiovascular: Well-perfused distal extremities. Respiratory: Nonlabored respiration. Gastrointestinal: Nondistended abdomen. Obese abdomen. Soft. Minimal left lower quadrant tenderness. No rebound. No guarding. Musculoskeletal: No edema. Moving all 4 extremities spontaneously. Skin: Normal for age and race, grossly normal temperature and turgor. No acute rash. Neurologic: Alert and appropriate, no apparent acute deficits. Related Data Home Medications ?Medication ?Instructions ?Recorded ?Confirmed blood-glucose meter (GoodfilmsTouch ##1 08/27/16 04/27/24 Ultra2 Meter kit) lancets 33 gauge (GoodfilmsTouch Delica #200 ea 10/07/19 04/27/24 Lancets) albuterol sulfate 90 mcg/actuation 2 puff inhalation Q6H PRN 11/08/19 04/27/24 aerosol inhaler (Ventolin HFA) shortness of breath or wheezing #18 grams inhalational spacing device #1 ea 03/25/22 04/27/24 (Aerochamber MV spacer) metformin 500 mg tablet 500 mg PO BID #180 tabs 07/18/23 04/27/24 rivaroxaban 20 mg tablet (Xarelto) 20 mg PO DAILY #90 tabs 08/07/23 04/27/24 blood sugar diagnostic (OneTouch #100 ea 08/22/23 04/27/24 Ultra Test strips) amlodipine 10 mg tablet (Norvasc) 10 mg PO QAM #90 tab-caps 09/24/23 04/27/24 allopurinol 100 mg tablet 200 mg (2 x 100 mg) PO DAILY #180 10/09/23 04/27/24 tabs blood sugar diagnostic #200 ea 10/09/23 04/27/24 hydrochlorothiazide 50 mg tablet 50 mg PO DAILY #90 tab-caps 10/13/23 04/27/24 lisinopril 40 mg tablet 40 mg PO DAILY #90 tabs 11/17/23 04/27/24 diltiazem HCl 180 mg capsule,24 180 mg PO DAILY #90 caps 02/02/24 04/27/24 hr,extended release metoprolol succinate 100 mg 100 mg PO BID #180 tabs 04/02/24 04/27/24 tablet,extended release 24 hr Previous Rx's ?Medication ?Instructions ?Recorded lancets 33 gauge (OneTouch Delica #200 ea 10/07/19 Lancets) albuterol sulfate 90 mcg/actuation 2 puff inhalation Q6H PRN 11/08/19 aerosol inhaler (Ventolin HFA) shortness of breath or wheezing #18 grams inhalational spacing device #1 ea 03/25/22 (Aerochamber MV spacer) metformin 500 mg tablet 500 mg PO BID #180 tabs 07/18/23 rivaroxaban 20 mg tablet (Xarelto) 20 mg PO DAILY #90 tabs 08/07/23 blood sugar diagnostic (JenniferTouch #100 ea 08/22/23 Ultra Test strips) amlodipine 10 mg tablet (Norvasc) 10 mg PO QAM #90 tab-caps 09/24/23 allopurinol 100 mg tablet 200 mg (2 x 100 mg) PO DAILY #180 10/09/23 tabs blood sugar diagnostic #200 ea 10/09/23 hydrochlorothiazide 50 mg tablet 50 mg PO DAILY #90 tab-caps 10/13/23 lisinopril 40 mg tablet 40 mg PO DAILY #90 tabs 11/17/23 diltiazem HCl 180 mg capsule,24 180 mg PO DAILY #90 caps 02/02/24 hr,extended release metoprolol succinate 100 mg 100 mg PO BID #180 tabs 04/02/24 tablet,extended release 24 hr Allergies Allergy/AdvReac Type Severity Reaction Status Date / Time No Known Allergies Allergy Verified 04/27/24 12:35 General Stated Complaint: Abd Prob SARAH: 3 Course Vital Signs Vital signs: Vital Signs Temperature 37.7 C H 04/27/24 12:30 Pulse 61 04/27/24 12:30 Respiratory Rate 20 04/27/24 12:30 Blood Pressure 139/81 04/27/24 12:30 Pulse Oximetry 98 04/27/24 12:30 Temperature 37.7 C H 04/27/24 12:30 Pulse 61 04/27/24 12:30 Respiratory Rate 20 04/27/24 12:30 Blood Pressure 139/81 04/27/24 12:30 Pulse Oximetry 95 04/27/24 13:10 Oxygen Delivery Method Room Air 04/27/24 12:30 Oxygen Flow Rate 0 04/27/24 12:30 Pain Level 0 04/27/24 12:30 Lab/Test Results Lab/Test Results: Laboratory Tests Range/Units 04/27/24 13:00 WBC (4.4-10.8) 10^3/uL 7.68 RBC (4.36-5.78) 10^6/uL 5.63 Hgb (13.5-17.5) g/dL 17.2 Hct (40.0-50.0) % 49.6 MCV (80-95) fL 88 MCH (27.0-33.0) pg 30.6 MCHC (32.0-36.0) % 34.7 RDW (11.8-14.1) % 12.3 Plt Count (130-400) 10^3/uL 150 MPV (8.0-11.0) fL 11.7 H Immature Gran % % 0.3 Neutrophils % % 64.9 Lymphocytes % % 24.3 Monocytes % % 8.1 Eosinophils % % 1.7 Basophils % % 0.7 Nucleated RBC % (0.0-0.3) % 0.0 Absolute Neutrophils (1.2-6.7) 10^3/uL 4.99 Absolute Lymphocytes (1.2-3.4) 10^3/uL 1.87 Absolute Monocytes (0.1-0.8) 10^3/uL 0.62 Absolute Eosinophils (0.0-0.7) 10^3/uL 0.13 Absolute Basophils (0.0-0.2) 10^3/uL 0.05 Sodium (136-145) mmol/L 138 Potassium (3.5-5.1) mmol/L 4.1 Chloride (98-107) mmol/L 101 Carbon Dioxide (21.0-32.0) mmol/L 32.1 H Anion Gap (3-11) mmol/L 4.9 BUN (7-18) mg/dL 14 Creatinine (0.70-1.30) mg/dL 1.0 Est GFR (CKD-EPI 2020) (mL/min/1.73m2) 87.78 Glucose (74-106) mg/dL 135 H Calcium (8.5-10.1) mg/dL 9.5 Total Bilirubin (0.2-1.0) mg/dL 0.52 AST (15-37) U/L 12 L ALT (16-63) U/L 24 Alkaline Phosphatase (46-116) U/L 63 Total Protein (6.4-8.2) g/dL 8.0 Albumin (3.4-5.0) g/dL 4.0 Lipase (<78) U/L 88 H Medical Decision Making Quality:SDOH Health Related Social Needs: No Data to Display PFSH All Active Problems (Updated 04/27/24 @ 15:25 by González Tellez MD) Abdominal pain (Acute) COVID-19 (Acute) 11/25/21 Vaccinated. Pfizer Nicotine dependence (Acute) 06/2021, currently 1/ ppd, hx of 35 pk yr, patient deferred on chest CT for lung cancer screening Colon polyp (Acute) 02/2021-[facility] [place], f/u positive cologuard, due 2025 GRACE on CPAP (Chronic) Gout (Chronic) Atrial fibrillation (Chronic) Fatty liver (Acute) Hand eczema (Acute) Anxiety (Chronic) Dyshidrotic eczema (Acute) Chronic obstructive lung disease (Chronic) Depressive disorder (Chronic) Essential hypertension (Chronic 02/18/13) Hyperlipidemia (Chronic) Obesity (Chronic) Type 2 diabetes mellitus without complication, without long-term current use of insulin (Chronic 12/05/17) Medical History Diabetes HTN (hypertension) Hyperlipemia Depression COPD (chronic obstructive pulmonary disease) Surgical History S/P rotator cuff repair LEFT HEART CARDIAC CATH (~2003) NEG Family History Mother No problems noted. Social History Smoking/Tobacco Use Status: Current every day Tobacco Type: cigarettes Tobacco: How many years used: 35 Smokeless tobacco user: other Quit status: has quit before Second Hand Exposure: Yes Smoking risk assessment performed?: Yes Alcohol Intake: former Drug use: Current Sobriety Substance use type: does not use Caregiver/Support person: No Household members: significant other Housing: apartment Communication Needs: None Do you need help understanding health information?: Rarely Pets and animals: Yes Pets and animals: cat(s) and dog(s) Sexually active: Yes Do you think of yourself as: straight/heterosexual Current gender identity: female What is your relationship status?: living with partner How often do you talk on the phone with friends or family?: three or more times per week How often do you get together with friends or relatives?: three or more times per week How often do you attend tenriism or islam services?: 1-3 times per year Do you belong to any clubs or organized social groups?: no Panel score (0-1 are the most socially isolated patients): 2 What type of physical activity do you participate in: walking Duration: < 15 minutes/day Frequency: daily Sophia/Caodaism: Rastafarian Special sophia needs: No Seatbelt use: always Helmet use: No Drive intox or ride w/intox 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
== END 2024-04-27 15:34 | disposition home or self-care (01) ==
PROVIDERS: Emergency Provider Emergency Medicine; PCP Nurse Practitioner Family
DX: F17.210 Nicotine dependence, cigarettes, uncomplicated; R10.30 Lower abdominal pain, unspecified
CPT/HCPCS: 36415; 80053; 83690; 99285; 74177; 85025; 99283

== ENCOUNTER 2025-02-19 09:20 | Emergency (ER) | payer MEDICAID, SELFPAY ==
[2025-02-19 09:47] VITALS: BP 124/87; PULSE 77; RESP 22; TEMP 36.6; O2SAT 92
[2025-02-19 09:51] VITALS: BP 150/113; PULSE 77; RESP 22; TEMP 36.6; O2SAT 91
[2025-02-19 09:56] VITALS: BP 124/87
[2025-02-19] MEDS: Fluorescein STRIPS 100/BOX 1 MG OP (10:23)
[2025-02-19] MEDS: Tetracaine 0.5% 4 ML BTL OP (10:23)
--- NOTE | 2025-02-19 10:28 | W.ED.GENAD ---
Discharge Plan Disposition Patient Disposition: Home Condition: Stable Discharge Details Clinical Impression: Abrasion, corneal Primary Care Provider: Rich Zheng ED Provider: Magda Aden Home Meds and New Rx's Prescriptions: New erythromycin 5 mg/gram (0.5 %) Ointment 3,500 mg OS TID Qty: 3.5 0RF No Action albuterol sulfate [Ventolin HFA] 90 mcg/actuation HFA aerosol inhaler 2 puff IH Q6H PRN (Reason: shortness of breath or wheezing) Qty: 18 6RF allopurinol 100 mg tablet 200 mg PO DAILY Qty: 180 4RF amlodipine [Norvasc] 10 mg tablet 10 mg PO QAM Qty: 90 3RF hydrochlorothiazide 50 mg tablet 50 mg PO DAILY Qty: 90 3RF metformin 500 mg tablet 500 mg PO BID Qty: 180 4RF Xarelto 20 mg tablet 20 mg PO DAILY Qty: 90 3RF Rx Instructions: must administer with evening meal (DME) Aerochamber MV Spacer See Rx Instructions .Route Qty: 1 0RF Rx Instructions: As directed (DME) blood-glucose meter [OneTouch Ultra2 Meter] 1 EACH kit 1 ea Miscellaneous BID Qty: 1 (DME) lancets [OneTouch Delica Lancets] 33 gauge misc 1 ea Miscellaneous BID Qty: 200 4RF Rx Instructions: Check blood sugar twice a day (DME) blood sugar diagnostic Strip See Dose Instructions .ROUTE .MEDSUPPLY Qty: 200 4RF Dose Instruction: One Daily Rx Instructions: Check blood sugar twice a day metoprolol succinate 100 mg tablet extended release 24 hr 100 mg PO BID Qty: 180 3RF (DME) OneTouch Ultra Test Strip See Rx Instructions .ROUTE .COMPLEX Qty: 100 12RF Dose Instruction: USE TO TEST BLOOD GLUCOSE TWICE DAILY Rx Instructions: USE TO TEST BLOOD GLUCOSE TWICE DAILY lisinopril 40 mg tablet 40 mg PO DAILY Qty: 90 3RF diltiazem HCl 180 mg capsule,extended release 24 hr 180 mg PO DAILY Qty: 90 3RF Discharge Instructions Instructions: Corneal Abrasion ED Additional Instructions: You were seen in the emergency department today for evaluation of an eye injury and were found to have a corneal abrasion of your left eye. In our department a full physical examination performed, there was no evidence of retained foreign body and you were started on a topical antibiotic. Please use this 3 times per day until you can be reevaluated by your outpatient provider. You can also use warm compresses, and artificial tears for comfort. Some people like to keep them in the fridge so they are cool and soothing. Please follow-up with your primary care provider in the next few days to discuss this visit and any symptoms that change, worsen, or persist. Thank you for allowing us to be part of your care. Discharge Data Discharge Date/Time-TO BE ENTERED AT DEPARTURE: 02/19/25 10:49 HPI General Mode of arrival: ambulatory. Date/Time Provider Initiated Documentation: 02/19/25 09:56. Limitations to Documentation: no limitations. Information obtained by: patient and old records reviewed. HPI Narrative: This is a 60-year-old male patient presenting for evaluation of a left eye injury. The patient reports that on Friday he was switching out the gas tank of his car, which was very mini. He thinks he got some rust in his eye, was able to visualize it and get it out but has had some discomfort in that eye since. He reports that he has been doing warm compresses, does have a known stye on the lower lid of the left eye which was present prior to this event. States that he also took Tylenol with some improvement. He does not wear corrective lenses or contact lenses, states that he did not sustain any other injury and denies visual acuity changes. Related Data Home Medications Medication Instructions Recorded Confirmed blood-glucose meter (OneTouch ##1 08/27/16 02/19/25 Ultra2 Meter kit) lancets 33 gauge (OneTouch Delica #200 ea 10/07/19 02/19/25 Lancets) inhalational spacing device #1 ea 03/25/22 02/19/25 (Aerochamber MV spacer) blood sugar diagnostic #200 ea 10/09/23 02/19/25 metoprolol succinate 100 mg 100 mg PO BID #180 tabs 04/02/24 02/19/25 tablet,extended release 24 hr albuterol sulfate 90 mcg/actuation 2 puff inhalation Q6H PRN 07/07/24 02/19/25 aerosol inhaler (Ventolin HFA) shortness of breath or wheezing #18 grams allopurinol 100 mg tablet 200 mg (2 x 100 mg) PO DAILY #180 07/07/24 02/19/25 tabs amlodipine 10 mg tablet (Norvasc) 10 mg PO QAM #90 tab-caps 07/07/24 02/19/25 hydrochlorothiazide 50 mg tablet 50 mg PO DAILY #90 tab-caps 07/07/24 02/19/25 metformin 500 mg tablet 500 mg PO BID #180 tabs 07/07/24 02/19/25 rivaroxaban 20 mg tablet (Xarelto) 20 mg PO DAILY #90 tabs 07/07/24 02/19/25 blood sugar diagnostic (OneTouch #100 strips 11/02/24 02/19/25 Ultra Test strips) lisinopril 40 mg tablet 40 mg PO DAILY #90 tabs 12/08/24 02/19/25 diltiazem HCl 180 mg capsule,24 180 mg PO DAILY #90 caps 01/13/25 02/19/25 hr,extended release erythromycin 5 mg/gram (0.5 %) eye 3,500 mg OS TID #3.5 grams 02/19/25 ointment Previous Rx's Medication Instructions Recorded lancets 33 gauge (NetliftTouch Delica #200 ea 10/07/19 Lancets) inhalational spacing device #1 ea 03/25/22 (Aerochamber MV spacer) blood sugar diagnostic #200 ea 10/09/23 metoprolol succinate 100 mg 100 mg PO BID #180 tabs 04/02/24 tablet,extended release 24 hr albuterol sulfate 90 mcg/actuation 2 puff inhalation Q6H PRN 07/07/24 aerosol inhaler (Ventolin HFA) shortness of breath or wheezing #18 grams allopurinol 100 mg tablet 200 mg (2 x 100 mg) PO DAILY #180 07/07/24 tabs amlodipine 10 mg tablet (Norvasc) 10 mg PO QAM #90 tab-caps 07/07/24 hydrochlorothiazide 50 mg tablet 50 mg PO DAILY #90 tab-caps 07/07/24 metformin 500 mg tablet 500 mg PO BID #180 tabs 07/07/24 rivaroxaban 20 mg tablet (Xarelto) 20 mg PO DAILY #90 tabs 07/07/24 blood sugar diagnostic (OneTouch #100 strips 11/02/24 Ultra Test strips) lisinopril 40 mg tablet 40 mg PO DAILY #90 tabs 12/08/24 diltiazem HCl 180 mg capsule,24 180 mg PO DAILY #90 caps 01/13/25 hr,extended release erythromycin 5 mg/gram (0.5 %) eye 3,500 mg OS TID #3.5 grams 02/19/25 ointment Allergies Allergy/AdvReac Type Severity Reaction Status Date / Time No Known Allergies Allergy Verified 02/19/25 09:51 General Stated Complaint: EyeProblem SARAH: 4 Exam Narrative Exam Narrative: Gen: Awake and alert, in no apparent distress HEENT: Non-icteric sclera, PERRL, right eye without acute abnormality. The left eye has very mild periorbital swelling, a small stye on the lower lateral lid of the left eye, without surrounding super infectious changes. The patient's visual acuity is preserved, 20/13 bilaterally, 20/13 in right eye, 20/3 in the left. The conjunctiva is not significantly injected. No foreign bodies are visualized with bright light exam nor with eversion of the upper lid. Fluorescein exam reveals a small area of corneal abrasion just lateral to the iris of the left eye, Sidel sign negative. EOMs are full and without limitation, pain, or entrapment. Neck: Supple Lungs: No apparent respiratory distress, normal respiratory effort. CV: Appears well perfused Abdomen: Non-distended MSK: Moves 4 extremities without apparent limitation in ROM Skin: Visualized skin without rashes, cyanosis. Neuro: Normal Gait, no obvious focal deficits or facial asymmetry. Speaks in full, clear sentences. Psych: Appropriate for situation. Course Vital Signs Vital signs: Vital Signs Temperature 36.6 C 02/19/25 09:47 Pulse 77 02/19/25 09:47 Respiratory Rate 22 02/19/25 09:47 Blood Pressure 124/87 02/19/25 09:47 Pulse Oximetry 92 02/19/25 09:47 Temperature 36.6 C 02/19/25 09:51 Temperature Source Temporal Artery Scan 02/19/25 09:51 Pulse 77 02/19/25 09:51 Respiratory Rate 22 02/19/25 09:51 Blood Pressure 124/87 02/19/25 09:56 Blood Pressure Mean 99 02/19/25 09:56 Blood Pressure Position Sitting 02/19/25 09:51 Pulse Oximetry 91 L 02/19/25 09:51 Oxygen Delivery Method Room Air 02/19/25 09:51 Oxygen Flow Rate 0 02/19/25 09:51 Pain Level 4 02/19/25 09:51 Medical Decision Making This is a 60-year-old male patient presenting for evaluation of an eye issue. My differential includes but is not limited to corneal abrasion, ulcer, foreign body. Considered periorbital cellulitis, though my exam is quite reassuring against this. The stye is an unlikely contributor to this patient's presentation. The patient's history and physical examination is less concerning for open globe injury, glaucoma, optic neuritis, uveitis. Given the clinical improvement with tetracaine, the evidence of corneal abrasion without residual foreign body, and the patient's preserved visual acuity I feel reassured against severe ophthalmologic emergency that would require transfer at this time. I provided the patient with erythromycin, which he is familiar with using. He will follow-up with his primary care doctor at his scheduled appointment on Friday and can discuss referral to ophthalmology at that time. I counseled the patient on the use of artificial tears as needed for comfort. At this time, the patient has had a full medical evaluation and is safe for discharge to home. They are hemodynamically stable, ambulatory, and tolerating PO. They are understanding of the follow-up plan and return precautions. They left our facility without incident. Magda Aden MD [facility] All Active Problems (Updated 02/19/25 @ 10:29 by Magda Aden MD) Abrasion, corneal (Acute) Fatigue (Acute) COVID-19 (Acute) 11/25/21 Vaccinated. Pfizer Nicotine dependence (Acute) 06/2021, currently 1/ ppd, hx of 35 pk yr, patient deferred on chest CT for lung cancer screening Colon polyp (Acute) 02/2021-[facility] [place], f/u positive cologuard, due 2025 GRACE on CPAP (Chronic) Gout (Chronic) Atrial fibrillation (Chronic) Fatty liver (Acute) Hand eczema (Acute) Anxiety (Chronic) Dyshidrotic eczema (Acute) Chronic obstructive lung disease (Chronic) Depressive disorder (Chronic) Essential hypertension (Chronic 02/18/13) Hyperlipidemia (Chronic) Obesity (Chronic) Type 2 diabetes mellitus without complication, without long-term current use of insulin (Chronic 12/05/17) Medical History Diabetes HTN (hypertension) Hyperlipemia Depression COPD (chronic obstructive pulmonary disease) Surgical History S/P rotator cuff repair LEFT HEART CARDIAC CATH (~2003) NEG Family History Mother No problems noted. Social History Smoking/Tobacco Use Status: Current every day Tobacco Type: cigarettes Tobacco: How many years used: 35 Smokeless tobacco user: other Quit status: has quit before Second Hand Exposure: Yes Smoking risk assessment performed?: Yes Alcohol Intake: former Drug use: Current Sobriety Substance use type: does not use Caregiver/Support person: No Household members: significant other Housing: apartment Communication Needs: None Do you need help understanding health information?: Rarely Pets and animals: Yes Pets and animals: cat(s) and dog(s) Sexually active: Yes Do you think of yourself as: straight/heterosexual Current gender identity: female What is your relationship status?: living with partner How often do you talk on the phone with friends or family?: three or more times per week How often do you get together with friends or relatives?: three or more times per week How often do you attend pentecostalism or mu-ism services?: 1-3 times per year Do you belong to any clubs or organized social groups?: no Panel score (0-1 are the most socially isolated patients): 2 What type of physical activity do you participate in: walking Duration: < 15 minutes/day Frequency: daily Sophia/Islam: Jainism Special sophia needs: No Seatbelt use: always Helmet use: No Drive intox or ride w/intox 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
[2025-02-19] MEDS: Erythromycin Ophth Oint 3.5 GM TUBE OS (10:40)
== END 2025-02-19 10:49 | disposition home or self-care (01) ==
PROVIDERS: Emergency Provider Emergency Medicine; PCP Nurse Practitioner Family
DX: S05.02XA Injury of conjunctiva and corneal abrasion without foreign body, left eye, initial encounter (principal); X58.XXXA Exposure to other specified factors, initial encounter
CPT/HCPCS: 99283 ×2